=== PATIENT | female | born 1935 | race Caucasian/White ===

== ENCOUNTER 2016-11-23 17:40 | Inpatient (IN) | payer MEDICARE, OTHER ==
[~2016-11-23] VITALS: Ht 165.1 cm; Wt 55.8 kg
[~2016-11-23 17:40] MED LIST: ACET-2422 PO; ACLI400A IH; ALBT2T; ALBU0.632 HHN; ALBU2.5V4 IH; ALBU8.5H2 IH; ALPR.25T; ALPR0.5T7 PO; ANTARA PO; ASP325T PO; ASP81CT PO; ASP81TEC PO; ATOR10TA PO; ATRV10T PO; BETIMOL; BUDE10.2 IH; BUDE10.22; BUDE6HFA IH; CEPH500C PO; CHOL2000 PO; CLOP75TA PO; CLPD75T PO; DABI75CA3 PO; DIGO250T15 PO; DILT240C PO; EZET10TA5 PO; FENO120T PO; FERR-74 PO; FLUT16SP22 NS; FOLI0.4T2 PO; FURO40TA4 PO; IBP200T; INSU100V31 IJ; INSU100V5 SQ; ISM30TCR PO; LEVO500T69 PO; LRT10T PO; MAGN250T7 PO; MECL12.579 PO; METO-333 PO; METO50TA7; MGX400T PO; MNTL10T PO; MTP50T PO; MULT1CAP27 PO; NISO17TA PO; NITR100C3 PO; NTR.4SL SL; OLME20TA5; OMG1KC PO; ONDA-42 SL; POLY255P PO; POTA10TA10 PO; PRD20T PO; RIVA20TA PO; RT-ALBUINH IH; TIOT18CA; TIOT4MIS2 IH; TRIM100T PO; TYLENOL ARTHRITIS; VITAMINS; XARELTO PO; ZIPR20CA26 PO; [UNRECOGNIZED DRUG - CODE] PO; [UNRECOGNIZED DRUG - OTHER]; [UNRECOGNIZED DRUG - OTHER] PO; hydrochlorot
--- OUTSIDE RECORDS SUMMARY | 2016-11-23 17:53 | XMS REPORT | Continuity of Care Document ---
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 Yes 08/09/16 11:05pm Organ Donor No 08/09/16 11:05pm Resuscitation Status Full Code 08/09/16 11:05pm Chief Complaint and Reason for Visit Chief Complaint Nasal Problems Reason for Visit Epistaxis Problems Active Problems Medical Problem Onset Date Status COPD with acute exacerbation Unknown Acute Chest pain at rest Unknown Acute Constipation Unknown Acute Digoxin toxicity Unknown Acute Epistaxis Unknown Acute Nausea Unknown Acute Respiratory distress Unknown Acute Urinary tract infectious disease Unknown Acute Medications Current Home Medications Medication Dose Units Route Directions Days/Qty Instructions Start Date Nitroglycerin 0.4 Mg 0.4 Mg Q 5 Min X 3 Doses as needed NEEDED FOR CHEST PAIN 06/15/09 Multivitamins 1 Each 1 Tab Oral Daily 07/30/10 Fish Oil 1,000 Mg 1,000 Mg Oral Every Evening 04/10/12 Loratadine 10 Mg 10 Mg Oral Daily 04/11/12 Digoxin 250 Mcg 250 Mcg Oral Daily 09/01/15 Furosemide 40 Mg 40 Mg Oral Daily 09/01/15 Potassium Chloride 10 Meq 10 Meq Oral Twice A Day 09/01/15 Albuterol Sulfate 2.5 Mg/3 Ml 2.5 Mg Inhalation Every 6 Hours as needed for Shortness Of Breath 09/01/15 Tiotropium [place] 4 Gm 2 Puff Inhalation Daily 09/01/15 Ferrous Sulfate 325 Mg 325 Mg Oral Twice A Day 09/01/15 Alprazolam 0.5 Mg 0.5 Mg Oral Twice A Day 09/01/15 Ziprasidone Hcl 20 Mg 20 Mg Oral Bedtime 09/01/15 Trimethoprim 100 Mg 100 Mg Oral Bedtime 09/01/15 Rivaroxaban 20 Mg 20 Mg Oral Bedtime 09/02/15 Budesonide/Formoterol Fumarate 10.2 Gm 2 Puff Inhalation Twice A Day 09/02/15 Albuterol Sulfate 8.5 Gm 2 Puff Inhalation Every 4HRS as needed for Shortness Of Breath 09/02/15 Fluticasone Propionate 16 Gm 1 Spr Nasal Daily 09/02/15 Meclizine Hcl 12.5 Mg 12.5 Mg Oral Daily 09/02/15 Ezetimibe 10 Mg 10 Mg Oral Bedtime 09/02/15 Acetaminophen 650 Mg 650-1300 Mg Oral Twice A Day as needed for Pain 09/02/15 Prednisone 20 Mg 20 Mg Oral Daily@0700 30 Days 09/06/15 Metoprolol Tartrate 25 Mg 25 Mg Oral Twice A Day 30 Days 09/06/15 Atorvastatin Calcium 10 Mg 10 Mg Oral Daily 30 09/06/15 Polyethylene Glycol 3350 255 Gm 527 03/31/16 Past Home Medications Medication Directions Ordered Status Montelukast Sodium 10 Mg Tablet, 10 Mg Oral Bedtime 06/21/08 Discontinued Olmesartan 20 Mg Tablet, 06/21/08 Discontinued Ezetimibe 10 Mg Tablet, 10 Mg Oral Bedtime 06/21/08 Discontinued Alprazolam 0.25 Mg Tablet, 06/21/08 Discontinued Ibuprofen 200 Mg Tablet, 06/21/08 Discontinued Tiotropium [place] 18 Mcg Cap.w.dev, 06/21/08 Discontinued [Betimol] , 06/21/08 Discontinued [Symbicodrt] , 06/21/08 Discontinued [Hydrochlorot] , 06/21/08 Discontinued Aspirin 81 Mg Tablet, 325 Mg Oral Daily 06/21/08 Discontinued Albuterol Sulfate 2 Mg Tablet, 06/21/08 Discontinued Budesonide/Formoterol Fumarate 10.2 Gm Hfa.aer.ad, 2 Puff Daily 06/15/09 Discontinued Nisoldipine 17 Mg Tab.sr.24h, 8.5 Mg Oral Bedtime 06/15/09 Discontinued [R.-Vivian] , 9 - 25 Oral Twice Daily And Prn 06/15/09 Discontinued [Tylenol Arthritis] , 06/15/09 Discontinued [Vitamins] , 06/15/09 Discontinued Magnesium Oxide 400 Mg Tab, 250 Mg Oral Twice A Day 06/15/09 Discontinued Nitrofurantoin Macrocrystals 100 Mg Capsule, 100 Mg Oral Twice A Day Discontinued Metoprolol Tartrate 50 Mg Tab, 50 Mg Oral Twice A Day 07/30/10 Discontinued Albuterol Sulfate (Proventil Nebs) 0.63 Mg/3 Ml Vial.neb, 1 Each Hand Held Nebulizer Every 4HRS as needed 07/30/10 Discontinued Cholecalciferol 2,000 Unit Capsule, 2000 Unit Oral Every Other Day 07/30/10 Discontinued Folic Acid 0.4 Mg Tablet, 0.4 Mg Oral Every Other Day 07/30/10 Discontinued Aspirin 325 Mg Tab, 325 Mg Oral Daily 07/31/10 Discontinued Atorvastatin Calcium 10 Mg Tablet, 10 Mg Oral Daily 07/31/10 Discontinued Isosorbide Mononitrate 30 Mg Tab, 30 Mg Oral Daily 07/31/10 Discontinued Clopidogrel Bisulfate 75 Mg Tablet, 1 Each Oral Daily 07/31/10 Discontinued Fenofibrate 120 Mg Tablet, 120 Mg Oral 07/31/10 Discontinued [Antara] , 130 Mg Oral Bedtime 11/22/10 Discontinued Cephalexin Monohydrate (Keflex) 500 Mg Capsule, 1 Each Oral Three Times A Day 11/22/10 Discontinued Diphenhydram/Pe/Dm/Acetamin/Gg 1 Each Tablet.seq, 2 Tab Oral Daily 04/10/12 Discontinued Diltiazem Hcl (Cardizem Cd) 240 Mg Cap.sr.24h, 240 Mg Oral Daily 04/11/12 Discontinued Dabigatran Etexilate Mesylate 75 Mg Capsule, 75 Mg Oral Daily 04/11/12 Discontinued Aspirin 81 Mg Tabec, 81 Mg Oral Daily 04/11/12 Discontinued Budesonide/Formoterol Fumarate 10.2 Gm Hfa.aer.ad, 2 Puff Inhalation Twice A Day 04/26/13 Discontinued Magnesium Oxide 250 Mg Tablet, 250 Mg Oral Twice A Day 04/26/13 Discontinued Aspirin 325 Mg Tab, 325 Mg Oral Twice A Day 04/26/13 Discontinued Albuterol 8.5 Gm Hfa.aer.ad, 2 Puff Inhalation Every 3 Hours as needed Discontinued Clopidogrel Bisulfate 75 Mg Tablet, 75 Mg Oral Daily 04/26/13 Discontinued Aclidinium [place] 400 Mcg Aer.pow.ba, 400 Mcg Inhalation Twice A Day Discontinued Levofloxacin 500 Mg Tab, 1 Each Oral Daily 11/06/13 Discontinued Ondansetron Hcl 4 Mg Tab, 4 Mg Sublingual Every 4HRS as needed for Nausea 04/14 Discontinued [Xarelto] Unknown Strength , 20 Mg Oral Daily 09/01/15 Discontinued Metoprolol Tartrate 25 Mg Tablet, 12.5 Mg Oral Twice A Day 09/02/15 Discontinued Social History Social History Problem Response Recorded Date/Time Alcohol Use Rarely Uses 03/31/2016 10:24am Recreational Drug Use No 03/31/2016 10:24am Recent Foreign Travel No 08/09/2016 11:05pm Recent Infectious Disease Exposure No 08/09/2016 11:05pm Sexually Transmitted Disease No 08/09/2016 11:05pm HIV/AIDS No 08/09/2016 11:05pm Smoking Status Never a Smoker 08/09/2016 11:05pm Do you dip or chew tobacco? No 03/31/2016 10:24am Recent Hopitalizations No 08/09/2016 11:05pm Sexually Transmitted Disease No 08/09/2016 11:05pm Hx Sexually Transmitted Disorders No 06/21/2008 5:34pm Query Response Start Date Stop Date Smoking Status Never a Smoker 01/25/2004 Hospital Discharge Instructions No hospital discharge instructions. Plan of Care Discharge Date 08/10/16 12:01am Disposition 01 HOME, SELF-CARE Condition at Discharge Improved Instructions/Education Provided Epistaxis (ED) Prescriptions See Medication Section Referrals CONNIE AGUILAR MD - Primary Care Physician Additional Instructions/Education All discharge instructions reviewed with patient and/or family. Voiced understanding. Continue home medications as directed. Use nasal spray 2 sprays to each nostril every 6 hours. Do not blow your nose. Use humidified oxygen. Follow-up with Dr. Biggs this week for recheck and further evaluation. Return for worse pain, fever, vomiting, persistent bleeding that does not stop with direct pressure or other concerns as needed. Functional Status No functional status results. Allergies, Adverse Reactions, Alerts Allergen Type Severity Reaction Status Last Updated Penicillins ([id number]) Allergy Unknown Active 06/19/14 simvastatin ([id number]) Allergy Unknown Active 06/21/08 egg ([id number]) Allergy Intermediate Active 04/10/12 milk ([id number]) Allergy Mild Active 04/10/12 Immunizations No immunization records. Vital Signs Acute Vital Signs Vital Response Date/Time Temperature (Fahrenheit) 98.0 degrees F (97.6 - 99.5) 08/10/2016 12:01am Temperature (Calculated Celsius) 36.06075 degrees C (36.4 - 37.5) 08/10/2016 12:01am Temperature Source Temporal 08/10/2016 12:01am Pulse Rate (adult) 58 bpm (60 - 90) 08/10/2016 12:01am Respiratory Rate 18 bpm (12 - 24) 08/10/2016 12:01am O2 Sat by Pulse Oximetry 95 % (88 - 100) 08/10/2016 12:01am Blood Pressure 118/66 mm Hg 08/10/2016 12:01am Blood Pressure Mean 95 mm Hg 08/09/2016 11:05pm Pain Numeric Pain Scale 1 08/10/2016 12:01am Height (Feet) 5 feet 08/09/2016 11:05pm Height (Inches) 5 inches 08/09/2016 11:05pm Height (Calculated Centimeters) 165.096849 cm 08/09/2016 11:05pm Weight (Pounds) 125 pounds 08/09/2016 11:05pm Weight (Ounces) 8.9 oz 08/09/2016 11:05pm Weight (Calculated Grams) 79555.047 gm 08/09/2016 11:05pm Weight (Calculated Kilograms) 56.068870 kilograms 08/09/2016 11:05pm Calculated BMI 18.88 08/09/2016 11:05pm Capillary Refill Capillary Refill Less Than 3 Seconds 08/09/2016 11:05pm Results Laboratory Results Test Name Result Units Flags Reference Collection Date/Time Result Date/ Time Comments White Blood Count 14.6 10^3/uL H 4.3-11.0 08/09/2016 11:20pm 08/09/2016 11:36pm Red Blood Count 3.74 10^6/uL L 4.35-5.85 08/09/2016 11:20pm 08/09/2016 11 :36pm Hemoglobin 11.1 G/DL L 11.5-16.0 08/09/2016 11:20pm 08/09/2016 11:36pm Hematocrit 36 % 35-52 08/09/2016 11:20pm 08/09/2016 11:36pm Mean Corpuscular Volume 96 FL 80-99 08/09/2016 11:20pm 08/09/2016 11: 36pm Mean Corpuscular Hemoglobin 30 PG 25-34 08/09/2016 11:20pm 08/09/2016 11:36pm Mean Corpuscular Hemoglobin Concent 31 G/DL L 32-36 08/09/2016 11:20pm 11:36pm Red Cell Distribution Width 12.4 % 10.0-14.5 08/09/2016 11:20pm 2015 11:36pm Platelet Count 339 10^3/uL 130-400 08/09/2016 11:20pm 08/09/2016 11: 36pm Mean Platelet Volume 9.9 FL 7.4-10.4 08/09/2016 11:20pm 08/09/2016 11: 36pm Neutrophils (%) (Auto) 85 % H 42-75 08/09/2016 11:20pm 08/09/2016 11: 36pm Lymphocytes (%) (Auto) 7 % L 12-44 08/09/2016 11:20pm 08/09/2016 11:36pm Monocytes (%) (Auto) 7 % 0-12 08/09/2016 11:20pm 08/09/2016 11:36pm Eosinophils (%) (Auto) 1 % 0-10 08/09/2016 11:20pm 08/09/2016 11:36pm Basophils (%) (Auto) 0 % 0-10 08/09/2016 11:20pm 08/09/2016 11:36pm Neutrophils # (Auto) 12.4 X 10^3 H 1.8-7.8 08/09/2016 11:20pm 08/09/2016 11:36pm Lymphocytes # (Auto) 1.1 X 10^3 1.0-4.0 08/09/2016 11:20pm 08/09/2016 11:36pm Monocytes # (Auto) 1.0 X 10^3 0.0-1.0 08/09/2016 11:20pm 08/09/2016 11: 36pm Eosinophils # (Auto) 0.1 10^3/uL 0.0-0.3 08/09/2016 11:20pm 08/09/2016 11:36pm Basophils # (Auto) 0.0 10^3/uL 0.0-0.1 08/09/2016 11:20pm 08/09/2016 11 :36pm Procedures No known history of procedures. Encounters Encounter Location Arrival/Admit Date Discharge/Depart Date Attending Provider Departed Emergency Room [facility] 08/09/16 11:05pm 08/16 12:01am DARLENE BILL MD Recent Diagnosis
[2016-11-23 18:11] LABS: BASOPHILS % (AUTO) 0 % (0-10); EOSINOPHILS % (AUTO) 0 % (0-10); LYMPHOCYTES # (AUTO) 0.6 X 10^3 (1.0-4.0); LYMPHOCYTES % (AUTO) 3 % (12-44); MEAN CORPUSCULAR HEMOGLOBIN 28 PG (25-34); MEAN CORPUSCULAR HGB CONC 30 G/DL (32-36); MEAN CORPUSCULAR VOLUME 94 FL (80-99); MONOCYTES # (AUTO) 0.3 X 10^3 (0.0-1.0); MONOCYTES % (AUTO) 2 % (0-12); NEUTROPHILS # (AUTO) 17.8 X 10^3 (1.8-7.8); NEUTROPHILS % (AUTO) 95 % (42-75); PLATELET COUNT 424 10^3/uL (130-400); RED BLOOD COUNT 3.95 10^6/uL (4.35-5.85); RED CELL DISTRIBUTION WIDTH 12.9 % (10.0-14.5); WHITE BLOOD COUNT 18.8 10^3/uL (4.3-11.0)
[2016-11-23] MEDS ORDERED: ASPIRIN 81 MG CHEW (CHILDREN'S ASA) PO ONE (18:15)
[2016-11-23] MEDS ORDERED: RX-NITROGLYCERIN 0.4 MG TAB BTL 25'S SL PRN (18:15)
[2016-11-23 18:23] LABS: INR 1.5 (0.8-1.4); PROTHROMBIN TIME PATIENT 17.6 SEC (12.2-14.7)
--- NOTE | 2016-11-23 18:23 | Diagnostic Imaging Report ---
INDICATION: Shortness of breath. Rib pain. Comparison with 03/31/2016. FINDINGS: There has been slight increase in cardiac size. Median sternotomy changes are again noted. Mild prominence of pulmonary vasculature with bilateral basilar alveolar infiltrates present. Also small bilateral pleural effusions. No pneumothorax. IMPRESSION: 1. Development of mild cardiomegaly with bilateral infiltrates suggesting some pulmonary venous congestion. Dictated by: Dictated on workstation # [id number]
[2016-11-23 18:28] LABS: BAND NEUTROPHILS 0 %; BASOPHILS % (MANUAL) 0 %; EOSINOPHILS % (MANUAL) 0 %; LYMPHOCYTES % (MANUAL) 2 %; NEUTROPHILS % (MANUAL) 97 %
[2016-11-23 18:31] LABS: ALANINE AMINOTRANSFERASE 14 U/L (0-55); AMYLASE 48 U/L (25-125); ANION GAP 10 MMOL/L (5-14); ASPARTATE AMINO TRANSFERASE 19 U/L (5-34); BILIRUBIN,TOTAL 0.3 MG/DL (0.1-1.0); BLOOD UREA NITROGEN 15 MG/DL (7-18); BUN/CREATININE RATIO 16; CALCIUM 9.7 MG/DL (8.5-10.1); CARBON DIOXIDE 31 MMOL/L (21-32); CHLORIDE 98 MMOL/L (98-107); CREATINE KINASE 32 U/L (29-168); CREATININE SERUM 0.95 MG/DL (0.60-1.30); GFR ESTIMATED 57; GLUCOSE 144 MG/DL (70-105); LIPASE 22 U/L (8-78); MAGNESIUM 2.1 MG/DL (1.8-2.4); POTASSIUM 4.5 MMOL/L (3.6-5.0); SODIUM 139 MMOL/L (135-145); TOTAL PROTEIN 6.9 G/DL (6.4-8.2)
--- NOTE | 2016-11-23 18:31 | ED Cardiac General ---
History of Present Illness General Chief Complaint: Respiratory Problems Stated Complaint: CP,SOA Nursing Triage Note: PT REPORTS INCREASE IN SOA X 1 WEEK WORSE TODAY. PT ALSO REPORTS "RIB PAIN THAT GOES ALL THE WAY AROUND" PT REPORTS PAIN INCREASES WITH MOVEMENT. Source: patient (SOMEWHAT LIMITED HISTORIAN), family History of Present Illness Time seen by provider: 18:00 Initial Comments PT C/O CHEST PAIN--PAIN ALL AROUND HER RIBS, THAT IS WORSE WITH DEEP BREATHS AND MOVEMENTS RATES PAIN 10/10 AT WORSE, IS 1/10 NOW AT REST AND NOT MOVING ALSO C/O SHORTNESS OF BREATH "WORSE THEN USUAL" SYMPTOMS ONGOING FOR SEVERAL DAYS BUT WORSE X 1 WEEK PT HAS COPD AND HAS USED ALBUTEROL NEBULIZER X 2 TODAY WITHOUT IMPROVEMENT NO COUGH-BUT STATES "I TRY TO COUGH BECAUSE I THINK IT'S IN MY LUNGS" NO FEVER NO SWELLING IN LEGS/ FEET OR PAIN IN [place] HAS NOT SOUGHT CARE UNTIL TODAY PCP: DR AGUILAR DIRECTOR OF DIRECT MARKETING: DR MARQUES Allergies and Home Medications Allergies Coded Allergies: egg (Verified Allergy, Intermediate, 04/10/12) milk (Verified Allergy, Mild, 04/10/12) Penicillins (Unverified Allergy, Unknown, 06/19/14) adhesive tape (Verified Allergy, Unknown, 11/24/16) latex (Verified Allergy, Unknown, 11/24/16) simvastatin (Verified Allergy, Unknown, 06/21/08) Home Medications Acetaminophen 650 Mg Tablet.er 650-1,300 MG PO BID PRN PRN PAIN (Reported) Albuterol Sulfate 2.5 Mg/3 Ml Vial.neb 2.5 MG IH Q6H PRN PRN SHORTNESS OF BREATH (Reported) Albuterol Sulfate 8.5 Gm Hfa.aer.ad 2 PUFF IH Q4H PRN PRN SHORTNESS OF BREATH ( Reported) Alprazolam 0.5 Mg Tablet 0.5 MG PO BID (Reported) Atorvastatin Calcium 10 Mg Tablet #30 10 MG PO DAILY Prescribed by: AIRAM MARQUES on 09/06/15 0821 Budesonide/Formoterol Fumarate 10.2 Gm Hfa.aer.ad 2 PUFF IH BID (Reported) Digoxin 250 Mcg Tablet 250 MCG PO DAILY (Reported) Duloxetine HCl 20 Mg Capsule.dr 20 MG PO (Reported) Ezetimibe 10 Mg Tablet 10 MG PO HS (Reported) Ferrous Sulfate 325 Mg Tablet 325 MG PO BID (Reported) Fluticasone Propionate 16 Gm [place].susp 1 SPR NS DAILY (Reported) Furosemide 40 Mg Tablet 40 MG PO DAILY (Reported) Loratadine 10 Mg Tab 10 MG PO DAILY (Reported) Meclizine HCl 12.5 Mg Tablet 12.5 MG PO DAILY (Reported) Metoprolol Tartrate 25 Mg Tablet 30Days 25 MG PO BID Prescribed by: CONNIE AGUILAR on 09/06/15 0816 Multivitamins 1 Each Capsule 1 TAB PO DAILY (Reported) Nitroglycerin 0.4 Mg Subl 0.4 MG Q 5 MIN X 3 DOSES PRN PRN (Reported) NEEDED FOR CHEST PAIN [place] 3 Polyunsat Fatty Acids 1,000 Mg Cap 1,000 MG PO EVERY EVENING (Reported) Polyethylene Glycol 3350 255 Gm Powder #527 (Reported) Potassium Chloride 10 Meq Tablet.er 10 MEQ PO BID (Reported) Prednisone 20 Mg Tab 30Days 20 MG PO DAILY@0700 Prescribed by: CONNIE AGUILAR on 09/06/15 0816 Rivaroxaban 20 Mg Tablet 20 MG PO HS (Reported) Tiotropium [place] 4 Gm Mist.inhal 2 PUFF IH DAILY (Reported) Trimethoprim 100 Mg Tablet 100 MG PO HS (Reported) Ziprasidone HCl 20 Mg Capsule 20 MG PO HS (Reported) Review of Systems Constitutional: no symptoms reportedNo chills, No diaphoresis, No dizziness, No fever EENTM: No Symptoms Reported Respiratory: See HPI Shortness of Air SOA With Exertion SOA at RestDenies Wheezing Cardiovascular: See HPI Chest PainDenies Edema, Denies Lightheadedness, Denies Palpitations, Denies Syncope Gastrointestinal: No Symptoms Reported Genitourinary: No Symptoms Reported Musculoskeletal: see HPI back pain Skin: no symptoms reported Psychiatric/Neurological: No Symptoms Reported Endocrine: No Symptoms Reported Hematologic/Lymphatic: No Symptoms Reported Past Hmlkecl-Vccnme-Hmtjdy Hx Patient Social History Alcohol Use: Occasionally Uses Recreational Drug Use: No Smoking Status: Former Smoker Type Used: Cigarettes Former Smoker/When Quit: Jan 25, 2004 Recent Foreign Travel: No Contact w/Someone Who Travel: No Recent Infectious Disease Expo: No Recent Hopitalizations: No Physical Abuse Screen: No Sexual Abuse: No Immunizations Up To Date Tetanus Booster (TDap): Unknown PED Vaccines UTD: No Date of Pneumonia Vaccine: Aug 01, 2011 Seasonal Allergies Seasonal Allergies: Yes Surgeries HX Surgeries: Yes (DENTAL; LEFT CAROTID ENDARTERECTOMY) Surgeries: Cardiac, CABG, Gallbladder, Tracheostomy, Vascular Surgery Respiratory Hx Respiratory Disorders: Yes (pulmonary hypertension, wears 3L o2 at all times ) Respiratory Disorders: Asthma, COPD Cardiovascular Hx Cardiac Disorders: Yes Cardiac Disorders: Atrial Fibrillation, Coronary Artery Disease, Heart Attack, High Cholesterol, Hypertension, Peripheral Vascular Neurological Hx Neurological Disorders: Yes Neurological Disorders: TIA, Vertigo Reproductive System Hx Reproductive Disorders: No Sexually Transmitted Disease: No HIV/AIDS: No 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 Genitourinary Hx Genitourinary Disorders: No Gastrointestinal Hx Gastrointestinal Disorders: Yes Gastrointestinal Disorders: Gastroesophageal Reflux, Chronic Constipation, Ulcer Musculoskeletal Hx Musculoskeletal Disorders: Yes Musculoskeletal Disorders: Osteoporosis, Arthritis, Rheumatoid Arthritis Endocrine Hx Endocrine Disorders: No HEENT HX ENT Disorders: Yes HEENT Disorders: Glaucoma Loss of Vision: Denies Hearing Impairment: Hard of Hearing Cancer Hx Cancer: No Psychosocial Hx Psychiatric Problems: Yes Behavioral Health Disorders: Anxiety Integumentary HX Skin/Integumentary Disorder: No Blood Transfusions Hx Blood Disorders: No Physical Exam Vital Signs Vital Sign - Last 12Hours 11/23/16 18:02 Temp 97.6 Pulse 81 Resp 18 B/P 174/93 Pulse Ox 99 O2 Delivery Nasal Cannula O2 Flow Rate 3 Capillary Refill : Less Than 3 Seconds General Appearance: WD/WN Other (MILDLY DYSPNEIC BUT ABLE TO TALK IN FULL SENTENCES) HEENT: PERRL/EOMI Normal ENT Inspection Neck: Full Range of Motion Normal Inspection Non Tender SuppleNo JVD Respiratory: Other (BREATH SOUNDS DIMINISHED THROUGHOUT ALL LUNG BURTON BILATERALLY, BUT MARKEDLY DIMINISHED IN LEFT BASE) Cardiovascular: Regular Rate, Rhythm No Edema No JVD No Murmur Normal Peripheral Pulses Gastrointestinal: Normal Bowel Sounds No Organomegaly No Pulsatile Mass Non Tender Soft Extremity: Normal Capillary Refill Normal Inspection Normal Range of Motion Non Tender No Calf Tenderness No Pedal Edema Neurologic/Psychiatric: Alert Oriented x3 No Motor/Sensory Deficits Normal 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 Norm as Tested Skin: Normal Color Warm/Dry Progress/Results/Core Measures Results/Orders Lab Results Laboratory Tests Test 11/23/16 17:57 Range/Units Activated Partial Thromboplast Time 42 H 24-35 SEC Alanine Aminotransferase (ALT/SGPT) 14 0-55 U/L Albumin 4.0 3.2-4.5 G/DL Alkaline Phosphatase 71 40-136 U/L Amylase Level 48 25-125 U/L Anion Gap 10 5-14 MMOL/L Aspartate Amino Transf (AST/SGOT) 19 5-34 U/L B-Type Natriuretic Peptide 295.0 H <100.0 PG/ML BUN/Creatinine Ratio 16 Band Neutrophils 0 % Basophils # (Auto) 0.0 0.0-0.1 10^3/uL Basophils % (Manual) 0 % Basophils (%) (Auto) 0 0-10 % Blood Morphology Comment NORMAL Blood Urea Nitrogen 15 7-18 MG/DL Calcium Level 9.7 8.5-10.1 MG/DL Carbon Dioxide Level 31 21-32 MMOL/L Chloride Level 98 98-107 MMOL/L Creatine Kinase MB 1.3 <6.6 NG/ML Creatinine 0.95 0.60-1.30 MG/DL Digoxin Level 0.78 L 0.80-2.00 NG/ML Eosinophils # (Auto) 0.0 0.0-0.3 10^3/uL Eosinophils % (Manual) 0 % Eosinophils (%) (Auto) 0 0-10 % Estimat Glomerular Filtration Rate 57 Glucose Level 144 H 70-105 MG/DL Hematocrit 37 35-52 % Hemoglobin 11.2 L 11.5-16.0 G/DL INR Comment 1.5 H 0.8-1.4 Lipase 22 8-78 U/L Lymphocytes # (Auto) 0.6 L 1.0-4.0 X 10^3 Lymphocytes % (Manual) 2 % Lymphocytes (%) (Auto) 3 L 12-44 % Magnesium Level 2.1 1.8-2.4 MG/DL Mean Corpuscular Hemoglobin 28 25-34 PG Mean Corpuscular Hemoglobin Concent 30 L 32-36 G/DL Mean Corpuscular Volume 94 80-99 FL Mean Platelet Volume 10.0 7.4-10.4 FL Monocytes # (Auto) 0.3 0.0-1.0 X 10^3 Monocytes % (Manual) 1 % Monocytes (%) (Auto) 2 0-12 % Neutrophils # (Auto) 17.8 H 1.8-7.8 X 10^3 Neutrophils % (Manual) 97 % Neutrophils (%) (Auto) 95 H 42-75 % Platelet Count 424 H 130-400 10^3/uL Potassium Level 4.5 3.6-5.0 MMOL/L Prothrombin Time 17.6 H 12.2-14.7 SEC Red Blood Count 3.95 L 4.35-5.85 10^6/uL Red Cell Distribution Width 12.9 10.0-14.5 % Sodium Level 139 135-145 MMOL/L Total Bilirubin 0.3 0.1-1.0 MG/DL Total Creatine Kinase 32 29-168 U/L Total Protein 6.9 6.4-8.2 G/DL Troponin I < 0.30 <0.30 NG/ML White Blood Count 18.8 H 4.3-11.0 10^3/uL My Orders Orders-JIMENEZ HOPE DO Amylase (11/23/16 18:04) Cbc With Automated Diff (11/23/16 18:04) Comprehensive Metabolic Panel (11/23/16 18:04) Creatine Kinase (11/23/16 18:04) Creatine Kinase Mb (11/23/16 18:04) Lipase (11/23/16 18:04) Partial Thromboplastin Time (11/23/16 18:04) Protime With Inr (11/23/16 18:04) Troponin I (11/23/16 18:04) Chest 1 View, Ap/Pa Only (11/23/16 18:04) O2 (11/23/16 18:04) Ekg Tracing (11/23/16 18:04) Aspirin Chewable Tablet (Baby Aspirin Ch (11/23/16 18:15) Rx-Nitroglycerin Sl Tabs (Rx-Nitrostat S (11/23/16 18:15) BNP (11/23/16 18:04) Monitor-Rhythm Ecg Trace Only (11/23/16 18:04) Magnesium (11/23/16 18:04) Manual Differential (11/23/16 17:57) Digoxin (11/23/16 18:13) Magnesium (11/23/16 18:55) Blood Culture (11/23/16 18:55) Furosemide Injection (Lasix Injection) (11/23/16 19:00) Methylprednisolone Sod Succ (Solu-Medrol (11/23/16 19:00) Albuterol/Ipra Inhalation Soln (Duoneb I (11/23/16 19:00) Rt Request For Service (11/23/16 18:57) Svn Sm Volume Nebulizer Rt-Rfs (11/23/16 18:57) Ceftriaxone Injection (Rocephin Injectio (11/23/16 19:00) Medications Given in ED Current Medications Medications Dose Ordered Sig/Patel Route Start Time Stop Time Status Last Admin Dose Admin Albuterol/ Ipratropium 3 ml 3 ml ONCE ONCE INH 11/23/16 19:00 11/23/16 19:01 DC 11/23/16 19:12 3 ML Aspirin 324 mg ONCE ONCE PO 11/23/16 18:15 11/23/16 18:16 DC 11/23/16 18:29 324 MG Ceftriaxone Sodium/Sodium Chloride 50 ml @ 100 mls/hr ONCE ONCE IV 11/23/16 19:00 11/23/16 19:29 DC 11/23/16 19:12 100 MLS/HR Furosemide 40 mg ONCE ONCE IVP 11/23/16 19:00 11/23/16 19:01 DC 11/23/16 19:12 40 MG Methylprednisolone Sodium Succinate 125 mg ONCE ONCE IVP 11/23/16 19:00 11/23/16 19:01 DC 11/23/16 19:12 125 MG Nitroglycerin 0.4 mg UD PRN SL 11/23/16 18:15 11/23/16 21:14 DC 11/23/16 18:29 0.4 MG Vital Signs/I&O Vital Sign - Last 12Hours 11/23/16 11/23/16 11/23/16 18:02 18:24 19:13 Temp 97.6 Pulse 81 Resp 18 B/P 174/93 Pulse Ox 99 98 96 O2 Delivery Nasal Cannula Nasal Cannula Nasal Cannula O2 Flow Rate 3 3 3 Blood Pressure Mean: 120 Progress Note : Progress Note SYMPTOMS IMPROVED AT TIME OF ADMIT ECG Initial ECG Impression Time: 18:02 Initial ECG Rate: 79 Initial ECG Rhythm: Normal Sinus Initial ECG Impression: Nonspecific Changes (RBBB) Initial ECG Comparisson: Unchanged Diagnostic Imaging Comments CXR--CARDIOMEGALY, PULMONARY VASCULAR CONGESTION AND BIBASILAR INFILTRATIONS/ EFFUSIONS--PER RADIOLOGIST REPORT @ 1830 ( APPEARS TO BE GREATER IN LLL TO ME ) Reviewed: Reviewed by Me Departure Communication Progress Notes 1921--SPOKE WITH DR. MAY, ACCEPTS PT FOR ADMIT. Impression Impression: Primary Impression: CHEST PAIN Additional Impressions: CHF (congestive heart failure) Pneumonia COPD exacerbation Hx of coronary artery disease History of atrial fibrillation Disposition: ADMITTED INPATIENT Condition: Improved Decision to Admit Reason: Admit from ER (General) Decision to Admit/Date: Nov 23, 2016 Time/Decision to Admit Time: 19:25 Departure-Patient Inst. Referrals: CONNIE AGUILAR MD (PCP/Family) Primary Care Physician JIMENEZ HOPE DO Nov 23, 2016 18:31
[2016-11-23 18:38] LABS: TROPONIN I < 0.30 NG/ML (<0.30)
[2016-11-23] MEDS ORDERED: cefTRIAXone INJECTION 1,000 MG in NORMAL SALINE (BAXTER MINI) 50 ML IV ONE (19:00)
[2016-11-23] MEDS ORDERED: RT-ALBUTEROL/IPRATROPIUM 3 ML (DUONEB) VIAL INH ONE (19:00)
[2016-11-23] MEDS ORDERED: FUROSEMIDE 40 MG/4 ML INJ (LASIX) IVP ONE (19:00)
[2016-11-23] MEDS ORDERED: methylPREDNISolone 125 MG (Solu-MEDROL) VIAL IVP ONE (19:00)
[2016-11-23 19:57] LABS: BILIRUBIN,URINE NEGATIVE (NEGATIVE); KETONES,URINE NEGATIVE (NEGATIVE); LEUKOCYTE ESTERASE ,URINE 1+ (NEGATIVE); NITRITE,URINE NEGATIVE (NEGATIVE); PH,URINE 7 (5-9); PROTEIN,URINE NEGATIVE (NEGATIVE); UROBILINOGEN,URINE NORMAL (NORMAL)
[2016-11-23 20:09] LABS: WBC,URINE 0-2 /HPF
[2016-11-23] MEDS ORDERED: PATIENT MAY USE OWN MEDS, ALL PO SCH (21:00)
[2016-11-23] MEDS ORDERED: morphine INJ 10 MG/ML 1ML (SYR OR VIAL) IVP PRN (21:00)
[2016-11-23] MEDS ORDERED: NITROGLYCERIN SUBLINGUAL 0.4 MG TAB (NITROSTAT) SL PRN ×2 (21:00→21:30)
[2016-11-23] MEDS ORDERED: CATHETER FLUSH 10 ML SYR IV PRN (21:30)
[2016-11-23] MEDS ORDERED: AZITHROMYCIN 500 MG/NS 250 ML IVPB IV ONE ×2 (21:30)
[2016-11-23] MEDS ORDERED: morphine INJ 4 MG/ML 1 ML (VIAL/SYRINGE) IV PRN (21:30)
[2016-11-23 22:00] VITALS: BP 174/81
[2016-11-23] MEDS: methylPREDNISolone 125 MG (Solu-MEDROL) VIAL IV SCH (23:59)
[2016-11-23] MEDS: CATHETER FLUSH 10 ML SYR IV SCH (23:59)
[2016-11-24] VITALS (7 sets, daily range): BP systolic 136–173; BP diastolic 68–80
[2016-11-24 01:02] LABS: MYOGLOBIN SERUM 44.6 NG/ML (10.0-92.0)
[2016-11-24] MEDS ORDERED: DULO20CA18 PO (01:18)
[2016-11-24 05:04] LABS: BASOPHILS % (AUTO) 0 % (0-10); EOSINOPHILS % (AUTO) 0 % (0-10); LYMPHOCYTES # (AUTO) 0.3 X 10^3 (1.0-4.0); LYMPHOCYTES % (AUTO) 2 % (12-44); MEAN CORPUSCULAR HEMOGLOBIN 28 PG (25-34); MEAN CORPUSCULAR HGB CONC 31 G/DL (32-36); MEAN CORPUSCULAR VOLUME 92 FL (80-99); MEAN PLATELET VOLUME 10.5 FL (7.4-10.4); MONOCYTES % (AUTO) 0 % (0-12); NEUTROPHILS # (AUTO) 15.4 X 10^3 (1.8-7.8); NEUTROPHILS % (AUTO) 98 % (42-75); PLATELET COUNT 424 10^3/uL (130-400); RED BLOOD COUNT 3.84 10^6/uL (4.35-5.85); RED CELL DISTRIBUTION WIDTH 12.7 % (10.0-14.5); WHITE BLOOD COUNT 15.8 10^3/uL (4.3-11.0)
[2016-11-24] MEDS: ACETAMINOPHEN 500 MG TAB (TYLENOL) PO PRN ×2 (05:08)
[2016-11-24 05:24] LABS: ALANINE AMINOTRANSFERASE 14 U/L (0-55); ALBUMIN 3.7 G/DL (3.2-4.5); ANION GAP 11 MMOL/L (5-14); ASPARTATE AMINO TRANSFERASE 16 U/L (5-34); BILIRUBIN,TOTAL 0.3 MG/DL (0.1-1.0); BLOOD UREA NITROGEN 15 MG/DL (7-18); BUN/CREATININE RATIO 17; CALCIUM 9.1 MG/DL (8.5-10.1); CARBON DIOXIDE 31 MMOL/L (21-32); CHLORIDE 97 MMOL/L (98-107); CHOLESTEROL 157 MG/DL (< 200); CREATININE SERUM 0.86 MG/DL (0.60-1.30); DIRECT LDL 78 MG/DL (1-129); GFR ESTIMATED > 60; GLUCOSE 172 MG/DL (70-105); SODIUM 139 MMOL/L (135-145); TOTAL PROTEIN 6.6 G/DL (6.4-8.2); TRIGLYCERIDES 45 MG/DL (<150); VLDL CHOLESTEROL 9 MG/DL (5-40)
[2016-11-24] MEDS ORDERED: FUROSEMIDE 40 MG/4 ML INJ (LASIX) IV ONE (06:00)
[2016-11-24] MEDS: methylPREDNISolone 125 MG (Solu-MEDROL) VIAL IV SCH (07:11)
[2016-11-24] MEDS: CATHETER FLUSH 10 ML SYR IV SCH ×3 (07:12→22:24)
[2016-11-24] MEDS: AZITHROMYCIN 250 MG TAB (ZITHROMAX) PO SCH (08:29)
--- NOTE | 2016-11-24 08:49 | Diagnostic Imaging Report ---
INDICATION: Followup pneumonia. Chest pain with deep inspiration. COMPARISON: 11/23/2016. FINDINGS: There has been a decrease in the bibasilar heterogeneous opacities. There are persistent linear opacities in the lung bases, most compatible with atelectasis/scar. No new airspace disease. No pleural effusion or pneumothorax. Stable cardiomediastinal silhouette with changes of CABG. Stable configuration of the sternal wires. IMPRESSION: Improvement in basilar heterogeneous opacities, compatible with resolving pneumonia. There is a small amount of residual subsegmental atelectasis in the lung bases. Dictated by: Dictated on workstation # [id number]
[2016-11-24] MEDS ORDERED: ASPIRIN E.C. 325 MG (ECOTRIN) TABLET PO SCH ×2 (09:00)
--- NOTE | 2016-11-24 10:31 | History & Physical-Hospitalist ---
HPI History of Present Illness: HPI/Chief Complaint Mrs. Matamoros is a frail 81-year-old white female with O2 dependent COPD who reports that she has not felt well for the past several months. She has felt hot and cold with sweats more frequently at night or in the evening. One week ago she then noted the onset of a nonproductive cough now. 3 or 4 days ago she noted the onset of pleuritic chest pain worse on the left with increasing shortness of breath. She reports that her appetite is been poor but she denies weight loss and feels if anything her abdomen is been a little more protuberant. She denies lower extremity edema. She does report a past TB exposure to a cousin when she was a child. She has no reported travel history outside of the state in the recent past. She has had several admissions for pneumonia in the past. She reports that she is updated on influenza and pneumococcal vaccination. She denies Patricia's Date Seen 11/24/16 Attending Physician Connie Aguilar MD PCP Connie Aguilar MD Referring Physician Date of Admission Nov 23, 2016 at 19:25 Home Medications & Allergies Home Medications Reviewed patient Home Medication Reconciliation Form Allergies Coded Allergies: egg (Verified Allergy, Intermediate, 04/10/12) milk (Verified Allergy, Mild, 04/10/12) Penicillins (Unverified Allergy, Unknown, 06/19/14) adhesive tape (Verified Allergy, Unknown, 11/24/16) latex (Verified Allergy, Unknown, 11/24/16) simvastatin (Verified Allergy, Unknown, 06/21/08) Past Phhexve-Uyxuco-Becsia Hx Patient Social History Alcohol Use: Occasionally Uses Recreational Drug Use: No Smoking Status: Former Smoker Former smoker/When Quit: Jan 25, 2004 Type Used: Cigarettes Physical Abuse Screen: No Sexual Abuse: No Recent Foreign Travel: No Contact w/other who traveled: No Recent Hopitalizations: No Recent Infectious Disease Expo: No Immunizations Up To Date Tetanus Booster (TDap): Unknown Date of Pneumonia Vaccine: Aug 01, 2011 Seasonal Allergies Seasonal Allergies: Yes Surgeries HX Surgeries: Yes (DENTAL; LEFT CAROTID ENDARTERECTOMY) Surgeries: Cardiac, CABG, Gallbladder, Tracheostomy, Vascular Surgery Respiratory Hx Respiratory Disorders: Yes (pulmonary hypertension, wears 3L o2 at all times ) Cardiovascular Hx Cardiovascular Disorders: Yes Cardiac Disorders: Atrial Fibrillation, Coronary Artery Disease, Heart Attack, High Cholesterol, Hypertension, Peripheral Vascular Neurological Hx Neurological Disorders: Yes Neurological Disorders: TIA, Vertigo Reproductive System Hx Reproductive Disorders: No Sexually Transmitted Disease: No HIV/AIDS: No Genitourinary Hx Genitourinary Disorders: No Gastrointestinal Hx Gastrointestinal Disorders: Yes Gastrointestinal Disorders: Gastroesophageal Reflux, Chronic Constipation, Ulcer Musculoskeletal Hx Musculoskeletal Disorders: Yes Musculoskeletal Disorders: Osteoporosis, Arthritis, Rheumatoid Arthritis Endocrine Hx Endocrine Disorders: No HEENT HX ENT Disorders: Yes HEENT Disorders: Glaucoma Loss of Vision: Denies Hearing Impairment: Hard of Hearing Cancer Hx Cancer: No Psychosocial Hx Psychiatric Problems: Yes Behavioral Health Disorders: Anxiety Integumentary HX Skin/Integumentary Disorder: No Skin/Integumentary Disorders: Psoriasis Blood Transfusions Hx Blood Disorders: No Review of Systems Constitutional: see HPI Physical Exam Physical Exam Vital Signs Vital Sign - Last 12Hours 11/23/16 18:02 Temp 97.6 Pulse 81 Resp 18 B/P 174/93 Pulse Ox 99 O2 Delivery Nasal Cannula O2 Flow Rate 3 Capillary Refill : Less Than 3 Seconds General Appearance: Anxious Chronically ill Neck: Full Range of Motion Normal Inspection Non Tender Supple Carotid Bruit Respiratory: Chest Non Tender No Accessory Muscle Use Other (rales and some vesicular breath sounds in the left base a few rales in the right base posteriorly breath sounds are somewhat diminished anteriorly breath sounds are clear no wheezing is noted. Expiration phase is slightly prolonged) Cardiovascular: No Edema No Gallop No JVD No Murmur Normal Peripheral Pulses Other (regularly irregular rhythm) Gastrointestinal: Normal Bowel Sounds No Organomegaly No Pulsatile Mass Non Tender Soft Back: No CVA Tenderness No Vertebral Tenderness Extremity: Normal Capillary Refill Normal Inspection Normal Range of Motion Non Tender No Calf Tenderness No Pedal Edema Neurologic/Psychiatric: Alert Oriented x3 Other (anxious) Lymphatic: No Adenopathy Comments Laboratory Tests 11/23/16 17:57 11/24/16 04:20 Results Results/Procedures Lab Laboratory Tests 11/23/16 17:57 11/24/16 04:20 Radiology chest x-ray reveals bibasilar infiltrates worse on the left there is no evidence for increased pulmonary vascular congestion. Assessment/Plan Admission Diagnosis 1. Atypical pneumonia with underlying severe COPD Rocephin and a sitter myosin were initiated in the emergency room will consult Dr. Vazquez for further recommendations. Currently she is not wheezing on high-dose steroids will switch to oral stress dose prednisone 40 mg every morning daily. 2. Paroxysmal atrial fibrillation continue Xaralto. This will also suffice for DVT prophylaxis. She doesn't have the dexterity to get SCDs off in time to get to the bathroom such that they pose more risk than benefit to her. Copy Copies To 1: CONNIE AGUILAR MD Clinical Quality Measures DVT/VTE Risk/Contraindication: Risk Factor Score Per Nursin RFS Level Per Nursing on Admit: 4+=Very High CRISTY ABEBE MD Nov 24, 2016 10:31
[2016-11-24] MEDS ORDERED: MONT10TA24 PO (11:11)
[2016-11-24] MEDS ORDERED: METO-333 PO (11:11)
[2016-11-24] MEDS ORDERED: PRD10T PO (11:11)
[2016-11-24] MEDS ORDERED: ATOR10TA66 PO (11:11)
[2016-11-24] MEDS ORDERED: NITROGLYCERIN SUBLINGUAL 0.4 MG TAB (NITROSTAT) SL PRN (11:30)
[2016-11-24] MEDS ORDERED: RX-ALBUTEROL INHALER (VENTOLIN HFA) 18 GM IH PRN (11:30)
[2016-11-24] MEDS: ALPRAZolam 0.5 MG (XANAX) TAB PO SCH ×2 (13:13→22:24)
[2016-11-24] MEDS: ACETAMINOPHEN 325 MG TABLET/CAPLET (TYLENOL) PO SCH ×3 (13:13→22:24)
[2016-11-24] MEDS: KCL 10 MEQ TAB (MICRO K) PO SCH (17:15)
[2016-11-24] MEDS: RIVAROXABAN 20 MG TABLET (XARELTO) PO SCH (17:15)
[2016-11-24] MEDS: MONTELUKAST 10 MG (SINGULAIR) TAB PO SCH (17:15)
[2016-11-24] MEDS: cefTRIAXone 1 GM/NS 50 ML IVPB IV SCH ×2 (18:28)
[2016-11-24] MEDS: RT-ALBUTEROL SULF 2.5 MG/3 ML PRE-MIX VIAL IH PRN (19:02)
[2016-11-24] MEDS ORDERED: ALPRAZolam 0.5 MG (XANAX) TAB PO SCH (21:00)
[2016-11-24] MEDS: ATORVASTATIN 10 MG (LIPITOR) TABLET PO SCH (22:23)
[2016-11-24] MEDS: POLYETHYLENE GLYCOL 17 GM (MIRALAX) PACK PO SCH (22:23)
[2016-11-24] MEDS: ZIPRASIDONE 20 MG (GEODON) CAP PO SCH (22:24)
[2016-11-24] MEDS: meTOprolol TARTRATE 25 MG (LOPRESSOR) TABLET PO SCH (22:24)
[2016-11-25] VITALS: BP 106/61
[2016-11-25 04:00] VITALS: BP 124/71
[2016-11-25] MEDS ORDERED: predniSONE 20 MG TAB PO SCH (07:00)
[2016-11-25] MEDS: KCL 10 MEQ TAB (MICRO K) PO SCH ×2 (07:04→17:46)
[2016-11-25] MEDS: CATHETER FLUSH 10 ML SYR IV SCH ×3 (07:04→20:44)
--- NOTE | 2016-11-25 07:13 | Pulmonary Consultation ---
History of Present Illness History of Present Illness Date of Consultation 11/25/16 07:08 Date of Admission History of Present Illness 81yo with oxygen dependent severe COPD presents secondary to worsening SOB, coughing, pleuritic CP. Pt has had multiple hospitalizations and prior episodes. I am consulted for pulmonary management. Allergies and Home Medications Allergies Coded Allergies: egg (Verified Allergy, Intermediate, 04/10/12) Penicillins (Unverified Allergy, Unknown, 06/19/14) adhesive tape (Verified Allergy, Unknown, 11/24/16) latex (Verified Allergy, Unknown, 11/24/16) simvastatin (Verified Allergy, Unknown, PATIENT TAKES ATORVASTATIN AT HOME , 11/24/16) Home Medications Acetaminophen 650 Mg Tablet.er 650-1,300 MG PO BID PRN PRN PAIN (Reported) TAKES 1-2 (650 MG) TABLETS / ALTERNATES WITH OXYCODONE Albuterol Sulfate 2.5 Mg/3 Ml Vial.neb 2.5 MG IH Q6H PRN PRN SHORTNESS OF BREATH (Reported) Albuterol Sulfate 8.5 Gm Hfa.aer.ad 2 PUFF IH QID PRN PRN SHORTNESS OF BREATH ( Reported) Alprazolam 0.5 Mg Tablet 0.5 MG PO BID (Reported) Atorvastatin Calcium 10 Mg Tablet 10 MG PO HS (Reported) Budesonide/Formoterol Fumarate 10.2 Gm Hfa.aer.ad 2 PUFF IH BID (Reported) Digoxin 250 Mcg Tablet 250 MCG PO DAILY (Reported) Duloxetine HCl 20 Mg Capsule.dr 20 MG PO DAILY (Reported) Ferrous Sulfate 325 Mg Tablet 325 MG PO BID (Reported) Furosemide 40 Mg Tablet 20 MG PO DAILY (Reported) TAKES 1/2 OF A (40 MG) TABLET Loratadine 10 Mg Tab 10 MG PO DAILY (Reported) Meclizine HCl 12.5 Mg Tablet 12.5 MG PO DAILY (Reported) Metoprolol Tartrate 25 Mg Tablet 25 MG PO BID (Reported) Montelukast Sodium 10 Mg Tablet 10 MG PO DAILY@1730 (Reported) Multivitamins 1 Each Capsule 1 TAB PO DAILY (Reported) Nitroglycerin 0.4 Mg Subl 0.4 MG SL UD PRN PRN CHEST PAIN (Reported) 1 TAB SL EVERY 5 MINUTES X 3 DOSES [place] 3 Polyunsat Fatty Acids 1,000 Mg Cap 1,000 MG PO DAILY@1730 (Reported) Oxycodone HCl 5 Mg Tablet 10 MG PO Q6H PRN PRN PAIN (Reported) TAKES 2 (5 MG) TABLETS Polyethylene Glycol 3350 255 Gm Powder 0.5 TSP PO DAILY (Reported) DOES NOT USE A WHOLE CAPFUL Potassium Chloride 10 Meq Tablet.er 10 MEQ PO BID (Reported) Prednisone 10 Mg Tab 5 MG PO DAILY (Reported) TAKES 1/2 OF A (10 MG) TABLET Rivaroxaban 20 Mg Tablet 20 MG PO DAILY@1700 (Reported) Sucralfate 1 Gm Tablet 1 GM PO ACHS (Reported) Tiotropium [place] 4 Gm Mist.inhal 2 PUFF IH DAILY (Reported) Trimethoprim 100 Mg Tablet 100 MG PO HS (Reported) Ziprasidone HCl 20 Mg Capsule 20 MG PO HS (Reported) Past Hdbduko-Yldlnt-Sbfrum Hx Patient Social History Alcohol Use: Occasionally Uses Recreational Drug Use: No Smoking Status: Former Smoker Type Used: Cigarettes Former Smoker/When Quit: Jan 25, 2004 Recent Foreign Travel: No Contact w/Someone Who Travel: No Recent Infectious Disease Expo: No Recent Hopitalizations: No Physical Abuse Screen: No Sexual Abuse: No Immunizations Up To Date Tetanus Booster (TDap): Unknown PED Vaccines UTD: No Date of Pneumonia Vaccine: Aug 01, 2011 Seasonal Allergies Seasonal Allergies: Yes Surgeries HX Surgeries: Yes (DENTAL; LEFT CAROTID ENDARTERECTOMY) Surgeries: Cardiac, CABG, Gallbladder, Tracheostomy, Vascular Surgery Respiratory Hx Respiratory Disorders: Yes (pulmonary hypertension, wears 3L o2 at all times ) Respiratory Disorders: Asthma, COPD Cardiovascular Hx Cardiac Disorders: Yes Cardiac Disorders: Atrial Fibrillation, Coronary Artery Disease, Heart Attack, High Cholesterol, Hypertension, Peripheral Vascular Neurological Hx Neurological Disorders: Yes Neurological Disorders: TIA, Vertigo Reproductive System Hx Reproductive Disorders: No Sexually Transmitted Disease: No HIV/AIDS: 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 Genitourinary Hx Genitourinary Disorders: No Gastrointestinal Hx Gastrointestinal Disorders: Yes Gastrointestinal Disorders: Gastroesophageal Reflux, Chronic Constipation, Ulcer Musculoskeletal Hx Musculoskeletal Disorders: Yes Musculoskeletal Disorders: Osteoporosis, Arthritis, Rheumatoid Arthritis Endocrine Hx Endocrine Disorders: No HEENT HX ENT Disorders: Yes HEENT Disorders: Glaucoma Loss of Vision: Denies Hearing Impairment: Hard of Hearing Cancer Hx Cancer: No Psychosocial Hx Psychiatric Problems: Yes Behavioral Health Disorders: Anxiety Integumentary HX Skin/Integumentary Disorder: No Skin/Integumentary Disorders: Psoriasis Blood Transfusions Hx Blood Disorders: No Exam Exam Vital Signs Date Time Temp Pulse Resp B/P Pulse Ox O2 Delivery O2 Flow Rate FiO2 11/25/16 04:00 98.7 73 22 124/71 95 Nasal Cannula 3.00 11/25/16 04:00 Nasal Cannula 3.00 11/25/16 01:00 75 11/25/16 00:00 98.2 91 22 106/61 100 Nasal Cannula 3.00 11/25/16 00:00 Nasal Cannula 3.00 11/24/16 21:00 Nasal Cannula 3.00 11/24/16 20:00 Nasal Cannula 3.00 11/24/16 19:55 97.7 116 22 148/70 97 Nasal Cannula 3.00 11/24/16 19:03 97 3.00 11/24/16 19:00 107 11/24/16 17:15 98.1 102 22 136/76 96 Nasal Cannula 3.00 11/24/16 16:00 Nasal Cannula 3.00 11/24/16 13:24 98 11/24/16 12:05 98.7 112 24 168/80 97 Nasal Cannula 3.00 11/24/16 12:00 Nasal Cannula 3.00 11/24/16 09:00 Nasal Cannula 3.00 11/24/16 08:17 3.00 11/24/16 08:00 Nasal Cannula 3.00 11/24/16 07:45 98.6 123 20 164/78 95 Nasal Cannula 3.00 I & O 11/25/16 07:00 Intake Total 1775 ml Output Total 825 ml Balance 950 ml General Appearance: Anxious Chronically ill HEENT: PERRL/EOMI Normal ENT Inspection Neck: Full Range of Motion Normal Inspection Non Tender Supple Carotid Bruit Respiratory: Chest Non Tender No Accessory Muscle Use Other (rales and some vesicular breath sounds in the left base a few rales in the right base posteriorly breath sounds are somewhat diminished anteriorly breath sounds are clear no wheezing is noted. Expiration phase is slightly prolonged) Cardiovascular: No Edema No Gallop No JVD No Murmur Normal Peripheral Pulses Other (regularly irregular rhythm) Capillary Refill: Less Than 3 Seconds Extremity: Normal Capillary Refill Normal Inspection Normal Range of Motion Non Tender No Calf Tenderness No Pedal Edema Neurologic/Psychiatric: Alert Oriented x3 Other (anxious) Skin: Normal Color Warm/Dry Lymphatic: No Adenopathy Results Lab Laboratory Tests 11/23/16 17:57 11/24/16 04:20 Assessment/Plan Assessment/Plan -COPD AE with PNA -Continue Symbicort, Spiriva, albuterol - prednisone -Acute on Chronic respiratory failure Clinical Quality Measures DVT/VTE Risk/Contraindication: Risk Factor Score Per Nursin RFS Level Per Nursing on Admit: 4+=Very High CONNIE LANIER DO Nov 25, 2016 07:13
[2016-11-25] MEDS: RT-ALBUTEROL SULF 2.5 MG/3 ML PRE-MIX VIAL IH PRN (07:22)
[2016-11-25] MEDS: TIOTROPIUM BROMIDE (SPIRIVA) 5'S INHALER IH SCH (07:22)
[2016-11-25 08:00] VITALS: BP 144/76
[2016-11-25] MEDS ORDERED: UMECLIDINIUM BROMIDE (INCRUSE ELLIPTA) 7'S IH SCH (08:00)
[2016-11-25] MEDS ORDERED: ONDANSETRON 4 MG/2 ML (SDV) Z0FRAN IVP PRN (08:45)
--- NOTE | 2016-11-25 08:53 | Progress Note-Hospitalist ---
Subjective HPI/CC On Admission Mrs. Matamoros is a frail 81-year-old white female with O2 dependent COPD who reports that she has not felt well for the past several months. She has felt hot and cold with sweats more frequently at night or in the evening. One week ago she then noted the onset of a nonproductive cough now. 3 or 4 days ago she noted the onset of pleuritic chest pain worse on the left with increasing shortness of breath. She reports that her appetite is been poor but she denies weight loss and feels if anything her abdomen is been a little more protuberant. She denies lower extremity edema. She does report a past TB exposure to a cousin when she was a child. She has no reported travel history outside of the state in the recent past. She has had several admissions for pneumonia in the past. She reports that she is updated on influenza and pneumococcal vaccination. She denies Patricia's Date Seen 11/25/16 Subjective/Events-last exam Mrs. Matamoros is feeling okay until around 6 630 this morning when she noted the onset of nausea. She reported some dry heaving on her left side. Repositioning herself to the right temporarily resolved her symptoms. She took prednisone around 730 and was able to keep it down but it has more dry heaving is feeling a little bit nauseated around 8 o'clock during her interview. she has had cholecystectomy in the past. She reports right pleuritic lower chest wall pain is about the same and denies associated abdominal pain. Nausea and vomiting or unusual for her. She has had no melena and has no past history of peptic ulcer disease. She had one aspirin in the emergency room yesterday but otherwise is not on any aspirin or nonsteroidal medication. Objective Exam Vital Signs Vital Sign - Last 12Hours 11/23/16 18:02 Temp 97.6 Pulse 81 Resp 18 B/P 174/93 Pulse Ox 99 O2 Delivery Nasal Cannula O2 Flow Rate 3 Capillary Refill : Less Than 3 Seconds General Appearance: Anxious Chronically ill Mild Distress Respiratory: Chest Non Tender No Accessory Muscle Use No Respiratory Distress Other (story rales in both bases chest is clear otherwise no wheezing is noted.) Cardiovascular: No Edema No Gallop No JVD No Murmur Other (she'll irregularly irregular rhythm) Gastrointestinal: Normal Bowel Sounds No Organomegaly Non Tender Soft Assessment/Plan Assessment and Plan Assess & Plan/Chief Complaint 1. Acute COPD exacerbation with likely pneumonia bibasilar community-acquired and continue Rocephin and azithromycin. We'll continue prednisone taper and give a little later in the morning after breakfast. 2. Nausea we'll initiate when necessary Zofran and continue to monitor. We'll repeat a CBC and a BMP in the morning. CRISTY ABEBE MD Nov 25, 2016 08:53
[2016-11-25] MEDS ORDERED: RT-ALBUTEROL SULF 2.5 MG/3 ML PRE-MIX VIAL INH PRN (09:00)
[2016-11-25] MEDS: AZITHROMYCIN 250 MG TAB (ZITHROMAX) PO SCH (09:11)
[2016-11-25] MEDS: FUROSEMIDE 40 MG (LASIX) TAB PO SCH (09:11)
[2016-11-25] MEDS: DIGOXIN 0.125 MG (LANOXIN) TAB PO SCH (09:11)
[2016-11-25] MEDS: meTOprolol TARTRATE 25 MG (LOPRESSOR) TABLET PO SCH ×2 (09:11→20:43)
[2016-11-25] MEDS: ACETAMINOPHEN 325 MG TABLET/CAPLET (TYLENOL) PO SCH ×4 (09:11→20:43)
[2016-11-25] MEDS: ALPRAZolam 0.5 MG (XANAX) TAB PO SCH ×2 (09:11→20:44)
[2016-11-25] MEDS: DULoxetine 20 MG (CYMBALTA) CAP PO SCH (09:11)
[2016-11-25] MEDS: RT-ALBUTEROL SULF 2.5 MG/3 ML PRE-MIX VIAL IH SCH ×3 (10:57→18:46)
[2016-11-25 12:00] VITALS: BP_SYST 117; BP_SYST 186; BP_DIAS 76; BP_DIAS 88
[2016-11-25 16:00] VITALS: BP 161/78
[2016-11-25] MEDS: KETOROLAC 30 MG/ML VIAL IVP PRN (17:46)
[2016-11-25] MEDS: MONTELUKAST 10 MG (SINGULAIR) TAB PO SCH (17:46)
[2016-11-25] MEDS: RIVAROXABAN 20 MG TABLET (XARELTO) PO SCH (17:46)
[2016-11-25] MEDS: RT-ADVAIR HFA 115/21 MCG PER PUFF IH SCH (18:46)
[2016-11-25] MEDS: cefTRIAXone 1 GM/NS 50 ML IVPB IV SCH ×2 (18:50)
[2016-11-25 20:00] VITALS: BP 125/61
[2016-11-25] MEDS: ATORVASTATIN 10 MG (LIPITOR) TABLET PO SCH (20:43)
[2016-11-25] MEDS: ZIPRASIDONE 20 MG (GEODON) CAP PO SCH (20:43)
[2016-11-25] MEDS: POLYETHYLENE GLYCOL 17 GM (MIRALAX) PACK PO SCH (20:44)
[2016-11-26] VITALS: BP 118/59
[2016-11-26] MEDS: KETOROLAC 30 MG/ML VIAL IVP PRN ×2 (01:33→09:41)
[2016-11-26 04:00] VITALS: BP 137/63
[2016-11-26] MEDS: CATHETER FLUSH 10 ML SYR IV SCH (05:59)
[2016-11-26] MEDS: KCL 10 MEQ TAB (MICRO K) PO SCH (06:00)
[2016-11-26 06:15] LABS: BASOPHILS % (AUTO) 0 % (0-10); EOSINOPHILS % (AUTO) 0 % (0-10); LYMPHOCYTES # (AUTO) 0.9 X 10^3 (1.0-4.0); LYMPHOCYTES % (AUTO) 5 % (12-44); MEAN CORPUSCULAR HEMOGLOBIN 28 PG (25-34); MEAN CORPUSCULAR HGB CONC 30 G/DL (32-36); MEAN CORPUSCULAR VOLUME 93 FL (80-99); MEAN PLATELET VOLUME 10.1 FL (7.4-10.4); MONOCYTES # (AUTO) 1.5 X 10^3 (0.0-1.0); MONOCYTES % (AUTO) 8 % (0-12); NEUTROPHILS # (AUTO) 15.2 X 10^3 (1.8-7.8); NEUTROPHILS % (AUTO) 86 % (42-75); PLATELET COUNT 366 10^3/uL (130-400); RED BLOOD COUNT 3.83 10^6/uL (4.35-5.85); RED CELL DISTRIBUTION WIDTH 13.1 % (10.0-14.5); WHITE BLOOD COUNT 17.6 10^3/uL (4.3-11.0)
[2016-11-26 06:29] LABS: BAND NEUTROPHILS 2 %; BASOPHILS % (MANUAL) 0 %; EOSINOPHILS % (MANUAL) 0 %; LYMPHOCYTES % (MANUAL) 2 %; NEUTROPHILS % (MANUAL) 89 %; REACTIVE LYMPHOCYTES 4 %
[2016-11-26 06:35] LABS: ALANINE AMINOTRANSFERASE 14 U/L (0-55); ALBUMIN 3.3 G/DL (3.2-4.5); ANION GAP 9 MMOL/L (5-14); ASPARTATE AMINO TRANSFERASE 19 U/L (5-34); BILIRUBIN,TOTAL 0.2 MG/DL (0.1-1.0); BLOOD UREA NITROGEN 24 MG/DL (7-18); BUN/CREATININE RATIO 30; CALCIUM 8.7 MG/DL (8.5-10.1); CARBON DIOXIDE 32 MMOL/L (21-32); CHLORIDE 98 MMOL/L (98-107); CREATININE SERUM 0.81 MG/DL (0.60-1.30); GFR ESTIMATED > 60; GLUCOSE 97 MG/DL (70-105); POTASSIUM 3.4 MMOL/L (3.6-5.0); SODIUM 139 MMOL/L (135-145); TOTAL PROTEIN 5.8 G/DL (6.4-8.2)
[2016-11-26] MEDS ORDERED: predniSONE 10 MG TAB PO SCH (07:00)
[2016-11-26] MEDS: RT-ALBUTEROL SULF 2.5 MG/3 ML PRE-MIX VIAL IH SCH ×2 (07:40→10:45)
[2016-11-26 08:00] VITALS: BP 147/80
[2016-11-26] MEDS: DIGOXIN 0.125 MG (LANOXIN) TAB PO SCH (08:04)
[2016-11-26] MEDS: DULoxetine 20 MG (CYMBALTA) CAP PO SCH (08:04)
[2016-11-26] MEDS: ALPRAZolam 0.5 MG (XANAX) TAB PO SCH (08:04)
[2016-11-26] MEDS: AZITHROMYCIN 250 MG TAB (ZITHROMAX) PO SCH (08:04)
[2016-11-26] MEDS: FUROSEMIDE 40 MG (LASIX) TAB PO SCH (08:04)
[2016-11-26] MEDS: ACETAMINOPHEN 325 MG TABLET/CAPLET (TYLENOL) PO SCH (08:04)
[2016-11-26] MEDS: meTOprolol TARTRATE 25 MG (LOPRESSOR) TABLET PO SCH (08:04)
--- NOTE | 2016-11-26 08:53 | Progress Note-Hospitalist ---
Subjective HPI/CC On Admission Mrs. Matamoros is a frail 81-year-old white female with O2 dependent COPD who reports that she has not felt well for the past several months. She has felt hot and cold with sweats more frequently at night or in the evening. One week ago she then noted the onset of a nonproductive cough now. 3 or 4 days ago she noted the onset of pleuritic chest pain worse on the left with increasing shortness of breath. She reports that her appetite is been poor but she denies weight loss and feels if anything her abdomen is been a little more protuberant. She denies lower extremity edema. She does report a past TB exposure to a cousin when she was a child. She has no reported travel history outside of the state in the recent past. She has had several admissions for pneumonia in the past. She reports that she is updated on influenza and pneumococcal vaccination. She denies Patricia's Date Seen 11/26/16 Subjective/Events-last exam mild nausea this morning without vomiting. Still reports pleuritic probably right sided chest pain. Today more in the back not reported front. Minimal cough no sputum production and no chills or fever. Chest x-ray from the reported as improved. Objective Exam Vital Signs Vital Sign - Last 12Hours 11/23/16 18:02 Temp 97.6 Pulse 81 Resp 18 B/P 174/93 Pulse Ox 99 O2 Delivery Nasal Cannula O2 Flow Rate 3 Capillary Refill : Less Than 3 Seconds General Appearance: Anxious Chronically ill Respiratory: Chest Non Tender Lungs Clear Other (diminished breath sounds throughout posteriorly a few rales inspiratory only in the bases chest otherwise clear) Cardiovascular: No Edema No Gallop No JVD No Murmur Other (irregularly irregular) Gastrointestinal: Normal Bowel Sounds No Organomegaly No Pulsatile Mass Non Tender Soft Results/Procedures Lab Laboratory Tests 11/26/16 05:48 Assessment/Plan Assessment and Plan Assess & Plan/Chief Complaint 1. Acute COPD exacerbation with likely pneumonia bibasilar community-acquired and continue Rocephin and azithromycin. We'll continue prednisone taper and give a little later in the morning after breakfast. 2. Nausea we'll initiate when necessary Zofran and continue to monitor. 3. Continued pleuritic chest pain a little more responsive to Toradol and morphine consider repeat CT scanning patient has had previous right lower lobe mass in 2013 not as well visualized on repeat in 2014 however. She continues to have leukocytosis without any other clear infectious symptoms. She is however still on the higher dose prednisone will continue taper decreasing to 20 mg in the morning as she has no evidence for reactive airways at this time. Deferred CT scan decision to Dr. Vazquez. 4. Paroxysmal atrial fibrillation has been rate controlled she was in A. fib for a while yesterday but the rate was 90 will DC telemetry. CRISTY ABEBE MD Nov 26, 2016 08:53
[2016-11-26] MEDS: RT-ADVAIR HFA 115/21 MCG PER PUFF IH SCH (10:53)
[2016-11-26] MEDS: TIOTROPIUM BROMIDE (SPIRIVA) 5'S INHALER IH SCH (10:56)
[2016-11-27] MEDS ORDERED: predniSONE 10 MG TAB PO SCH (07:00)
--- NOTE | 2016-11-27 08:59 | Physician Query-General Query ---
Physician Query-General Query to Physician: For further clarification: Dr. Vazquez's consult listed acute on chronic respiratory failure. I did not see criteria for acute respiratory failure in the record. Would you please review this record and verify whether you feel that this patient did have acute on chronic respiratory failure, chronic respiratory failure only, other? Thank you. PHYSICIAN RESPONSE: Based on the clinical findings in the record, please respond to the query above on this document as an addendum. Possible, probable, or questionable diagnosis can be coded for INPATIENTS ONLY. Physician Response: Physician Response Pt does not meet criteria for respiratory failure. If you have questions please contact: [employer] Sales Consultant:Mari Dietrich CCS,CCDS Ext:[phone] Thank you for your time and cooperation. Clinical Planting Material Remover/[employer] Sales Consultant This is a permanent part of the medical record MARI DIETRICH Nov 27, 2016 08:59 CRISTY ABEBE MD Nov 27, 2016 12:43
[2016-11-30] MEDS ORDERED: HYDR-3812 PO (09:20)
[2016-11-30] MEDS ORDERED: OMEP20TA7 PO (09:20)
[2016-11-30] MEDS ORDERED: ALPR0.5T7 PO (09:20)
[2016-11-30] MEDS ORDERED: SUCR1TAB PO (09:20)
[2016-11-30] MEDS ORDERED: OXYC5CAP18 PO (11:33)
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
== END 2016-11-26 11:27 | disposition swing bed (61) | DRG 190 ==
LOC: EDUNIT# 17:40 → ER 17:41 → 4TH 19:25
PROVIDERS: ADMIT Internal Medicine; ATTEND Internal Medicine
DX: J44.0 Chronic obstructive pulmonary disease with (acute) lower respiratory infection (principal); J18.9 Pneumonia, unspecified organism; R07.81 Pleurodynia; J44.1 Chronic obstructive pulmonary disease with (acute) exacerbation; J45.909 Unspecified asthma, uncomplicated; I48.0 Paroxysmal atrial fibrillation; I27.2 Other secondary pulmonary hypertension; I25.10 Atherosclerotic heart disease of native coronary artery without angina pectoris; I25.2 Old myocardial infarction; I10 Essential (primary) hypertension; E78.00 Pure hypercholesterolemia, unspecified; I73.9 Peripheral vascular disease, unspecified; K21.9 Gastro-esophageal reflux disease without esophagitis; M81.0 Age-related osteoporosis without current pathological fracture; M06.9 Rheumatoid arthritis, unspecified; F41.9 Anxiety disorder, unspecified; Z99.81 Dependence on supplemental oxygen; Z79.01 Long term (current) use of anticoagulants; Z87.891 Personal history of nicotine dependence; Z87.11 Personal history of peptic ulcer disease; Z86.73 Personal history of transient ischemic attack (TIA), and cerebral infarction without residual deficits; Z95.1 Presence of aortocoronary bypass graft
CPT/HCPCS: 36415; 71010; 71020; 80053; 80061; 80162; 81000; 82150; 82550; 82553; 83690; 83735; 83874; 83880; 84484; 85007; 85025; 85027; 85610; 85730; 87040; 93005; 93041; 94640; 94664; 94760; 96365; 96375

== ENCOUNTER 2016-11-26 11:08 | Inpatient (IN) | payer MEDICARE, OTHER ==
[~2016-11-26] VITALS: Ht 165.1 cm; Wt 55.8 kg
[~2016-11-26 11:08] MED LIST changes: +ATOR10TA66 PO; +DULO20CA18 PO; +MONT10TA24 PO; +PRD10T PO
[2016-11-26] MEDS ORDERED: NITROGLYCERIN SUBLINGUAL 0.4 MG TAB (NITROSTAT) SL PRN (11:30)
[2016-11-26] MEDS ORDERED: RT-ALBUTEROL SULF 2.5 MG/3 ML PRE-MIX VIAL INH PRN (11:30)
[2016-11-26] MEDS ORDERED: ONDANSETRON 4 MG/2 ML (SDV) Z0FRAN IVP PRN (11:30)
[2016-11-26] MEDS ORDERED: PATIENT MAY USE OWN MEDS, ALL PO SCH (11:30)
[2016-11-26] MEDS ORDERED: CATHETER FLUSH 10 ML SYR IV PRN (11:30)
--- OUTSIDE RECORDS SUMMARY | 2016-11-26 11:54 | XMS REPORT | Continuity of Care Document ---
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 Role Phone CONNIE AGUILAR MD PCP Insurance Providers Payer Name Policy Number Subscriber Name Relationship Wps Medicare [id number] Jabari Doty 18 Self / Same As Patient [employer] [id number] Jabari Doty 18 Self / Same As Patient Advance Directives Directive Response Recorded Date/Time Advance Directives Yes 08/09/16 11:05pm Health Care Power of Certified Ophthalmic Medical Technician Yes 08/09/16 11:05pm Organ Donor No 08/09/16 [...] needed for Shortness Of Breath 09/01/15 Tiotropium [place] 4 Gm 2 Puff Inhalation Daily 09/01/15 [...] Ibuprofen 200 Mg Tablet, 06/21/08 Discontinued Tiotropium [place] 18 Mcg Cap.w.dev, 06/21/08 Discontinued [Betimol] , [...] 75 Mg Oral Daily 04/26/13 Discontinued Aclidinium [place] 400 Mcg Aer.pow.ba, 400 Mcg Inhalation Twice [...] Type Severity Reaction Status Last Updated Penicillins ([id number]) Allergy Unknown Active 06/19/14 simvastatin ([id number]) Allergy Unknown Active 06/21/08 egg ([id number]) Allergy Intermediate Active 04/10/12 milk ([id number]) Allergy Mild Active 04/10/12 Immunizations No immunization records. Vital Signs Acute Vital Signs Vital Response Date/Time Temperature (Fahrenheit) 98.0 degrees F (97.6 - 99.5) 08/10/2016 12:01am Temperature (Calculated Celsius) 36.27078 degrees C (36.4 - 37.5) 08/10/2016 12:01am [...] 5 inches 08/09/2016 11:05pm Height (Calculated Centimeters) 165.878640 cm 08/09/2016 11:05pm Weight (Pounds) 125 pounds 08/09/2016 11:05pm Weight (Ounces) 8.9 oz 08/09/2016 11:05pm Weight (Calculated Grams) 24456.047 gm 08/09/2016 11:05pm Weight (Calculated Kilograms) 56.428042 kilograms 08/09/2016 11:05pm Calculated BMI 18.88 08/09/2016 [...] Date Attending Provider Departed Emergency Room [facility] 08/09/16 11:05pm 08/16 12:01am DARLENE BILL MD Recent Diagnosis
[2016-11-26] MEDS: CATHETER FLUSH 10 ML SYR IV SCH ×2 (13:55→18:53)
[2016-11-26] MEDS: ACETAMINOPHEN 325 MG TABLET/CAPLET (TYLENOL) PO SCH ×3 (13:57→20:49)
[2016-11-26] MEDS: RT-ALBUTEROL SULF 2.5 MG/3 ML PRE-MIX VIAL INH SCH ×2 (15:03→19:05)
[2016-11-26] MEDS ORDERED: RIVAROXABAN 20 MG TABLET (XARELTO) PO SCH (17:30)
[2016-11-26] MEDS: KCL 10 MEQ TAB (MICRO K) PO SCH (17:34)
[2016-11-26] MEDS: KETOROLAC 30 MG/ML VIAL IVP PRN (17:39)
[2016-11-26 18:00] VITALS: BP 131/79
[2016-11-26] MEDS ORDERED: cefTRIAXone INJECTION 1,000 MG in NORMAL SALINE (BAXTER MINI) 50 ML IV SCH ×4 (19:00)
[2016-11-26] MEDS: RT-ADVAIR HFA 115/21 MCG PER PUFF IH SCH (19:05)
[2016-11-26] MEDS: meTOprolol TARTRATE 25 MG (LOPRESSOR) TABLET PO SCH (20:49)
[2016-11-26] MEDS: ALPRAZolam 0.5 MG (XANAX) TAB PO SCH (20:49)
[2016-11-26] MEDS ORDERED: ATORVASTATIN 10 MG (LIPITOR) TABLET PO SCH (21:00)
[2016-11-26] MEDS ORDERED: POLYETHYLENE GLYCOL 17 GM (MIRALAX) PACK PO SCH (21:00)
[2016-11-26] MEDS ORDERED: ZIPRASIDONE 20 MG (GEODON) CAP PO SCH (21:00)
[2016-11-27] MEDS: KETOROLAC 30 MG/ML VIAL IVP PRN (02:52)
--- NOTE | 2016-11-27 06:06 | Pulmonary Progress Note ---
Subjective Subjective/Events-last exam Pt complains of worsening pleuritic CP and SOB Exam Exam Vital Signs Date Time Temp Pulse Resp B/P Pulse Ox O2 Delivery O2 Flow Rate FiO2 11/26/16 20:50 Nasal Cannula 3.00 11/26/16 19:05 96 3.00 11/26/16 18:00 97.0 77 18 131/79 99 Nasal Cannula 3.00 11/26/16 16:41 97 Nasal Cannula 3.00 11/26/16 15:03 97 3.00 I & O 11/27/16 07:00 Intake Total 1620 ml Balance 1620 ml General Appearance: No Apparent Distress WD/WN Anxious HEENT: PERRL/EOMI Normal ENT Inspection Pharynx Normal Neck: Full Range of Motion Normal Inspection Non Tender Respiratory: Chest Non Tender No Accessory Muscle Use No Respiratory Distress Decreased Breath Sounds Gastrointestinal: non tender soft Extremity: Normal Capillary Refill Normal Inspection Normal Range of Motion Neurologic/Psychiatric: Alert Oriented x3 Skin: Normal Color Warm/Dry Lymphatic: No Adenopathy Assessment/Plan Assessment/Plan -COPD AE r/o PNA -Check CTA - secondary to pleuritic CP and SOB -CT scan - reviewed - no mass -Continue Symbicort, Spiriva, albuterol - prednisone 20mg daily -Acute on Chronic respiratory failure with high risk of recurrent hospitalizations - home vent to mask - pt tolerated last night with nasal mask -Cardiology following CONNIE LANIER DO Nov 27, 2016 06:06
[2016-11-27 06:26] VITALS: BP 104/59
[2016-11-27] MEDS ORDERED: predniSONE 10 MG TAB PO SCH (07:00)
[2016-11-27] MEDS ORDERED: IOHEXOL 350 MG/ML 150 ML (OMNIPAQUE 350) VIAL IV ONE (07:00)
[2016-11-27] MEDS ORDERED: NS 100 ML (IVPB) BAG IV ONE (07:00)
[2016-11-27] MEDS: RT-ALBUTEROL SULF 2.5 MG/3 ML PRE-MIX VIAL INH SCH ×2 (07:01→10:19)
[2016-11-27] MEDS ORDERED: TIOTROPIUM BROMIDE (SPIRIVA) 5'S INHALER IH SCH (08:00)
[2016-11-27] MEDS: ACETAMINOPHEN 325 MG TABLET/CAPLET (TYLENOL) PO SCH (08:10)
[2016-11-27] MEDS: ALPRAZolam 0.5 MG (XANAX) TAB PO SCH (08:10)
--- NOTE | 2016-11-27 08:48 | Diagnostic Imaging Report ---
PROCEDURE: CT angiography of the chest with contrast. TECHNIQUE: Multiple contiguous axial images were obtained through the chest after uneventful bolus administration of intravenous contrast. Reconstructed CTA MIP acquisitions were also performed. INDICATION: Left-sided chest pain. FINDINGS: The plain film examination of the chest performed on 11/24/2016 suggested resolving pneumonia/atelectasis in the lung bases. On this study, there is only a small amount of pneumonia/atelectasis still present in the right lung base, particularly the right middle lobe. There is minimal if any pneumonia/atelectasis in the left lung base. The severe emphysematous changes involving both lungs seen on the previous CT chest exam of 09/02/2015 are again evident and essentially no different. The heart size is stable when compared to the prior exam. There are coronary artery calcifications evident. The sternotomy wires and surgical clips seen previously are also again evident and unchanged. The ascending aorta is not abnormally dilated and unchanged when compared to the previous study. There is no defect within the pulmonary arteries to indicate a pulmonary embolus either. There is no mediastinal or hilar adenopathy. The thyroid gland is unremarkable. The sections through the upper abdomen fail to show any sign of an acute abnormality. The bone windows are unremarkable for fracture or for destructive lesion. However in the interval since the previous study, a 50% compression fracture of the inferior endplate of T9 has developed. This injury seems to be long-standing in nature. If there is clinical concern that this is acute or subacute however, then MRI would be recommended for additional study. IMPRESSION: 1. There is only a small amount of residual pneumonia/atelectasis involving the right lung base, particularly the right middle lobe. There is no acute cardiopulmonary abnormality noted otherwise. In particular, there is no sign of a dissection or pulmonary embolus. 2. There is severe chronic pulmonary disease as well as coronary artery disease and evidence of prior cardiac surgery. 3. The compression deformity of T9 is most likely long-standing in nature. Additional considerations as above. Dictated by: Dictated on workstation # [id number]
[2016-11-27] MEDS ORDERED: AZITHROMYCIN 250 MG TAB (ZITHROMAX) PO SCH ×2 (09:00)
[2016-11-27] MEDS ORDERED: DULoxetine 20 MG (CYMBALTA) CAP PO SCH (09:00)
[2016-11-27] MEDS ORDERED: DIGOXIN 0.125 MG (LANOXIN) TAB PO SCH (09:00)
[2016-11-27] MEDS ORDERED: FUROSEMIDE 40 MG (LASIX) TAB PO SCH (09:00)
[2016-11-27] MEDS: meTOprolol TARTRATE 25 MG (LOPRESSOR) TABLET PO SCH (09:25)
[2016-11-27] MEDS: KCL 10 MEQ TAB (MICRO K) PO SCH (09:25)
[2016-11-27] MEDS: CATHETER FLUSH 10 ML SYR IV SCH (09:28)
[2016-11-27] MEDS: RT-ADVAIR HFA 115/21 MCG PER PUFF IH SCH (10:18)
--- NOTE | 2016-11-27 10:36 | Progress Note-Hospitalist ---
Progress Note Progress Notes/Assess & Plan Date Seen 11/27/16 Diagonsis/Assessment & Plan Patient is having still a great deal of difficulty due to back pain that is circling around her thoracic rib cage and I assessed the CT scan that Dr. Vazquez ordered to rule out pulmonary embolism which was negative but did show a T9 compression fracture age undetermined. Spoke with son who is the power of privacy attorney and will plan for assisted admission on Wednesday irregardless of ability to manage the pain because she hasn' t been able to get up and around due to the severity of the pain IV antibiotics will be completed on Wednesday I spoke with pharmacist CT confirm resolution of the pneumonia at still will complete treatment No bowel movement since yesterday but she is not eating well due to the pain Had previously been addicted to hydrocodone so we'll have Dr. Mike evaluate the patient on the pain management standpoint and obtain MRI and may need kyphoplasty if it's extended into an old fracture of T9. Will hold Xarelto in case an epidural pain injection is required on Wednesday by Dr. Mike but MRI pending at this time Very difficult to manage since she is very frustrated with the lack of progress and the continued chest pain and back pain but she has had a very extensive medical history including bypass surgery 2 years ago complicated with a 3 month ventilator dependency that required a trach placed at [place] in the [facility] for an additional 3 months so very complicated situation and I will have palliative care consulted because the overall debility and decline is noted No fever no labile vital signs, angry, cooperative with exam, son at bedside Irregular irregular rhythm, clear to auscultation bilaterally and decreased in the bases No edema Assessment: 1. Acute COPD exacerbation with pneumonia bibasilar community-acquired confirmed on CT Chest so will continue Rocephin and azithromycin and continue prednisone taper Will complete on Wednesday 2. Nausea on Zofran and continue to monitor. 3. Continued pleuritic chest pain with T9 compression fx on CT Chest ordering MRI due to question of age of fracture T9 consulted Dr Mike 4. Paroxysmal atrial fibrillation has been rate controlled 5. Constipation 6. 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
[2016-11-27] MEDS ORDERED: LACTULOSE SYRUP 10GM/15ML (ENULOSE) 30ML UDC PO SCH (10:45)
[2016-11-27] MEDS ORDERED: HYDROcodone/APAP 5 MG/325 MG (LORTAB) TAB PO PRN (10:45)
[2016-11-27 11:14] LABS: BASOPHILS # (AUTO) 0.1 10^3/uL (0.0-0.1); BASOPHILS % (AUTO) 0 % (0-10); EOSINOPHILS % (AUTO) 0 % (0-10); LYMPHOCYTES # (AUTO) 0.8 X 10^3 (1.0-4.0); LYMPHOCYTES % (AUTO) 2 % (12-44); MEAN CORPUSCULAR HEMOGLOBIN 28 PG (25-34); MEAN CORPUSCULAR HGB CONC 30 G/DL (32-36); MEAN CORPUSCULAR VOLUME 93 FL (80-99); MEAN PLATELET VOLUME 10.2 FL (7.4-10.4); MONOCYTES # (AUTO) 2.8 X 10^3 (0.0-1.0); MONOCYTES % (AUTO) 7 % (0-12); NEUTROPHILS # (AUTO) 37.7 X 10^3 (1.8-7.8); NEUTROPHILS % (AUTO) 91 % (42-75); PLATELET COUNT 371 10^3/uL (130-400); RED BLOOD COUNT 3.73 10^6/uL (4.35-5.85); RED CELL DISTRIBUTION WIDTH 13.5 % (10.0-14.5)
[2016-11-27 11:18] LABS: WHITE BLOOD COUNT 41.3 10^3/uL (4.3-11.0)
[2016-11-27 11:37] LABS: ALANINE AMINOTRANSFERASE 23 U/L (0-55); ALBUMIN 3.3 G/DL (3.2-4.5); ANION GAP 11 MMOL/L (5-14); ASPARTATE AMINO TRANSFERASE 27 U/L (5-34); BILIRUBIN,TOTAL 0.4 MG/DL (0.1-1.0); BLOOD UREA NITROGEN 33 MG/DL (7-18); BUN/CREATININE RATIO 38; CALCIUM 8.9 MG/DL (8.5-10.1); CARBON DIOXIDE 29 MMOL/L (21-32); CHLORIDE 97 MMOL/L (98-107); CREATININE SERUM 0.87 MG/DL (0.60-1.30); GFR ESTIMATED > 60; GLUCOSE 157 MG/DL (70-105); POTASSIUM 4.1 MMOL/L (3.6-5.0); SODIUM 137 MMOL/L (135-145); TOTAL PROTEIN 5.9 G/DL (6.4-8.2)
[2016-11-27 11:59] LABS: LYMPHOCYTES % (MANUAL) 4 %; NEUTROPHILS % (MANUAL) 95 %; ROULEAUX MOD
--- NOTE | 2016-11-27 12:42 | Consultation ---
History of Present Illness History of Present Illness Patient Consulted On(christina/time) 11/27/16 12:34 Date of Admission November 27, 2016 Reason for Visit: mid back pain History of Present Illness Patient 81-year-old female seen in consultation for mid back pain. Patient endorsing pain at this time as an 8 out of 10 on a 10 point visual analog scale on average with pain located in her mid to lower thoracic spine wrapping around her ribs and into her chest anteriorly bilaterally. She denies any pain radiating down her legs or numbness or tingling in her legs or feet. Pains are improved some by her pain medications and aggravated by any kind of movement or activity. Patient reports no previous history of surgery or injections to this region. CT lumbar spine indicated a T9 compression fracture and MRI of thoracic spine is pending at this time. Patient is on chronic anticoagulation with Xarelto which has been held at this time in anticipation of possible injection or possible surgical intervention. Currently for pain she is on hydrocodone 5/325 one tab every 6 hours as needed for severe breakthrough pain, Cymbalta 20 mg daily, and prednisone 20 mg daily. Allergies and Home Medications Allergies Coded Allergies: egg (Verified Allergy, Intermediate, 04/10/12) Penicillins (Unverified Allergy, Unknown, 06/19/14) adhesive tape (Verified Allergy, Unknown, 11/24/16) latex (Verified Allergy, Unknown, 11/24/16) simvastatin (Verified Allergy, Unknown, PATIENT TAKES ATORVASTATIN AT HOME , 11/24/16) Home Medications Acetaminophen 650 Mg Tablet.er 650-1,300 MG PO BID PRN PRN PAIN (Reported) TAKES 1-2 (650 MG) TABLETS Albuterol Sulfate 2.5 Mg/3 Ml Vial.neb 2.5 MG IH Q6H PRN PRN SHORTNESS OF BREATH (Reported) Albuterol Sulfate 8.5 Gm Hfa.aer.ad 2 PUFF IH QID PRN PRN SHORTNESS OF BREATH ( Reported) Alprazolam 0.5 Mg Tablet 0.5 MG PO BID (Reported) Atorvastatin Calcium 10 Mg Tablet 10 MG PO HS (Reported) Budesonide/Formoterol Fumarate 10.2 Gm Hfa.aer.ad 2 PUFF IH BID (Reported) Digoxin 250 Mcg Tablet 250 MCG PO DAILY (Reported) Duloxetine HCl 20 Mg Capsule.dr 20 MG PO DAILY (Reported) Ferrous Sulfate 325 Mg Tablet 325 MG PO BID (Reported) Furosemide 40 Mg Tablet 40 MG PO DAILY (Reported) Loratadine 10 Mg Tab 10 MG PO DAILY (Reported) Meclizine HCl 12.5 Mg Tablet 12.5 MG PO DAILY (Reported) Metoprolol Tartrate 25 Mg Tablet 25 MG PO BID (Reported) Montelukast Sodium 10 Mg Tablet 10 MG PO DAILY@1730 (Reported) Multivitamins 1 Each Capsule 1 TAB PO DAILY (Reported) Nitroglycerin 0.4 Mg Subl 0.4 MG SL UD PRN PRN CHEST PAIN (Reported) 1 TAB SL EVERY 5 MINUTES X 3 DOSES [place] 3 Polyunsat Fatty Acids 1,000 Mg Cap 1,000 MG PO DAILY@1730 (Reported) Polyethylene Glycol 3350 255 Gm Powder 0.5 TSP PO DAILY (Reported) DOES NOT USE A WHOLE CAPFUL Potassium Chloride 10 Meq Tablet.er 10 MEQ PO BID (Reported) Prednisone 10 Mg Tab 5 MG PO DAILY (Reported) TAKES 1/2 OF A (10 MG) TABLET Rivaroxaban 20 Mg Tablet 20 MG PO DAILY@1730 (Reported) Tiotropium [place] 4 Gm Mist.inhal 2 PUFF IH DAILY (Reported) Trimethoprim 100 Mg Tablet 100 MG PO HS (Reported) Ziprasidone HCl 20 Mg Capsule 20 MG PO HS (Reported) Past Cubztgx-Prafix-Inwgob Hx Patient Social History Type Used: Cigarettes Former Smoker/When Quit: Jan 25, 2004 Recent Hopitalizations: No Immunizations Up To Date Tetanus Booster (TDap): Unknown PED Vaccines UTD: No Date of Pneumonia Vaccine: Aug 01, 2011 Seasonal Allergies Seasonal Allergies: Yes Surgeries HX Surgeries: Yes (DENTAL; LEFT CAROTID ENDARTERECTOMY) Surgeries: Cardiac, CABG, Gallbladder, Tracheostomy, Vascular Surgery Respiratory Hx Respiratory Disorders: Yes (pulmonary hypertension, wears 3L o2 at all times ) Respiratory Disorders: Asthma, COPD Cardiovascular Hx Cardiac Disorders: Yes Cardiac Disorders: Atrial Fibrillation, Coronary Artery Disease, Heart Attack, High Cholesterol, Hypertension, Peripheral Vascular Neurological Hx Neurological Disorders: Yes Neurological Disorders: TIA, Vertigo Reproductive System Hx Reproductive Disorders: No Sexually Transmitted Disease: No HIV/AIDS: No 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 Genitourinary Hx Genitourinary Disorders: No Gastrointestinal Hx Gastrointestinal Disorders: Yes Gastrointestinal Disorders: Gastroesophageal Reflux, Chronic Constipation, Ulcer Musculoskeletal Hx Musculoskeletal Disorders: Yes Musculoskeletal Disorders: Osteoporosis, Arthritis, Rheumatoid Arthritis Endocrine Hx Endocrine Disorders: No HEENT HX ENT Disorders: Yes HEENT Disorders: Glaucoma Loss of Vision: Denies Hearing Impairment: Hard of Hearing Cancer Hx Cancer: No Psychosocial Hx Psychiatric Problems: Yes Behavioral Health Disorders: Anxiety Integumentary HX Skin/Integumentary Disorder: No Skin/Integumentary Disorders: Psoriasis Blood Transfusions Hx Blood Disorders: No Review of Systems-General Constitutional: see HPI EENTM: no symptoms reported Respiratory: no symptoms reported Cardiovascular: no symptoms reported Gastrointestinal: constipation Genitourinary: no symptoms reported Musculoskeletal: see HPI Skin: no symptoms reported Psychiatric/Neurological: No Symptoms Reported Physical Exam-General Problems Physical Exam Vital Signs Vital Sign - Last 12Hours 11/26/16 11/26/16 11/26/16 15:03 16:41 18:00 Temp 97.0 Pulse 77 Resp 18 B/P 131/79 Pulse Ox 97 O2 Delivery Nasal Cannula O2 Flow Rate 3.00 Capillary Refill : General Appearance: mild distress Eyes: Bilateral Eye EOMI, Bilateral Eye PERRL Neck: non-tender supple Respiratory: no respiratory distress other (oxygen by nasal cannula) Cardiovascular: regular rate, rhythm Gastrointestinal: non tender soft Back: other (point tenderness to palpation over the lower thoracic vertebrae approximate T9 region. Nontender to palpation through the thoracic paraspinal muscles. Nontender to palpation over the lower ribs her rib cage. Nontender palpation of the lumbar spine paraspinal muscles.) Neurologic/Psychiatric: no motor/sensory deficits alert normal mood/affect oriented x 3 Skin: normal color warm/dry Assessment/Plan Assessment/Plan Admission Diagnosis/Plan Assessment: Pain in thoracic region, T9 compression fracture age of injury undetermined Plan: MRI of thoracic spine ordered at this time to evaluate acute versus chronic thoracic compression fracture at T9. Patient was advised that if the fracture is chronic in nature we can proceed with the option of thoracic epidural steroid injection to help with her pain complaints in addition to her current medication regimen. She was advised if the fracture appears to be acute would recommend then consultation with a spine surgeon for possible kyphoplasty/ vertebroplasty prior to any interventional procedures. Patient was counseled about the etiology of their pain and advised that they would like benefit from a T9-T10 thoracic epidural steroid injection under fluoroscopic guidance. Patient was counseled on the risks and benefits of the procedure including but not limited to bleeding, infection, seizures, severe headache, loss of consciousness, , spinal cord infarction, paraplegia, quadriplegia, cortical blindness, stroke, seizures, brain edema, lack of pain relief, and nerve damage. Again patient was counseled that we will proceed with this option potentially depending on MRI results and she was advised that we will need to hold her chronic anticoagulation with Xarelto for 72 hours prior to neuraxial interventional procedure and that during that timeframe she' ll be at increased risk of thrombotic events including but not limited to stroke and she verbalizes understanding of that risk. Xarelto is currently on hold at this time. Recommend continuing patient's current medication regimen hydrocodone 5/325-6 hours as needed as currently being managed by primary care team. Patient is endorsing some issues with constipation as he is currently on a bowel regimen Thank you for this consultation HELEN PALOMINO MD Nov 27, 2016 12:42
[2016-11-27 13:03] VITALS: BP 104/59
--- NOTE | 2016-11-28 10:28 | Discharge Summary-Hospitalist ---
Diagnosis/Chief Complaint Date of Admission Nov 26, 2016 at 11:27 Date of Discharge Nov 27, 2016 at 12:41 Discharge Date: Nov 27, 2016 Discharge Diagnosis Patient is having still a great deal of difficulty due to back pain that is circling around her thoracic rib cage and I assessed the CT scan that Dr. Vazquez ordered to rule out pulmonary embolism which was negative but did show a T9 compression fracture age undetermined. Spoke with son who is the power of ip technology transactions attorney and will plan for care home admission on Wednesday irregardless of ability to manage the pain because she hasn' t been able to get up and around due to the severity of the pain IV antibiotics will be completed on Wednesday I spoke with pharmacist CT confirm resolution of the pneumonia at still will complete treatment No bowel movement since yesterday but she is not eating well due to the pain Had previously been addicted to hydrocodone so we'll have Dr. Mike evaluate the patient on the pain management standpoint and obtain MRI and may need kyphoplasty if it's extended into an old fracture of T9. Will hold Xarelto in case an epidural pain injection is required on Wednesday by Dr. Mike but MRI pending at this time Very difficult to manage since she is very frustrated with the lack of progress and the continued chest pain and back pain but she has had a very extensive medical history including bypass surgery 2 years ago complicated with a 3 month ventilator dependency that required a trach placed at [place] in the [facility] for an additional 3 months so very complicated situation and I will have palliative care consulted because the overall debility and decline is noted No fever no labile vital signs, angry, cooperative with exam, son at bedside Irregular irregular rhythm, clear to auscultation bilaterally and decreased in the bases No edema Assessment: 1A. New onset of severe leukocytosis with negative sepsis workup consulting hematology for possible leukemia new onset requiring transfer back to acute care 1. Acute COPD exacerbation with pneumonia bibasilar community-acquired confirmed on CT Chest so will continue Rocephin and azithromycin and continue prednisone taper Will complete on Wednesday 2. Nausea on Zofran and continue to monitor. 3. Continued pleuritic chest pain with T9 compression fx on CT Chest ordering MRI due to question of age of fracture T9 consulted Dr Mike 4. Paroxysmal atrial fibrillation has been rate controlled 5. Constipation 6. 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 Plan: Lactulose until BM Hydrocodone Consult pain management MRI of T9 compression fracture may need kyphoplasty then will consult spine surgery SCDs in case a relative has to be held since she is immobile in case epidural pain injection is scheduled for Wednesday Overall debility noted and will consult out of care for very declined status unsure of recovery but care home on Wednesday Reason Hospital Visit/Course Date Seen 11/27/16 Diagonsis/Assessment & Plan Patient is having still a great deal of difficulty due to back pain that is circling around her thoracic rib cage and I assessed the CT scan that Dr. Vazquez ordered to rule out pulmonary embolism which was negative but did show a T9 compression fracture age undetermined. Spoke with son who is the power of ip technology transactions attorney and will plan for care home admission on Wednesday irregardless of ability to manage the pain because she hasn' t been able to get up and around due to the severity of the pain IV antibiotics will be completed on Wednesday I spoke with pharmacist CT confirm resolution of the pneumonia at still will complete treatment No bowel movement since yesterday but she is not eating well due to the pain Had previously been addicted to hydrocodone so we'll have Dr. Mike evaluate the patient on the pain management standpoint and obtain MRI and may need kyphoplasty if it's extended into an old fracture of T9. Will hold Xarelto in case an epidural pain injection is required on Wednesday by Dr. Mike but MRI pending at this time Very difficult to manage since she is very frustrated with the lack of progress and the continued chest pain and back pain but she has had a very extensive medical history including bypass surgery 2 years ago complicated with a 3 month ventilator dependency that required a trach placed at [place] in the [facility] for an additional 3 months so very complicated situation and I will have palliative care consulted because the overall debility and decline is noted No fever no labile vital signs, angry, cooperative with exam, son at bedside Irregular irregular rhythm, clear to auscultation bilaterally and decreased in the bases No edema Assessment: 1. Acute COPD exacerbation with pneumonia bibasilar community-acquired confirmed on CT Chest so will continue Rocephin and azithromycin and continue prednisone taper Will complete on Wednesday 2. Nausea on Zofran and continue to monitor. 3. Continued pleuritic chest pain with T9 compression fx on CT Chest ordering MRI due to question of age of fracture T9 consulted Dr Mike 4. Paroxysmal atrial fibrillation has been rate controlled 5. Constipation 6. 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 Storey and will perform septic workup at the same time Hospital course: Patient had a pre-swing bed course before she was transferred back to inpatient due to severe leukocytosis of 41,000 prompting hematology consultation for possible leukemia occurrence and black tarry stools. Overall patient did not have any other events on swing bed her vitals remained stable but very complex case considering the multiple medical problems she has an overall decline status. Discharge Summary Discharge Physical Examination Allergies: Coded Allergies: egg (Verified Allergy, Intermediate, 04/10/12) Penicillins (Unverified Allergy, Unknown, 06/19/14) adhesive tape (Verified Allergy, Unknown, 11/24/16) latex (Verified Allergy, Unknown, 11/24/16) simvastatin (Verified Allergy, Unknown, PATIENT TAKES ATORVASTATIN AT HOME , 11/24/16) Vitals & I&Os Vital Signs Date Time Temp Pulse Resp B/P Pulse Ox O2 Delivery O2 Flow Rate FiO2 11/27/16 13:03 112 18 104/59 94 3.00 11/27/16 09:00 Nasal Cannula 11/27/16 06:26 98.7 Hospital Course Labs (last 24 hrs) Laboratory Tests 11/27/16 12:39: Lactic Acid Level 1.4 Discharge Home Medications: Active Scripts Active Reported Montelukast Sodium 10 Mg Tablet 10 Mg PO DAILY@1730 Prednisone 10 Mg Tab 5 Mg PO DAILY TAKES 1/2 OF A (10 MG) TABLET Atorvastatin Calcium 10 Mg Tablet 10 Mg PO HS Metoprolol Tartrate 25 Mg Tablet 25 Mg PO BID Duloxetine HCl 20 Mg Capsule.dr 20 Mg PO DAILY Polyethylene Glycol 3350 255 Gm Powder 0.5 Tsp PO DAILY DOES NOT USE A WHOLE CAPFUL Acetaminophen ER (Acetaminophen) 650 Mg Tablet.er 650-1,300 Mg PO BID PRN TAKES 1-2 (650 MG) TABLETS Meclizine HCl 12.5 Mg Tablet 12.5 Mg PO DAILY Proair Hfa (Albuterol Sulfate) 8.5 Gm Hfa.aer.ad 2 Puff IH QID PRN Symbicort 160-4.5 Mcg Inhaler (Budesonide/Formoterol Fumarate) 10.2 Gm Hfa.aer.ad 2 Puff IH BID Xarelto (Rivaroxaban) 20 Mg Tablet 20 Mg PO DAILY@1730 Trimethoprim 100 Mg Tablet 100 Mg PO HS Ziprasidone HCl 20 Mg Capsule 20 Mg PO HS Alprazolam 0.5 Mg Tablet 0.5 Mg PO BID Ferrous Sulfate 325 Mg Tablet 325 Mg PO BID Spiriva Respimat (Tiotropium Serena) 4 Gm Mist.inhal 2 Puff IH DAILY Albuterol Sulfate 2.5 Mg/3 Ml Vial.neb 2.5 Mg IH Q6H PRN Potassium Chloride 10 Meq Tablet.er 10 Meq PO BID Furosemide 40 Mg Tablet 40 Mg PO DAILY Digox (Digoxin) 250 Mcg Tablet 250 Mcg PO DAILY Claritin (Loratadine) 10 Mg Tab 10 Mg PO DAILY Fish Oil 1,000 Mg Cap 1,000 Mg PO DAILY@1730 Multivitamins 1 Each Capsule 1 Tab PO DAILY Nitrostat (Nitroglycerin) 0.4 Mg Subl 0.4 Mg SL UD PRN 1 TAB SL EVERY 5 MINUTES X 3 DOSES Instructions to patient/family Please see electonic discharge instructions given to patient. YORDAN HODGE DO Nov 28, 2016 10:27 Fish Oil 1,000 Mg Cap 1,000 Mg PO DAILY@1730 Multivitamins 1 Each Capsule 1 Tab PO DAILY Nitrostat (Nitroglycerin) 0.4 Mg Subl 0.4 Mg SL UD PRN 1 TAB SL EVERY 5 MINUTES X 3 DOSES Instructions to patient/family Please see electonic discharge instructions given to patient. YORDAN HODGE DO Nov 28, 2016 10:27
== END 2016-11-27 12:41 | disposition short-term general hospital (02) | DRG 190 ==
LOC: 4TH 11:27
PROVIDERS: ADMIT Internal Medicine; ATTEND Internal Medicine
DX: J44.0 Chronic obstructive pulmonary disease with (acute) lower respiratory infection (principal); J18.9 Pneumonia, unspecified organism; J96.10 Chronic respiratory failure, unspecified whether with hypoxia or hypercapnia; D72.829 Elevated white blood cell count, unspecified; M54.6 Pain in thoracic spine; I48.0 Paroxysmal atrial fibrillation; J45.909 Unspecified asthma, uncomplicated; I27.2 Other secondary pulmonary hypertension; I25.10 Atherosclerotic heart disease of native coronary artery without angina pectoris; I10 Essential (primary) hypertension; E78.00 Pure hypercholesterolemia, unspecified; I73.9 Peripheral vascular disease, unspecified; K21.9 Gastro-esophageal reflux disease without esophagitis; M81.0 Age-related osteoporosis without current pathological fracture; M06.9 Rheumatoid arthritis, unspecified; F41.9 Anxiety disorder, unspecified; K59.00 Constipation, unspecified; I25.2 Old myocardial infarction; Z99.81 Dependence on supplemental oxygen; Z79.01 Long term (current) use of anticoagulants; Z87.891 Personal history of nicotine dependence; Z87.11 Personal history of peptic ulcer disease; Z86.73 Personal history of transient ischemic attack (TIA), and cerebral infarction without residual deficits; Z95.1 Presence of aortocoronary bypass graft
CPT/HCPCS: 36415; 71275; 80053; 83605; 85007; 85027; 87040; 94640; 94760

== ENCOUNTER 2016-11-27 12:32 | Inpatient (IN) | payer MEDICARE, OTHER ==
[~2016-11-27] VITALS: Ht 165.1 cm; Wt 55.5 kg
[2016-11-27] MEDS ORDERED: CATHETER FLUSH 10 ML SYR IV PRN (13:00)
[2016-11-27] MEDS ORDERED: NITROGLYCERIN SUBLINGUAL 0.4 MG TAB (NITROSTAT) SL PRN ×2 (13:00)
[2016-11-27] MEDS ORDERED: RT-ALBUTEROL SULF 2.5 MG/3 ML PRE-MIX VIAL INH PRN (13:00)
[2016-11-27] MEDS ORDERED: ONDANSETRON 4 MG/2 ML (SDV) Z0FRAN IVP PRN ×2 (13:00)
[2016-11-27] MEDS ORDERED: PATIENT MAY USE OWN MEDS, ALL PO SCH ×2 (13:00)
[2016-11-27] MEDS ORDERED: KETOROLAC 30 MG/ML VIAL IVP PRN ×2 (13:00)
[2016-11-27] MEDS ORDERED: ACETAMINOPHEN 325 MG TABLET/CAPLET (TYLENOL) PO SCH (13:00)
--- OUTSIDE RECORDS SUMMARY | 2016-11-27 13:19 | XMS REPORT | Continuity of Care Document ---
Author Author [facility] Organization [facility] Address Unknown Phone Unavailable Care Team Providers Care Drill Doctor Name Role Phone CONNIE AGUILAR MD PCP Insurance Providers Payer Name Policy Number Subscriber Name Relationship Wps Medicare [id number] Jabari Doty 18 Self / Same As Patient [employer] [id number] Jabari Doty 18 Self / Same As Patient Advance Directives Directive Response Recorded Date/Time Advance Directives Yes 08/09/16 11:05pm Health Care Power of Switch Box Installer Yes 08/09/16 11:05pm Organ Donor No 08/09/16 [...] needed for Shortness Of Breath 09/01/15 Tiotropium [place] 4 Gm 2 Puff Inhalation Daily 09/01/15 [...] Ibuprofen 200 Mg Tablet, 06/21/08 Discontinued Tiotropium [place] 18 Mcg Cap.w.dev, 06/21/08 Discontinued [Betimol] , [...] 75 Mg Oral Daily 04/26/13 Discontinued Aclidinium [place] 400 Mcg Aer.pow.ba, 400 Mcg Inhalation Twice [...] Type Severity Reaction Status Last Updated Penicillins ([id number]) Allergy Unknown Active 06/19/14 simvastatin ([id number]) Allergy Unknown Active 06/21/08 egg ([id number]) Allergy Intermediate Active 04/10/12 milk ([id number]) Allergy Mild Active 04/10/12 Immunizations No immunization records. Vital Signs Acute Vital Signs Vital Response Date/Time Temperature (Fahrenheit) 98.0 degrees F (97.6 - 99.5) 08/10/2016 12:01am Temperature (Calculated Celsius) 36.77201 degrees C (36.4 - 37.5) 08/10/2016 12:01am [...] 5 inches 08/09/2016 11:05pm Height (Calculated Centimeters) 165.359089 cm 08/09/2016 11:05pm Weight (Pounds) 125 pounds 08/09/2016 11:05pm Weight (Ounces) 8.9 oz 08/09/2016 11:05pm Weight (Calculated Grams) 49560.047 gm 08/09/2016 11:05pm Weight (Calculated Kilograms) 56.354878 kilograms 08/09/2016 11:05pm Calculated BMI 18.88 08/09/2016 [...] Date Attending Provider Departed Emergency Room [facility] 08/09/16 11:05pm 08/16 12:01am DARLENE BILL MD Recent Diagnosis
[2016-11-27] MEDS: RT-ALBUTEROL SULF 2.5 MG/3 ML PRE-MIX VIAL INH SCH ×2 (14:26→19:00)
--- NOTE | 2016-11-27 14:39 | Consultation ---
History of Present Illness History of Present Illness Patient Consulted On(christina/time) 11/27/16 14:39 Date of Admission This is a 81-year-old lady whom I have been requested to see because of marked elevation of her white blood cell count. She was admitted on 11/23/16 via the emergency room with complaints of shortness of air and chest pain. She was found to have a pneumonia and has been treated with IV antibiotics as well as with high dose steroids for exacerbation of her chronic obstructive pulmonary disease. Patient has long history of COPD and states that she has been using continuous oxygen at home as well as daily steroids for more than a year. She' s been using continuous oxygen for more than 4 years. On admission she received Solu-Medrol 125 mg every 6 hours on 11/23 and 11/24. She was changed to oral prednisone on a tapering regimen from 40 mg on 11/25/16 to her current dose of 20 mg which she received today. She has been afebrile since admission. CTA thorax done today shows improvement in her right lower lung infiltrate/ atelectasis and no evidence of pulmonary embolus. Her shortness of air persist as well as back and chest pain. No fever or chills or dysuria are reported. Allergies and Home Medications Allergies Coded Allergies: egg (Verified Allergy, Intermediate, 04/10/12) Penicillins (Unverified Allergy, Unknown, 06/19/14) adhesive tape (Verified Allergy, Unknown, 11/24/16) latex (Verified Allergy, Unknown, 11/24/16) simvastatin (Verified Allergy, Unknown, PATIENT TAKES ATORVASTATIN AT HOME , 11/24/16) Home Medications Acetaminophen 650 Mg Tablet.er 650-1,300 MG PO BID PRN PRN PAIN (Reported) TAKES 1-2 (650 MG) TABLETS Albuterol Sulfate 2.5 Mg/3 Ml Vial.neb 2.5 MG IH Q6H PRN PRN SHORTNESS OF BREATH (Reported) Albuterol Sulfate 8.5 Gm Hfa.aer.ad 2 PUFF IH QID PRN PRN SHORTNESS OF BREATH ( Reported) Alprazolam 0.5 Mg Tablet 0.5 MG PO BID (Reported) Atorvastatin Calcium 10 Mg Tablet 10 MG PO HS (Reported) Budesonide/Formoterol Fumarate 10.2 Gm Hfa.aer.ad 2 PUFF IH BID (Reported) Digoxin 250 Mcg Tablet 250 MCG PO DAILY (Reported) Duloxetine HCl 20 Mg Capsule.dr 20 MG PO DAILY (Reported) Ferrous Sulfate 325 Mg Tablet 325 MG PO BID (Reported) Furosemide 40 Mg Tablet 40 MG PO DAILY (Reported) Loratadine 10 Mg Tab 10 MG PO DAILY (Reported) Meclizine HCl 12.5 Mg Tablet 12.5 MG PO DAILY (Reported) Metoprolol Tartrate 25 Mg Tablet 25 MG PO BID (Reported) Montelukast Sodium 10 Mg Tablet 10 MG PO DAILY@1730 (Reported) Multivitamins 1 Each Capsule 1 TAB PO DAILY (Reported) Nitroglycerin 0.4 Mg Subl 0.4 MG SL UD PRN PRN CHEST PAIN (Reported) 1 TAB SL EVERY 5 MINUTES X 3 DOSES [place] 3 Polyunsat Fatty Acids 1,000 Mg Cap 1,000 MG PO DAILY@1730 (Reported) Polyethylene Glycol 3350 255 Gm Powder 0.5 TSP PO DAILY (Reported) DOES NOT USE A WHOLE CAPFUL Potassium Chloride 10 Meq Tablet.er 10 MEQ PO BID (Reported) Prednisone 10 Mg Tab 5 MG PO DAILY (Reported) TAKES 1/2 OF A (10 MG) TABLET Rivaroxaban 20 Mg Tablet 20 MG PO DAILY@1730 (Reported) Tiotropium [place] 4 Gm Mist.inhal 2 PUFF IH DAILY (Reported) Trimethoprim 100 Mg Tablet 100 MG PO HS (Reported) Ziprasidone HCl 20 Mg Capsule 20 MG PO HS (Reported) Past Qfyahlf-Fgazei-Ltxmrx Hx Patient Social History Alcohol Use: Denies Use Recreational Drug Use: No Smoking Status: Former Smoker Type Used: Cigarettes Former Smoker/When Quit: Jan 25, 2004 Recent Foreign Travel: No Contact w/Someone Who Travel: No Recent Infectious Disease Expo: No Recent Hopitalizations: No Physical Abuse Screen: No Sexual Abuse: No Immunizations Up To Date Tetanus Booster (TDap): Unknown PED Vaccines UTD: No Date of Pneumonia Vaccine: Aug 01, 2011 Seasonal Allergies Seasonal Allergies: Yes Surgeries HX Surgeries: Yes (DENTAL; LEFT CAROTID ENDARTERECTOMY) Surgeries: Cardiac, CABG, Gallbladder, Tracheostomy, Vascular Surgery Respiratory Hx Respiratory Disorders: Yes (pulmonary hypertension, wears 3L o2 at all times ) Respiratory Disorders: Asthma, COPD Cardiovascular Hx Cardiac Disorders: Yes Cardiac Disorders: Atrial Fibrillation, Coronary Artery Disease, Heart Attack, High Cholesterol, Hypertension, Peripheral Vascular Neurological Hx Neurological Disorders: Yes Neurological Disorders: TIA, Vertigo Reproductive System Hx Reproductive Disorders: No Sexually Transmitted Disease: No HIV/AIDS: No 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 Genitourinary Hx Genitourinary Disorders: No Gastrointestinal Hx Gastrointestinal Disorders: Yes Gastrointestinal Disorders: Gastroesophageal Reflux, Chronic Constipation, Ulcer Musculoskeletal Hx Musculoskeletal Disorders: Yes Musculoskeletal Disorders: Osteoporosis, Arthritis, Rheumatoid Arthritis Endocrine Hx Endocrine Disorders: No HEENT HX ENT Disorders: Yes HEENT Disorders: Glaucoma Loss of Vision: Denies Hearing Impairment: Hard of Hearing Cancer Hx Cancer: No Psychosocial Hx Psychiatric Problems: Yes Behavioral Health Disorders: Anxiety Integumentary HX Skin/Integumentary Disorder: No Skin/Integumentary Disorders: Psoriasis Blood Transfusions Hx Blood Disorders: No Family Medical History Family Medial History: Arthritis 19 MOTHER Cardiovascular disease 19 MOTHER Deafness or hearing loss 19 MOTHER Glaucoma 19 MOTHER Hypertension 19 FATHER 19 MOTHER Kidney disease 19 MOTHER Myocardial infarction 19 FATHER Neoplasm 19 MOTHER Review of Systems-General Respiratory: short of breath Cardiovascular: chest pain Musculoskeletal: back pain (midposterior thorax.) Physical Exam-General Problems Physical Exam Vital Signs Vital Sign - Last 12Hours 11/27/16 13:49 O2 Delivery Nasal Cannula O2 Flow Rate 3.00 Capillary Refill : General Appearance: other (plan elderly chronically ill-appearing female with nasal cannula O2) HEENT: PERRL/EOMI Neck: non-tender supple Respiratory: lungs clear accessory muscle use Cardiovascular: regular rate, rhythm no edema no JVD Gastrointestinal: normal bowel sounds non tender soft Rectal: deferred Back: normal inspection no CVA tenderness Extremities: non-tender normal inspection no pedal edema Neurologic/Psychiatric: fur storage clerk II-XII nml as tested no motor/sensory deficits alert oriented x [address] thorax done 11/27/16: IMPRESSION: 1. There is only a small amount of residual pneumonia/atelectasis involving the right lung base, particularly the right middle lobe. There is no acute cardiopulmonary abnormality noted otherwise. In particular, there is no sign of a dissection or pulmonary embolus. 2. There is severe chronic pulmonary disease as well as coronary artery disease and evidence of prior cardiac surgery. 3. The compression deformity of T9 is most likely long-standing in nature. Additional considerations as above. WBC 41.3. Hemoglobin 10.5; hematocrit 35; MCV 93; platelets 371,000; percentage neutrophils 91 percent lymphs 2 percent mono percentage 7 percent. PERIPHERAL SMEAR review: CBC reveals an elevated white blood count consistent with possible infection, inflammation, stress, or malignancy. Red blood cells are normochromic, 1-2+ anisocytosis; white blood cells showed reactive changes with left shift, dohle bodies and toxic granulation noted. Other sites also appear to be reactive with mature appearing chromatin. Assessment/Plan Assessment/Plan Admission Diagnosis/Plan 1. Leukocytosis favor reactive process exacerbated by recent high dose steroids which are now being tapered. I would hold off on doing any invasive procedures like bone marrow aspiration and biopsy because of the lack of significant immaturity seen in her WBC series and the presence of the dohle bodies and toxic granulation. Should her WBC remains elevated after steroid taper, further investigation may be warranted at that time. a. I reviewed all the laboratory results in [facility] show that patient has had an elevated WBC for most of 2014 and 2016 ranging from 11.2-14.6. She states that she has frequently been on steroids if not constantly for all of 2016 and much of 2014. We will monitor the WBC and patient will need a follow- up visit post discharge. 2. Transient reactive thrombocytosis on admission which has currently resolved. 3. Recent atypical pneumonia- being treated with Rocephin and azithromycin 4. COPD-on home oxygen and chronic steroid dependent; pulmonary is following; 5. Comorbidities of atrial fibrillation on Xarelto for stroke prevention, CAD status post CABG, carotid artery disease, hypertension, hyperlipidemia. PRIYANKA TOLLIVER MD Nov 27, 2016 14:39
[2016-11-27] MEDS: CATHETER FLUSH 10 ML SYR IV SCH ×2 (15:14→21:20)
[2016-11-27] MEDS: ACETAMINOPHEN 325 MG TABLET/CAPLET (TYLENOL) PO SCH ×3 (15:14→21:19)
[2016-11-27 15:30] VITALS: BP 128/63
[2016-11-27 15:49] LABS: BILIRUBIN,URINE NEGATIVE (NEGATIVE); KETONES,URINE NEGATIVE (NEGATIVE); LEUKOCYTE ESTERASE ,URINE 1+ (NEGATIVE); NITRITE,URINE NEGATIVE (NEGATIVE); PH,URINE 5 (5-9); PROTEIN,URINE 2+ (NEGATIVE); UROBILINOGEN,URINE NORMAL (NORMAL)
[2016-11-27 15:59] LABS: WBC,URINE 0-2 /HPF
[2016-11-27] MEDS ORDERED: KCL 10 MEQ TAB (MICRO K) PO SCH (17:00)
[2016-11-27] MEDS ORDERED: RIVAROXABAN 20 MG TABLET (XARELTO) PO SCH ×2 (17:30)
[2016-11-27] MEDS: KCL 10 MEQ TAB (MICRO K) PO SCH (17:39)
[2016-11-27] MEDS: HYDROcodone/APAP 5 MG/325 MG (LORTAB) TAB PO PRN (17:40)
[2016-11-27] MEDS ORDERED: cefTRIAXone INJECTION 1,000 MG in NORMAL SALINE (BAXTER MINI) 50 ML IV SCH (19:00)
[2016-11-27] MEDS: RT-ADVAIR HFA 115/21 MCG PER PUFF IH SCH (19:03)
[2016-11-27] MEDS ORDERED: RT-ADVAIR HFA 115/21 MCG PER PUFF IH SCH (20:00)
[2016-11-27] MEDS: cefTRIAXone INJECTION 1,000 MG in NORMAL SALINE (BAXTER MINI) 50 ML IV SCH (20:37)
[2016-11-27 20:58] VITALS: BP 167/79
[2016-11-27] MEDS ORDERED: ALPRAZolam 0.5 MG (XANAX) TAB PO SCH (21:00)
[2016-11-27] MEDS ORDERED: ATORVASTATIN 10 MG (LIPITOR) TABLET PO SCH (21:00)
[2016-11-27] MEDS ORDERED: POLYETHYLENE GLYCOL 17 GM (MIRALAX) PACK PO SCH (21:00)
[2016-11-27] MEDS ORDERED: ZIPRASIDONE 20 MG (GEODON) CAP PO SCH (21:00)
[2016-11-27] MEDS ORDERED: meTOprolol TARTRATE 25 MG (LOPRESSOR) TABLET PO SCH (21:00)
[2016-11-27] MEDS: ATORVASTATIN 10 MG (LIPITOR) TABLET PO SCH (21:19)
[2016-11-27] MEDS: LACTULOSE SYRUP 10GM/15ML (ENULOSE) 30ML UDC PO SCH (21:19)
[2016-11-27] MEDS: POLYETHYLENE GLYCOL 17 GM (MIRALAX) PACK PO SCH (21:19)
[2016-11-27] MEDS: ZIPRASIDONE 20 MG (GEODON) CAP PO SCH (21:20)
[2016-11-27] MEDS: ALPRAZolam 0.5 MG (XANAX) TAB PO SCH (21:20)
[2016-11-27] MEDS: meTOprolol TARTRATE 25 MG (LOPRESSOR) TABLET PO SCH (21:20)
--- NOTE | 2016-11-27 23:07 | Diagnostic Imaging Report ---
INDICATION: Pain COMPARISON: CT of the chest dated November 27, 2016 and radiographs of the chest dated September 04, 2015 TECHNIQUE: Multiplanar, multisequence MR imaging of the thoracic spine is obtained without the use of intravenous contrast dated November 27, 2016 FINDINGS: No significant anterolisthesis or retrolisthesis within the thoracic spine. Moderate compression deformity of T9 is identified. There is approximately 50% loss of vertebral body height. Minimal retropulsion is seen into the central spinal canal though no significant central canal stenosis is identified. Serpiginous T1 hypointense plane is seen coursing through this vertebral body with minimal associated increased T2 signal. Otherwise, vertebral body heights are well-maintained. No significant disc space height loss. The spinal cord is unremarkable. No significant central canal stenosis within the thoracic spine. No significant disc bulge or disc protrusion. The paraspinal soft tissues are unremarkable. IMPRESSION: Moderate compression deformity of T9 with approximately 50% loss of vertebral body height and minimal retropulsion without significant central canal stenosis. Given appearance, it is favored that this is subacute in nature as a persistent fracture plane and very minimal edema is present. Dictated by: Dictated on workstation # [id number]
[2016-11-28] VITALS: BP 130/61
[2016-11-28 04:00] VITALS: BP 125/64
[2016-11-28] MEDS: HYDROcodone/APAP 5 MG/325 MG (LORTAB) TAB PO PRN ×3 (04:44→16:44)
[2016-11-28 05:23] LABS: BASOPHILS % (AUTO) 0 % (0-10); EOSINOPHILS # (AUTO) 0.1 10^3/uL (0.0-0.3); EOSINOPHILS % (AUTO) 0 % (0-10); LYMPHOCYTES # (AUTO) 0.8 X 10^3 (1.0-4.0); LYMPHOCYTES % (AUTO) 2 % (12-44); MEAN CORPUSCULAR HEMOGLOBIN 28 PG (25-34); MEAN CORPUSCULAR HGB CONC 30 G/DL (32-36); MEAN CORPUSCULAR VOLUME 94 FL (80-99); MEAN PLATELET VOLUME 10.3 FL (7.4-10.4); MONOCYTES # (AUTO) 1.5 X 10^3 (0.0-1.0); MONOCYTES % (AUTO) 5 % (0-12); NEUTROPHILS # (AUTO) 30.8 X 10^3 (1.8-7.8); NEUTROPHILS % (AUTO) 93 % (42-75); PLATELET COUNT 379 10^3/uL (130-400); RED BLOOD COUNT 3.53 10^6/uL (4.35-5.85); RED CELL DISTRIBUTION WIDTH 13.3 % (10.0-14.5)
[2016-11-28 05:42] LABS: WHITE BLOOD COUNT 33.3 10^3/uL (4.3-11.0)
[2016-11-28 05:51] LABS: ALANINE AMINOTRANSFERASE 22 U/L (0-55); ALBUMIN 3.2 G/DL (3.2-4.5); ANION GAP 11 MMOL/L (5-14); ASPARTATE AMINO TRANSFERASE 24 U/L (5-34); BILIRUBIN,TOTAL 0.3 MG/DL (0.1-1.0); BLOOD UREA NITROGEN 33 MG/DL (7-18); BUN/CREATININE RATIO 38; CALCIUM 9.2 MG/DL (8.5-10.1); CARBON DIOXIDE 28 MMOL/L (21-32); CHLORIDE 99 MMOL/L (98-107); CREATININE SERUM 0.87 MG/DL (0.60-1.30); GFR ESTIMATED > 60; GLUCOSE 125 MG/DL (70-105); SODIUM 138 MMOL/L (135-145); TOTAL PROTEIN 5.8 G/DL (6.4-8.2)
[2016-11-28 05:55] LABS: hs C REACTIVE PROTEIN 29.63 MG/DL (0.00-0.50)
[2016-11-28] MEDS: CATHETER FLUSH 10 ML SYR IV SCH ×3 (06:59→20:13)
[2016-11-28] MEDS: RT-ALBUTEROL SULF 2.5 MG/3 ML PRE-MIX VIAL INH SCH ×4 (07:00→18:57)
[2016-11-28] MEDS ORDERED: predniSONE 10 MG TAB PO SCH ×2 (07:00)
[2016-11-28] MEDS: TIOTROPIUM BROMIDE (SPIRIVA) 5'S INHALER IH SCH (07:05)
[2016-11-28] MEDS ORDERED: TIOTROPIUM BROMIDE (SPIRIVA) 5'S INHALER IH SCH (08:00)
[2016-11-28 08:19] VITALS: BP 132/62
[2016-11-28] MEDS: AZITHROMYCIN 250 MG TAB (ZITHROMAX) PO SCH (08:46)
[2016-11-28] MEDS: DULoxetine 20 MG (CYMBALTA) CAP PO SCH (08:46)
[2016-11-28] MEDS: ALPRAZolam 0.5 MG (XANAX) TAB PO SCH ×2 (08:46→20:12)
[2016-11-28] MEDS: DIGOXIN 0.125 MG (LANOXIN) TAB PO SCH (08:46)
[2016-11-28] MEDS: FUROSEMIDE 40 MG (LASIX) TAB PO SCH (08:47)
[2016-11-28] MEDS: meTOprolol TARTRATE 25 MG (LOPRESSOR) TABLET PO SCH ×2 (08:47→20:12)
[2016-11-28] MEDS: LACTULOSE SYRUP 10GM/15ML (ENULOSE) 30ML UDC PO SCH ×2 (08:47→20:13)
[2016-11-28] MEDS: PANTOPRAZOLE 40 MG (PROTONIX) TAB PO SCH ×2 (08:48→20:12)
[2016-11-28] MEDS: KCL 10 MEQ TAB (MICRO K) PO SCH ×2 (08:52→18:19)
[2016-11-28] MEDS: ACETAMINOPHEN 325 MG TABLET/CAPLET (TYLENOL) PO SCH ×4 (08:53→20:13)
[2016-11-28] MEDS ORDERED: DULoxetine 20 MG (CYMBALTA) CAP PO SCH (09:00)
[2016-11-28] MEDS ORDERED: FUROSEMIDE 40 MG (LASIX) TAB PO SCH (09:00)
[2016-11-28] MEDS ORDERED: DIGOXIN 0.125 MG (LANOXIN) TAB PO SCH (09:00)
--- NOTE | 2016-11-28 10:28 | History & Physical-Hospitalist ---
HPI History of Present Illness: HPI/Chief Complaint CC: Leukocytosis severe along with black tarry stools HPI: Patient was moved back to inpatient care due to severe leukocytosis of 41, 000 prompting hematology workup and a possible leukemia occurrence but upon evaluation of Dr. Dash consultation and it appears that it is more of a reactive response so will discontinue steroids and monitor closely. She began having black tarry stools so Dr. Broussard was consulted who will perform EGD tomorrow at 10 o'clock. Xarelto has been placed on hold due to the black tarry stools and prednisone will be discontinued along with any type of anti- inflammatory that could cause upper gastrointestinal ulcerations. She is actually getting up and around and responding to hydrocodone although she had an addiction problem with that in the past but will require pain control to get her moving around at all. She is very concerned about Xarelto being stopped and steroids been stopped and I recommended these changes of which she reluctantly agrees. MRI of the thoracic spine showed T9 compression fracture only subacute so there will be no kyphoplasty recommended. After white we'll proceed on with likely thoracic pain injection to see if that helps with the pain. Source: patient Exam Limitations: no limitations Date Seen 11/28/16 Attending Physician Dena Hodge DO PCP Ralph Braun MD Referring Physician Date of Admission Nov 27, 2016 at 12:41 Home Medications & Allergies Home Medications Reviewed patient Home Medication Reconciliation Form Allergies Coded Allergies: egg (Verified Allergy, Intermediate, 04/10/12) Penicillins (Unverified Allergy, Unknown, 06/19/14) adhesive tape (Verified Allergy, Unknown, 11/24/16) latex (Verified Allergy, Unknown, 11/24/16) simvastatin (Verified Allergy, Unknown, PATIENT TAKES ATORVASTATIN AT HOME , 11/24/16) Past Nhkjsoo-Ijwbhm-Agnouo Hx Patient Social History Marrital Status: single Employed/Student: retired ([employer] for 17 years) Alcohol Use: Denies Use Recreational Drug Use: No Smoking Status: Former Smoker Former smoker/When Quit: Jan 25, 2004 Type Used: Cigarettes Physical Abuse Screen: No Sexual Abuse: No Recent Foreign Travel: No Contact w/other who traveled: No Recent Hopitalizations: No Recent Infectious Disease Expo: No Immunizations Up To Date Tetanus Booster (TDap): Unknown Date of Pneumonia Vaccine: Aug 01, 2011 Seasonal Allergies Seasonal Allergies: Yes Surgeries HX Surgeries: Yes (DENTAL; LEFT CAROTID ENDARTERECTOMY) Surgeries: Cardiac, CABG, Gallbladder, Tracheostomy, Vascular Surgery Respiratory Hx Respiratory Disorders: Yes (pulmonary hypertension, wears 3L o2 at all times ) Cardiovascular Hx Cardiovascular Disorders: Yes Cardiac Disorders: Atrial Fibrillation, Coronary Artery Disease, Heart Attack, High Cholesterol, Hypertension, Peripheral Vascular Neurological Hx Neurological Disorders: Yes Neurological Disorders: TIA, Vertigo Reproductive System Hx Reproductive Disorders: No Sexually Transmitted Disease: No HIV/AIDS: No Genitourinary Hx Genitourinary Disorders: No Gastrointestinal Hx Gastrointestinal Disorders: Yes Gastrointestinal Disorders: Gastroesophageal Reflux, Chronic Constipation, Ulcer Musculoskeletal Hx Musculoskeletal Disorders: Yes Musculoskeletal Disorders: Osteoporosis, Arthritis, Rheumatoid Arthritis Endocrine Hx Endocrine Disorders: No HEENT HX ENT Disorders: Yes HEENT Disorders: Glaucoma Loss of Vision: Denies Hearing Impairment: Hard of Hearing Cancer Hx Cancer: No Psychosocial Hx Psychiatric Problems: Yes Behavioral Health Disorders: Anxiety Integumentary HX Skin/Integumentary Disorder: No Skin/Integumentary Disorders: Psoriasis Blood Transfusions Hx Blood Disorders: No Family Medical History Family Hx: Arthritis 19 MOTHER Cardiovascular disease 19 MOTHER Deafness or hearing loss 19 MOTHER Glaucoma 19 MOTHER Hypertension 19 FATHER 19 MOTHER Kidney disease 19 MOTHER Myocardial infarction 19 FATHER Neoplasm 19 MOTHER Review of Systems Constitutional: see HPI dizziness weakness EENTM: no symptoms reported Respiratory: cough Cardiovascular: no symptoms reported Gastrointestinal: melena Genitourinary: no symptoms reported Musculoskeletal: back pain Skin: no symptoms reported Psychiatric/Neurological: No Symptoms Reported All Other Systems Reviewed Negative Unless Noted: Yes Physical Exam Physical Exam Vital Signs Vital Sign - Last 12Hours 11/27/16 11/27/16 13:49 15:30 Temp 98.6 Pulse 92 Resp 20 B/P 128/63 Pulse Ox 98 O2 Delivery Nasal Cannula O2 Flow Rate 3.00 Capillary Refill : General Appearance: No Apparent Distress WD/WN Chronically ill Thin Other ( much improved from yesterday's exam) Eyes: Bilateral Eye Normal Inspection, Bilateral Eye PERRL HEENT: PERRL/EOMI Normal ENT Inspection Pharynx Normal Neck: Full Range of Motion Normal Inspection Non Tender Supple Carotid Bruit Respiratory: Chest Non Tender Lungs Clear Normal Breath Sounds No Accessory Muscle Use No Respiratory Distress Cardiovascular: Regular Rate, Rhythm No Edema No Gallop No JVD No Murmur Normal Peripheral Pulses Gastrointestinal: Normal Bowel Sounds No Organomegaly No Pulsatile Mass Non Tender Soft Back: Normal Inspection No CVA Tenderness No Vertebral Tenderness Extremity: Normal Capillary Refill Normal Inspection Normal Range of Motion Non Tender No Calf Tenderness No Pedal Edema Neurologic/Psychiatric: Alert Oriented x3 No Motor/Sensory Deficits Depressed Affect Skin: Normal Color Warm/Dry Lymphatic: No Adenopathy Results Results/Procedures Lab Laboratory Tests 11/28/16 04:58 Assessment/Plan Admission Diagnosis Assessment: 1A. New onset of severe leukocytosis with negative sepsis workup consulting hematology for possible leukemia new onset requiring transfer back to acute care but it appears that he is a reactive change and no evidence of leukemia but will follow up closely 1B. gastrointestinal bleeding with tarry stools in need of EGD tomorrow by Dr. Broussard placed on proton pump inhibitor and stopped all anti-inflammatory medication including prednisone and held anticoagulation of Xarelto 1. Acute COPD exacerbation with pneumonia bibasilar community-acquired confirmed on CT Chest so will continue Rocephin and azithromycin and stop prednisone taper 2. Nausea on Zofran and continue to monitor. 3. Continued pleuritic chest pain with T9 compression fx on CT Chest ordering MRI due to question of age of fracture T9 consulted Dr Mike 4. Paroxysmal atrial fibrillation has been rate controlled 5. Constipation 6. 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 Anemia of chronic illness and acute blood loss and tarry stools Assessment and Plan Maintain acute stay EGD tomorrow by Dr. Broussard is appreciated Stops her relative Stop prednisone and all anti-inflammatories they could place her at risk for gastrointestinal bleeding Hydrocodone as needed Physical therapy halfway likely first of the week Dr. Mike consultation for pain management Clinical Quality Measures DVT/VTE Risk/Contraindication: Risk Factor Score Per Nursin RFS Level Per Nursing on Admit: 4+=Very High DENA HODGE DO Nov 28, 2016 10:28
[2016-11-28] MEDS: RT-ADVAIR HFA 115/21 MCG PER PUFF IH SCH ×2 (10:50→18:57)
[2016-11-28 12:39] VITALS: BP 138/62
[2016-11-28 16:00] VITALS: BP 124/69
--- NOTE | 2016-11-28 16:54 | Progress Note (SOAP) ---
Subjective Subjective/Events-last exam Patient started having black stools. Steroids and Xarelto are being held. WBC has dropped to 33,000. Objective Exam Vital Signs Date Time Temp Pulse Resp B/P Pulse Ox O2 Delivery O2 Flow Rate FiO2 11/28/16 14:09 94 3.00 11/28/16 12:39 98.1 90 20 138/62 97 Nasal Cannula 3.00 11/28/16 10:51 98 3.00 11/28/16 10:50 3.00 11/28/16 09:00 Nasal Cannula 3.00 11/28/16 08:19 97.9 93 20 132/62 96 Nasal Cannula 3.00 11/28/16 07:07 3.00 11/28/16 04:00 98.2 110 19 125/64 95 Nasal Cannula 3.00 11/28/16 00:00 96.7 87 19 130/61 100 Nasal Cannula 3.00 11/27/16 21:20 Nasal Cannula 3.00 11/27/16 20:58 98.9 92 20 167/79 100 Nasal Cannula 3.00 11/27/16 19:05 3.00 I & O 11/28/16 07:00 Intake Total 1780 ml Output Total 300 ml Balance 1480 ml Capillary Refill : General Appearance: No Apparent Distress HEENT: PERRL/EOMI Neck: Full Range of Motion Normal Inspection Non Tender Respiratory: Chest Non Tender Lungs Clear Normal Breath Sounds Cardiovascular: Other (irregularly irregular rhythm;) Gastrointestinal: normal bowel sounds non tender soft Extremity: No Calf Tenderness No Pedal Edema Calf Tenderness Neurologic/Psychiatric: Alert Oriented x3 No Motor/Sensory Deficits Normal Mood/Affect guard captain II-XII Norm as Tested Results Lab Laboratory Tests 11/28/16 04:58 Laboratory Tests 11/28/16 04:58: Alanine Aminotransferase (ALT/SGPT) 22, Albumin 3.2, Alkaline Phosphatase 84, Anion Gap 11, Aspartate Amino Transf (AST/SGOT) 24, BUN/Creatinine Ratio 38, Basophils # (Auto) 0.0, Basophils (%) (Auto) 0, Blood Urea Nitrogen 33H, C- Reactive Protein High Sensitivity 29.63H, Calcium Level 9.2, Carbon Dioxide Level 28, Chloride Level 99, Creatinine 0.87, Eosinophils # (Auto) 0.1, Eosinophils (%) (Auto) 0, Estimat Glomerular Filtration Rate > 60, Glucose Level 125H, Hematocrit 33L, Hemoglobin 9.9L, Lymphocytes # (Auto) 0.8L, Lymphocytes (%) (Auto) 2L, Mean Corpuscular Hemoglobin 28, Mean Corpuscular Hemoglobin Concent 30L, Mean Corpuscular Volume 94, Mean Platelet Volume 10.3, Monocytes # (Auto) 1.5H, Monocytes (%) (Auto) 5, Neutrophils # (Auto) 30.8H, Neutrophils (%) (Auto) 93H, Platelet Count 379, Potassium Level 4.0, Red Blood Count 3.53L, Red Cell Distribution Width 13.3, Sodium Level 138, Total Bilirubin 0.3, Total Protein 5.8L, White Blood Count 33.3*H 11/28/16 05:20: Stool Occult Blood Immunoassay POSITIVEH Assessment/Plan Assessment/Plan Assess & Plan/Chief Complaint 1. Leukocytosis favor reactive process exacerbated by recent high dose steroids. Markedly elevated CRP is consistent with this being a reactive process. WBC has decreased to 33.2 from 41,000 on 11/27/16. a. I reviewed all the laboratory results in [facility] show that patient has had an elevated WBC for most of 2014 and 2015 ranging from 11.2-14.6. She states that she has frequently been on steroids if not constantly for all of 2016 and much of 2014. b. We will continue to monitor the WBC c. Patient will need a follow-up visit post discharge. 2. Acute GI bleed,in patient who has been on assisted steroids and has been on Xarelto for stroke prevention; Both agents are currently being held while she awaits an EGD; 3. Recent atypical pneumonia- being treated with Rocephin and azithromycin 4. COPD-on home oxygen and chronic steroid dependent; pulmonary is following; 5. Comorbidities of atrial fibrillation on Xarelto for stroke prevention, CAD status post CABG, carotid artery disease, hypertension, hyperlipidemia. Diagnosis/Problems: Clinical Quality Measures DVT/VTE Risk/Contraindication: Risk Factor Score Per Nursin RFS Level Per Nursing on Admit: 4+=Very High PRIYANKA TOLLIVER MD Nov 28, 2016 16:54
[2016-11-28] MEDS: cefTRIAXone INJECTION 1,000 MG in NORMAL SALINE (BAXTER MINI) 50 ML IV SCH (18:50)
[2016-11-28 20:00] VITALS: BP 138/83
[2016-11-28] MEDS: ZIPRASIDONE 20 MG (GEODON) CAP PO SCH (20:12)
[2016-11-28] MEDS: ATORVASTATIN 10 MG (LIPITOR) TABLET PO SCH (20:12)
[2016-11-28] MEDS: POLYETHYLENE GLYCOL 17 GM (MIRALAX) PACK PO SCH (20:13)
[2016-11-29] VITALS: BP 117/60
[2016-11-29 04:00] VITALS: BP 116/68
[2016-11-29 04:39] LABS: BASOPHILS % (AUTO) 0 % (0-10); EOSINOPHILS # (AUTO) 0.1 10^3/uL (0.0-0.3); EOSINOPHILS % (AUTO) 0 % (0-10); LYMPHOCYTES # (AUTO) 0.7 X 10^3 (1.0-4.0); LYMPHOCYTES % (AUTO) 4 % (12-44); MEAN CORPUSCULAR HEMOGLOBIN 28 PG (25-34); MEAN CORPUSCULAR HGB CONC 30 G/DL (32-36); MEAN CORPUSCULAR VOLUME 94 FL (80-99); MEAN PLATELET VOLUME 10.1 FL (7.4-10.4); MONOCYTES # (AUTO) 1.1 X 10^3 (0.0-1.0); MONOCYTES % (AUTO) 5 % (0-12); NEUTROPHILS # (AUTO) 18.4 X 10^3 (1.8-7.8); NEUTROPHILS % (AUTO) 91 % (42-75); PLATELET COUNT 341 10^3/uL (130-400); RED BLOOD COUNT 2.99 10^6/uL (4.35-5.85); RED CELL DISTRIBUTION WIDTH 13.1 % (10.0-14.5); WHITE BLOOD COUNT 20.3 10^3/uL (4.3-11.0)
[2016-11-29] MEDS: KCL 10 MEQ TAB (MICRO K) PO SCH ×2 (05:37→13:29)
[2016-11-29] MEDS: PANTOPRAZOLE 40 MG (PROTONIX) TAB PO SCH (05:37)
[2016-11-29] MEDS: CATHETER FLUSH 10 ML SYR IV SCH ×3 (06:00→20:46)
[2016-11-29] MEDS: RT-ALBUTEROL SULF 2.5 MG/3 ML PRE-MIX VIAL INH SCH ×4 (07:00→19:00)
[2016-11-29] MEDS: TIOTROPIUM BROMIDE (SPIRIVA) 5'S INHALER IH SCH (07:33)
[2016-11-29 08:42] VITALS: BP 120/72
--- NOTE | 2016-11-29 09:27 | Progress Note-Pre Operative ---
Pre-Operative Progress Note H&P Reviewed The H&P was reviewed, patient examined and no changes noted. Date H&P Reviewed: Nov 29, 2016 Time H&P Reviewed: 09:00 Pre-Operative Diagnosis: Upper GI bleed, hx CASSANDRA SPANN MD Nov 29, 2016 9:27 am
--- NOTE | 2016-11-29 09:27 | Conscious Sedation/ASA ---
Conscious Sedation Pre-Proced Time Reviewed: 09:00 ASA Class: 3 Airway Mallampati Classification: (lower brule appropriate class) I. II. III, IV Lungs Heart ASA score ASA 1: a normal healthy patient ASA 2: a patient with a mild systemic disease (mid diabetes, controlled hypertension, obesity ASA 3: a patient with a severe systemic disease that limits activity (angina , COPD, prior Myocardial infarction) ASA 4: a patient with an incapacitating disease that is a constant threat to life (CHF, renal failure) ASA 5: a moribund patient not expected to survive 24 hrs. (ruptured aneurysm) ASA 6: a declared brain patient whose organs are being harvested. For emergent operations, add the letter E after the classification Grade 2 Sedation Plan: Analgesia, Amnesia, Plan communicated to team members, Discussed options with patient/fam, Discussed risks with patient/fam Note The patient is an appropriate candidate to undergo the planned procedure, sedation, and anesthesia. The patient immediately re-assessed prior to indication. CASSANDRA DELGADO MD Nov 29, 2016 9:27 am
[2016-11-29] MEDS ORDERED: NS IV 500 ML 500 ML ONE (09:44)
[2016-11-29] MEDS ORDERED: MIDAZOLAM 2 MG/2 ML (VERSED) VIAL ONE ×2 (10:15)
[2016-11-29] MEDS ORDERED: fentaNYL INJECTION 100 MCG/2 ML AMP ONE (10:15)
[2016-11-29] MEDS: fentaNYL INJECTION 100 MCG/2 ML AMP IVP PRN ×3 (10:15→10:25)
[2016-11-29] MEDS: MIDAZOLAM 2 MG/2 ML (VERSED) VIAL IVP PRN ×2 (10:17→10:22)
[2016-11-29] MEDS: RT-ADVAIR HFA 115/21 MCG PER PUFF IH SCH ×2 (10:32→19:58)
[2016-11-29] MEDS ORDERED: PANTOPRAZOLE 40 MG/10 ML (PROTONIX) VIAL IV NR (10:45)
--- NOTE | 2016-11-29 11:02 | Progress Note-Post Operative ---
Post-Operative Progess Note Pre-Operative Diagnosis Upper GI bleed, hx PUD Post-Operative Diagnosis reflux esophagitis(class B), small HH(1.5cm), moderate gastritis with antral ulcer(2mm) and pyloric ulcer(4mm), moderate duodentitis. Post-Op Procedure Note Date of Procedure: Nov 29, 2016 Name of Procedure: EGD with bx Anesthesia Type CS Estimated blood loss (mL): minimal Specimen(s) collected GE jxn, antral and pyloric ulcer. CASSANDRA DELGADO MD Nov 29, 2016 11:02 am
--- NOTE | 2016-11-29 11:04 | Physician Progress Note ---
Progress Note Assessment/Plan Events since last exam Patient taken for EGD this morning. WBC has come down to 20,000. Assessment/Plan 1. Leukocytosis favor reactive process exacerbated by recent high dose steroids. Markedly elevated CRP is consistent with this being a reactive process. WBC has decreased to 20K from 41,000 on 11/27/16. a. I reviewed all the laboratory results in [facility] show that patient has had an elevated WBC for most of 2014 and 2015 ranging from 11.2-14.6. She states that she has frequently been on steroids if not constantly for all of 2015 and much of 2014. b. We will continue to monitor the WBC c. Patient will need a follow-up visit post discharge. 2. Acute GI bleed, in patient who has been on care home steroids and has been on Xarelto for stroke prevention; Both agents are currently being held while she awaits an EGD; hemoglobin has 8.3 from 10.5 without hydration. I will order a type and screen for 2 units and if further drop to less than 8.0 recommend to transfuse given CAD with CABG history. 3. Recent atypical pneumonia- being treated with Rocephin and azithromycin 4. COPD-on home oxygen and chronic steroid dependent; pulmonary is following; 5. Comorbidities of atrial fibrillation on Xarelto for stroke prevention, CAD status post CABG, carotid artery disease, hypertension, hyperlipidemia. Vitals Last set of Vitals Signs Vital Signs Date Time Temp Pulse Resp B/P Pulse Ox O2 Delivery O2 Flow Rate FiO2 11/29/16 09:00 Nasal Cannula 3.00 11/29/16 08:42 96.8 86 18 120/72 96 I&O I&O Intake and Output 11/29/16 00:00 Intake Total 1500 ml Balance 1500 ml Intake Oral 1500 ml # Voids 8 # Bowel Movements 7 Labs Laboratory Tests 11/28/16 04:58 11/29/16 04:05 Laboratory Tests 11/29/16 04:05: Basophils # (Auto) 0.0, Basophils (%) (Auto) 0, Eosinophils # (Auto) 0.1, Eosinophils (%) (Auto) 0, Hematocrit 28L, Hemoglobin 8.3L, Lymphocytes # (Auto) 0.7L, Lymphocytes (%) (Auto) 4L, Mean Corpuscular Hemoglobin 28, Mean Corpuscular Hemoglobin Concent 30L, Mean Corpuscular Volume 94, Mean Platelet Volume 10.1, Monocytes # (Auto) 1.1H, Monocytes (%) (Auto) 5, Neutrophils # ( Auto) 18.4H, Neutrophils (%) (Auto) 91H, Platelet Count 341, Red Blood Count 2.99L, Red Cell Distribution Width 13.1, White Blood Count 20.3H Clinical Quality Measures DVT/VTE Risk/Contraindication: Risk Factor Score Per Nursin RFS Level Per Nursing on Admit: 4+=Very High PRIYANKA TOLLIVER MD Nov 29, 2016 11:04
--- NOTE | 2016-11-29 11:10 | Progress Note-Hospitalist ---
Progress Note HPI/CC on Admission CC: Leukocytosis severe along with black tarry stools HPI: Patient was moved back to inpatient care due to severe leukocytosis of 41, 000 prompting hematology workup and a possible leukemia occurrence but upon evaluation of Dr. Dash consultation and it appears that it is more of a reactive response so will discontinue steroids and monitor closely. She began having black tarry stools so Dr. Broussard was consulted who will perform EGD tomorrow at 10 o'clock. Xarelto has been placed on hold due to the black tarry stools and prednisone will be discontinued along with any type of anti- inflammatory that could cause upper gastrointestinal ulcerations. She is actually getting up and around and responding to hydrocodone although she had an addiction problem with that in the past but will require pain control to get her moving around at all. She is very concerned about Xarelto being stopped and steroids been stopped and I recommended these changes of which she reluctantly agrees. MRI of the thoracic spine showed T9 compression fracture only subacute so there will be no kyphoplasty recommended. After lou we'll proceed on with likely thoracic pain injection to see if that helps with the pain. Progress Notes/Assess & Plan Date Seen 11/29/16 Admission Dx/Process Assessment: 1A. New onset of severe leukocytosis with negative sepsis workup consulting hematology for possible leukemia new onset requiring transfer back to acute care but it appears that he is a reactive change and no evidence of leukemia but will follow up closely 1B. gastrointestinal bleeding with tarry stools in need of EGD tomorrow by Dr. Broussard placed on proton pump inhibitor and stopped all anti-inflammatory medication including prednisone and held anticoagulation of Xarelto 1. Acute COPD exacerbation with pneumonia bibasilar community-acquired confirmed on CT Chest so will continue Rocephin and azithromycin and stop prednisone taper 2. Nausea on Zofran and continue to monitor. 3. Continued pleuritic chest pain with T9 compression fx on CT Chest ordering MRI due to question of age of fracture T9 consulted Dr Mike 4. Paroxysmal atrial fibrillation has been rate controlled 5. Constipation 6. 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 Anemia of chronic illness and acute blood loss and tarry stools Diagonsis/Assessment & Plan Patient just arrived from endoscopy suite revealing ulcerations consistent with GI bleed causing tarry stools and subsequent anemia Still complains of back pain and very difficult to redirect so we'll have Dr. Mike proceed on with possible epidural pain injections tomorrow to help recovery We'll check iron level and initiate iron infusions empirically Will hold off on anticoagulation for a few more days per Dr. Broussard recommendation Noted leukocytosis much improved at 20,000 now off steroids and consistent with reactive phase per Dr. Storey and I appreciate her management Continues on IV antibiotics until tomorrow and will discontinue Getting closer to placement in jail Debility is profound very difficult to recover but will support the patient in any way possible to keep her as comfortable as possible No fever, vital signs stable, pleasant, pale, frail, thin, disgruntled Irregular irregular rhythm, clear to auscultation bilaterally No edema Laboratory Tests 11/29/16 04:05 Assessment: 1A. New onset of severe leukocytosis with negative sepsis workup consulting hematology for possible leukemia new onset requiring transfer back to acute care but it appears that he is a reactive change and no evidence of leukemia but will follow up closely appreciate the skills of Dr. Storey 1B. Acute gastrointestinal bleeding with tarry stools s/p EGD by Dr. Broussard revealing ulcer placed on proton pump inhibitor yesterday and will start Carafate and stopped all anti-inflammatory medication including prednisone and held anticoagulation of Xarelto 1. Acute COPD exacerbation with pneumonia bibasilar community-acquired confirmed on CT Chest so will continue Rocephin and azithromycin and stop prednisone taper 2. Nausea on Zofran and continue to monitor. 3. Continued pleuritic chest pain with T9 compression fx on CT Chest ordering MRI due to question of age of fracture T9 consulted Dr Mike who likely will need to at least attempt an epidural pain injection due to the severity of her pain 4. Paroxysmal atrial fibrillation has been rate controlled 5. Constipation 6. 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 Anemia of chronic illness and acute blood loss and tarry stools and likely iron deficiency we'll check level but treat with iron infusions empirically Plan: Maintain acute stay EGD by Dr. Broussard is appreciated Continue discontinuation of Xarelto Stopped prednisone and all anti-inflammatories they could place her at risk for gastrointestinal bleeding Hydrocodone as needed Physical therapy group home likely first of the week Dr. Mike consultation for pain management hopefully able to accommodate procedure tomorrow since she has been XARELTO since YORDAN HODGE DO Nov 29, 2016 11:10
[2016-11-29] MEDS ORDERED: morphine INJ 4 MG/ML 1 ML (VIAL/SYRINGE) IVP PRN (11:15)
[2016-11-29] MEDS ORDERED: NALOXONE 0.4 MG/ML 1 ML (NARCAN) VIAL IVP PRN (11:30)
[2016-11-29] MEDS ORDERED: NS IV 500 ML 500 ML IV SCH (11:30)
[2016-11-29] MEDS ORDERED: HURRICAINE EXT TUBE (BENZOCAINE) XX PRN (11:30)
[2016-11-29] MEDS ORDERED: FLUMAZENIL (ROMAZICON) 0.1 MG/ML 5 ML VIAL INJ PRN (11:30)
[2016-11-29] MEDS ORDERED: HURRICAINE EXT TUBE (BENZOCAINE) ONE (11:50)
[2016-11-29] MEDS: HYDROcodone/APAP 5 MG/325 MG (LORTAB) TAB PO PRN ×2 (11:56→18:53)
[2016-11-29] MEDS ORDERED: IRON SUCROSE INJECTION 200 MG in NS (IVPB) 100 ML IV SCH (12:15)
[2016-11-29] MEDS: ALPRAZolam 0.5 MG (XANAX) TAB PO SCH ×2 (12:17→20:47)
[2016-11-29] MEDS: SUCRALFATE 1 GM (CARAFATE) TAB PO SCH ×3 (12:18→20:48)
[2016-11-29] MEDS: ACETAMINOPHEN 325 MG TABLET/CAPLET (TYLENOL) PO SCH ×4 (12:18→20:47)
[2016-11-29] MEDS: LACTULOSE SYRUP 10GM/15ML (ENULOSE) 30ML UDC PO SCH ×2 (12:20→20:49)
[2016-11-29 12:32] LABS: RED BLOOD COUNT 3.26 10^6/uL (4.35-5.85); RED CELL DISTRIBUTION WIDTH 13.1 % (10.0-14.5); WHITE BLOOD COUNT 17.9 10^3/uL (4.3-11.0)
[2016-11-29 12:47] VITALS: BP 124/74
--- NOTE | 2016-11-29 13:06 | CONSULTATION REPORT ---
DATE OF ACUTE CARE ADMISSION: 11/27/2016 DATE OF CONSULTATION: ATTENDING PRIMARY CARE PHYSICIAN: Dr. Braun. ADMITTING PHYSICIAN: Dr. Montana. Ms. Jabari Matamoros is a 81-year-old female who we have seen before in the past. She has a history of COPD, asthma and was admitted for pneumonia. Due to her exacerbation of COPD she was placed on steroids, which did also cause leukocytosis however, this is most likely reactive and not pathologic. She states that she has had epigastric pain for the past several weeks. Upon further questioning, she does report a history of gastroesophageal reflux disease, as well as peptic ulcer disease in the past and was not taking any acid reducers at home. She has had some episodes of dark tarry stools. However, she is adamant that her stools are always that color due to iron supplementation. She is however, slightly anemic. Upon examination as well she does have pain in the epigastric region which may indicate a gastritis versus ulcer disease. PAST MEDICAL HISTORY: 1. COPD. 2. Asthma. 3. Coronary artery disease. 4. Peripheral vascular disease. 5. Atrial fibrillation. 6. History of myocardial infarction. 7. Hypercholesterolemia. 8. Hypertension. 9. Gastroesophageal reflux disease. 10. Peptic ulcer disease. 11. Rheumatoid arthritis. 12. Osteoporosis. 13. Glaucoma. 14. Psoriasis. 15. Anxiety. PAST SURGERIES: 1. Left carotid endarterectomy. 2. Coronary artery bypass grafting. 3. Tracheostomy. 4. Laparoscopic cholecystectomy. ALLERGIES: 1. EEGS. 2. PENICILLIN. 3. ADHESIVE TAPES. 4. LASIX. 5. SIMVASTATIN. MEDICATIONS: 1. Acetaminophen p.r.n. 2. Albuterol nebulizer p.r.n. 3. Albuterol MDI 2 puffs q.i.d. p.r.n. 4. Alprazolam 0.5 mg b.i.d. 5. Atorvastatin 10 mg a daily. 6. Budesonide 2 puffs b.i.d. 7. Digoxin 250 mcg daily. 8. Duloxetine 20 mg daily. 9. Iron 325 mg b.i.d. 10. Furosemide 40 mg daily. 11. Loratadine 10 mg daily. 12. Meclizine 12.5 mg daily. 13. Metoprolol 25 mg b.i.d. 14. Montelukast 10 mg daily. 15. Nitroglycerin 0.4 mg sublingual p.r.n. 16. Prednisone 10 mg daily. 17. Potassium 10 mEq b.i.d. 18. Eliquis 20 mg a daily. 19. Ipratropium bromide 2+ daily. 20. Trimethoprim 100 mg daily. 21. Ziprasidone 20 mg daily. SOCIAL HISTORY: Previous smoke, quit 2003, 40 pack-years. Negative alcohol. FAMILY HISTORY: Father coronary artery disease myocardial infarction, mother cardiovascular disease. VITAL SIGNS: Temperature 97.9, blood pressure 132/62, pulse 93, respirations 20, pulse oximetry 96% on 3 liters nasal cannula. REVIEW OF SYSTEMS: This is a well-nourished female currently in no acute distress. She is not experiencing any shortness of breath or difficulty breathing. No chest pain, palpitations, diaphoresis. No nausea vomiting and is having slightly loose stools that are dark to black in coloration. No red blood per rectum, as well as no maroon stools. No fever, chills, no recent inadvertent weight loss. PHYSICAL EXAMINATION: CHEST: Scattered rales and distant breath sounds bilaterally. HEART: Regular. EXTREMITIES: No lower extremity edema. Negative Homans sign. HEENT: No scleral icterus. No cervical lymphadenopathy. ABDOMEN: Soft, nondistended. There is pain in the epigastric region upon palpation with voluntary guarding. No rebound. LABS: WBC 33.3, hemoglobin 9.9, hematocrit 33, platelets 379,000, BUN 32, creatinine 0.87. ASSESSMENT AND PLAN: 81-year-old female with exacerbation of COPD, as well as pneumonia. She also is slightly anemic with dark tarry stools. She has also developed epigastric pain. Due to her signs and symptoms, we feel that she does have recurrent peptic ulcer disease and we will recommend an EGD, which we will proceed with on this admission. Job ID: [id number] Dictated Date: 11/28/2016 10:43:55 Construction Helper Date: 11/29/2016 12:53:10/arcelia
[2016-11-29] MEDS: AZITHROMYCIN 250 MG TAB (ZITHROMAX) PO SCH (13:29)
[2016-11-29] MEDS: meTOprolol TARTRATE 25 MG (LOPRESSOR) TABLET PO SCH ×2 (13:29→20:47)
[2016-11-29] MEDS: FUROSEMIDE 40 MG (LASIX) TAB PO SCH (13:29)
[2016-11-29] MEDS: DIGOXIN 0.125 MG (LANOXIN) TAB PO SCH (13:29)
[2016-11-29] MEDS: DULoxetine 20 MG (CYMBALTA) CAP PO SCH (13:29)
--- NOTE | 2016-11-29 14:07 | OPERATIVE REPORT ---
PROCEDURE PHYSICIAN: CASSANDRA BROUSSARD DATE OF ADMISSION: 11/27/2016 DATE OF PROCEDURE: 11/29/2016 ATTENDING PRIMARY CARE PHYSICIAN: Dr. Braun. ADMITTING PHYSICIAN: Dr. Montana. PREOPERATIVE DIAGNOSIS: Upper GI bleed history of peptic ulcer disease. POSTOPERATIVE DIAGNOSES: 1. Reflux esophagitis, class B. 2. Small hiatal hernia 1.5 cm. 3. Moderate severity gastritis with small antral ulcer with overlying fibrin clot 2 mm in size. 4. There was a pyloric ulcer, which was 4 mm in size, again with an overlying fibrin clot. 5. Moderate duodenitis PROCEDURE: EGD with biopsy. SURGEON: Dr. Broussard. ANESTHESIA: Conscious sedation. ESTIMATED BLOOD LOSS: Minimal. FINDINGS: 1. Reflux esophagitis, class B. 2. Small hiatal hernia 1.5 cm in size. 3. A moderate severity gastritis with a small antral ulcer with overlying fibrin clot 2 mm in size. 4. There were multiple erosions of the pylorus as well as an ulcer, approximately 4 mm in size, again with overlying fibrin clot and no active bleeding. 5. There was a moderate duodenitis no ulcers in the duodenum. DISPOSITION: The patient tolerated the procedure well. Ms. Jabari Matamoros is a 81-year-old female who has multiple medical problems. She had worsening shortness of breath and was treated and diagnosed with pneumonia and was started on IV antibiotics, as well as steroids for exacerbation of COPD. On this admission she did have dark stools, however, she is adamant about the fact that her stools are always dark from taking iron for the past 2 years. She is slightly anemic and has had a decrease in her hemoglobin. On this admission she reports that she has had pain in the upper abdominal region, as well as the epigastric region. She reports that the pain is significant. She also reports having an ulcer in the past as well. At home she was not taking any acid reduction therapy. She is also on anticoagulation with Rivaroxaban for atrial fibrillation. The patient was brought to the endoscopy suite, laid in the left lateral decubitus position with the head slightly elevated. After adequate IV pain and sedative medications and conscious sedation anesthesia, the mouthpiece was applied. The endoscope was placed in the mouth, visualizing the pharynx and hypopharyngeal region. Vocal cords, epiglottis and vallecula identified and appeared to be normal. The endoscope was then gently intubated the esophageal opening and the esophagus insufflated. The endoscope was then advanced through the first, second, and 3rd portions of the esophagus and at the level of the GE junction, a reflux esophagitis, class B identified. There were no ulcers or strictures in this region. A biopsy was taken using forceps with visualization of good hemostasis. The endoscope was then advanced into the stomach and endoscope retroflexed visualizing a small hiatal hernia, approximately 1.5 cm in size. There was a moderate severity gastritis with a small antral ulcer identified approximately 2 mm in size with an overlying fibrin clot and no active bleeding. This was gently biopsied using electrocautery and forceps with visualization of good hemostasis. The endoscope was then advanced into the pylorus where multiple erosions identified, as well as another ulcer, approximately 4 mm in size again with overlying fibrin clot. This was biopsied with forceps and electrocautery with visualization of good hemostasis. The endoscope was then advanced through first and second portion of the duodenum. There was a moderate duodenitis also identified; however, no ulcers. The endoscope was then slowly withdrawn while taking a second look and suctioning residual air with no additional findings. The patient tolerated the procedure well. We feel that her dark tarry stools and epigastric pain, as well as anemia all are related to her upper gastrointestinal tract and acid hypersecretion. At this time she does not appear to be actively bleeding however was at some point. The anticoagulation also exacerbated this issue. We will proceed with conservative medical management and start IV Protonix 40 mg b.i.d. as well as Carafate 1 gram q.i.d. and start a bland diet and avoidance of caffeinated beverages, spicy, greasy and acidic foods. We will also monitor her hemoglobin. If her hemoglobin stabilizes, she may resume her anticoagulations therapy. We will also recommend a PPI acid design checker on a b.i.d. basis orally when she goes home. Job ID: [id number] Dictated Date: 11/29/2016 11:16:56 Domestic Laundry Worker Date: 11/29/2016 13:56:24 / arcelia
[2016-11-29 16:00] VITALS: BP 114/65
[2016-11-29] MEDS: cefTRIAXone INJECTION 1,000 MG in NORMAL SALINE (BAXTER MINI) 50 ML IV SCH (18:53)
[2016-11-29 19:41] VITALS: BP 138/65
[2016-11-29] MEDS: ATORVASTATIN 10 MG (LIPITOR) TABLET PO SCH (20:47)
[2016-11-29] MEDS: ZIPRASIDONE 20 MG (GEODON) CAP PO SCH (20:47)
[2016-11-29] MEDS: POLYETHYLENE GLYCOL 17 GM (MIRALAX) PACK PO SCH (20:49)
[2016-11-29] MEDS ORDERED: PANTOPRAZOLE 40 MG/10 ML (PROTONIX) VIAL IV SCH (21:00)
[2016-11-30] VITALS: BP 89/57
[2016-11-30 04:00] VITALS: BP 109/51
[2016-11-30] MEDS: SUCRALFATE 1 GM (CARAFATE) TAB PO SCH ×2 (06:14→11:18)
[2016-11-30] MEDS: CATHETER FLUSH 10 ML SYR IV SCH ×2 (06:14→15:12)
[2016-11-30] MEDS: KCL 10 MEQ TAB (MICRO K) PO SCH (06:14)
[2016-11-30] MEDS: HYDROcodone/APAP 5 MG/325 MG (LORTAB) TAB PO PRN (06:15)
--- NOTE | 2016-11-30 06:43 | Pulmonary Progress Note ---
Subjective Subjective/Events-last exam Pt feels improved Exam Exam Vital Signs Date Time Temp Pulse Resp B/P Pulse Ox O2 Delivery O2 Flow Rate FiO2 11/30/16 04:00 96.4 94 18 109/51 100 Nasal Cannula 3.00 11/30/16 00:00 96.2 78 18 89/57 99 Nasal Cannula 3.00 11/29/16 21:00 Nasal Cannula 3.00 11/29/16 19:58 98 3.00 11/29/16 19:41 98.0 87 18 138/65 100 Nasal Cannula 3.00 11/29/16 16:00 97.7 102 18 114/65 99 Nasal Cannula 3.00 11/29/16 14:40 95 3.00 11/29/16 12:47 97.0 82 18 124/74 95 Nasal Cannula 3.00 11/29/16 09:00 Nasal Cannula 3.00 11/29/16 08:42 96.8 86 18 120/72 96 Nasal Cannula 3.00 11/29/16 07:35 3.00 I & O 11/30/16 07:00 Intake Total 820 ml Balance 820 ml General Appearance: No Apparent Distress HEENT: PERRL/EOMI Neck: Full Range of Motion Normal Inspection Non Tender Respiratory: Chest Non Tender Lungs Clear Normal Breath Sounds Cardiovascular: Other (irregularly irregular rhythm;) Gastrointestinal: normal bowel sounds non tender soft Extremity: No Calf Tenderness No Pedal Edema Calf Tenderness Neurologic/Psychiatric: Alert Oriented x3 No Motor/Sensory Deficits Normal 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
[2016-11-30 06:46] LABS: BASOPHILS % (AUTO) 0 % (0-10); EOSINOPHILS # (AUTO) 0.5 10^3/uL (0.0-0.3); EOSINOPHILS % (AUTO) 4 % (0-10); LYMPHOCYTES # (AUTO) 0.8 X 10^3 (1.0-4.0); LYMPHOCYTES % (AUTO) 6 % (12-44); MEAN CORPUSCULAR HEMOGLOBIN 28 PG (25-34); MEAN CORPUSCULAR HGB CONC 30 G/DL (32-36); MEAN CORPUSCULAR VOLUME 95 FL (80-99); MEAN PLATELET VOLUME 10.3 FL (7.4-10.4); MONOCYTES % (AUTO) 8 % (0-12); NEUTROPHILS # (AUTO) 9.5 X 10^3 (1.8-7.8); NEUTROPHILS % (AUTO) 81 % (42-75); PLATELET COUNT 393 10^3/uL (130-400); RED CELL DISTRIBUTION WIDTH 13.1 % (10.0-14.5); WHITE BLOOD COUNT 11.7 10^3/uL (4.3-11.0)
[2016-11-30 07:23] LABS: ERYTHROCYTE SEDIMENTATION RATE 5 MM/HR (0-35)
[2016-11-30] MEDS: RT-ALBUTEROL SULF 2.5 MG/3 ML PRE-MIX VIAL INH SCH ×3 (07:35→15:00)
[2016-11-30] MEDS: RT-ADVAIR HFA 115/21 MCG PER PUFF IH SCH (07:35)
[2016-11-30 08:00] VITALS: BP 132/74
[2016-11-30] MEDS ORDERED: SUCR1TAB PO (09:20)
[2016-11-30] MEDS ORDERED: ALPR0.5T7 PO (09:20)
[2016-11-30] MEDS ORDERED: HYDR-3812 PO (09:20)
[2016-11-30] MEDS ORDERED: OMEP20TA7 PO (09:20)
--- NOTE | 2016-11-30 09:23 | Discharge Inst-Home Health ---
Discharge Inst-to Home Health Patient Instructions Patient Instructions/FollowUp: Dr Braun in 1 week to evaluate when Xarelto can be restarted Stop Prendisone due to stomach ulcers Maintain PPI and Carafate to help heal ulcers Patient Problems: GI Bleed from ulcers on EGD Severe back pain due to old compression fracture T9 s/p pain injection by Dr Mike [place], [place] DISCHARGE ORDERS Allergies: Coded Allergies: egg (Verified Allergy, Intermediate, 04/10/12) Penicillins (Unverified Allergy, Unknown, 06/19/14) adhesive tape (Verified Allergy, Unknown, 11/24/16) latex (Verified Allergy, Unknown, 11/24/16) simvastatin (Verified Allergy, Unknown, PATIENT TAKES ATORVASTATIN AT HOME , 11/24/16) Height (Feet): 5 Height (Inches): 5.00 Weight (Pounds): 122 Weight (Ounces): 5.0 Home Health Need/Face to Face Reason Pt Homebound weakness, severe back pain I Have Seen Pt [id number]: Yes Date of Face to Face: Nov 30, 2016 Discharged To: Home Diagnosis/Conditions HH Order: Med administration Back pain management Stomach ulcer management Consult/Follow Up/New Order *I certify that based on my findings, the following services are medically necessary Home Health Services: Services: Nursing Services, Tentmaker-Evaluate & Treat, Physical Therapy-Evaluate & Treat My clinical findings support the need for the above services; see Diagnosis. Dicharge Diet: Cardiac Diet Daily Activity as Tolerated: Yes I certify that this patient is under my care and that I, a nurse practitioner or a physician; a teachers' assistant working with me, had a face to face encounter that - meets the physician face to face encounter requirements with this patient as dated. YORDAN HODGE DO Nov 30, 2016 09:23
--- NOTE | 2016-11-30 09:24 | Discharge Summary-Hospitalist ---
Diagnosis/Chief Complaint Date of Admission Nov 27, 2016 at 12:41 Date of Discharge Discharge Date: Admission Diagnosis Assessment: 1A. New onset of severe leukocytosis with negative sepsis workup consulting hematology for possible leukemia new onset requiring transfer back to acute care but it appears that he is a reactive change and no evidence of leukemia but will follow up closely 1B. gastrointestinal bleeding with tarry stools in need of EGD tomorrow by Dr. Broussard placed on proton pump inhibitor and stopped all anti-inflammatory medication including prednisone and held anticoagulation of Xarelto 1. Acute COPD exacerbation with pneumonia bibasilar community-acquired confirmed on CT Chest so will continue Rocephin and azithromycin and stop prednisone taper 2. Nausea on Zofran and continue to monitor. 3. Continued pleuritic chest pain with T9 compression fx on CT Chest ordering MRI due to question of age of fracture T9 consulted Dr Mike 4. Paroxysmal atrial fibrillation has been rate controlled 5. Constipation 6. 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 Anemia of chronic illness and acute blood loss and tarry stools Discharge Diagnosis Patient just arrived from endoscopy suite revealing ulcerations consistent with GI bleed causing tarry stools and subsequent anemia Still complains of back pain and very difficult to redirect so we'll have Dr. Mike proceed on with possible epidural pain injections tomorrow to help recovery We'll check iron level and initiate iron infusions empirically Will hold off on anticoagulation for a few more days per Dr. Broussard recommendation Noted leukocytosis much improved at 20,000 now off steroids and consistent with reactive phase per Dr. Storey and I appreciate her management Continues on IV antibiotics until tomorrow and will discontinue Getting closer to placement in [facility] Debility is profound very difficult to recover but will support the patient in any way possible to keep her as comfortable as possible No fever, vital signs stable, pleasant, pale, frail, thin, disgruntled Irregular irregular rhythm, clear to auscultation bilaterally No edema Laboratory Tests 11/29/16 04:05 Assessment: 1A. New onset of severe leukocytosis with negative sepsis workup consulting hematology for possible leukemia new onset requiring transfer back to acute care but it appears that he is a reactive change and no evidence of leukemia but will follow up closely appreciate the skills of Dr. Storey 1B. Acute gastrointestinal bleeding with tarry stools s/p EGD by Dr. Broussard revealing ulcer placed on proton pump inhibitor yesterday and will start Carafate and stopped all anti-inflammatory medication including prednisone and held anticoagulation of Xarelto 1. Acute COPD exacerbation with pneumonia bibasilar community-acquired confirmed on CT Chest so will continue Rocephin and azithromycin and stop prednisone taper 2. Nausea on Zofran and continue to monitor. 3. Continued pleuritic chest pain with T9 compression fx on CT Chest ordering MRI due to question of age of fracture T9 consulted Dr Mike who likely will need to at least attempt an epidural pain injection due to the severity of her pain 4. Paroxysmal atrial fibrillation has been rate controlled 5. Constipation 6. 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 Anemia of chronic illness and acute blood loss and tarry stools and likely iron deficiency we'll check level but treat with iron infusions empirically Plan: Maintain acute stay EGD by Dr. Broussard is appreciated Continue discontinuation of Xarelto Stopped prednisone and all anti-inflammatories they could place her at risk for gastrointestinal bleeding Hydrocodone as needed Physical therapy custodial likely first of the week Dr. Mike consultation for pain management hopefully able to accommodate procedure tomorrow since she has been XARELTO since [facility] Visit/Course CC: Leukocytosis severe along with black tarry stools HPI: Patient was moved back to inpatient care due to severe leukocytosis of 41, 000 prompting hematology workup and a possible leukemia occurrence but upon evaluation of Dr. Dash consultation and it appears that it is more of a reactive response so will discontinue steroids and monitor closely. She began having black tarry stools so Dr. Broussard was consulted who will perform EGD tomorrow at 10 o'clock. Xarelto has been placed on hold due to the black tarry stools and prednisone will be discontinued along with any type of anti- inflammatory that could cause upper gastrointestinal ulcerations. She is actually getting up and around and responding to hydrocodone although she had an addiction problem with that in the past but will require pain control to get her moving around at all. She is very concerned about Xarelto being stopped and steroids been stopped and I recommended these changes of which she reluctantly agrees. MRI of the thoracic spine showed T9 compression fracture only subacute so there will be no kyphoplasty recommended. After lou we'll proceed on with likely thoracic pain injection to see if that helps with the pain. Note from 11/30/16: Dr. Mike will perform pain injection today at 1230 then will likely discharge No fever, vital stable, oriented 3, frail, pale, improved from previous assessment Irregular irregular rhythm, clear to all station bilaterally No edema Laboratory Tests 11/29/16 12:20 11/30/16 05:58 Patient adamantly refuses for [facility] placement on skilled so will order home health and since she lives with her son will try to support her in any way possible but significant debility likely will preclude a rapid recovery and I certainly recommend nursing facility but will try to do everything we can to help her succeed at home. She will be off surreal toe until Dr. Braun her primary care provider deems safe to restart due to stomach ulcer shown on EGD that caused the GI bleed in addition she will be off prednisone that she is on 5 mg chronically due to chronic pain because that was a risk factor for ulcerations. I placed her on proton pump inhibitor and Carafate per Dr. Broussard's recommendations and given hydrocodone prescription for pain but I did inform her that back pain likely would not resolve rapidly so would support her in the pain injections and the hydrocodone anyway possible to help minimize the pain but physical therapy will be needed to help eventually resolve the pain over time. Overall prognosis is extremely guarded at this point considering her significant comorbidities and 2 years ago critical illness that required a tracheotomy and subsequent Long recovery at [place] in the nursing facility so we'll try to do everything we can to set the patient up for success upon discharge with close follow-up with her primary care provider. I did give her iron infusions empirically even though iron level was pending but with support the bone marrow to reproduce due to blood loss from acute GI bleed. Discharge Summary Discharge Physical Examination Allergies: Coded Allergies: egg (Verified Allergy, Intermediate, 04/10/12) Penicillins (Unverified Allergy, Unknown, 06/19/14) adhesive tape (Verified Allergy, Unknown, 11/24/16) latex (Verified Allergy, Unknown, 11/24/16) simvastatin (Verified Allergy, Unknown, PATIENT TAKES ATORVASTATIN AT HOME , 11/24/16) Vitals & I&Os Vital Signs Date Time Temp Pulse Resp B/P Pulse Ox O2 Delivery O2 Flow Rate FiO2 11/30/16 07:35 98 3.00 11/30/16 04:00 96.4 94 18 109/51 Nasal Cannula Hospital Course Labs (last 24 hrs) Laboratory Tests 11/29/16 12:20: Hematocrit 31L, Hemoglobin 9.1L, Mean Corpuscular Hemoglobin 28, Mean Corpuscular Hemoglobin Concent 30L, Mean Corpuscular Volume 94, Mean Platelet Volume 10.0, Platelet Count 364, Red Blood Count 3.26L, Red Cell Distribution Width 13.1, White Blood Count 17.9H 11/30/16 05:58: Hematocrit 29L, Hemoglobin 8.7L, Mean Corpuscular Hemoglobin 28, Mean Corpuscular Hemoglobin Concent 30L, Mean Corpuscular Volume 95, Mean Platelet Volume 10.3, Platelet Count 393, Red Blood Count 3.10L, Red Cell Distribution Width 13.1, White Blood Count 11.7H, Basophils # (Auto) 0.0, Basophils (%) (Auto ) 0, Eosinophils # (Auto) 0.5H, Eosinophils (%) (Auto) 4, Lymphocytes # (Auto) 0.8L, Lymphocytes (%) (Auto) 6L, Monocytes # (Auto) 1.0, Monocytes (%) (Auto) 8 , Neutrophils # (Auto) 9.5H, Neutrophils (%) (Auto) 81H Pending Labs Laboratory Tests 11/30/16 05:58: Basophils # (Auto) 0.0, Basophils (%) (Auto) 0, Eosinophils # (Auto) 0.5, Eosinophils (%) (Auto) 4, Hematocrit 29, Hemoglobin 8.7, Lymphocytes # (Auto) 0.8, Lymphocytes (%) (Auto) 6, Mean Corpuscular Hemoglobin 28, Mean Corpuscular Hemoglobin Concent 30, Mean Corpuscular Volume 95, Mean Platelet Volume 10.3, Monocytes # (Auto) 1.0, Monocytes (%) (Auto) 8, Neutrophils # (Auto) 9.5, Neutrophils (%) (Auto) 81, Platelet Count 393, Red Blood Count 3.10, Red Cell Distribution Width 13.1, White Blood Count 11.7 Discharge Home Medications: Active Scripts Active Omeprazole 20 Mg Tablet.dr 20 Mg PO DAILY Sucralfate 1 Gm Tablet 1 Gm PO ACHS Hydrocodon -Acetaminophen 5-325 (Hydrocodone/Acetaminophen) 1 Each Tablet 1-2 Tab PO Q6HR PRN Alprazolam 0.5 Mg Tablet 0.5 Mg PO BID Reported Montelukast Sodium 10 Mg Tablet 10 Mg PO DAILY@1730 Prednisone 10 Mg Tab 5 Mg PO DAILY TAKES 1/2 OF A (10 MG) TABLET Atorvastatin Calcium 10 Mg Tablet 10 Mg PO HS Metoprolol Tartrate 25 Mg Tablet 25 Mg PO BID Duloxetine HCl 20 Mg Capsule.dr 20 Mg PO DAILY Polyethylene Glycol 3350 255 Gm Powder 0.5 Tsp PO DAILY DOES NOT USE A WHOLE CAPFUL Acetaminophen ER (Acetaminophen) 650 Mg Tablet.er 650-1,300 Mg PO BID PRN TAKES 1-2 (650 MG) TABLETS Meclizine HCl 12.5 Mg Tablet 12.5 Mg PO DAILY Proair Hfa (Albuterol Sulfate) 8.5 Gm Hfa.aer.ad 2 Puff IH QID PRN Symbicort 160-4.5 Mcg Inhaler (Budesonide/Formoterol Fumarate) 10.2 Gm Hfa.aer.ad 2 Puff IH BID Xarelto (Rivaroxaban) 20 Mg Tablet 20 Mg PO DAILY@1730 Trimethoprim 100 Mg Tablet 100 Mg PO HS Ziprasidone HCl 20 Mg Capsule 20 Mg PO HS Ferrous Sulfate 325 Mg Tablet 325 Mg PO BID Spiriva Respimat (Tiotropium [place]) 4 Gm Mist.inhal 2 Puff IH DAILY Albuterol Sulfate 2.5 Mg/3 Ml Vial.neb 2.5 Mg IH Q6H PRN Potassium Chloride 10 Meq Tablet.er 10 Meq PO BID Furosemide 40 Mg Tablet 40 Mg PO DAILY Digox (Digoxin) 250 Mcg Tablet 250 Mcg PO DAILY Claritin (Loratadine) 10 Mg Tab 10 Mg PO DAILY Fish Oil 1,000 Mg Cap 1,000 Mg PO DAILY@1730 Multivitamins 1 Each Capsule 1 Tab PO DAILY Nitrostat (Nitroglycerin) 0.4 Mg Subl 0.4 Mg SL UD PRN 1 TAB SL EVERY 5 MINUTES X 3 DOSES Instructions to patient/family Please see electonic discharge instructions given to patient. Clinical Quality Measures DVT/VTE Risk/Contraindication: Risk Factor Score Per Nursin RFS Level Per Nursing on Admit: 4+=Very High YORDAN HODGE DO Nov 30, 2016 09:24
[2016-11-30] MEDS ORDERED: IRON SUCROSE INJECTION 200 MG in NS (IVPB) 100 ML IV NR (09:30)
[2016-11-30] MEDS ORDERED: PANTOPRAZOLE 40 MG (PROTONIX) TAB PO SCH (09:30)
[2016-11-30] MEDS: ALPRAZolam 0.5 MG (XANAX) TAB PO SCH (09:41)
[2016-11-30] MEDS: meTOprolol TARTRATE 25 MG (LOPRESSOR) TABLET PO SCH (09:41)
[2016-11-30] MEDS: AZITHROMYCIN 250 MG TAB (ZITHROMAX) PO SCH (09:41)
[2016-11-30] MEDS: DIGOXIN 0.125 MG (LANOXIN) TAB PO SCH (09:41)
[2016-11-30] MEDS: DULoxetine 20 MG (CYMBALTA) CAP PO SCH (09:41)
[2016-11-30] MEDS: FUROSEMIDE 40 MG (LASIX) TAB PO SCH (09:42)
[2016-11-30] MEDS: LACTULOSE SYRUP 10GM/15ML (ENULOSE) 30ML UDC PO SCH (09:42)
[2016-11-30] MEDS: ACETAMINOPHEN 325 MG TABLET/CAPLET (TYLENOL) PO SCH ×2 (09:42→13:37)
--- NOTE | 2016-11-30 10:46 | Physician Query-General Query ---
Physician Query-General Query to Physician: For clarification: 1. Should this patient's gastritis be coded as with or without bleeding? PHYSICIAN RESPONSE: Based on the clinical findings in the record, please respond to the query above on this document as an addendum. Possible, probable, or questionable diagnosis can be coded for INPATIENTS ONLY. Physician Response: Physician Response active upper GI bleed on this admission. If you have questions please contact: Project Designer:Mari Dietrich CCS,CCDS Ext:[phone] Thank you for your time and cooperation. Clinical Shape Carver/Project Designer This is a permanent part of the medical record MARI DIETRICH Nov 30, 2016 10:46 CASSANDRA DELGADO MD Nov 30, 2016 11:31
[2016-11-30] MEDS: TIOTROPIUM BROMIDE (SPIRIVA) 5'S INHALER IH SCH (10:59)
[2016-11-30] MEDS ORDERED: OXYC5CAP18 PO (11:33)
[2016-11-30 12:00] VITALS: BP 170/70
[2016-11-30] MEDS ORDERED: PERMETHRIN (ELIMITE) 5% CR 60 GM TUBE TOP ONE (13:45)
[2016-11-30] MEDS ORDERED: BUPIVACAINE 0.25% 30 ML (SENSORCAINE) VIAL ONE (14:00)
[2016-11-30] MEDS ORDERED: TRIAMCINOLONE ACET (KENALOG-40) 40 MG/ML 1 ML VIAL ONE (14:00)
--- NOTE | 2016-11-30 14:46 | Pain Medicine-Procedure ---
Procedure Pre-Op/Post-Op Diagnosis Diagnosis: radiculopathy, thoracic Indications for Operation Thoracic pain Attending Surgeon Cee Procedure Date of Service: Nov 30, 2016 Procedure: Thoracic epidural steroid injection at T9-T10 level under Fluoroscopic Guidance Procedure: Patient was identified in the holding area. After risks, benefits, and alternatives were discussed with the patient, informed consent was obtained. Patient was brought to the fluoroscopy suite and placed prone on the procedure room table. Patient held her Xarelto for 72 hours prior to procedure. A time out was performed. Vital signs were monitored throughout the procedure. The patients mid back was prepped and draped in the usual sterile fashion. The patients skin was anesthetized using 2% Lidocaine. A Tuohy needle was inserted and advanced to the T9-T10 epidural space under fluoroscopic guidance using the loss of resistance technique and intermittent projection of fluoroscopy. There was no paresthesia with needle placement. The needle position was confirmed in both the AP and lateral view. After negative aspiration 2ml of contrast was injected under live fluoroscopy which showed good spread of the contrast in the epidural space at the appropriate level, there was no intravascular or subarachnoid spread. Again, after negative aspiration for heme or CSF, 2 ml of 0.25% Bupivicaine, 2ml of preservative free normal saline, and 80mg of Kenalog was injected. The needle was removed and a sterile bandage was placed and the patient was transferred to the recovery area in stable condition. After a brief period of observation, patient was discharged to home with no new neurological deficits and no apparent complications. Complications None HELEN PALOMINO MD Nov 30, 2016 14:46
--- NOTE | 2016-11-30 15:51 | Progress Note (SOAP) ---
Subjective Subjective/Events-last exam Patient reports that she is doing fine. No N/V. Reports continued upper abdominal pain. Tolerating diet. No BM since yesterday. no fever/chills. Review of Systems General: No Chills, No Night Sweats Gastrointestinal: : Abdominal PainNo: Nausea, Vomiting Objective Exam Vital Signs Date Time Temp Pulse Resp B/P Pulse Ox O2 Delivery O2 Flow Rate FiO2 11/30/16 12:00 99.1 96 24 170/70 95 Nasal Cannula 3.00 11/30/16 10:59 99 3.00 11/30/16 09:00 99 Nasal Cannula 3.00 11/30/16 08:00 98.5 102 20 132/74 98 Nasal Cannula 3.00 11/30/16 07:35 98 3.00 11/30/16 04:00 96.4 94 18 109/51 100 Nasal Cannula 3.00 11/30/16 00:00 96.2 78 18 89/57 99 Nasal Cannula 3.00 11/29/16 21:00 Nasal Cannula 3.00 11/29/16 19:58 98 3.00 11/29/16 19:41 98.0 87 18 138/65 100 Nasal Cannula 3.00 11/29/16 16:00 97.7 102 18 114/65 99 Nasal Cannula 3.00 I & O 11/30/16 07:00 Intake Total 1020 ml Balance 1020 ml Capillary Refill : Less Than 3 Seconds General Appearance: No Apparent Distress WD/WN HEENT: PERRL/EOMI Neck: Full Range of Motion Normal Inspection Supple Respiratory: No Accessory Muscle Use No Respiratory Distress Cardiovascular: Regular Rate, Rhythm Gastrointestinal: non tender soft Extremity: Normal Capillary Refill Normal Inspection Normal Range of Motion Neurologic/Psychiatric: Alert Skin: Normal Color Warm/Dry Results Lab Laboratory Tests 11/30/16 05:58: Basophils # (Auto) 0.0, Basophils (%) (Auto) 0, Eosinophils # (Auto) 0.5H, Eosinophils (%) (Auto) 4, Hematocrit 29L, Hemoglobin 8.7L, Lymphocytes # (Auto) 0.8L, Lymphocytes (%) (Auto) 6L, Mean Corpuscular Hemoglobin 28, Mean Corpuscular Hemoglobin Concent 30L, Mean Corpuscular Volume 95, Mean Platelet Volume 10.3, Monocytes # (Auto) 1.0, Monocytes (%) (Auto) 8, Neutrophils # (Auto ) 9.5H, Neutrophils (%) (Auto) 81H, Platelet Count 393, Red Blood Count 3.10L, Red Cell Distribution Width 13.1, White Blood Count 11.7H Assessment/Plan Assessment/Plan Assess & Plan/Chief Complaint A 81 year old female with anemia, upper GI bleed confirmed per EGD. VSS. May discharge home with carafate and PPI. Continue to hold anticoagulation. Follow up PCP. Diagnosis/Problems: Clinical Quality Measures DVT/VTE Risk/Contraindication: Risk Factor Score Per Nursin RFS Level Per Nursing on Admit: 4+=Very High PENELOPE SKELTON MACHINE MOLDER Nov 30, 2016 15:51
== END 2016-11-30 16:15 | disposition home health service (06) | DRG 377 ==
LOC: 4TH 12:41
PROVIDERS: ADMIT Internal Medicine; ATTEND Internal Medicine
PROC: 0DB78ZX Excision of Stomach, Pylorus, Via Natural or Artificial Opening Endoscopic, Diagnostic (ICD-10-PCS; 2016-11-29)
PROC: 0DB48ZX Excision of Esophagogastric Junction, Via Natural or Artificial Opening Endoscopic, Diagnostic (ICD-10-PCS; principal; 2016-11-29 10:10)
PROC: 3E0 Administration, Physiological Systems and Anatomical Regions, Introduction (ICD-10-PCS; 2016-11-30)
DX: K25.4 Chronic or unspecified gastric ulcer with hemorrhage (principal); K29.71 Gastritis, unspecified, with bleeding; D72.829 Elevated white blood cell count, unspecified; J44.0 Chronic obstructive pulmonary disease with (acute) lower respiratory infection; J18.9 Pneumonia, unspecified organism; D62 Acute posthemorrhagic anemia; M80.08XA Age-related osteoporosis with current pathological fracture, vertebra(e), initial encounter for fracture; J44.1 Chronic obstructive pulmonary disease with (acute) exacerbation; K21.0 Gastro-esophageal reflux disease with esophagitis; K29.80 Duodenitis without bleeding; K44.9 Diaphragmatic hernia without obstruction or gangrene; T38.0X5A Adverse effect of glucocorticoids and synthetic analogues, initial encounter; D63.8 Anemia in other chronic diseases classified elsewhere; D50.9 Iron deficiency anemia, unspecified; I48.0 Paroxysmal atrial fibrillation; J45.909 Unspecified asthma, uncomplicated; I27.2 Other secondary pulmonary hypertension; I25.10 Atherosclerotic heart disease of native coronary artery without angina pectoris; I10 Essential (primary) hypertension; E78.00 Pure hypercholesterolemia, unspecified; I73.9 Peripheral vascular disease, unspecified; M06.9 Rheumatoid arthritis, unspecified; F41.9 Anxiety disorder, unspecified; K59.00 Constipation, unspecified; Z79.01 Long term (current) use of anticoagulants; Z87.891 Personal history of nicotine dependence; Z86.73 Personal history of transient ischemic attack (TIA), and cerebral infarction without residual deficits; Z95.1 Presence of aortocoronary bypass graft
CPT/HCPCS: 36415; 62321; 72146; 80053; 81000; 82274; 83540; 85025; 85027; 85652; 86141; 86850; 86900; 86901; 94640; 94760

== ENCOUNTER 2016-12-05 14:06 | Inpatient (IN) | payer MEDICARE, OTHER ==
[~2016-12-05] VITALS: Ht 165.1 cm; Wt 67.0 kg
[2016-12-05] VITALS (17 sets, daily range): BP systolic 64–132; BP diastolic 36–78
[~2016-12-05 14:06] MED LIST changes: +HYDR-3812 PO; +OMEP20TA7 PO; +OXYC5CAP18 PO; +SUCR1TAB PO
--- OUTSIDE RECORDS SUMMARY | 2016-12-05 14:10 | XMS REPORT | Continuity of Care Document ---
Author Author [facility] Organization [facility] Address Unknown Phone Unavailable Care Team Providers Care Bpm Developer Name Role Phone CONNIE AGUILAR MD PCP Insurance Providers Payer Name Policy Number Subscriber Name Relationship Wps Medicare [id number] Jabari Doty 18 Self / Same As Patient [employer] [id number] Jabari Doty 18 Self / Same As Patient Advance Directives Directive Response Recorded Date/Time Advance Directives Yes 08/09/16 11:05pm Health Care Power of Tire Molder Yes 08/09/16 11:05pm Organ Donor No 08/09/16 [...] needed for Shortness Of Breath 09/01/15 Tiotropium Russell 4 Gm 2 Puff Inhalation Daily 09/01/15 [...] Ibuprofen 200 Mg Tablet, 06/21/08 Discontinued Tiotropium Russell 18 Mcg Cap.w.dev, 06/21/08 Discontinued [Betimol] , [...] 75 Mg Oral Daily 04/26/13 Discontinued Aclidinium Russell 400 Mcg Aer.pow.ba, 400 Mcg Inhalation Twice [...] Type Severity Reaction Status Last Updated Penicillins ([id number]) Allergy Unknown Active 06/19/14 simvastatin ([id number]) Allergy Unknown Active 06/21/08 egg ([id number]) Allergy Intermediate Active 04/10/12 milk ([id number]) Allergy Mild Active 04/10/12 Immunizations No immunization records. Vital Signs Acute Vital Signs Vital Response Date/Time Temperature (Fahrenheit) 98.0 degrees F (97.6 - 99.5) 08/10/2016 12:01am Temperature (Calculated Celsius) 36.85078 degrees C (36.4 - 37.5) 08/10/2016 12:01am [...] 5 inches 08/09/2016 11:05pm Height (Calculated Centimeters) 165.521199 cm 08/09/2016 11:05pm Weight (Pounds) 125 pounds 08/09/2016 11:05pm Weight (Ounces) 8.9 oz 08/09/2016 11:05pm Weight (Calculated Grams) 07862.047 gm 08/09/2016 11:05pm Weight (Calculated Kilograms) 56.493699 kilograms 08/09/2016 11:05pm Calculated BMI 18.88 08/09/2016 [...] Date Attending Provider Departed Emergency Room [facility] 08/09/16 11:05pm 08/16 12:01am DARLENE BILL MD Recent Diagnosis
[2016-12-05 14:39] LABS: ABG BASE EXCESS -0.4 MMOL/L (-2.5-2.5); ABG HCO3 25 MMOL/L (23-27); ABG OXYGEN SATURATION 97 % (94-100); ABG PCO2 42 MMHG (35-45); ABG PH 7.39 (7.37-7.43); ABG PO2 97 MMHG (79-93)
[2016-12-05 14:41] LABS: ALLENS TEST YES-POS; PATIENT TEMP 97.8
[2016-12-05 14:49] LABS: BASOPHILS # (AUTO) 0.1 10^3/uL (0.0-0.1); BASOPHILS % (AUTO) 0 % (0-10); EOSINOPHILS % (AUTO) 0 % (0-10); LYMPHOCYTES % (AUTO) 2 % (12-44); MEAN CORPUSCULAR HEMOGLOBIN 29 PG (25-34); MEAN CORPUSCULAR HGB CONC 31 G/DL (32-36); MEAN CORPUSCULAR VOLUME 92 FL (80-99); MONOCYTES % (AUTO) 4 % (0-12); NEUTROPHILS # (AUTO) 43.9 X 10^3 (1.8-7.8); NEUTROPHILS % (AUTO) 94 % (42-75); PLATELET COUNT 639 10^3/uL (130-400); RED BLOOD COUNT 2.63 10^6/uL (4.35-5.85)
[2016-12-05 14:52] LABS: WHITE BLOOD COUNT 46.9 10^3/uL (4.3-11.0)
[2016-12-05 15:08] LABS: BAND NEUTROPHILS 17 %; LYMPHOCYTES % (MANUAL) 1 %; NEUTROPHILS % (MANUAL) 79 %
[2016-12-05] MEDS ORDERED: fentaNYL INJECTION 100 MCG/2 ML AMP ONE (15:10)
[2016-12-05] MEDS ORDERED: NS IV 1000 ML 1,000 ML ONE (15:10)
[2016-12-05] MEDS ORDERED: AMPICILLIN/SULBACTAM INJECTION 3 GM in NS (IVPB) 100 ML IV ONE (15:15)
--- NOTE | 2016-12-05 15:36 | ED Abdominal Pain ---
General Chief Complaint: Abdominal/GI Problems Stated Complaint: ABD PAIN Nursing Triage Note: PT TO [facility] WITH CC OF ABD/CHEST PAIN, RECENT HX OF PNEUMONIA AND ULCER, PT PALE AND COOL ON ARRIVAL. Sepsis Screen: No Definite Risk Source of Information: Patient, Family History of Present Illness Time Seen By Provider: 15:31 Initial Comments This 81-year-old white female presents with a history of severe abdominal pain. The patient was recently hospitalized for pneumonia and ulcer. Patient is complaining of severe diffuse sharp abdominal pain. Allergies and Home Medications Allergies Coded Allergies: egg (Verified Allergy, Intermediate, 04/10/12) Penicillins (Unverified Allergy, Unknown, 06/19/14) adhesive tape (Verified Allergy, Unknown, 11/24/16) latex (Verified Allergy, Unknown, 11/24/16) simvastatin (Verified Allergy, Unknown, PATIENT TAKES ATORVASTATIN AT HOME , 11/24/16) Home Medications Acetaminophen 650 Mg Tablet.er 650-1,300 MG PO BID PRN PRN PAIN (Reported) TAKES 1-2 (650 MG) TABLETS Albuterol Sulfate 2.5 Mg/3 Ml Vial.neb 2.5 MG IH Q6H PRN PRN SHORTNESS OF BREATH (Reported) Albuterol Sulfate 8.5 Gm Hfa.aer.ad 2 PUFF IH QID PRN PRN SHORTNESS OF BREATH ( Reported) Alprazolam 0.5 Mg Tablet #30 0.5 MG PO BID Prescribed by: YORDAN HODGE on 11/30/16 0920 Atorvastatin Calcium 10 Mg Tablet 10 MG PO HS (Reported) Budesonide/Formoterol Fumarate 10.2 Gm Hfa.aer.ad 2 PUFF IH BID (Reported) Digoxin 250 Mcg Tablet 250 MCG PO DAILY (Reported) Duloxetine HCl 20 Mg Capsule.dr 20 MG PO DAILY (Reported) Ferrous Sulfate 325 Mg Tablet 325 MG PO BID (Reported) Furosemide 40 Mg Tablet 40 MG PO DAILY (Reported) Loratadine 10 Mg Tab 10 MG PO DAILY (Reported) Meclizine HCl 12.5 Mg Tablet 12.5 MG PO DAILY (Reported) Metoprolol Tartrate 25 Mg Tablet 25 MG PO BID (Reported) Montelukast Sodium 10 Mg Tablet 10 MG PO DAILY@1730 (Reported) Multivitamins 1 Each Capsule 1 TAB PO DAILY (Reported) Nitroglycerin 0.4 Mg Subl 0.4 MG SL UD PRN PRN CHEST PAIN (Reported) 1 TAB SL EVERY 5 MINUTES X 3 DOSES [place] 3 Polyunsat Fatty Acids 1,000 Mg Cap 1,000 MG PO DAILY@1730 (Reported) Omeprazole 20 Mg Tablet.dr #30 20 MG PO DAILY Prescribed by: YORDAN HODGE on 11/30/16919 Oxycodone HCl 5 Mg Capsule #60 10 MG PO every 6 hours Prescribed by: SALLIE MAY on 11/30/16 1133 Polyethylene Glycol 3350 255 Gm Powder 0.5 TSP PO DAILY (Reported) DOES NOT USE A WHOLE CAPFUL Potassium Chloride 10 Meq Tablet.er 10 MEQ PO BID (Reported) Sucralfate 1 Gm Tablet #120 1 GM PO ACHS Prescribed by: YORDAN HODGE on 11/30/16919 Tiotropium [place] 4 Gm Mist.inhal 2 PUFF IH DAILY (Reported) Trimethoprim 100 Mg Tablet 100 MG PO HS (Reported) Ziprasidone HCl 20 Mg Capsule 20 MG PO HS (Reported) Review of Systems Constitutional: No chills, No fever EENTM: No Blurred Vision Respiratory: Shortness of Air Cardiovascular: Denies Chest Pain Gastrointestinal: Abdominal Pain Nausea Genitourinary: Denies Drainage, Denies Frequency Musculoskeletal: No back pain Psychiatric/Neurological: No Symptoms Reported Endocrine: No Symptoms Reported Hematologic/Lymphatic: No Symptoms Reported Past Hhrajez-Ackwiz-Qokphj Hx Patient Social History Type Used: Cigarettes Former Smoker/When Quit: Jan 25, 2004 Recent Foreign Travel: No Contact w/Someone Who Travel: No Recent Infectious Disease Expo: No Recent Hopitalizations: No Immunizations Up To Date Tetanus Booster (TDap): Unknown PED Vaccines UTD: No Date of Pneumonia Vaccine: Aug 01, 2011 Seasonal Allergies Seasonal Allergies: Yes Surgeries HX Surgeries: Yes (DENTAL; LEFT CAROTID ENDARTERECTOMY) Surgeries: Cardiac, CABG, Gallbladder, Tracheostomy, Vascular Surgery Respiratory Hx Respiratory Disorders: Yes (pulmonary hypertension, wears 3L o2 at all times ) Respiratory Disorders: Asthma, COPD Cardiovascular Hx Cardiac Disorders: Yes Cardiac Disorders: Atrial Fibrillation, Coronary Artery Disease, Heart Attack, High Cholesterol, Hypertension, Peripheral Vascular Neurological Hx Neurological Disorders: Yes Neurological Disorders: TIA, Vertigo Reproductive System Hx Reproductive Disorders: No Sexually Transmitted Disease: No 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/AIDS: 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 Genitourinary Hx Genitourinary Disorders: No Gastrointestinal Hx Gastrointestinal Disorders: Yes Gastrointestinal Disorders: Gastroesophageal Reflux, Chronic Constipation, Ulcer Musculoskeletal Hx Musculoskeletal Disorders: Yes Musculoskeletal Disorders: Osteoporosis, Arthritis, Rheumatoid Arthritis Endocrine Hx Endocrine Disorders: No HEENT HX ENT Disorders: Yes HEENT Disorders: Glaucoma Loss of Vision: Denies Hearing Impairment: Hard of Hearing Cancer Hx Cancer: No Psychosocial Hx Psychiatric Problems: Yes Behavioral Health Disorders: Anxiety Integumentary HX Skin/Integumentary Disorder: No Skin/Integumentary Disorders: Psoriasis Blood Transfusions Hx Blood Disorders: No Reviewed Nursing Assessment Reviewed/Agree w Nursing PMH: Yes Family Medical History Family Medial History: Arthritis 19 MOTHER Cardiovascular disease 19 MOTHER Deafness or hearing loss 19 MOTHER Glaucoma 19 MOTHER Hypertension 19 FATHER 19 MOTHER Kidney disease 19 MOTHER Myocardial infarction 19 FATHER Neoplasm 19 MOTHER Physical Exam Vital Signs VS - Last 72 Hours, by Label 12/05/16 14:13 Temp 97.8 Pulse 98 Resp 18 B/P 124/91 Pulse Ox 100 O2 Delivery Nasal Cannula O2 Flow Rate 3 Capillary Refill : Less Than 3 Seconds General Appearance: severe distress HEENT: normal ENT inspection Neck: supple Respiratory: decreased breath sounds Cardiovascular: other Gastrointestinal: abnormal bowel sounds (hypoactive bowel sounds) distended guarding rebound tenderness Extremities: other (patient has poor perfusion with poor vascular access and cold extremities) Neurologic/Psychiatric: no motor/sensory deficits alert Skin: cyanosis cool Progress/Results/Core Measures Results/Orders Lab Results Laboratory Tests Test 12/05/16 14:32 12/05/16 14:33 Range/Units Band Neutrophils 17 % Basophils # (Auto) 0.1 0.0-0.1 10^3/uL Basophils (%) (Auto) 0 0-10 % Blood Morphology Comment NORMAL Eosinophils # (Auto) 0.0 0.0-0.3 10^3/uL Eosinophils (%) (Auto) 0 0-10 % Hematocrit 24 L 35-52 % Hemoglobin 7.5 L 11.5-16.0 G/DL Lymphocytes # (Auto) 1.0 1.0-4.0 X 10^3 Lymphocytes % (Manual) 1 % Lymphocytes (%) (Auto) 2 L 12-44 % Mean Corpuscular Hemoglobin 29 25-34 PG Mean Corpuscular Hemoglobin Concent 31 L 32-36 G/DL Mean Corpuscular Volume 92 80-99 FL Mean Platelet Volume 10.0 7.4-10.4 FL Monocytes # (Auto) 2.0 H 0.0-1.0 X 10^3 Monocytes % (Manual) 3 % Monocytes (%) (Auto) 4 0-12 % Neutrophils # (Auto) 43.9 H 1.8-7.8 X 10^3 Neutrophils % (Manual) 79 % Neutrophils (%) (Auto) 94 H 42-75 % Platelet Count 639 H 130-400 10^3/uL Red Blood Count 2.63 L 4.35-5.85 10^6/uL Red Cell Distribution Width 14.0 10.0-14.5 % Toxic Granulation 1+ White Blood Count 46.9 *H 4.3-11.0 10^3/uL Mariusz Test YES-POS Arterial Blood Base Excess -0.4 -2.5-2.5 MMOL/L Arterial Blood HCO3 25 23-27 MMOL/L Arterial Blood Oxygen Saturation 97 94-100 % Arterial Blood Partial Pressure CO2 42 35-45 MMHG Arterial Blood Partial Pressure O2 97 H 79-93 MMHG Arterial Blood Total CO2 26.0 21.0-31.0 MMOL/L Arterial Blood pH 7.39 7.37-7.43 Blood Gas Inspired Oxygen 4 Blood Gas Patient Temperature 97.8 Blood Gas Puncture Site LT RADIAL Blood Gas Ventilator Setting NO My Orders Orders-CRISTY DELEON MD Cbc With Automated Diff (12/05/16 14:33) Arterial Blood Gas (12/05/16 14:33) Manual Differential (12/05/16 14:32) Fentanyl Injection (Sublimaze Injection (12/05/16 15:10) Ns Iv 1000 Ml (Sodium Chloride 0.9%) (12/05/16 15:10) Ct Chest/Abdomen/Pelvis Wo (12/05/16 15:25) Cefazolin Injection (Ancef Injection) (12/05/16 15:45) Metronidazole 500mg/100ml Ivpb (Flagyl 5 (12/05/16 15:45) Type And Screen (12/05/16 14:43) Medications Given in ED Current Medications Medications Dose Ordered Sig/Patel Route Start Time Stop Time Status Last Admin Dose Admin Cefazolin Sodium 1000 mg/Sodium Chloride 50 ml @ 100 mls/hr ONCE ONCE IV 12/05/16 15:45 12/05/16 16:14 DC 12/05/16 15:50 100 MLS/HR Fentanyl Citrate 100 mcg 100 mcg STK-MED ONCE .ROUTE 2/4/17 15:10 12/05/16 15:12 DC 12/05/16 15:10 100 MCG Lactated Ringer's 1,000 ml @ 0 mls/hr Q0M PRN IV 12/05/16 16:43 12/05/16 17:12 1,000 MLS/HR Metronidazole 100 ml @ 100 mls/hr ONCE ONCE IV 12/05/16 15:45 12/05/16 16:44 DC 12/05/16 15:50 100 MLS/HR Sodium Chloride 1,000 ml STK-MED ONCE .ROUTE 12/05/16 15:10 12/05/16 15:12 DC 12/05/16 15:24 Vital Signs/I&O Vital Sign - Last 12Hours 12/05/16 14:13 Temp 97.8 Pulse 98 Resp 18 B/P 124/91 Pulse Ox 100 O2 Delivery Nasal Cannula O2 Flow Rate 3 Blood Pressure Mean: 102 Progress Note : Time: 15:38 Progress Note Mobile to multiple attempts were made to start peripheral IVs and central lines. We were able to start a small IV in the left forearm ultimately. The patient's white count was 46,000. Dr. Ren was called and was kind enough to come to the hospital to assist in the patient's care. The patient was sent to CT for evaluation of the probable perforated viscus in her abdomen. CT of the chest abdomen pelvis demonstrated free air in the abdomen suggestive of a viscus perforation. Dr. Ren presented to evaluate and care for the patient. The patient received Flagyl and Ancef IV. Departure Communication Time/Spoke to Admitting Phy: 15:[address] Ren. Impression Impression: Primary Impression: Sepsis Qualified Code: A41.9 - Sepsis, unspecified organism Additional Impression: Perforated bowel Disposition: ADMITTED INPATIENT Condition: Improved Decision to Admit Reason: Admit from ER (General) Departure-Patient Inst. Decision time for Depature: 17:54 Referrals: CONNIE AGUILAR MD (PCP/Family) Primary Care Physician Patient Instructions: Knee Pain (DC) Add. Discharge Instructions: Follow-up with her doctor or orthopedic surgeon of choice. Nonsteroidals for pain. Return if any problems. All discharge instructions reviewed with patient and/or family. Voiced understanding. CRISTY DELEON MD Dec 05, 2016 15:35
[2016-12-05] MEDS ORDERED: metroNIDAZOLE 500 MG/100 ML IVPB (PRE-MIX) IV ONE (15:45)
[2016-12-05] MEDS ORDERED: ceFAZolin 1 GM/NS 50 ML IVPB IV ONE ×2 (15:45)
--- NOTE | 2016-12-05 16:29 | Diagnostic Imaging Report ---
CLINICAL INDICATION: Rule out pneumothorax. Patient with intraabdominal free air. Evaluate for possible etiology. EXAM: CT scan of the chest, abdomen, and pelvis performed without IV or enteric contrast. Coronal reformatted images are created. COMPARISON: CT angiogram of the chest dated 11/27/2016. CT scan of the abdomen and pelvis dated 03/31/2016. FINDINGS: Chest: There is no evidence of pneumothorax. There is stable emphysematous lung disease with architectural distortion and scarring. There are stable parenchymal bands in the right lower lobe which may represent atelectasis or scarring, or infiltrate. There is no pleural effusion or pneumothorax. Stable calcified granuloma in the right upper lobe and left upper lobe. There is no mediastinal free air or lymphadenopathy. Multiple calcified lymph nodes again seen in the right perihilar and upper mediastinal region. Coronary artery calcifications are seen. There is no axillary lymphadenopathy. Thyroid gland is unremarkable. There are postop changes of chest with sternotomy wires seen. Bones show no significant interval abnormality. There are degenerative spurs seen throughout the thoracic and lumbar spine and spurring of both hips. Again seen compression fracture deformity of the T9 vertebral body. There is levoscoliosis of the thoracolumbar spine. Abdomen and pelvis: The gallbladder is surgically absent. There are calcified granulomas within the spleen. The liver, spleen, and adrenal glands are unremarkable. Again seen bilateral renal cysts. There are no urinary tract stones or hydronephrosis. Fatty infiltration of the pancreatic head is again seen. There is a small to moderate amount of intra-abdominal free air. There is a large amount of stool seen throughout the colon. The exact location or etiology for the free air is not visualized. There is the appearance of bowel wall thickening and pneumatosis involving the sigmoid colon which may possibly be the culprit for free air. There is mild fat stranding in the pelvis and right abdominal region also seen. There is a 4.5 cm x 4.7 cm x 4.8 cm area of air and fluid in the right upper pelvis region with adjacent fat stranding. This does not appear to be connected with bowel and considerations would include an abscess versus free stool within the pelvis. There is fat stranding along the right pelvic wall extending into the right side of the sigmoid colon proximally in the area of pneumatosis. There is also a dot of air seen in the region. This may correlate with the region of concern for etiology for free air. There is a small amount of fluid seen in the pelvis adjacent to this region. Ramos catheter seen within the bladder which is decompressed. The extra-abdominal and extrapelvic soft tissue structures are unremarkable. IMPRESSION: 1.: There is interval development of a small to moderate amount of free air seen within the abdomen. 2: There is bowel wall thickening and pneumatosis involving the sigmoid colon with adjacent fat stranding. There is also increased stranding and thickening along the right pelvic wall from the sigmoid colon extending to the right upper abdominal region where an area of fluid collection is measuring roughly 4.8 cm in greatest dimension. This may represent an area of perforation with either abscess in the right pelvis or extruded stool material. Sigmoid colon findings may secondary to infectious/ inflammatory colitis, or ischemic colitis also cannot be completely excluded. 3: There is a large amount of stool seen throughout the colon. 4: There is no evidence of pneumothorax. 5: Stable right lower lobe atelectasis or scarring or infiltrate. 6: The remainder of this exam shows no significant interval change compared to the prior study of comparison. CRITICAL FINDINGS Results of this report were discussed with Dr. Juan Ramesh via the telephone on 12/05/2016 at 1610 hrs. Dictated by: Dictated on workstation # [id number]
--- OUTSIDE RECORDS SUMMARY | 2016-12-05 16:54 | XMS REPORT | Continuity of Care Document ---
Author Author [facility] Organization 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 Role Phone CONNIE AGUILAR MD PCP Insurance Providers Payer Name Policy Number Subscriber Name Relationship Wps Medicare [id number] Jabari Doty 18 Self / Same As Patient [employer] [id number] Jabari Doty 18 Self / Same As Patient Advance Directives Directive Response Recorded Date/Time Advance Directives Yes 08/09/16 11:05pm Health Care Power of Qa Architect Yes 08/09/16 11:05pm Organ Donor No 08/09/16 [...] needed for Shortness Of Breath 09/01/15 Tiotropium [place] 4 Gm 2 Puff Inhalation Daily 09/01/15 [...] Ibuprofen 200 Mg Tablet, 06/21/08 Discontinued Tiotropium [place] 18 Mcg Cap.w.dev, 06/21/08 Discontinued [Betimol] , [...] 75 Mg Oral Daily 04/26/13 Discontinued Aclidinium [place] 400 Mcg Aer.pow.ba, 400 Mcg Inhalation Twice [...] Type Severity Reaction Status Last Updated Penicillins ([id number]) Allergy Unknown Active 06/19/14 simvastatin ([id number]) Allergy Unknown Active 06/21/08 egg ([id number]) Allergy Intermediate Active 04/10/12 milk ([id number]) Allergy Mild Active 04/10/12 Immunizations No immunization records. Vital Signs Acute Vital Signs Vital Response Date/Time Temperature (Fahrenheit) 98.0 degrees F (97.6 - 99.5) 08/10/2016 12:01am Temperature (Calculated Celsius) 36.42492 degrees C (36.4 - 37.5) 08/10/2016 12:01am [...] 5 inches 08/09/2016 11:05pm Height (Calculated Centimeters) 165.554082 cm 08/09/2016 11:05pm Weight (Pounds) 125 pounds 08/09/2016 11:05pm Weight (Ounces) 8.9 oz 08/09/2016 11:05pm Weight (Calculated Grams) 75593.047 gm 08/09/2016 11:05pm Weight (Calculated Kilograms) 56.691008 kilograms 08/09/2016 11:05pm Calculated BMI 18.88 08/09/2016 [...] Date Attending Provider Departed Emergency Room [facility] 08/09/16 11:05pm 08/16 12:01am DARLENE BILL MD Recent Diagnosis
--- OUTSIDE RECORDS SUMMARY | 2016-12-05 16:55 | XMS REPORT | Continuity of Care Document ---
Author Author [facility] Organization [facility] Address Unknown Phone Unavailable Care Team Providers Care Temporary Receptionist Name Role Phone CONNIE AGUILAR MD PCP Insurance Providers Payer Name Policy Number Subscriber Name Relationship Wps Medicare [id number] Jabari Doty 18 Self / Same As Patient [employer] [id number] Jabari Doty 18 Self / Same As Patient Advance Directives Directive Response Recorded Date/Time Advance Directives Yes 08/09/16 11:05pm Health Care Power of Nutrient Management Specialist Yes 08/09/16 11:05pm Organ Donor No 08/09/16 [...] needed for Shortness Of Breath 09/01/15 Tiotropium [place] 4 Gm 2 Puff Inhalation Daily 09/01/15 [...] Ibuprofen 200 Mg Tablet, 06/21/08 Discontinued Tiotropium [place] 18 Mcg Cap.w.dev, 06/21/08 Discontinued [Betimol] , [...] 75 Mg Oral Daily 04/26/13 Discontinued Aclidinium [place] 400 Mcg Aer.pow.ba, 400 Mcg Inhalation Twice [...] Type Severity Reaction Status Last Updated Penicillins ([id number]) Allergy Unknown Active 06/19/14 simvastatin ([id number]) Allergy Unknown Active 06/21/08 egg ([id number]) Allergy Intermediate Active 04/10/12 milk ([id number]) Allergy Mild Active 04/10/12 Immunizations No immunization records. Vital Signs Acute Vital Signs Vital Response Date/Time Temperature (Fahrenheit) 98.0 degrees F (97.6 - 99.5) 08/10/2016 12:01am Temperature (Calculated Celsius) 36.83268 degrees C (36.4 - 37.5) 08/10/2016 12:01am [...] 5 inches 08/09/2016 11:05pm Height (Calculated Centimeters) 165.553517 cm 08/09/2016 11:05pm Weight (Pounds) 125 pounds 08/09/2016 11:05pm Weight (Ounces) 8.9 oz 08/09/2016 11:05pm Weight (Calculated Grams) 54003.047 gm 08/09/2016 11:05pm Weight (Calculated Kilograms) 56.431302 kilograms 08/09/2016 11:05pm Calculated BMI 18.88 08/09/2016 [...] Date Attending Provider Departed Emergency Room [facility] 08/09/16 11:05pm 08/16 12:01am DARLENE BILL MD Recent Diagnosis
[2016-12-05] MEDS ORDERED: BUP/EPI 0.25% 1:200,000 (MARCAINE) 30 ML VIAL ONE (17:08)
[2016-12-05] MEDS ORDERED: HEParin (CENTRAL IV FLUSH) 500 UNIT/5 ML SYR ONE (17:09)
[2016-12-05] MEDS ORDERED: ROCURONIUM 50 MG/5 ML (ZEMURON) VIAL IV ONE (17:11)
[2016-12-05] MEDS ORDERED: SUCCINYLCHOLINE INJ 100 MG/5 ML SYR ONE (17:11)
[2016-12-05] MEDS ORDERED: proPOfol 200 MG/20 ML (DIPRIVAN) VIAL IV ONE (17:11)
[2016-12-05] MEDS ORDERED: NS IV 500 ML 500 ML ONE ×3 (17:11→20:57)
[2016-12-05] MEDS ORDERED: LACTATED RINGERS 1,000 ML IV ONE ×2 (17:11→19:03)
[2016-12-05] MEDS ORDERED: fentaNYL INJECTION 250 MCG/5 ML AMP ONE (17:11)
[2016-12-05] MEDS: LACTATED RINGERS 1,000 ML IV PRN ×2 (17:12→17:20)
--- NOTE | 2016-12-05 17:19 | History & Physicial ---
History of Present Illness History of Present Illness Reason for visit/HPI Acute abdominal pain with pneumoperitoneum on CT scan Date of Admission I consulted on this patient on 12/05/16 17:15 Attending Physician Monty Heath MD Admitting Physician Ralph Braun MD Consult Allergies and Home Medications Allergies Coded Allergies: egg (Verified Allergy, Intermediate, 04/10/12) Penicillins (Unverified Allergy, Unknown, 06/19/14) adhesive tape (Verified Allergy, Unknown, 11/24/16) latex (Verified Allergy, Unknown, 11/24/16) simvastatin (Verified Allergy, Unknown, PATIENT TAKES ATORVASTATIN AT HOME , 11/24/16) Home Medications Acetaminophen 650 Mg Tablet.er 650-1,300 MG PO BID PRN PRN PAIN (Reported) TAKES 1-2 (650 MG) TABLETS Albuterol Sulfate 2.5 Mg/3 Ml Vial.neb 2.5 MG IH Q6H PRN PRN SHORTNESS OF BREATH (Reported) Albuterol Sulfate 8.5 Gm Hfa.aer.ad 2 PUFF IH QID PRN PRN SHORTNESS OF BREATH ( Reported) Alprazolam 0.5 Mg Tablet #30 0.5 MG PO BID Prescribed by: YORDAN HODGE on 11/30/16 0920 Atorvastatin Calcium 10 Mg Tablet 10 MG PO HS (Reported) Budesonide/Formoterol Fumarate 10.2 Gm Hfa.aer.ad 2 PUFF IH BID (Reported) Digoxin 250 Mcg Tablet 250 MCG PO DAILY (Reported) Duloxetine HCl 20 Mg Capsule.dr 20 MG PO DAILY (Reported) Ferrous Sulfate 325 Mg Tablet 325 MG PO BID (Reported) Furosemide 40 Mg Tablet 40 MG PO DAILY (Reported) Loratadine 10 Mg Tab 10 MG PO DAILY (Reported) Meclizine HCl 12.5 Mg Tablet 12.5 MG PO DAILY (Reported) Metoprolol Tartrate 25 Mg Tablet 25 MG PO BID (Reported) Montelukast Sodium 10 Mg Tablet 10 MG PO DAILY@1730 (Reported) Multivitamins 1 Each Capsule 1 TAB PO DAILY (Reported) Nitroglycerin 0.4 Mg Subl 0.4 MG SL UD PRN PRN CHEST PAIN (Reported) 1 TAB SL EVERY 5 MINUTES X 3 DOSES [place] 3 Polyunsat Fatty Acids 1,000 Mg Cap 1,000 MG PO DAILY@1730 (Reported) Omeprazole 20 Mg Tablet.dr #30 20 MG PO DAILY Prescribed by: YORDAN HODGE on 11/30/16919 Oxycodone HCl 5 Mg Capsule #60 10 MG PO every 6 hours Prescribed by: SALLIE MAY on 11/30/16 1133 Polyethylene Glycol 3350 255 Gm Powder 0.5 TSP PO DAILY (Reported) DOES NOT USE A WHOLE CAPFUL Potassium Chloride 10 Meq Tablet.er 10 MEQ PO BID (Reported) Sucralfate 1 Gm Tablet #120 1 GM PO ACHS Prescribed by: YORDAN HODGE on 11/30/16919 Tiotropium [place] 4 Gm Mist.inhal 2 PUFF IH DAILY (Reported) Trimethoprim 100 Mg Tablet 100 MG PO HS (Reported) Ziprasidone HCl 20 Mg Capsule 20 MG PO HS (Reported) Past Znqinzm-Trgvyj-Hunrtd Hx Patient Social History Marrital Status: Employed/Student: retired Alcohol Use: Denies Use Recreational Drug Use: No Smoking Status: Never a Smoker Former smoker/When Quit: Jan 25, 2004 Type Used: Cigarettes Recent Foreign Travel: No Contact w/other who traveled: No Recent Hopitalizations: Yes Recent Infectious Disease Expo: No Immunizations Up To Date Tetanus Booster (TDap): Unknown Date of Pneumonia Vaccine: Aug 01, 2011 Seasonal Allergies Seasonal Allergies: Yes Surgeries HX Surgeries: Yes (dental, CAROTID ARTERY, PEG Tube) Surgeries: Cardiac, CABG, Gallbladder, Tracheostomy, Vascular Surgery Respiratory Hx Respiratory Disorders: Yes (pulmonary hypertension, wears 3L o2 at all times ) Respiratory Disorders: COPD Cardiovascular Hx Cardiovascular Disorders: Yes Cardiac Disorders: Atrial Fibrillation, Coronary Artery Disease, Heart Attack, High Cholesterol, Hypertension, Peripheral Vascular Neurological Hx Neurological Disorders: Yes Neurological Disorders: TIA, Vertigo Reproductive System : No Hx Reproductive Disorders: No Sexually Transmitted Disease: No HIV/AIDS: No Genitourinary Hx Genitourinary Disorders: No Gastrointestinal Hx Gastrointestinal Disorders: Yes Gastrointestinal Disorders: Gastroesophageal Reflux, Gastrointestinal Bleed, Chronic Constipation, Ulcer Musculoskeletal Hx Musculoskeletal Disorders: Yes Musculoskeletal Disorders: Osteoporosis, Arthritis, Rheumatoid Arthritis Endocrine Hx Endocrine Disorders: No HEENT HX ENT Disorders: Yes HEENT Disorders: Glaucoma Loss of Vision: Denies Hearing Impairment: Hard of Hearing Cancer Hx Cancer: No Psychosocial Hx Psychiatric Problems: Yes Behavioral Health Disorders: Anxiety Integumentary HX Skin/Integumentary Disorder: Yes Skin/Integumentary Disorders: Psoriasis Blood Transfusions Hx Blood Disorders: No Reviewed Nursing Assessment Reviewed/Agree w Nursing PMH: Yes Family Medical History Family Hx: Arthritis 19 MOTHER Cardiovascular disease 19 MOTHER Deafness or hearing loss 19 MOTHER Glaucoma 19 MOTHER Hypertension 19 FATHER 19 MOTHER Kidney disease 19 MOTHER Myocardial infarction 19 FATHER Neoplasm 19 MOTHER Constitutional: see HPI EENTM: no symptoms reported Respiratory: cough dyspnea on exertion Cardiovascular: no symptoms reported Gastrointestinal: abdominal pain Genitourinary: no symptoms reported Musculoskeletal: no symptoms reported Skin: no symptoms reported Physical Exam Vital Signs Vital Sign - Last 12Hours 12/05/16 14:13 Temp 97.8 Pulse 98 Resp 18 B/P 124/91 Pulse Ox 100 O2 Delivery Nasal Cannula O2 Flow Rate 3 Capillary Refill : Less Than 3 Seconds General Appearance: Severe Distress HEENT: PERRL/EOMI Neck: Normal Inspection Respiratory: Accessory Muscle Use Cardiovascular: Regular Rate, Rhythm Gastrointestinal: Distended Guarding Rebound Tenderness Rectal: Deferred Extremity: Normal Inspection Skin: Cool Comments Severe rebound tenderness consistent with peritonitis. Assessment/Plan Assessment and Plan Lady with acute onset of abdominal pain. Pneumoperitoneum. Sigmoid diverticulosis. Frontal diagnosis includes perforated duodenal ulcer and colonic perforation. Offered diagnostic laparoscopy/laparotomy possible repair of ulcer or Valencia's procedure, depending on the pathology identified. Expected recovery, bilateral support possibility of postoperative etc. discussed. Patient has exhibited her living will and I have reviewed it. Admission Diagnosis Pneumoperitoneum MONTY HEATH MD Dec 05, 2016 17:19
--- NOTE | 2016-12-05 17:19 | Progress Note-Pre Operative ---
Pre-Operative Progress Note H&P Reviewed The H&P was reviewed, patient examined and no changes noted. Date H&P Reviewed: Dec 05, 2016 Time H&P Reviewed: 17:19 Pre-Operative Diagnosis: Pneumoperitoneum LINDA HEATH MD Dec 05, 2016 17:19
[2016-12-05] MEDS ORDERED: morphine INJ 10 MG/ML 1ML (SYR OR VIAL) ONE (17:59)
[2016-12-05] MEDS ORDERED: MEPERIDINE (DEMEROL) INJ 50 MG/ML ONE (18:00)
[2016-12-05] MEDS ORDERED: metroNIDAZOLE 500MG/100ML IVPB 100 ML IV ONE (19:00)
[2016-12-05] MEDS ORDERED: ceFAZolin INJECTION 1,000 MG in NS (IVPB) 50 ML IV ONE (19:00)
[2016-12-05] MEDS ORDERED: PHENYLEPHRINE 100 MCG/ML 10 ML (ANESTHESIA) SYR ONE (19:03)
[2016-12-05] MEDS ORDERED: LABETALOL HCL 20 MG/4 ML VIAL ONE (19:03)
[2016-12-05] MEDS ORDERED: ceFAZolin 1,000 MG (ANCEF) VIAL ONE (19:03)
[2016-12-05] MEDS ORDERED: LACTATED RINGERS 1,000 ML IV PRN (19:39)
--- NOTE | 2016-12-05 19:39 | Progress Note-Post Operative ---
Post-Operative Progess Note Pre-Operative Diagnosis Pneumoperitoneum Post-Operative Diagnosis Distal sigmoid colon perforation with fecal peritonitis Post-Op Procedure Note Date of Procedure: Dec 05, 2016 Name of Procedure: Central venous catheter placement Laparoscopic Valencia's procedure Anesthesia Type Gen. Estimated blood loss (mL): 100 mL Specimen(s) collected Sigmoid colon LINDA HEATH MD Dec 05, 2016 19:39
[2016-12-05] MEDS ORDERED: MIDAZOLAM 2 MG/2 ML (VERSED) VIAL ONE (19:44)
[2016-12-05] MEDS ORDERED: ONDANSETRON 4 MG/2 ML (SDV) Z0FRAN IVP PRN (19:45)
[2016-12-05] MEDS ORDERED: SEVOFLURANE (ULTANE) 15 ML INHAL SOLN ONE (19:54)
[2016-12-05] MEDS: RT-ALBUTEROL SULF 2.5 MG/3 ML PRE-MIX VIAL INH SCH (20:19)
[2016-12-05] MEDS ORDERED: morphine INJ 10 MG/ML 1ML (SYR OR VIAL) IV PRN (20:30)
[2016-12-05] MEDS ORDERED: PROPOFOL DRIP (ICU) 100 ML IV ONE (21:22)
--- NOTE | 2016-12-05 21:45 | Diagnostic Imaging Report ---
INDICATION: Check endotracheal tube placement. COMPARISON STUDY: Chest from November [address] scan from earlier. FINDINGS: Portable semiupright view of the chest demonstrates an endotracheal tube in good position. An orogastric tube is in the body of the stomach. A right jugular catheter has its tip in the inferior aspect of the SVC. Coronary artery bypass graft changes are again identified. Heart size is normal. Interstitial lung disease is again identified. IMPRESSION: The life support tubes are in good position. Interstitial lung disease is again identified. Dictated by: Dictated on workstation # [id number]
[2016-12-05] MEDS: PANTOPRAZOLE 40 MG/10 ML (PROTONIX) VIAL IV SCH (21:52)
[2016-12-05] MEDS: LACTATED RINGERS 1,000 ML IV SCH (21:53)
[2016-12-05] MEDS: CIPROFLOXACIN IV 400MG/200ML 200 ML IV SCH (21:59)
[2016-12-05 22:34] LABS: BASOPHILS % (AUTO) 0 % (0-10); EOSINOPHILS % (AUTO) 0 % (0-10); LYMPHOCYTES # (AUTO) 0.5 X 10^3 (1.0-4.0); LYMPHOCYTES % (AUTO) 2 % (12-44); MEAN CORPUSCULAR HEMOGLOBIN 29 PG (25-34); MEAN CORPUSCULAR HGB CONC 33 G/DL (32-36); MEAN CORPUSCULAR VOLUME 88 FL (80-99); MEAN PLATELET VOLUME 9.7 FL (7.4-10.4); MONOCYTES # (AUTO) 0.4 X 10^3 (0.0-1.0); MONOCYTES % (AUTO) 1 % (0-12); NEUTROPHILS # (AUTO) 31.4 X 10^3 (1.8-7.8); NEUTROPHILS % (AUTO) 97 % (42-75); PLATELET COUNT 463 10^3/uL (130-400); RED BLOOD COUNT 3.91 10^6/uL (4.35-5.85); RED CELL DISTRIBUTION WIDTH 14.2 % (10.0-14.5)
[2016-12-05 22:37] LABS: WHITE BLOOD COUNT 32.4 10^3/uL (4.3-11.0)
[2016-12-05 22:41] LABS: ABG BASE EXCESS -3.5 MMOL/L (-2.5-2.5); ABG HCO3 21 MMOL/L (23-27); ABG OXYGEN SATURATION 99 % (94-100); ABG PCO2 39 MMHG (35-45); ABG PH 7.36 (7.37-7.43); ABG PO2 143 MMHG (79-93); ABG TCO2 22.6 MMOL/L (21.0-31.0)
[2016-12-05 22:42] LABS: ALLENS TEST ART LINE; PATIENT TEMP 100.1
[2016-12-05] MEDS ORDERED: LACTATED RINGERS 500 ML IV SCH ×2 (22:45→23:30)
[2016-12-05 22:46] LABS: INR 1.4 (0.8-1.4); PROTHROMBIN TIME PATIENT 16.7 SEC (12.2-14.7)
[2016-12-05] MEDS: metroNIDAZOLE 500MG/100ML IVPB 100 ML IV SCH (22:49)
[2016-12-05 22:55] LABS: ALANINE AMINOTRANSFERASE 26 U/L (0-55); ALBUMIN 2.3 G/DL (3.2-4.5); ANION GAP 14 MMOL/L (5-14); ASPARTATE AMINO TRANSFERASE 39 U/L (5-34); BILIRUBIN,TOTAL 0.5 MG/DL (0.1-1.0); BLOOD UREA NITROGEN 39 MG/DL (7-18); BUN/CREATININE RATIO 34; CARBON DIOXIDE 20 MMOL/L (21-32); CHLORIDE 102 MMOL/L (98-107); CREATININE SERUM 1.16 MG/DL (0.60-1.30); GFR ESTIMATED 45; GLUCOSE 198 MG/DL (70-105); MAGNESIUM 1.5 MG/DL (1.8-2.4); POTASSIUM 4.4 MMOL/L (3.6-5.0); SODIUM 136 MMOL/L (135-145); TOTAL PROTEIN 4.6 G/DL (6.4-8.2)
[2016-12-05 23:02] LABS: TROPONIN I < 0.30 NG/ML (<0.30)
[2016-12-06] VITALS (56 sets, daily range): BP systolic 62–185; BP diastolic 20–94
[2016-12-06] MEDS: VASOPRESSIN INJECTION 20 UNIT in NS (IVPB) 50 ML IV SCH ×3 (00:15→16:25)
[2016-12-06] MEDS ORDERED: VASOPRESSIN INJECTION 20 UNIT/ML VIAL ONE (00:16)
[2016-12-06] MEDS ORDERED: NS (IVPB) 50 ML ONE (00:18)
[2016-12-06] MEDS: fentaNYL INJECTION 100 MCG/2 ML AMP IV PRN ×10 (01:10→23:04)
[2016-12-06] MEDS ORDERED: LACTATED RINGERS 1,000 ML IV SCH (01:30)
[2016-12-06] MEDS: RT-ALBUTEROL SULF 2.5 MG/3 ML PRE-MIX VIAL INH SCH ×4 (02:06→21:33)
[2016-12-06 03:31] LABS: BASOPHILS # (AUTO) 0.1 10^3/uL (0.0-0.1); BASOPHILS % (AUTO) 0 % (0-10); EOSINOPHILS % (AUTO) 0 % (0-10); LYMPHOCYTES # (AUTO) 0.8 X 10^3 (1.0-4.0); LYMPHOCYTES % (AUTO) 2 % (12-44); MEAN CORPUSCULAR HEMOGLOBIN 29 PG (25-34); MEAN CORPUSCULAR HGB CONC 33 G/DL (32-36); MEAN CORPUSCULAR VOLUME 88 FL (80-99); MEAN PLATELET VOLUME 9.6 FL (7.4-10.4); MONOCYTES # (AUTO) 0.8 X 10^3 (0.0-1.0); MONOCYTES % (AUTO) 2 % (0-12); NEUTROPHILS # (AUTO) 39.6 X 10^3 (1.8-7.8); NEUTROPHILS % (AUTO) 96 % (42-75); PLATELET COUNT 461 10^3/uL (130-400); RED BLOOD COUNT 3.76 10^6/uL (4.35-5.85); RED CELL DISTRIBUTION WIDTH 14.9 % (10.0-14.5)
[2016-12-06] MEDS ORDERED: DIGOXIN 0.25 MG/ML (LANOXIN) 2 ML AMP ONE (03:36)
[2016-12-06 03:49] LABS: ALBUMIN 2.1 G/DL (3.2-4.5); BILIRUBIN,TOTAL 0.4 MG/DL (0.1-1.0); CREATININE SERUM 1.2 MG/DL (0.60-1.30); MAGNESIUM 1.5 MG/DL (1.8-2.4); PHOSPHORUS 3.8 MG/DL (2.3-4.7); POTASSIUM 4.9 MMOL/L (3.6-5.0); TOTAL PROTEIN 4.4 G/DL (6.4-8.2)
[2016-12-06 03:51] LABS: WHITE BLOOD COUNT 41.2 10^3/uL (4.3-11.0)
[2016-12-06 03:52] LABS: BAND NEUTROPHILS 23 %; NEUTROPHILS % (MANUAL) 73 %
[2016-12-06 03:53] LABS: ANISOCYTOSIS SLIGHT; BASOPHILS % (MANUAL) 0 %; CRENATED RBC SLIGHT; EOSINOPHILS % (MANUAL) 0 %; LYMPHOCYTES % (MANUAL) 3 %; POLYCHROMASIA SLIGHT
[2016-12-06] MEDS ORDERED: DIGOXIN 0.25 MG/ML (LANOXIN) 2 ML AMP IV ONE (04:00)
[2016-12-06] MEDS: metroNIDAZOLE 500MG/100ML IVPB 100 ML IV SCH ×3 (05:21→21:20)
[2016-12-06] MEDS: meTOprolol 5 MG/5 ML (LOPRESSOR) VIAL IV SCH ×5 (06:00→17:51)
[2016-12-06] MEDS: LACTATED RINGERS 1,000 ML IV SCH ×3 (06:17→16:25)
[2016-12-06] MEDS ORDERED: ADENOSINE 6 MG/2 ML (ADENOCARD) VIAL IV ONE (06:36)
[2016-12-06] MEDS ORDERED: ADENOSINE 6 MG/2 ML (ADENOCARD) VIAL IV NR (06:38)
[2016-12-06 07:18] LABS: ABG BASE EXCESS -5.9 MMOL/L (-2.5-2.5); ABG HCO3 19 MMOL/L (23-27); ABG OXYGEN SATURATION 97 % (94-100); ABG PCO2 38 MMHG (35-45); ABG PO2 96 MMHG (79-93); ABG TCO2 20.2 MMOL/L (21.0-31.0)
[2016-12-06 07:19] LABS: ABG PH 7.32 (7.37-7.43); ALLENS TEST ART LINE; PATIENT TEMP 101.4
[2016-12-06] MEDS ORDERED: NS IV 1000 ML 1,000 ML ONE (07:36)
--- NOTE | 2016-12-06 07:41 | Diagnostic Imaging Report ---
Clinical indication: Status post exploratory laparotomy for bowel. Exam: Portable chest x-ray upright view. Comparisons: Chest x-ray dated 12/05/2016. Findings: ET tube again seen in stable position with tip at the T4 vertebral body level. Right IJ central line is again seen in stable position. Orogastric feeding tube is seen in similar position with proximal port overlying the cardiac portion of the stomach. Stable postop changes to the chest consistent with CABG with sternotomy wires and mediastinal clips. Cardiac silhouette and pulmonary vasculature is within normal limits. There is slight improved aeration of the right lung base region with residual atelectasis versus infiltrate remaining. Calcified granuloma overlying the left upper lung field is again seen. There is mild bibasilar left atelectasis. Lucent changes overlying both upper lung mantilla is likely related to emphysematous lung disease changes. The remainder of this exam shows no significant interval change compared to the prior study of comparison. Impression: 1.: Stable lines and tubes, as described above. 2.: Slight improved aeration of the right lung base with residual mild atelectasis versus infiltrate. There is slight increased mild left lung base atelectasis. 3.: Emphysematous lung disease changes. 4.: Stable postop changes to the chest. Dictated by: Dictated on workstation # [id number]
[2016-12-06] MEDS ORDERED: NS IV 1000 ML 1,000 ML IV ONE ×3 (07:45→18:30)
[2016-12-06] MEDS ORDERED: D5W IV ONE (08:42)
[2016-12-06] MEDS ORDERED: NOREPINEPHRINE 4 MG/4 ML (LEVOPHED) AMP IV ONE (08:43)
[2016-12-06] MEDS: CIPROFLOXACIN IV 400MG/200ML 200 ML IV SCH ×2 (08:51→20:30)
[2016-12-06] MEDS: HYDROCORTISONE 100 MG/2 ML (Solu-CORTEF) VIAL IV SCH ×3 (08:52→21:35)
[2016-12-06] MEDS: CHLORHEXIDINE 0.12% SOLN 15 ML (PERIDEX) UDC PO SCH ×2 (08:52→21:20)
[2016-12-06] MEDS ORDERED: DIGOXIN 0.25 MG/ML (LANOXIN) 2 ML AMP IV SCH (09:00)
[2016-12-06] MEDS: NOREPINEPHRINE 4 MG in D5W 250 ML (IVPB) 250 ML IV SCH (09:07)
--- NOTE | 2016-12-06 10:32 | Anesthesia-General Post-Op ---
General Patient Condition Mental Status/LOC: Unreactive (sedated) Cardiovascular: Unsatisfactory (Patient on vasopressors to support blood pressure) Nausea/Vomiting: Absent Respiratory: Unsatisfactory (Remains on Ventilator) Pain: Controlled Complications: Absent Post Op Complications Complications None Follow Up Care/Instructions Patient Instructions None needed. Anesthesia/Patient Condition Patient Condition Patient remains intubated in ICU on pressors. This is not a complication of anesthesia, rather due to presenting illness. MARGARITA CARRION CRNA Dec 06, 2016 10:32
[2016-12-06] MEDS ORDERED: ALBUMIN 25% 25 GM/100 ML 100 ML IV ONE (12:00)
[2016-12-06] MEDS: MAGNESIUM 1 GM/100 ML IVPB 100 ML IV SCH ×3 (12:40→14:36)
[2016-12-06] MEDS ORDERED: FLUCONAZOLE 200 MG/100 ML 100 ML IV ONE (13:00)
--- NOTE | 2016-12-06 13:09 | Pulmonary Consultation ---
History of Present Illness History of Present Illness Date of Consultation 12/06/16 13:04 Date of Admission History of Present Illness 81 yo woman with severe oxygen dependent COPD and multiple hospitalizations admitted with bowel perf, has undergone surgery with Dr Ren, is currently septic and has a fib with RVR. Unable to obtain ROS secondry to sedation and MV I am consulted for ICU management. Allergies and Home Medications Allergies Coded Allergies: egg (Verified Allergy, Intermediate, 04/10/12) Penicillins (Unverified Allergy, Unknown, 06/19/14) adhesive tape (Verified Allergy, Unknown, 11/24/16) latex (Verified Allergy, Unknown, 11/24/16) simvastatin (Verified Allergy, Unknown, PATIENT TAKES ATORVASTATIN AT HOME , 11/24/16) Home Medications Acetaminophen 650 Mg Tablet.er 650-1,300 MG PO BID PRN PRN PAIN (Reported) TAKES 1-2 (650 MG) TABLETS / ALTERNATES WITH OXYCODONE Albuterol Sulfate 2.5 Mg/3 Ml Vial.neb 2.5 MG IH Q6H PRN PRN SHORTNESS OF BREATH (Reported) Albuterol Sulfate 8.5 Gm Hfa.aer.ad 2 PUFF IH QID PRN PRN SHORTNESS OF BREATH ( Reported) Alprazolam 0.5 Mg Tablet 0.5 MG PO BID (Reported) Atorvastatin Calcium 10 Mg Tablet 10 MG PO HS (Reported) Budesonide/Formoterol Fumarate 10.2 Gm Hfa.aer.ad 2 PUFF IH BID (Reported) Digoxin 250 Mcg Tablet 250 MCG PO DAILY (Reported) Duloxetine HCl 20 Mg Capsule.dr 20 MG PO DAILY (Reported) Ferrous Sulfate 325 Mg Tablet 325 MG PO BID (Reported) Furosemide 40 Mg Tablet 20 MG PO DAILY (Reported) TAKES 1/2 OF A (40 MG) TABLET Loratadine 10 Mg Tab 10 MG PO DAILY (Reported) Meclizine HCl 12.5 Mg Tablet 12.5 MG PO DAILY (Reported) Metoprolol Tartrate 25 Mg Tablet 25 MG PO BID (Reported) Montelukast Sodium 10 Mg Tablet 10 MG PO DAILY@1730 (Reported) Multivitamins 1 Each Capsule 1 TAB PO DAILY (Reported) Nitroglycerin 0.4 Mg Subl 0.4 MG SL UD PRN PRN CHEST PAIN (Reported) 1 TAB SL EVERY 5 MINUTES X 3 DOSES [place] 3 Polyunsat Fatty Acids 1,000 Mg Cap 1,000 MG PO DAILY@1730 (Reported) Oxycodone HCl 5 Mg Tablet 10 MG PO Q6H PRN PRN PAIN (Reported) TAKES 2 (5 MG) TABLETS Polyethylene Glycol 3350 255 Gm Powder 0.5 TSP PO DAILY (Reported) DOES NOT USE A WHOLE CAPFUL Potassium Chloride 10 Meq Tablet.er 10 MEQ PO BID (Reported) Prednisone 10 Mg Tab 5 MG PO DAILY (Reported) TAKES 1/2 OF A (10 MG) TABLET Rivaroxaban 20 Mg Tablet 20 MG PO DAILY@1700 (Reported) Sucralfate 1 Gm Tablet 1 GM PO ACHS (Reported) Tiotropium [place] 4 Gm Mist.inhal 2 PUFF IH DAILY (Reported) Trimethoprim 100 Mg Tablet 100 MG PO HS (Reported) Ziprasidone HCl 20 Mg Capsule 20 MG PO HS (Reported) Past Wgltrfd-Ebqjvl-Wfesws Hx Patient Social History Alcohol Use: Denies Use Recreational Drug Use: No Smoking Status: Former Smoker Type Used: Cigarettes Former Smoker/When Quit: Jan 25, 2004 Recent Foreign Travel: No Contact w/Someone Who Travel: No Recent Infectious Disease Expo: No Recent Hopitalizations: Yes Physical Abuse Screen: No Sexual Abuse: No Immunizations Up To Date Tetanus Booster (TDap): Unknown PED Vaccines UTD: No Date of Pneumonia Vaccine: Aug 01, 2011 Seasonal Allergies Seasonal Allergies: Yes Surgeries HX Surgeries: Yes (dental, CAROTID ARTERY, PEG Tube) Surgeries: Cardiac, CABG, Gallbladder, Tracheostomy, Vascular Surgery Respiratory Hx Respiratory Disorders: Yes (pulmonary hypertension, wears 3L o2 at all times ) Respiratory Disorders: Asthma, COPD Cardiovascular Hx Cardiac Disorders: Yes Cardiac Disorders: Atrial Fibrillation, Coronary Artery Disease, Heart Attack, High Cholesterol, Hypertension, Peripheral Vascular Neurological Hx Neurological Disorders: Yes Neurological Disorders: TIA, Vertigo Reproductive System : No Hx Reproductive Disorders: No Sexually Transmitted Disease: No HIV/AIDS: No DIRECTOR OF CARDIOPULMONARY SERVICES History: Menopausal Genitourinary Hx Genitourinary Disorders: No Gastrointestinal Hx Gastrointestinal Disorders: Yes Gastrointestinal Disorders: Gastroesophageal Reflux, Gastrointestinal Bleed, Chronic Constipation, Ulcer Musculoskeletal Hx Musculoskeletal Disorders: Yes Musculoskeletal Disorders: Osteoporosis, Arthritis, Rheumatoid Arthritis Endocrine Hx Endocrine Disorders: No HEENT HX ENT Disorders: Yes HEENT Disorders: Glaucoma Loss of Vision: Denies Hearing Impairment: Hard of Hearing Cancer Hx Cancer: No Psychosocial Hx Psychiatric Problems: Yes Behavioral Health Disorders: Anxiety Integumentary HX Skin/Integumentary Disorder: Yes Skin/Integumentary Disorders: Psoriasis Blood Transfusions Hx Blood Disorders: No Reviewed Nursing Assessment Reviewed/Agree w Nursing PMH: Yes Family Medical History Family Medial History: Arthritis 19 MOTHER Cardiovascular disease 19 MOTHER Deafness or hearing loss 19 MOTHER Glaucoma 19 MOTHER Hypertension 19 FATHER 19 MOTHER Kidney disease 19 MOTHER Myocardial infarction 19 FATHER Neoplasm 19 MOTHER Exam Exam Vital Signs Date Time Temp Pulse Resp B/P Pulse Ox O2 Delivery O2 Flow Rate FiO2 12/06/16 12:00 134 26 94/51 100 Mechanical Ventilator 32.00 104/61 12/06/16 11:30 96 32 12/06/16 11:29 99.8 12/06/16 11:00 131 27 96/51 100 Mechanical Ventilator 32.00 108/41 12/06/16 10:05 130 29 100 32 12/06/16 10:00 128 28 108/53 100 Mechanical Ventilator 32.00 94/80 12/06/16 09:00 118 23 77/52 97 Mechanical Ventilator 32.00 91/41 12/06/16 08:29 96 30 12/06/16 08:24 124 28 93 30 12/06/16 07:48 100.6 131 29 84/56 95 Mechanical Ventilator 30.00 99/32 12/06/16 07:00 122 12/06/16 06:45 161 44 178/84 85 Mechanical Ventilator 40.00 89/49 12/06/16 06:30 158 30 118/68 95 Mechanical Ventilator 40.00 106/30 12/06/16 06:15 151 33 131/73 96 Mechanical Ventilator 40.00 106/20 12/06/16 06:06 149 31 97 40 12/06/16 06:00 147 29 153/82 99 Mechanical Ventilator 40.00 119/80 12/06/16 05:45 137 26 185/91 99 Mechanical Ventilator 40.00 148/68 12/06/16 05:30 135 31 174/93 99 Mechanical Ventilator 40.00 12/06/16 05:15 151 14 119/72 98 Mechanical Ventilator 40.00 99/90 12/06/16 05:00 156 33 129/73 98 Mechanical Ventilator 40.00 12/06/16 04:45 151 16 129/73 98 Mechanical Ventilator 40.00 108/66 12/06/16 04:30 154 9 127/73 98 Mechanical Ventilator 40.00 101/57 12/06/16 04:24 152 32 98 40 12/06/16 04:15 154 10 124/70 98 Mechanical Ventilator 40.00 108/82 12/06/16 04:00 156 26 129/70 98 Mechanical Ventilator 40.00 111/71 12/06/16 04:00 40 12/06/16 03:45 158 22 126/69 98 Mechanical Ventilator 40.00 94/58 12/06/16 03:30 156 33 118/69 98 Mechanical Ventilator 40.00 97/20 12/06/16 03:25 160 11 115/67 97 Mechanical Ventilator 40.00 97/20 12/06/16 03:00 100.2 12/06/16 03:00 152 14 87/56 98 Mechanical Ventilator 40.00 62/40 12/06/16 02:45 151 27 89/55 97 Mechanical Ventilator 40.00 100/60 12/06/16 02:30 142 20 95/51 98 Mechanical Ventilator 40.00 98/60 12/06/16 02:30 99.4 12/06/16 02:15 130 23 109/52 99 Mechanical Ventilator 40.00 110/74 12/06/16 02:06 129 22 99 40 12/06/16 02:00 114 12 139/61 99 Mechanical Ventilator 40.00 133/87 12/06/16 01:45 111 12 164/69 99 Mechanical Ventilator 40.00 151/58 12/06/16 01:30 113 18 154/69 99 Mechanical Ventilator 40.00 147/66 12/06/16 01:15 120 12 165/72 96 Mechanical Ventilator 40.00 148/94 12/06/16 01:10 99.4 12/06/16 01:00 126 17 126/59 100 Mechanical Ventilator 40.00 129/73 12/06/16 01:00 130 12/06/16 00:45 140 28 97/62 100 Mechanical Ventilator 40.00 96/58 12/06/16 00:30 138 33 86/50 100 Mechanical Ventilator 40.00 95/46 12/06/16 00:15 133 26 86/45 100 Mechanical Ventilator 40.00 93/56 12/06/16 00:00 40 12/06/16 00:00 129 16 78/42 100 Mechanical Ventilator 40.00 96/80 12/05/16 23:59 131 27 100 40 12/05/16 23:45 122 26 89/46 100 Mechanical Ventilator 40.00 92/64 12/05/16 23:30 129 7 96/50 Mechanical Ventilator 40.00 92/65 12/05/16 23:15 125 26 93/50 Mechanical Ventilator 40.00 100/56 12/05/16 23:00 129 12 101/56 98 Mechanical Ventilator 40.00 90/62 12/05/16 22:47 131 23 92/55 100 Mechanical Ventilator 40.00 81/47 12/05/16 22:45 135 23 90/53 100 Mechanical Ventilator 50.00 12/05/16 22:35 100.1 12/05/16 22:30 138 29 103/57 100 Mechanical Ventilator 50.00 90/71 12/05/16 22:15 138 22 85/53 99 Mechanical Ventilator 50.00 85/36 12/05/16 22:00 134 27 87/55 98 Mechanical Ventilator 50.00 95/76 12/05/16 21:57 99.9 131 19 85/51 100 Mechanical Ventilator 50.00 12/05/16 21:45 137 18 102/60 100 Mechanical Ventilator 50.00 95/73 12/05/16 21:30 134 26 110/62 100 Mechanical Ventilator 50.00 110/72 12/05/16 21:29 130 28 100 60 12/05/16 21:23 126 12/05/16 21:20 118 22 121/58 96 Mechanical Ventilator 50.00 128/62 12/05/16 21:10 115 21 132/63 100 Mechanical Ventilator 50.00 117/78 12/05/16 21:07 97.9 120 22 128/60 100 Mechanical Ventilator 50.00 132/74 12/05/16 21:00 40 12/05/16 20:19 98 15 93 60 12/05/16 17:18 116 18 100 6 12/05/16 14:13 97.8 98 18 124/91 100 Nasal Cannula 3 I & O 12/06/16 07:00 Intake Total 4450 ml Output Total 5135 ml Balance -685 ml General Appearance: Severe Distress HEENT: PERRL/EOMI Neck: Normal Inspection Respiratory: Accessory Muscle Use Cardiovascular: Regular Rate, Rhythm Capillary Refill: Less Than 3 Seconds Gastrointestinal: abnormal bowel sounds (hypoactive bowel sounds) distended guarding rebound tenderness Extremity: Normal Inspection Skin: Cool Results Lab Laboratory Tests 12/05/16 14:32 12/05/16 22:25 12/06/16 03:20 Assessment/Plan Assessment/Plan colonic perforation s/p surgery Severe sepsis with septic shock secondary to #1 -Continue flagyl, cipro, diflucan -start solucortef and IVF bolus Acute respiratory failure secondary -Continue vent management hx of severe COPD -SVNs metabolic acidosis -IVF Hypomagnesium -replace Afib with RVR -restart dig -consult cardiology Clinical Quality Measures DVT/VTE Risk/Contraindication: Risk Factor Score Per Nursin RFS Level Per Nursing on Admit: 4+=Very High CONNIE LANIER DO Dec 06, 2016 13:09
[2016-12-06] MEDS: DIGOXIN 0.25 MG/ML (LANOXIN) 2 ML AMP IV SCH (13:19)
--- NOTE | 2016-12-06 13:36 | Progress Note-Standard ---
Standard Progress Note Progress Notes/Assess & Plan Progress/Assessment & Plan 12/06/16:on vasopressor support. Oxygenation maintained at 35 percent. Colostomy output feculent in nature. White cell count increased to 41,000. Hemoglobin stable. Urine output reasonable and responsive to fluid replacement.we'll continue supportive measures. Expected mortality more than 30 percent. Her son updated. Final Diagnosis fecal peritonitis due to sigmoid perforation. LINDA HEATH MD Dec 06, 2016 1:35 pm
--- NOTE | 2016-12-06 14:35 | Consultation-Cardiology ---
HPI-Cardiology Cardiology Consultation: Date of Consultation 12/06/16 Date of Admission 12/05/16 Attending Physician Monty Ren MD Admitting Physician Ralph Braun MD Consulting Physician VIRGINIA SUAZO MD, FACP, FACC, [facility], CCDS Primary retail training manager: Dr Guzman HPI: Chief Complaint: Reason for consultation: A fib with RVR 81 yo woman with multiple cardiac issues noted below who was admitted with bowel perf, has undergone surgery with Dr Ren, is currently exhibiting septic and has a fib with RVR for which we have been asked to see her. She is unable to provide a history because she is intubated, on mech vent, and on Diprivan infusion Review of Systems-Cardiology Review of Systems Constitutional: other (She is unable to provide a review of systems because she is intubated, on mech vent, and on Diprivan infusion) [id number] Hx Patient Social History Marrital Status: Employed/Student: retired Alcohol Use: Denies Use Recreational Drug Use: No Smoking Status: Former Smoker Former smoker/When Quit: Jan 25, 2004 Type Used: Cigarettes Recent Foreign Travel: No Recent Infectious Disease Expo: No Physical Abuse Screen: No Sexual Abuse: No Immunizations Up To Date Tetanus Booster (TDap): Unknown Date of Pneumonia Vaccine: Aug 01, 2011 Past Medical History PMH As described under Assessment. Family Medical History Family History: Arthritis 19 MOTHER Cardiovascular disease 19 MOTHER Deafness or hearing loss 19 MOTHER Glaucoma 19 MOTHER Hypertension 19 FATHER 19 MOTHER Kidney disease 19 MOTHER Myocardial infarction 19 FATHER Neoplasm 19 MOTHER Allergies and Home Medications Allergies Coded Allergies: egg (Verified Allergy, Intermediate, 04/10/12) Penicillins (Unverified Allergy, Unknown, 06/19/14) adhesive tape (Verified Allergy, Unknown, 11/24/16) latex (Verified Allergy, Unknown, 11/24/16) simvastatin (Verified Allergy, Unknown, PATIENT TAKES ATORVASTATIN AT HOME , 11/24/16) Home Medications Acetaminophen 650 Mg Tablet.er 650-1,300 MG PO BID PRN PRN PAIN (Reported) TAKES 1-2 (650 MG) TABLETS Albuterol Sulfate 2.5 Mg/3 Ml Vial.neb 2.5 MG IH Q6H PRN PRN SHORTNESS OF BREATH (Reported) Albuterol Sulfate 8.5 Gm Hfa.aer.ad 2 PUFF IH QID PRN PRN SHORTNESS OF BREATH ( Reported) Alprazolam 0.5 Mg Tablet #30 0.5 MG PO BID Prescribed by: YORDAN HOGDE on 11/30/16 09 Atorvastatin Calcium 10 Mg Tablet 10 MG PO HS (Reported) Budesonide/Formoterol Fumarate 10.2 Gm Hfa.aer.ad 2 PUFF IH BID (Reported) Digoxin 250 Mcg Tablet 250 MCG PO DAILY (Reported) Duloxetine HCl 20 Mg Capsule.dr 20 MG PO DAILY (Reported) Ferrous Sulfate 325 Mg Tablet 325 MG PO BID (Reported) Furosemide 40 Mg Tablet 40 MG PO DAILY (Reported) Loratadine 10 Mg Tab 10 MG PO DAILY (Reported) Meclizine HCl 12.5 Mg Tablet 12.5 MG PO DAILY (Reported) Metoprolol Tartrate 25 Mg Tablet 25 MG PO BID (Reported) Montelukast Sodium 10 Mg Tablet 10 MG PO DAILY@1730 (Reported) Multivitamins 1 Each Capsule 1 TAB PO DAILY (Reported) Nitroglycerin 0.4 Mg Subl 0.4 MG SL UD PRN PRN CHEST PAIN (Reported) 1 TAB SL EVERY 5 MINUTES X 3 DOSES [place] [facility] 3 Polyunsat Fatty Acids 1,000 Mg Cap 1,000 MG PO DAILY@1730 (Reported) Omeprazole 20 Mg Tablet.dr #30 20 MG PO DAILY Prescribed by: YORDAN HODGE on 11/30/16 09 Oxycodone HCl 5 Mg Capsule #60 10 MG PO every 6 hours Prescribed by: SALLIE MAY on 11/30/16 1133 Polyethylene Glycol 3350 255 Gm Powder 0.5 TSP PO DAILY (Reported) DOES NOT USE A WHOLE CAPFUL Potassium Chloride 10 Meq Tablet.er 10 MEQ PO BID (Reported) Sucralfate 1 Gm Tablet #120 1 GM PO ACHS Prescribed by: YORDAN HODGE on 11/30/16 0920 Tiotropium [place] 4 Gm Mist.inhal 2 PUFF IH DAILY (Reported) Trimethoprim 100 Mg Tablet 100 MG PO HS (Reported) Ziprasidone HCl 20 Mg Capsule 20 MG PO HS (Reported) Physical Exam-Cardiology Physical Exam Vital Signs/I&O Vital Sign - Last 12Hours 12/06/16 12/06/16 12/06/16 12/06/16 02:45 03:00 03:00 03:25 Temp 100.2 Pulse 151 152 160 Resp 27 14 11 B/P 89/55 87/56 115/67 100/60 62/40 97/20 Pulse Ox 97 98 97 O2 Delivery Mechanical Ventilator Mechanical Ventilator Mechanical Ventilator O2 Flow Rate 40.00 40.00 40.00 12/06/16 12/06/16 12/06/16 12/06/16 03:30 03:45 04:00 04:00 Pulse 156 158 156 Resp 33 22 26 B/P 118/69 126/69 129/70 97/20 94/58 111/71 Pulse Ox 98 98 98 O2 Delivery Mechanical Ventilator Mechanical Ventilator Mechanical Ventilator O2 Flow Rate 40.00 40.00 40.00 FiO2 40 12/06/16 12/06/16 12/06/16 12/06/16 04:15 04:24 04:30 04:45 Pulse 154 152 154 151 Resp 10 32 9 16 B/P 124/70 127/73 129/73 108/82 101/57 108/66 Pulse Ox 98 98 98 98 O2 Delivery Mechanical Ventilator Mechanical Ventilator Mechanical Ventilator O2 Flow Rate 40.00 40.00 40.00 FiO2 40 12/06/16 12/06/16 12/06/16 12/06/16 05:00 05:15 05:30 05:45 Pulse 156 151 135 137 Resp 33 14 31 26 B/P 129/73 119/72 174/93 185/91 99/90 148/68 Pulse Ox 98 98 99 99 O2 Delivery Mechanical Ventilator Mechanical Ventilator Mechanical Ventilator Mechanical Ventilator O2 Flow Rate 40.00 40.00 40.00 40.00 12/06/16 12/06/1612/06/12/06/16 06:00 06:06 06:15 06:30 Pulse 147 149 151 158 Resp 29 31 33 30 B/P 153/82 131/73 118/68 119/80 106/20 106/30 Pulse Ox 99 97 96 95 O2 Delivery Mechanical Ventilator Mechanical Ventilator Mechanical Ventilator O2 Flow Rate 40.00 40.00 40.00 FiO2 40 12/06/16 12/06/16 12/06/16 12/06/16 06:45 07:00 07:48 08:24 Temp 100.6 Pulse 161 122 131 124 Resp 44 29 28 B/P 178/84 84/56 89/49 99/32 Pulse Ox 85 95 93 O2 Delivery Mechanical Ventilator Mechanical Ventilator O2 Flow Rate 40.00 30.00 FiO2 30 2/5/17 12/06/16 12/06/16 12/06/16 08:29 09:00 10:00 10:05 Pulse 118 128 130 Resp 23 28 29 B/P 77/52 108/53 91/41 94/80 Pulse Ox 96 97 100 100 O2 Delivery Mechanical Ventilator Mechanical Ventilator O2 Flow Rate 32.00 32.00 FiO2 30 32 12/06/16 12/06/16 12/06/16 12/06/16 11:00 11:29 11:30 12:00 Temp 99.8 Pulse 131 134 Resp 27 26 B/P 96/51 94/51 108/41 104/61 Pulse Ox 100 96 100 O2 Delivery Mechanical Ventilator Mechanical Ventilator O2 Flow Rate 32.00 32.00 FiO2 32 12/06/16 12/06/16 13:00 14:18 Pulse 131 133 Resp 26 28 B/P 106/53 105/51 101/48 90/44 Pulse Ox 100 100 O2 Delivery Mechanical Ventilator Mechanical Ventilator O2 Flow Rate 32.00 32.00 Intake and Output 12/06/16 00:00 Intake Total 1950 ml Output Total 4570 ml Balance -2620 ml Capillary Refill : Less Than 3 Seconds Constitutional: other (she is on on mech vent, and on Diprivan infusion) HEENT: PERRLNo xanthelasmas are seen Neck: carotid pulses are 2 + bilaterally with good upstrokes Respiratory: other (good bilat air entry that is diminished at the bases) Cardiovascular: other (S1 and S2 irreg and with a rapid rate and with a faint MADHURI at cardiac base) Gastrointestinal: other (Freshly post-op. Absent bs. We did not palpate) Extremities: other (mild bilat leg edema)No clubbing, No cyanosis Neurologic/Psychiatric: other (Unable to cooperate with a neuro exam, because intubated and sedated. Does seem to move all limbs equally) Skin: No rash on exposed areas, No ulcerations on exposed areas Data Review Labs Laboratory Tests 12/05/16 14:32: Band Neutrophils 17, Basophils # (Auto) 0.1, Basophils (%) (Auto) 0, Blood Morphology Comment NORMAL, Eosinophils # (Auto) 0.0, Eosinophils (%) (Auto) 0, Hematocrit 24L, Hemoglobin 7.5L, Lymphocytes # (Auto) 1.0, Lymphocytes % (Manual ) 1, Lymphocytes (%) (Auto) 2L, Mean Corpuscular Hemoglobin 29, Mean Corpuscular Hemoglobin Concent 31L, Mean Corpuscular Volume 92, Mean Platelet Volume 10.0, Monocytes # (Auto) 2.0H, Monocytes % (Manual) 3, Monocytes (%) ( Auto) 4, Neutrophils # (Auto) 43.9H, Neutrophils % (Manual) 79, Neutrophils (%) (Auto) 94H, Platelet Count 639H, Red Blood Count 2.63L, Red Cell Distribution Width 14.0, Toxic Granulation 1+, White Blood Count 46.9*H 12/05/16 14:33: Mariusz Test YES-POS, Arterial Blood Base Excess -0.4, Arterial Blood HCO3 25, Arterial Blood Oxygen Saturation 97, Arterial Blood Partial Pressure CO2 42, Arterial Blood Partial Pressure O2 97H, Arterial Blood Total CO2 26.0, Arterial Blood pH 7.39, Blood Gas Inspired Oxygen 4, Blood Gas Patient Temperature 97.8, Blood Gas Puncture Site LT RADIAL, Blood Gas Ventilator Setting NO 12/05/16 22:25: Basophils # (Auto) 0.0, Basophils (%) (Auto) 0, Eosinophils # (Auto) 0.0, Eosinophils (%) (Auto) 0, Hematocrit 35, Hemoglobin 11.5#, Lymphocytes # (Auto) 0.5L, Lymphocytes (%) (Auto) 2L, Mean Corpuscular Hemoglobin 29, Mean Corpuscular Hemoglobin Concent 33, Mean Corpuscular Volume 88, Mean Platelet Volume 9.7, Monocytes # (Auto) 0.4, Monocytes (%) (Auto) 1, Neutrophils # (Auto ) 31.4H, Neutrophils (%) (Auto) 97H, Platelet Count 463H, Red Blood Count 3.91L , Red Cell Distribution Width 14.2, White Blood Count 32.4*H, Alanine Aminotransferase (ALT/SGPT) 26, Albumin 2.3L, Alkaline Phosphatase 100, Anion Gap 14, Aspartate Amino Transf (AST/SGOT) 39H, B-Type Natriuretic Peptide 394.7H , BUN/Creatinine Ratio 34, Blood Urea Nitrogen 39H, Calcium Level 8.0L, Carbon Dioxide Level 20L, Chloride Level 102, Creatinine 1.16, Estimat Glomerular Filtration Rate 45, Glucose Level 198H, INR Comment 1.4, Lactic Acid Level 2.6*H , Magnesium Level 1.5L, Potassium Level 4.4, Prothrombin Time 16.7H, Sodium Level 136, Total Bilirubin 0.5, Total Protein 4.6L, Troponin I < 0.30 12/05/16 22:30: Mariusz Test ART LINE, Arterial Blood Base Excess -3.5L, Arterial Blood HCO3 21L, Arterial Blood Oxygen Saturation 99, Arterial Blood Partial Pressure CO2 39, Arterial Blood Partial Pressure O2 143H, Arterial Blood Total CO2 22.6, Arterial Blood pH 7.36L, Blood Gas Inspired Oxygen 50%, Blood Gas Patient Temperature 100.1, Blood Gas Puncture Site ARTLINE, Blood Gas Ventilator Setting YES 12/06/16 00:30: Lactic Acid Level 2.8*H 12/06/16 03:20: Alanine Aminotransferase (ALT/SGPT) 23, Albumin 2.1L, Alkaline Phosphatase 91, Anion Gap 13, Anisocytosis SLIGHT, Aspartate Amino Transf (AST/SGOT) 36H, BUN/ Creatinine Ratio 31, Band Neutrophils 23, Basophils # (Auto) 0.1, Basophils % ( Manual) 0, Basophils (%) (Auto) 0, Blood Urea Nitrogen 37H, Calcium Level 8.0L, Carbon Dioxide Level 18L, Chloride Level 103, Creatinine 1.20, Crenated Cell SLIGHT, Digoxin Level 1.21, Eosinophils # (Auto) 0.0, Eosinophils % (Manual) 0, Eosinophils (%) (Auto) 0, Estimat Glomerular Filtration Rate 43, Glucose Level 207H, Hematocrit 33L, Hemoglobin 11.0L, Lymphocytes # (Auto) 0.8L, Lymphocytes % (Manual) 3, Lymphocytes (%) (Auto) 2L, Macrocytosis SLIGHT, Magnesium Level 1.5L, Mean Corpuscular Hemoglobin 29, Mean Corpuscular Hemoglobin Concent 33, Mean Corpuscular Volume 88, Mean Platelet Volume 9.6, Monocytes # (Auto) 0.8, Monocytes % (Manual) 1, Monocytes (%) (Auto) 2, Neutrophils # (Auto) 39.6H, Neutrophils % (Manual) 73, Neutrophils (%) (Auto) 96H, Phosphorus Level 3.8, Platelet Count 461H, Polychromasia SLIGHT, Potassium Level 4.9, Red Blood Count 3.76L, Red Cell Distribution Width 14.9H, Sodium Level 134L, Total Bilirubin 0.4 , Total Protein 4.4L, Toxic Granulation 1+, White Blood Count 41.2*H 12/06/16 07:00: Mariusz Test ART LINE, Arterial Blood Base Excess -5.9L, Arterial Blood HCO3 19L, Arterial Blood Oxygen Saturation 97, Arterial Blood Partial Pressure CO2 38, Arterial Blood Partial Pressure O2 96H, Arterial Blood Total CO2 20.2L, Arterial Blood pH 7.32*L, Blood Gas Inspired Oxygen UNKNOWN, Blood Gas Patient Temperature 101.4, Blood Gas Puncture Site RT ARTLINE, Blood Gas Ventilator Setting YES Laboratory Tests 12/05/16 14:32 12/05/16 22:25 12/06/16 03:20 A/P-Cardiology Assessment/Admission Diagnosis 1) Sigmoid perforation and fecal peritonitis; day 1 post surgery 2) Septic shock and acute resp failure due to #1 3) Tachycardia due to #1 and #2 4) Paroxysmal atrial fibrillation/atrial flutter despite Maze procedure during her bypass surgery on May 01, 2013. Anticoagulation is being held post-op 5) Coronary artery disease, status post CABG x4 done on May 01, 2013: SAGASTUME to LAD, vein graft Y-graft to ramus marginal and obtuse marginal branch, vein graft to the distal right coronary artery. MPI of Nov [address] Guzman did not show ischemia or infarction and LVEF was 86% 6) H/o COPD. Pneumonia in Nov 2016 7) H/o hypertension 8) H/o peripheral edema 9) H/o hyperlipidemia 10) History of CVA/TIA, history of paroxysmal atrial fibrillation 11) H/o moderate bilateral carotid stenosis 12) H/o arthritis. 13) History of intolerance to statin 14) History of migraine headache. Discussion and Recomendations * Complex management due to multiple comorbidities * Prognosis guarded * She is currently not on stroke prophylaxis, given fresh surgery. We recommend rate-control strategy for a fib * Choices regarding rate-control are limited due to low bp. Continue dig. Add iv dilt, if bp allows * The root cause of tachycardia is septic shock. Treat sepsis (Surgical Service) * Monitor labs * Resume full anticoag for stroke prophylaxis NEGRO Clinical Quality Measures DVT/VTE Risk/Contraindication: Risk Factor Score Per Nursin RFS Level Per Nursing on Admit: 4+=Very High VIRGINIA SUAZO MD FACP FAC CCDS Dec 06, 2016 14:35
[2016-12-06] MEDS: DILTIAZEM DRIP 100 MG in SODIUM CHLORIDE (ADD-VANTAGE) 100 ML IV SCH ×2 (15:25→23:11)
[2016-12-06] MEDS ORDERED: ENOXAPARIN 30 MG/0.3 ML (LOVENOX) SYR SC SCH (19:45)
[2016-12-06] MEDS: PANTOPRAZOLE 40 MG/10 ML (PROTONIX) VIAL IV SCH (20:36)
[2016-12-07] VITALS (39 sets, daily range): BP systolic 73–138; BP diastolic 45–77
[2016-12-07] MEDS: VASOPRESSIN INJECTION 20 UNIT in NS (IVPB) 50 ML IV SCH ×3 (01:03→17:55)
[2016-12-07] MEDS: RT-ALBUTEROL SULF 2.5 MG/3 ML PRE-MIX VIAL INH SCH (02:48)
[2016-12-07] MEDS: LACTATED RINGERS 1,000 ML IV SCH ×3 (02:58→21:06)
[2016-12-07] MEDS: fentaNYL INJECTION 100 MCG/2 ML AMP IV PRN ×3 (04:19→18:29)
[2016-12-07] MEDS: NOREPINEPHRINE 4 MG in D5W 250 ML (IVPB) 250 ML IV SCH ×2 (04:19→11:25)
[2016-12-07 04:48] LABS: BASOPHILS % (AUTO) 0 % (0-10); EOSINOPHILS % (AUTO) 0 % (0-10); LYMPHOCYTES # (AUTO) 0.3 X 10^3 (1.0-4.0); LYMPHOCYTES % (AUTO) 1 % (12-44); MEAN CORPUSCULAR HEMOGLOBIN 30 PG (25-34); MEAN CORPUSCULAR HGB CONC 33 G/DL (32-36); MEAN CORPUSCULAR VOLUME 90 FL (80-99); MONOCYTES # (AUTO) 1.3 X 10^3 (0.0-1.0); MONOCYTES % (AUTO) 4 % (0-12); NEUTROPHILS # (AUTO) 33.8 X 10^3 (1.8-7.8); NEUTROPHILS % (AUTO) 96 % (42-75); PLATELET COUNT 323 10^3/uL (130-400); RED BLOOD COUNT 2.61 10^6/uL (4.35-5.85)
[2016-12-07 04:50] LABS: ABG HCO3 21 MMOL/L (23-27); ABG OXYGEN SATURATION 99 % (94-100); ABG PCO2 35 MMHG (35-45); ABG PO2 164 MMHG (79-93); ABG TCO2 22.3 MMOL/L (21.0-31.0)
[2016-12-07 04:52] LABS: ALLENS TEST ART LINE; PATIENT TEMP 99.5
[2016-12-07 05:13] LABS: ANION GAP 10 MMOL/L (5-14); BLOOD UREA NITROGEN 29 MG/DL (7-18); BUN/CREATININE RATIO 37; CALCIUM 8.1 MG/DL (8.5-10.1); CARBON DIOXIDE 20 MMOL/L (21-32); CHLORIDE 109 MMOL/L (98-107); CREATININE SERUM 0.79 MG/DL (0.60-1.30); GFR ESTIMATED > 60; GLUCOSE 143 MG/DL (70-105); MAGNESIUM 2.1 MG/DL (1.8-2.4); PHOSPHORUS 2.3 MG/DL (2.3-4.7); POTASSIUM 3.7 MMOL/L (3.6-5.0); SODIUM 139 MMOL/L (135-145)
[2016-12-07 05:23] LABS: DIGOXIN 1.29 NG/ML (0.80-2.00)
[2016-12-07 05:27] LABS: WHITE BLOOD COUNT 35.4 10^3/uL (4.3-11.0)
[2016-12-07] MEDS: meTOprolol 5 MG/5 ML (LOPRESSOR) VIAL IV SCH ×4 (06:00→18:00)
--- NOTE | 2016-12-07 06:01 | Pulmonary Progress Note ---
Subjective Subjective/Events-last exam Pt is now off levophed and appears to be doing better Exam Exam Vital Signs Date Time Temp Pulse Resp B/P Pulse Ox O2 Delivery O2 Flow Rate FiO2 12/07/16 05:00 87 21 105/47 99 Mechanical Ventilator 32.00 12/07/16 04:19 99.5 12/07/16 04:16 121 34 96 32 12/07/16 04:05 107 39 97 32 12/07/16 04:00 96 32 12/07/16 04:00 115 21 109/57 100 Mechanical Ventilator 32.00 12/07/16 03:00 99.5 94 26 118/52 99 Mechanical Ventilator 32.00 12/07/16 02:48 98 32 100 32 12/07/16 02:00 108 25 102/52 100 Mechanical Ventilator 32.00 12/07/16 01:24 107 12/07/16 01:00 99.4 124 24 100/59 100 Mechanical Ventilator 32.00 12/07/16 00:09 114 24 100 32 12/07/16 00:00 96 32 12/07/16 00:00 99.6 99 28 113/45 99 Mechanical Ventilator 32.00 12/06/16 23:34 99.1 12/06/16 23:11 99.1 130 26 119/51 100 32.00 12/06/16 23:04 99.4 12/06/16 23:00 123 30 137/69 99 Mechanical Ventilator 32.00 12/06/16 22:00 112 26 106/54 100 Mechanical Ventilator 32.00 12/06/16 21:33 109 26 100 32 12/06/16 21:00 133 26 92/51 99 Mechanical Ventilator 32.00 12/06/16 20:36 99.1 12/06/16 20:08 111 24 100 32 12/06/16 20:00 110 24 130/70 99 Mechanical Ventilator 32.00 12/06/16 20:00 96 32 12/06/16 20:00 99.6 12/06/16 19:00 134 12/06/16 19:00 99.4 12/06/16 19:00 129 21 86/46 96 Mechanical Ventilator 32.00 12/06/16 18:07 141 25 99 32 12/06/16 18:00 146 24 105/51 100 Mechanical Ventilator 32.00 12/06/16 17:00 142 27 108/49 98 Mechanical Ventilator 32.00 112/67 12/06/16 16:50 149 28 98 32 12/06/16 16:32 96 32 12/06/16 16:00 99.9 140 28 121/48 98 Mechanical Ventilator 32.00 110/55 12/06/16 15:25 144 125/55 12/06/16 15:00 138 27 113/51 99 Mechanical Ventilator 32.00 12/06/16 15:00 141 29 125/53 96 Mechanical Ventilator 32.00 111/56 12/06/16 14:44 140 26 99 32 12/06/16 14:37 105/47 12/06/16 14:18 133 28 105/51 100 Mechanical Ventilator 32.00 90/44 12/06/16 13:00 142 12/06/16 13:00 131 26 106/53 100 Mechanical Ventilator 32.00 101/48 12/06/16 12:30 125 29 100 32 12/06/16 12:00 134 26 94/51 100 Mechanical Ventilator 32.00 104/61 12/06/16 11:30 96 32 12/06/16 11:29 99.8 12/06/16 11:00 131 27 96/51 100 Mechanical Ventilator 32.00 108/41 12/06/16 10:05 130 29 100 32 12/06/16 10:00 128 28 108/53 100 Mechanical Ventilator 32.00 94/80 12/06/16 09:00 118 23 77/52 97 Mechanical Ventilator 32.00 91/41 12/06/16 08:29 96 30 12/06/16 08:24 124 28 93 30 12/06/16 08:00 130 31 95/59 96 Mechanical Ventilator 30.00 12/06/16 07:48 100.6 131 29 84/56 95 Mechanical Ventilator 30.00 99/32 12/06/16 07:00 122 12/06/16 06:45 161 44 178/84 85 Mechanical Ventilator 40.00 89/49 12/06/16 06:30 158 30 118/68 95 Mechanical Ventilator 40.00 106/30 12/06/16 06:15 151 33 131/73 96 Mechanical Ventilator 40.00 106/20 12/06/16 06:06 149 31 97 40 12/06/16 06:00 147 29 153/82 99 Mechanical Ventilator 40.00 119/80 I & O 12/07/16 07:00 Intake Total 4800 ml Output Total 930 ml Balance 3870 ml General Appearance: No Apparent Distress HEENT: PERRL/EOMI Neck: Normal Inspection Respiratory: Accessory Muscle Use Cardiovascular: Regular Rate, Rhythm Capillary Refill: Less Than 3 Seconds Gastrointestinal: abnormal bowel sounds (hypoactive bowel sounds) distended guarding rebound tenderness Extremity: Normal Inspection Neurologic/Psychiatric: Other (sedated on vent ) Skin: Cool Results Lab Laboratory Tests 12/05/16 14:32 12/05/16 22:25 12/06/16 03:20 12/07/16 04:30 Assessment/Plan Assessment/Plan colonic perforation s/p surgery Severe sepsis with septic shock secondary to #1 -Continue flagyl, cipro, diflucan - solucortef -IVF Acute respiratory failure secondary -Continue vent management -- will start attempting vent weaning today -start Precedex - and wean Diprivan hx of severe COPD -SVNs metabolic acidosis -IVF Anemia monitor Hypomagnesium -replace Afib with RVR -restart dig -consult cardiology Clinical Quality Measures DVT/VTE Risk/Contraindication: Risk Factor Score Per Nursin RFS Level Per Nursing on Admit: 4+=Very High CONNIE LANIER DO Dec 07, 2016 06:01
[2016-12-07] MEDS ORDERED: DEXMEDETOMIDINE PRE-MIX 100 ML IV ONE (06:07)
[2016-12-07] MEDS: HYDROCORTISONE 100 MG/2 ML (Solu-CORTEF) VIAL IV SCH (06:14)
[2016-12-07] MEDS: DILTIAZEM DRIP 100 MG in SODIUM CHLORIDE (ADD-VANTAGE) 100 ML IV SCH ×2 (06:14→17:21)
[2016-12-07] MEDS: metroNIDAZOLE 500MG/100ML IVPB 100 ML IV SCH ×3 (06:15→22:42)
[2016-12-07] MEDS: RT-BUDESONIDE NEBS 0.5 MG/2ML (PULMICORT) AMP INH SCH ×2 (06:29→21:30)
[2016-12-07] MEDS ORDERED: RT-ALBUTEROL/IPRATROPIUM 3 ML (DUONEB) VIAL INH PRN (06:30)
[2016-12-07] MEDS ORDERED: DEXMEDETOMIDINE PRE-MIX 100 ML IV SCH (07:00)
[2016-12-07] MEDS ORDERED: morphine INJ 4 MG/ML 1 ML (VIAL/SYRINGE) IVP ONE (08:15)
[2016-12-07] MEDS ORDERED: FUROSEMIDE 40 MG/4 ML INJ (LASIX) IVP NR (08:20)
[2016-12-07] MEDS: CIPROFLOXACIN IV 400MG/200ML 200 ML IV SCH ×2 (08:36→21:06)
[2016-12-07] MEDS: DIGOXIN 0.25 MG/ML (LANOXIN) 2 ML AMP IV SCH (08:36)
[2016-12-07] MEDS: FLUCONAZOLE 100 MG/50 ML 50 ML IV SCH (08:36)
[2016-12-07] MEDS: CHLORHEXIDINE 0.12% SOLN 15 ML (PERIDEX) UDC PO SCH ×2 (08:36→23:38)
--- NOTE | 2016-12-07 08:44 | Cardiology Progress Note ---
Subjective Subjective/Events-last exam Patient sedated. Currently being weaned off ventilator. On BiPAP. HR in the 100- 130's. On Cardizem gtt. Review of Systems Unable to obtain ROS Objective-Cardiology Exam Last Set of Vital Signs Vital Signs 12/07/16 12/07/16 06:15 07:55 Temp 99.5 Pulse 144 Resp 33 B/P 122/45 Pulse Ox 100 O2 Delivery Mechanical Ventilator O2 Flow Rate 32.00 FiO2 32 Capillary Refill : Less Than 3 Seconds I&O Intake and Output 12/07/16 00:00 Intake Total 7300 ml Output Total 1315 ml Balance 5985 ml Intake Oral 0 ml IV Total 7300 ml Output Urine Total 880 ml Urine/Stool Mix 400 ml Emesis 0 ml Drainage Total 35 ml # Bowel Movements 1 General: Mild Distress, Other (sedated. ) HEENT: Atraumatic Neck: Supple, No JVD Lungs: Other (bilat rhonchi) Heart: Other (irregularly irregular, tachycardic) Abdomen: Soft, Other (hypoactive BS) Extremities: No Clubbing, No Cyanosis, Normal Pulses, Other (+1 edema BLE) Skin: No Rashes, No Significant Lesion Results Lab Laboratory Tests 12/07/16 04:30 A/P-Cardiology Admission Diagnosis Sigmoid perforation Septic shock Afib with RVR CAD Assessment/Plan Sigmoid perforation and fecal peritonitis; day 2 post surgery. Septic shock and acute resp failure due to #1- Currently being weaned off ventilator. Continue IV antibiotics and continue supportive care Tachycardia due to #1 and #2- Continue Cardizem gtt as tolerated Paroxysmal atrial fibrillation/atrial flutter despite Maze procedure during her bypass surgery on May 01, 2013. Anticoagulation is being held post-op, continue digoxin, Cardizem as tolerated. 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 Stress test Nov 2016 did not show ischemia or infarction and LVEF was 86% H/o COPD. Pneumonia in Nov 2016 H/o hypertension- currently borderline hypotensive. Continue to monitor. Continue Cardizem as BP tolerates. Chronic peripheral edema- continue lasix Hyperlipidemia- history of intolerance to statins, monitored as outpatient History of CVA/TIA, history of paroxysmal atrial fibrillation Moderate bilateral carotid stenosis Clinical Quality Measures DVT/VTE Risk/Contraindication: Risk Factor Score Per Nursin RFS Level Per Nursing on Admit: 4+=Very High VICENTA ROBLEDO Dec 07, 2016 08:44
--- NOTE | 2016-12-07 08:50 | Diagnostic Imaging Report ---
INDICATION: Followup pneumonia. COMPARISON: 12/06/2016. FINDINGS: There is a new tiny left pleural effusion with stable mild basilar atelectasis. The support apparatus, where visualized, projects in good alignment. No pneumothorax. IMPRESSION: Small left effusion with mild basilar atelectasis. Dictated by: Dictated on workstation # [id number]
[2016-12-07 09:00] LABS: ABG BASE EXCESS -2.8 MMOL/L (-2.5-2.5); ABG HCO3 22 MMOL/L (23-27); ABG OXYGEN SATURATION 95 % (94-100); ABG PCO2 36 MMHG (35-45); ABG PO2 76 MMHG (79-93); ABG TCO2 22.7 MMOL/L (21.0-31.0)
[2016-12-07 09:01] LABS: ALLENS TEST POSITIVE; PATIENT TEMP 99.6
[2016-12-07] MEDS ORDERED: OXYC5TAB71 PO (10:42)
[2016-12-07] MEDS ORDERED: ALPR0.5T7 PO (10:42)
[2016-12-07] MEDS ORDERED: OMEP20CA12 PO (10:42)
[2016-12-07] MEDS ORDERED: SUCR1TAB36 PO (10:42)
[2016-12-07] MEDS ORDERED: PRD10T PO (10:42)
[2016-12-07] MEDS ORDERED: RIVA20TA PO (10:42)
--- NOTE | 2016-12-07 10:58 | Cardiology Progress Note ---
Subjective Subjective/Events-last exam patient is extubated, lethargic, denied any chest pain, still short of breath at this time. Review of Systems General: No Chills, No Night Sweats, No Fatigue, No Malaise, No Appetite, No Other HEENT: No Head Aches, No Visual Changes, No Eye Pain, No Ear Pain, No Dysphasia , No Sinus Congestion, No Post Nasal Drip, No Sore Throat, No Other Pulmonary: DyspneaNo Cough, No Pleuritic Chest Pain, No Other Cardiovascular: No: Chest Pain, Edema, Lt Headedness, Orthopnea, Other, Palpitations, Paroxysmal Noc. Dyspnea Gastrointestinal: : Abdominal Pain Objective-Cardiology Exam Last Set of Vital Signs Vital Signs 12/07/16 12/07/16 12/07/16 06:15 08:15 09:00 Temp 99.5 Pulse 95 Resp 26 B/P 112/57 Pulse Ox 100 O2 Delivery Mechanical Ventilator O2 Flow Rate 32.00 FiO2 32 Capillary Refill : Less Than 3 Seconds I&O Intake and Output 12/07/16 00:00 Intake Total 7300 ml Output Total 1315 ml Balance 5985 ml Intake Oral 0 ml IV Total 7300 ml Output Urine Total 880 ml Urine/Stool Mix 400 ml Emesis 0 ml Drainage Total 35 ml # Bowel Movements 1 General: Alert, Cooperative, Mild Distress, Other (sedated. ) HEENT: Atraumatic, Mucous Memb Moist/[place] Neck: Supple, No JVD Lungs: Other (bilat rhonchi) Heart: Normal S1, Normal S2, Gallops, Other (irregularly irregular, tachycardic ) Abdomen: Soft, Other (hypoactive BS, colostomy tube) Extremities: No Clubbing, No Cyanosis, Normal Pulses, Other (+1 edema BLE) Skin: No Rashes, No Significant Lesion Neuro: Normal Tone Results Lab Laboratory Tests 12/07/16 04:30 A/P-Cardiology Admission Diagnosis Sigmoid perforation Septic shock Afib with RVR CAD Assessment/Plan Sigmoid perforation and fecal peritonitis; day 2 post surgery. recovering slowly. Continue to monitor Septic shock and acute resp failure, extubated today, doing better. Continue to monitor. Tachycardia, atrial fibrillation, on Cardizem drip, heart rate is better controlled. Continue to monitor Paroxysmal atrial fibrillation/atrial flutter despite Maze procedure during her bypass surgery on May 01, 2013. Anticoagulation is being held post-op, continue digoxin, Cardizem as tolerated. 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 Stress test Nov 2016 did not show ischemia or infarction and LVEF was 86% COPD, history of recent pneumonia in November 2016. Currently extubated. Managed by Dr. Vazquez. H/o hypertension- currently borderline hypotensive. Continue to monitor. Continue Cardizem as BP tolerates. Chronic peripheral edema- continue lasix, monitor electrolytes. Hyperlipidemia- history of intolerance to statins, monitored as outpatient History of CVA/TIA, history of paroxysmal atrial fibrillation, will need to be back on anticoagulation once she can tolerate it Anemia, worse, receiving blood transfusion today. Continue to monitor H&H. Moderate bilateral carotid stenosis, continue to monitor Clinical Quality Measures DVT/VTE Risk/Contraindication: Risk Factor Score Per Nursin RFS Level Per Nursing on Admit: 4+=Very High AIRAM MARQUES MD Dec 07, 2016 10:57
[2016-12-07] MEDS: RT-ALBUTEROL/IPRATROPIUM 3 ML (DUONEB) VIAL INH SCH ×4 (11:03→21:30)
[2016-12-07] MEDS ORDERED: NS IV 500 ML 500 ML ONE (11:04)
--- NOTE | 2016-12-07 12:40 | OPERATIVE REPORT ---
PROCEDURE PHYSICIAN: LINDA HEATH DATE OF PROCEDURE: 12/05/2016 PREOPERATIVE DIAGNOSIS: Pneumoperitoneum. POSTOPERATIVE DIAGNOSIS: Sigmoid colon perforation. OPERATION: 1. Ultrasound localization of right internal jugular vein. 2. Central venous catheter placement. 3. Laparoscopic sigmoid colon resection with end colostomy (Valencia's procedure). SURGEON: Dr. Heath. ANESTHESIA: General anesthesia. BLOOD LOSS: 100 mL. FLUIDS: 2 liters of crystalloids. TYPE OF WOUND: Type IV (dirty wound). INDICATION FOR THE PROCEDURE: This lady presented with acute abdominal pain and was found to have pneumoperitoneum. After an adequate discussion, it was decided to proceed with diagnostic laparoscopy to find the offending lesion and address it appropriately. The possibility of requiring a colostomy, should colonic perforation be found, was discussed. Informed consent was obtained after reviewing the details of the operation and highlighting the possibility of mortality during the postoperative period. The potential for requiring postoperative ventilatory support was also discussed. DESCRIPTION OF PROCEDURE: She was placed supine on the operating table and general anesthesia induced using an endotracheal tube. A gram of Ancef and 500 mg of Flagyl were administered intravenously as prophylaxis against wound infection. Sequential compression devices were placed around her legs, to minimize the risk of venous thrombosis. 1. CENTRAL VENOUS CATHETER PLACEMENT: She was placed in Trendelenburg position and the right side of the neck prepared and draped in the usual sterile manner. Internal jugular vein was localized using a 10 MHz ultrasound probe and a floppy guidewire introduced into the heart. Subcutaneous tract was gently dilated using a silastic sheath and a 16 cm long, 7-Anguillan, triple-lumen central venous catheter advanced using Seldinger technique. All the channels were aspirated and flushed with heparinized saline and the catheter was secured using silk suture. A dressing was then applied. 2. LAPAROSCOPIC HASEEB'S PROCEDURE: Abdomen was prepared and draped in the usual sterile manner. A supraumbilical incision was made and the linea alba incised vertically. A Isaacs cannula was placed and carbon dioxide insufflated to an intra-abdominal pressure of 15 mmHg. Anatomy was visualized using a 30 degree laparoscope. Feculent fluid was found in the pelvis and around the right upper quadrant. Another 5 mm trocar was placed over the left upper quadrant and fluid suctioned out. Further examination of the pelvis confirmed perforation of the distal sigmoid colon with feculent material extruding from it. The distal stomach and the duodenum were examined by lifting the left lobe of the liver. There was no perforation. We elected to proceed with sigmoid resection and end colostomy (Valencia's procedure). A 7 cm incision was made over the midline and a GelPort hand assist device placed. Total of 3 additional 10 mm trocars were placed over the suprapubic region and along the right side of the abdomen. Using a hand assist technique, distal sigmoid colon was mobilized and transected using an Endo BAY 3.5 mm stapler. Mesocolon was then mobilized using Harmonic scalpel all the way up to the splenic flexure. Pneumoperitoneum was then deflated and the descending colon, along with diseased sigmoid colon brought out through the abdominal wound. The distal descending colon was then transected using a BAY 55 stapler. It was then brought out through an incision over the left lower quadrant, to be fashioned into a conventional end colostomy. Abdominal cavity was irrigated with a total of 4 liters of warm saline. A 15-Anguillan Bryan-Ellis drain was then left in the pelvis and secured using 2-0 silk sutures. The fascia over the midline incision was closed using number 2 Prolene. The skin was left open in anticipation of healing by secondary intention. The trocar incisions were loosely approximated with surgical doyle. The colostomy was then fashioned in a conventional fashion and secured using 3-0 Vicryl sutures. A collection device was then placed. She tolerated the procedure well and was taken to the Intensive Care Unit in a stable, intubated state. [place], sponges, and instruments were correct at the end of the operation. Job ID: [id number] Dictated Date: 12/05/2016 19:35:36 Fiction Writer Date: 12/07/2016 12:30:00 / ana RAIN
[2016-12-07] MEDS ORDERED: ENOXAPARIN 40 MG/0.4 ML (LOVENOX) SYR SC SCH (20:00)
[2016-12-07] MEDS ORDERED: HYDROCORTISONE 100 MG/2 ML (Solu-CORTEF) VIAL IV SCH (21:00)
[2016-12-07] MEDS: PANTOPRAZOLE 40 MG/10 ML (PROTONIX) VIAL IV SCH (21:05)
[2016-12-08] VITALS (25 sets, daily range): BP systolic 120–152; BP diastolic 57–88
[2016-12-08] MEDS: meTOprolol 5 MG/5 ML (LOPRESSOR) VIAL IV SCH ×5 (00:03→23:03)
[2016-12-08] MEDS: DILTIAZEM DRIP 100 MG in SODIUM CHLORIDE (ADD-VANTAGE) 100 ML IV SCH ×3 (00:13→20:15)
[2016-12-08] MEDS: fentaNYL INJECTION 100 MCG/2 ML AMP IV PRN ×5 (02:00→22:37)
[2016-12-08] MEDS: VASOPRESSIN INJECTION 20 UNIT in NS (IVPB) 50 ML IV SCH ×3 (02:15→17:49)
[2016-12-08] MEDS: NOREPINEPHRINE 4 MG in D5W 250 ML (IVPB) 250 ML IV SCH ×2 (02:31→13:42)
[2016-12-08] MEDS: RT-ALBUTEROL/IPRATROPIUM 3 ML (DUONEB) VIAL INH SCH ×6 (04:34→22:40)
[2016-12-08 04:54] LABS: BASOPHILS # (AUTO) 0.1 10^3/uL (0.0-0.1); BASOPHILS % (AUTO) 0 % (0-10); EOSINOPHILS % (AUTO) 0 % (0-10); LYMPHOCYTES # (AUTO) 0.3 X 10^3 (1.0-4.0); LYMPHOCYTES % (AUTO) 1 % (12-44); MEAN CORPUSCULAR HEMOGLOBIN 29 PG (25-34); MEAN CORPUSCULAR HGB CONC 33 G/DL (32-36); MEAN CORPUSCULAR VOLUME 88 FL (80-99); MEAN PLATELET VOLUME 9.4 FL (7.4-10.4); MONOCYTES # (AUTO) 1.5 X 10^3 (0.0-1.0); MONOCYTES % (AUTO) 4 % (0-12); NEUTROPHILS # (AUTO) 33.6 X 10^3 (1.8-7.8); NEUTROPHILS % (AUTO) 95 % (42-75); PLATELET COUNT 258 10^3/uL (130-400); RED BLOOD COUNT 3.64 10^6/uL (4.35-5.85); RED CELL DISTRIBUTION WIDTH 15.5 % (10.0-14.5)
[2016-12-08 05:05] LABS: WHITE BLOOD COUNT 35.4 10^3/uL (4.3-11.0)
[2016-12-08 05:27] LABS: ANION GAP 10 MMOL/L (5-14); BLOOD UREA NITROGEN 25 MG/DL (7-18); BUN/CREATININE RATIO 35; CALCIUM 8.5 MG/DL (8.5-10.1); CARBON DIOXIDE 24 MMOL/L (21-32); CHLORIDE 107 MMOL/L (98-107); CREATININE SERUM 0.71 MG/DL (0.60-1.30); GFR ESTIMATED > 60; GLUCOSE 110 MG/DL (70-105); PHOSPHORUS 2.5 MG/DL (2.3-4.7); POTASSIUM 3.1 MMOL/L (3.6-5.0); SODIUM 141 MMOL/L (135-145)
[2016-12-08] MEDS: metroNIDAZOLE 500MG/100ML IVPB 100 ML IV SCH ×3 (06:03→21:28)
--- NOTE | 2016-12-08 06:26 | Pulmonary Progress Note ---
Subjective Subjective/Events-last exam PT is tolerating being off vent however appears very weak. Exam Exam Vital Signs Date Time Temp Pulse Resp B/P Pulse Ox O2 Delivery O2 Flow Rate FiO2 12/08/16 06:00 89 26 131/72 100 Nasal Cannula 3.00 12/08/16 05:21 147 32 129/63 100 Nasal Cannula 3.00 12/08/16 05:00 86 31 133/71 98 Nasal Cannula 3.00 12/08/16 04:00 98.4 71 19 122/66 97 Nasal Cannula 3.00 12/08/16 03:00 100 3.00 12/08/16 03:00 73 19 120/57 95 Nasal Cannula 3.00 12/08/16 02:00 90 34 125/65 95 Nasal Cannula 3.00 12/08/16 01:00 74 22 126/75 100 Nasal Cannula 3.00 12/08/16 01:00 74 12/08/16 00:15 100 3.00 12/08/16 00:13 99.2 101 28 130/60 91 3.00 12/08/16 00:00 99.2 105 18 130/66 99 Nasal Cannula 3.00 12/07/16 23:00 86 15 121/60 97 Nasal Cannula 3.00 12/07/16 22:00 103 24 125/77 100 Nasal Cannula 3.00 12/07/16 21:30 100 3.00 12/07/16 21:30 92 3.00 12/07/16 21:00 96 17 133/68 98 Nasal Cannula 3.00 12/07/16 20:00 100 3.00 12/07/16 20:00 97.9 134 26 138/71 92 Nasal Cannula 3.00 12/07/16 19:00 129 12/07/16 19:00 129 39 138/70 99 Nasal Cannula 3.00 12/07/16 18:36 98 3.00 12/07/16 18:00 94 23 131/64 99 Nasal Cannula 3.00 12/07/16 17:21 98.8 125 21 132/62 99 3.00 12/07/16 17:17 98.8 125 21 132/62 99 3.00 12/07/16 17:00 88 31 125/55 99 Nasal Cannula 3.00 12/07/16 16:06 101 114/59 12/07/16 16:00 100 3.00 12/07/16 16:00 97.6 116 24 114/59 98 Nasal Cannula 3.00 12/07/16 15:00 111 18 119/53 100 Nasal Cannula 3.00 12/07/16 14:29 98.8 98 25 114/51 100 3.00 12/07/16 14:04 95 3.00 12/07/16 14:04 99.0 93 35 108/60 100 3.00 12/07/16 14:00 99.0 93 31 108/60 100 Nasal Cannula 3.00 12/07/16 13:30 99.4 90 31 121/58 99 3.00 12/07/16 13:00 130 12/07/16 13:00 106 20 117/67 100 Nasal Cannula 3.00 12/07/16 12:00 99.6 99 19 115/48 100 Nasal Cannula 3.00 12/07/16 12:00 100 3.00 12/07/16 11:38 107 33 104/46 99 3.00 12/07/16 11:35 99.6 92 24 104/46 100 3.00 12/07/16 11:13 99.5 99 35 104/45 100 3.00 12/07/16 11:03 100 5.00 12/07/16 11:00 99.5 104 21 104/45 100 Nasal Cannula 3.00 12/07/16 10:00 99 19 110/47 100 Nasal Cannula 5.00 12/07/16 09:00 95 26 112/57 100 Mechanical Ventilator 32.00 12/07/16 08:15 109 40 98 32 12/07/16 08:05 99.6 12/07/16 08:05 97 32 12/07/16 08:00 110 23 113/71 99 Mechanical Ventilator 32.00 12/07/16 07:55 144 33 100 32 12/07/16 07:00 97 27 109/61 99 Mechanical Ventilator 32.00 12/07/16 07:00 102 12/07/16 06:45 98 32 12/07/16 06:29 99 26 100 32 I & O 12/08/16 06:59 Intake Total 2068 ml Output Total 2380 ml Balance -312 ml General Appearance: Moderate Distress HEENT: PERRL/EOMI Neck: Normal Inspection Respiratory: Accessory Muscle Use Cardiovascular: Regular Rate, Rhythm Capillary Refill: Less Than 3 Seconds Gastrointestinal: abnormal bowel sounds (hypoactive bowel sounds) distended guarding rebound tenderness Extremity: Normal Inspection Neurologic/Psychiatric: Other (sedated on vent ) Skin: Cool Results Lab Laboratory Tests 12/07/16 04:30 12/08/16 04:12 12/08/16 04:14 Assessment/Plan Assessment/Plan colonic perforation s/p surgery Severe sepsis with septic shock secondary to #1 - flagyl, cipro, diflucan - solucortef -- D/C -IVF Acute respiratory failure secondary -pt is doing ok off vent she does have significant WOB -Add solumedrol Pulmary edema -start lasix BID 40mg Hypokalemia -Give 80meq of KCL and add 20 to IVF -repeat chem 2hrs after KCL replacement hx of severe COPD -SVNs metabolic acidosis -IVF Anemia monitor Afib with RVR -restart dig -consult cardiology Clinical Quality Measures DVT/VTE Risk/Contraindication: Risk Factor Score Per Nursin RFS Level Per Nursing on Admit: 4+=Very High CONNIE LANIER DO Dec 08, 2016 06:26
[2016-12-08] MEDS: RT-BUDESONIDE NEBS 0.5 MG/2ML (PULMICORT) AMP INH SCH ×2 (06:29→19:03)
[2016-12-08] MEDS: POTASSIUM CL 10MEQ/50ML IVPB 50 ML IV SCH ×16 (06:36→23:03)
[2016-12-08] MEDS: MAGNESIUM 1 GM/100 ML IVPB 100 ML IV SCH ×3 (07:06→15:13)
[2016-12-08] MEDS: KCL 20 MEQ TAB (K-DUR) PO SCH (07:06)
[2016-12-08] MEDS: FLUCONAZOLE 100 MG/50 ML 50 ML IV SCH (08:28)
[2016-12-08] MEDS: DIGOXIN 0.25 MG/ML (LANOXIN) 2 ML AMP IV SCH (08:28)
[2016-12-08] MEDS: FUROSEMIDE 40 MG/4 ML INJ (LASIX) IVP SCH ×2 (08:28→20:24)
[2016-12-08] MEDS: CIPROFLOXACIN IV 400MG/200ML 200 ML IV SCH ×2 (08:28→20:15)
[2016-12-08] MEDS: POTASSIUM CHLORIDE INJ 20 MEQ in LACTATED RINGERS 1,000 ML IV SCH (08:29)
--- NOTE | 2016-12-08 08:46 | Diagnostic Imaging Report ---
INDICATION: Post extubation. COMPARISON: 12/07/2016. FINDINGS: The right IJ catheter is at the SVC. The ET tube and NG catheters have been removed. The bibasilar subsegmental atelectasis shows only minimal progression post extubation. There is slight blunting of the left costophrenic angle, decreased. No pneumothorax. IMPRESSION: There is only minimal progression of the bibasilar subsegmental atelectasis post extubation. A tiny left pleural effusion has probably decreased. No pneumothorax. Dictated by: Dictated on workstation # [id number]
[2016-12-08] MEDS: CHLORHEXIDINE 0.12% SOLN 15 ML (PERIDEX) UDC PO SCH ×2 (08:48→20:13)
[2016-12-08] MEDS ORDERED: PATIENT MAY USE OWN MED,SINGLE MED PO SCH (09:45)
[2016-12-08] MEDS: TIOTROPIUM BROMIDE IH SCH (10:06)
[2016-12-08] MEDS: RT-ADVAIR HFA 115/21 MCG PER PUFF IH SCH ×2 (10:11→19:03)
[2016-12-08] MEDS ORDERED: ALPRAZolam 0.5 MG (XANAX) TAB ONE (10:12)
[2016-12-08] MEDS: ALPRAZolam 0.5 MG (XANAX) TAB PO SCH ×2 (10:16→20:14)
--- NOTE | 2016-12-08 10:18 | Progress Note-Standard ---
Standard Progress Note Progress Notes/Assess & Plan Progress/Assessment & Plan 12/06/16:on vasopressor support. Oxygenation maintained at 35 percent. Colostomy output feculent in nature. White cell count increased to 41,000. Hemoglobin stable. Urine output reasonable and responsive to fluid replacement.we'll continue supportive measures. Expected mortality more than 30 percent. Her son updated. 12/08/16: Extubated. Tachypneic. Very poor response to diuresis. Edges of the colostomy necrotic but the mucosa is vascularized and therefore can be observed. Hypokalemia, being replaced. Most home medications resumed. Final Diagnosis Perforated sigmoid diverticulum. LINDA HEATH MD Dec 08, 2016 10:18
[2016-12-08] MEDS: POVIDONE (BETADINE) 10% SOLN 240 ML BTL TOP PRN (10:24)
--- NOTE | 2016-12-08 12:12 | Cardiology Progress Note ---
Subjective Subjective/Events-last exam Patient is laying down in bed, fairly dyspneic at rest. Denied any chest pain, still having abdominal pain. Review of Systems General: No Chills, No Night Sweats, No Fatigue, No Malaise, No Appetite, No Other HEENT: No Head Aches, No Visual Changes, No Eye Pain, No Ear Pain, No Dysphasia , No Sinus Congestion, No Post Nasal Drip, No Sore Throat, No Other Pulmonary: DyspneaNo Cough, No Pleuritic Chest Pain, No Other Cardiovascular: No: Chest Pain, Edema, Lt Headedness, Orthopnea, Other, Palpitations, Paroxysmal Noc. Dyspnea Objective-Cardiology Exam Last Set of Vital Signs Vital Signs 12/08/16 12/08/16 12/08/16 08:30 09:00 10:13 Temp 98.6 Pulse 111 Resp 15 B/P 137/88 Pulse Ox 93 O2 Delivery Nasal Cannula O2 Flow Rate 15.00 FiO2 45 Capillary Refill : Less Than 3 Seconds I&O Intake and Output 12/08/16 00:00 Intake Total 2943 ml Output Total 2330 ml Balance 613 ml Intake Oral 0 ml IV Total 2843 ml Other 100 ml Output Urine Total 2285 ml Drainage Total 45 ml # Bowel Movements 1 General: Alert, Cooperative, Moderate Distress, Other HEENT: Atraumatic, Mucous Memb Moist/[place] Neck: Supple, No JVD Lungs: Other (bilat rhonchi) Heart: Normal S1, Normal S2, Gallops, Other Abdomen: Soft, Other Extremities: No Clubbing, No Cyanosis, Normal Pulses, Other (+1 edema BLE) Skin: No Rashes, No Significant Lesion Neuro: Normal Tone Results Lab Laboratory Tests 12/08/16 04:12 12/08/16 04:14 A/P-Cardiology Admission Diagnosis Sigmoid perforation Septic shock Afib with RVR CAD Assessment/Plan Sigmoid perforation and fecal peritonitis; recovering slowly from surgery. Septic shock and acute resp failure, still fairly dyspneic at this time, followed and managed by Dr. Vazquez. Tachycardia, atrial fibrillation, on Cardizem drip, heart rate is better controlled, continue to monitor, no changes are recommended at this time Paroxysmal atrial fibrillation/atrial flutter despite Maze procedure during her bypass surgery on May 01, 2013. Anticoagulation is being held post-op, continue digoxin, Cardizem as tolerated. 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 Stress test Nov 2016 did not show ischemia or infarction and LVEF was 86% COPD, history of recent pneumonia in November 2016. Currently extubated. Managed by Dr. Vazquez. H/o hypertension- currently borderline hypotensive. Continue to monitor. Continue Cardizem as BP tolerates. Chronic peripheral edema- continue lasix, monitor electrolytes. Hyperlipidemia- history of intolerance to statins, monitored as outpatient History of CVA/TIA, history of paroxysmal atrial fibrillation, will need to be back on anticoagulation once she can tolerate it Anemia, worse, receiving blood transfusion today. Continue to monitor H&H. Moderate bilateral carotid stenosis, continue to monitor Clinical Quality Measures DVT/VTE Risk/Contraindication: Risk Factor Score Per Nursin RFS Level Per Nursing on Admit: 4+=Very High AIRAM MARQUES MD Dec 08, 2016 12:12
[2016-12-08] MEDS: methylPREDNISolone 40 MG/ML (Solu-MEDROL) VIAL IV SCH ×2 (12:28→17:49)
--- NOTE | 2016-12-08 12:31 | Consultation-Hospitalist ---
HPI History of Present Illness: HPI/Chief Complaint CC: Medical management following distal sigmoid colon perforation with fecal peritonitis HPI: This is a 81-year-old white female known to me from recent hospitalization for severe back pain status post epidural pain addition at T9 old compression fracture site, GI bleed due to stomach ulcers assessed by Dr. Broussard who performed EGD last hospitalization and she insisted on being discharged home on home care living with her son instead of going to the nursing facility that presented to the emergency room with complaints of abdominal pain. Upon workup she was found to have free air of the abdomen and she was promptly brought to surgery found to have a distal sigmoid colon perforation with fecal peritonitis. She was intubated for the surgery and maintained in an intubated state and Dr. Vazquez was consulted. Patient was extubated without difficulty but starting to have significant fatigue issues and is shown to be moderately tachypnea right now currently. She refuses to be reintubated and less all the physicians state that she must to be intubated. Overall her prognosis is extremely poor given her lack of reserve and severe comorbidities and even recent hospitalization placing her at risk for overall poor prognosis and . If she is reintubated and unable to extubate again we will either talked about palliative care and hospice or sending to [facility] long-term facility for intubated patients. She is very angry with me considering she was just discharged and she told me that I discharged her too early and this all happened to her because of that so we will try to support this patient in any way possible but she appears to be very angry and frustrated about her situation and will try to be as understanding is possible and support her in any way she needs. Source: patient, RN/MD Exam Limitations: clinical condition Date Seen 12/08/16 Attending Physician Monty Ren MD PCP Ralph Braun MD Referring Physician Date of Admission Dec 05, 2016 at 20:07 Home Medications & Allergies Home Medications Reviewed patient Home Medication Reconciliation Form Allergies Coded Allergies: egg (Verified Allergy, Intermediate, 04/10/12) Penicillins (Unverified Allergy, Unknown, 06/19/14) adhesive tape (Verified Allergy, Unknown, 11/24/16) latex (Verified Allergy, Unknown, 11/24/16) simvastatin (Verified Allergy, Unknown, PATIENT TAKES ATORVASTATIN AT HOME , 11/24/16) Past Ojkhwcb-[id number]-Hdviwd Hx Patient Social History Marrital Status: Employed/Student: retired Alcohol Use: Denies Use Recreational Drug Use: No Smoking Status: Former Smoker Former smoker/When Quit: Jan 25, 2004 Type Used: Cigarettes Physical Abuse Screen: No Sexual Abuse: No Recent Foreign Travel: No Contact w/other who traveled: No Recent Hopitalizations: Yes Recent Infectious Disease Expo: No Immunizations Up To Date Tetanus Booster (TDap): Unknown Date of Pneumonia Vaccine: Aug 01, 2011 Seasonal Allergies Seasonal Allergies: Yes Surgeries HX Surgeries: Yes (dental, CAROTID ARTERY, PEG Tube) Surgeries: Cardiac, CABG, Gallbladder, Tracheostomy, Vascular Surgery Respiratory Hx Respiratory Disorders: Yes (pulmonary hypertension, wears 3L o2 at all times ) Respiratory Disorders: COPD Cardiovascular Hx Cardiovascular Disorders: Yes Cardiac Disorders: Atrial Fibrillation, Coronary Artery Disease, Heart Attack, High Cholesterol, Hypertension, Peripheral Vascular Neurological Hx Neurological Disorders: Yes Neurological Disorders: TIA, Vertigo Reproductive System : No Hx Reproductive Disorders: No Sexually Transmitted Disease: No HIV/AIDS: No Genitourinary Hx Genitourinary Disorders: No Gastrointestinal Hx Gastrointestinal Disorders: Yes Gastrointestinal Disorders: Gastroesophageal Reflux, Gastrointestinal Bleed, Chronic Constipation, Ulcer Musculoskeletal Hx Musculoskeletal Disorders: Yes Musculoskeletal Disorders: Osteoporosis, Arthritis, Rheumatoid Arthritis Endocrine Hx Endocrine Disorders: No HEENT HX ENT Disorders: Yes HEENT Disorders: Glaucoma Loss of Vision: Denies Hearing Impairment: Hard of Hearing Cancer Hx Cancer: No Psychosocial Hx Psychiatric Problems: Yes Behavioral Health Disorders: Anxiety Integumentary HX Skin/Integumentary Disorder: Yes Skin/Integumentary Disorders: Psoriasis Blood Transfusions Hx Blood Disorders: No Reviewed Nursing Assessment Reviewed/Agree w Nursing PMH: Yes Family Medical History Family Hx: Arthritis 19 MOTHER Cardiovascular disease 19 MOTHER Deafness or hearing loss 19 MOTHER Glaucoma 19 MOTHER Hypertension 19 FATHER 19 MOTHER Kidney disease 19 MOTHER Myocardial infarction 19 FATHER Neoplasm 19 MOTHER Review of Systems Constitutional: see HPI dizziness fever malaise weakness EENTM: no symptoms reported Respiratory: dyspnea on exertion short of breath Cardiovascular: no symptoms reported Gastrointestinal: abdominal pain (RLQ) Genitourinary: no symptoms reported Musculoskeletal: back pain Skin: no symptoms reported Psychiatric/Neurological: No Symptoms Reported All Other Systems Reviewed Negative Unless Noted: Yes Physical Exam Physical Exam Vital Signs Vital Sign - Last 12Hours 12/05/16 12/05/16 14:13 20:19 Temp 97.8 Pulse 98 Resp 18 B/P 124/91 Pulse Ox 100 O2 Delivery Nasal Cannula O2 Flow Rate 3 FiO2 60 Capillary Refill : Less Than 3 Seconds General Appearance: No Apparent Distress Anxious Chronically ill Mild Distress Other (tachypneic) Eyes: Bilateral Eye Normal Inspection, Bilateral Eye PERRL HEENT: PERRL/EOMI Normal ENT Inspection Pharynx Normal Neck: Full Range of Motion Normal Inspection Non Tender Supple Carotid Bruit Respiratory: Chest Non Tender Lungs Clear Normal Breath Sounds Accessory Muscle Use Crackles Decreased Breath Sounds Respiratory Distress Wheezing Cardiovascular: Regular Rate, Rhythm No Edema No Gallop No JVD No Murmur Normal Peripheral Pulses Gastrointestinal: Abnormal Bowel Sounds Guarding (due to surgery) Back: Normal Inspection No CVA Tenderness No Vertebral Tenderness Extremity: Normal Capillary Refill Normal Inspection Normal Range of Motion Non Tender No Calf Tenderness No Pedal Edema Neurologic/Psychiatric: Alert Oriented x3 No Motor/Sensory Deficits Normal Mood/Affect Skin: Normal Color Warm/Dry Lymphatic: No Adenopathy Results Results/Procedures Lab Laboratory Tests 12/07/16 04:30 12/08/16 04:12 12/08/16 04:14 Assessment/Plan Admission Diagnosis Assessment: Distal sigmoid colon perforation with fecal peritonitis POD # 3 Ventilator dependent respiratory failure status post extubation but appears to be in need of re-intubation to support respiratory status Severe debility Coronary artery disease previous bypass 2 years ago Recent GI bleed due to stomach ulcers noted on EGD by Dr. Broussard last week T9 compression fracture subacute Atrial fibrillation Assessment and Plan Monitor labs May need to be reintubated Will try to support this patient anyway possible but overall prognosis is extremely poor Severe debility Clinical Quality Measures DVT/VTE Risk/Contraindication: Risk Factor Score Per Nursin RFS Level Per Nursing on Admit: 4+=Very High YORDAN HODGE DO Dec 08, 2016 12:31
[2016-12-08] MEDS ORDERED: FUROSEMIDE 40 MG/4 ML INJ (LASIX) IVP NR (13:45)
[2016-12-08] MEDS ORDERED: ENOXAPARIN 40 MG/0.4 ML (LOVENOX) SYR SC SCH (20:00)
[2016-12-08] MEDS: ATORVASTATIN 10 MG (LIPITOR) TABLET PO SCH (20:14)
[2016-12-08] MEDS: ZIPRASIDONE 20 MG (GEODON) CAP PO SCH (20:24)
[2016-12-08] MEDS: PANTOPRAZOLE 40 MG/10 ML (PROTONIX) VIAL IV SCH (20:24)
[2016-12-09] VITALS (24 sets, daily range): BP systolic 111–161; BP diastolic 54–93
[2016-12-09] MEDS: RT-ALBUTEROL/IPRATROPIUM 3 ML (DUONEB) VIAL INH SCH ×6 (02:00→22:05)
[2016-12-09 04:54] LABS: BASOPHILS % (AUTO) 0 % (0-10); EOSINOPHILS % (AUTO) 0 % (0-10); LYMPHOCYTES # (AUTO) 0.2 X 10^3 (1.0-4.0); LYMPHOCYTES % (AUTO) 1 % (12-44); MEAN CORPUSCULAR HEMOGLOBIN 30 PG (25-34); MEAN CORPUSCULAR HGB CONC 34 G/DL (32-36); MEAN CORPUSCULAR VOLUME 88 FL (80-99); MEAN PLATELET VOLUME 9.3 FL (7.4-10.4); MONOCYTES # (AUTO) 1.3 X 10^3 (0.0-1.0); MONOCYTES % (AUTO) 5 % (0-12); NEUTROPHILS # (AUTO) 23.9 X 10^3 (1.8-7.8); NEUTROPHILS % (AUTO) 94 % (42-75); PLATELET COUNT 267 10^3/uL (130-400); RED BLOOD COUNT 3.99 10^6/uL (4.35-5.85); RED CELL DISTRIBUTION WIDTH 15.7 % (10.0-14.5); WHITE BLOOD COUNT 25.5 10^3/uL (4.3-11.0)
[2016-12-09 05:15] LABS: ANION GAP 9 MMOL/L (5-14); BLOOD UREA NITROGEN 20 MG/DL (7-18); BUN/CREATININE RATIO 30; CALCIUM 8.4 MG/DL (8.5-10.1); CARBON DIOXIDE 29 MMOL/L (21-32); CHLORIDE 102 MMOL/L (98-107); CREATININE SERUM 0.67 MG/DL (0.60-1.30); GFR ESTIMATED > 60; GLUCOSE 148 MG/DL (70-105); MAGNESIUM 1.8 MG/DL (1.8-2.4); PHOSPHORUS 1.8 MG/DL (2.3-4.7); POTASSIUM 3.7 MMOL/L (3.6-5.0); SODIUM 140 MMOL/L (135-145)
[2016-12-09] MEDS: methylPREDNISolone 40 MG/ML (Solu-MEDROL) VIAL IV SCH ×5 (05:23→23:14)
[2016-12-09] MEDS: NOREPINEPHRINE 4 MG in D5W 250 ML (IVPB) 250 ML IV SCH (05:24)
[2016-12-09] MEDS: VASOPRESSIN INJECTION 20 UNIT in NS (IVPB) 50 ML IV SCH (05:24)
[2016-12-09] MEDS: MAGNESIUM 1 GM/100 ML IVPB 100 ML IV SCH (05:27)
[2016-12-09] MEDS: KCL 20 MEQ TAB (K-DUR) PO SCH (05:27)
[2016-12-09] MEDS: POTASSIUM CL 10MEQ/50ML IVPB 50 ML IV SCH (05:27)
[2016-12-09] MEDS: metroNIDAZOLE 500MG/100ML IVPB 100 ML IV SCH ×3 (05:58→21:56)
[2016-12-09] MEDS: meTOprolol 5 MG/5 ML (LOPRESSOR) VIAL IV SCH ×4 (06:03→23:14)
[2016-12-09] MEDS: fentaNYL INJECTION 100 MCG/2 ML AMP IV PRN ×3 (06:04→22:31)
[2016-12-09] MEDS: RT-BUDESONIDE NEBS 0.5 MG/2ML (PULMICORT) AMP INH SCH ×2 (06:41→18:45)
[2016-12-09] MEDS: RT-ADVAIR HFA 115/21 MCG PER PUFF IH SCH ×2 (06:41→18:48)
[2016-12-09] MEDS: TIOTROPIUM BROMIDE IH SCH (06:41)
--- NOTE | 2016-12-09 07:19 | Pulmonary Progress Note ---
Subjective Subjective/Events-last exam PT is very SOB with accessory muscle use. Exam Exam Vital Signs Date Time Temp Pulse Resp B/P Pulse Ox O2 Delivery O2 Flow Rate FiO2 12/09/16 06:47 95 15.00 50 12/09/16 06:47 95 15.00 50 12/09/16 06:46 95 15.00 50 12/09/16 06:42 95 15.00 50 12/09/16 06:00 114 34 161/91 89 Vapotherm 50.00 15.00 12/09/16 05:00 95 35 154/68 93 Vapotherm 50.00 15.00 12/09/16 04:15 95 15.00 12/09/16 04:00 98.9 94 29 130/93 92 Vapotherm 50.00 15.00 12/09/16 03:00 73 20 114/71 94 Vapotherm 50.00 15.00 12/09/16 02:04 93 15.00 50 12/09/16 02:00 104 20 117/54 94 Vapotherm 50.00 15.00 12/09/16 01:00 110 12/09/16 01:00 110 21 114/54 95 Vapotherm 50.00 15.00 12/09/16 00:00 95 15.00 12/09/16 00:00 99.3 111 20 111/65 94 Vapotherm 50.00 15.00 12/08/16 23:14 92 15.00 50 12/08/16 23:00 116 24 132/73 93 Vapotherm 45.00 15.00 12/08/16 22:40 95 15.00 45 12/08/16 22:00 128 23 152/70 95 Vapotherm 45.00 15.00 12/08/16 21:00 122 24 141/78 94 Vapotherm 45.00 15.00 12/08/16 20:15 88 138/74 12/08/16 20:00 95 15.00 12/08/16 20:00 99.6 77 26 138/74 93 Vapotherm 45.00 15.00 12/08/16 19:38 95 15.00 45 12/08/16 19:28 93 15.00 45 12/08/16 19:00 76 28 142/69 93 Vapotherm 45.00 15.00 12/08/16 19:00 76 12/08/16 18:00 80 25 141/63 93 Vapotherm 45.00 15.00 12/08/16 17:00 80 21 127/62 93 Vapotherm 45.00 15.00 12/08/16 16:00 94 15.00 45 12/08/16 16:00 98.6 93 23 143/63 94 Vapotherm 45.00 15.00 12/08/16 15:00 87 22 144/80 93 Vapotherm 45.00 15.00 12/08/16 14:00 74 19 145/66 93 Nasal Cannula 3.00 12/08/16 13:00 67 18 137/75 93 Nasal Cannula 3.00 12/08/16 13:00 73 12/08/16 12:00 94 15.00 45 12/08/16 12:00 101 23 140/67 94 Nasal Cannula 3.00 12/08/16 12:00 97.6 12/08/16 11:00 96 24 146/67 94 Nasal Cannula 3.00 12/08/16 10:13 93 15.00 45 12/08/16 10:00 105 26 146/62 95 Nasal Cannula 3.00 12/08/16 09:08 90 15.00 45 12/08/16 09:00 111 15 137/88 92 Nasal Cannula 3.00 12/08/16 08:56 96 10.00 40 12/08/16 08:30 98.6 85 33 127/76 95 3.00 12/08/16 08:15 95 3.00 12/08/16 08:15 98.6 12/08/16 08:00 96 25 142/86 99 Nasal Cannula 3.00 I & O 12/09/16 07:00 Intake Total 1360 ml Output Total 3990 ml Balance -2630 ml General Appearance: No Apparent Distress Anxious Chronically ill Mild Distress Other (tachypneic) HEENT: PERRL/EOMI Normal ENT Inspection Pharynx Normal Neck: Full Range of Motion Normal Inspection Non Tender Supple Carotid Bruit Respiratory: Chest Non Tender Lungs Clear Normal Breath Sounds Accessory Muscle Use Crackles Decreased Breath Sounds Respiratory Distress Wheezing Cardiovascular: Regular Rate, Rhythm No Edema No Gallop No JVD No Murmur Normal Peripheral Pulses Capillary Refill: Less Than 3 Seconds Gastrointestinal: abnormal bowel sounds (hypoactive bowel sounds) distended guarding rebound tenderness Extremity: Normal Capillary Refill Normal Inspection Normal Range of Motion Non Tender No Calf Tenderness No Pedal Edema Neurologic/Psychiatric: Alert Oriented x3 No Motor/Sensory Deficits Normal Mood/Affect Skin: Normal Color Warm/Dry Lymphatic: No Adenopathy Results Lab Laboratory Tests 12/08/16 04:12 12/08/16 04:14 12/08/16 12:13 12/08/16 17:46 12/09/16 04:32 Assessment/Plan Assessment/Plan colonic perforation s/p surgery Severe sepsis with septic shock secondary to #1 - flagyl, cipro, diflucan - solucortef -- D/C -IVF Acute respiratory failure secondary -pt is doing ok off vent she does have significant WOB -solumedrol Atelectasis -easypap -IS -increase activity Pulmary edema -start lasix BID 40mg Hypokalemia -Give 80meq of KCL and add 20 to IVF -repeat chem 2hrs after KCL replacement hx of severe COPD -SVNs metabolic acidosis -IVF Anemia monitor Afib with RVR -restart dig -consult cardiology Clinical Quality Measures DVT/VTE Risk/Contraindication: Risk Factor Score Per Nursin RFS Level Per Nursing on Admit: 4+=Very High CONNIE LANIER DO Dec 09, 2016 07:19
[2016-12-09] MEDS: POTASSIUM CHLORIDE INJ 20 MEQ in LACTATED RINGERS 1,000 ML IV SCH (08:44)
[2016-12-09] MEDS: FUROSEMIDE 40 MG/4 ML INJ (LASIX) IVP SCH ×2 (08:47→20:29)
[2016-12-09] MEDS: CIPROFLOXACIN IV 400MG/200ML 200 ML IV SCH ×2 (08:49→20:02)
[2016-12-09] MEDS: CHLORHEXIDINE 0.12% SOLN 15 ML (PERIDEX) UDC PO SCH ×2 (08:49→20:03)
[2016-12-09] MEDS: DIGOXIN 0.25 MG/ML (LANOXIN) 2 ML AMP IV SCH (08:49)
[2016-12-09] MEDS: FLUCONAZOLE 100 MG/50 ML 50 ML IV SCH (08:49)
[2016-12-09] MEDS: DULoxetine 20 MG (CYMBALTA) CAP PO SCH (08:50)
[2016-12-09] MEDS: ALPRAZolam 0.5 MG (XANAX) TAB PO SCH ×2 (08:50→20:03)
--- NOTE | 2016-12-09 08:50 | Diagnostic Imaging Report ---
INDICATION: Post extubation. TECHNIQUE: Single view chest at 4:46 AM. CORRELATION STUDY: 12/08/2016. FINDINGS: The patient is post sternotomy and coronary artery bypass. The heart size is stable. The vasculature is relatively stable. Continued atelectasis or infiltrate of the lung bases, right greater than left, is generally stable. Likely trace pleural effusions. Central line via the neck on the right. IMPRESSION: Bibasilar areas of atelectasis or infiltrate along with small effusions are overall generally stable. Dictated by: Dictated on workstation # [id number]
[2016-12-09] MEDS ORDERED: predniSONE 5 MG TAB PO SCH (09:00)
[2016-12-09] MEDS: DILTIAZEM DRIP 100 MG in SODIUM CHLORIDE (ADD-VANTAGE) 100 ML IV SCH ×3 (09:26→23:14)
[2016-12-09 10:51] LABS: ABG HCO3 33 MMOL/L (23-27); ABG OXYGEN SATURATION 95 % (94-100); ABG PCO2 48 MMHG (35-45); ABG PH 7.46 (7.37-7.43); ABG PO2 70 MMHG (79-93); ABG TCO2 34.2 MMOL/L (21.0-31.0)
[2016-12-09 10:52] LABS: ALLENS TEST YES-POS; PATIENT TEMP 99.4
--- NOTE | 2016-12-09 11:53 | Cardiology Progress Note ---
Subjective Subjective/Events-last exam Patient in bed. Complains of dyspnea. Denies any CP. Review of Systems Unable to obtain ROS Objective-Cardiology Exam Last Set of Vital Signs Vital Signs 12/09/16 12/09/16 12/09/16 08:00 09:26 10:43 Temp 98.0 Pulse 106 Resp 26 B/P 139/77 Pulse Ox 94 O2 Delivery Vapotherm O2 Flow Rate 15.00 FiO2 50 Capillary Refill : Less Than 3 Seconds I&O Intake and Output 12/09/16 00:00 Intake Total 1515 ml Output Total 4485 ml Balance -2970 ml Intake Oral 515 ml IV Total 1000 ml Output Urine Total 4345 ml Drainage Total 140 ml General: Alert, Cooperative, Moderate Distress, Other HEENT: Atraumatic, Mucous Memb Moist/[place] Neck: Supple, No JVD Lungs: Other (bilat rhonchi) Heart: Normal S1, Normal S2, Gallops, Other Abdomen: Soft, Other Extremities: No Clubbing, No Cyanosis, Normal Pulses, Other (+1 edema BLE) Skin: No Rashes, No Significant Lesion Neuro: Normal Tone Results Lab Laboratory Tests 12/08/16 12:13 12/08/16 17:46 12/09/16 04:32 A/P-Cardiology Admission Diagnosis Sigmoid perforation Septic shock Afib with RVR CAD Assessment/Plan Sigmoid perforation and fecal peritonitis; recovering slowly from surgery. Septic shock and acute respiratory failure, still fairly dyspneic at this time, followed and managed by Dr. Vazquez. Tachycardia, atrial fibrillation, on Cardizem drip, heart rate is better controlled, continue to monitor, no changes are recommended at this time Paroxysmal atrial fibrillation/atrial flutter despite Maze procedure during her bypass surgery on May 01, 2013. Anticoagulation is being held post-op, continue digoxin, Cardizem as tolerated. 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 Stress test Nov 2016 did not show ischemia or infarction and LVEF was 86% COPD, history of recent pneumonia in November 2016. Currently extubated. Managed by Dr. Vazquez. Hypertension- continue to monitor BP/HR. Chronic peripheral edema- continue lasix, monitor electrolytes. Hyperlipidemia- history of intolerance to statins, monitored as outpatient History of CVA/TIA, history of paroxysmal atrial fibrillation, will need to be back on anticoagulation once she can tolerate it Anemia, worse, receiving blood transfusion today. Continue to monitor H&H. Moderate bilateral carotid stenosis, continue to monitor Clinical Quality Measures DVT/VTE Risk/Contraindication: Risk Factor Score Per Nursin RFS Level Per Nursing on Admit: 4+=Very High VICENTA ROBLEDO Dec 09, 2016 11:53
--- NOTE | 2016-12-09 12:30 | Physical Therapy Evaluation ---
PT Evaluation-General Medical Diagnosis Admission Date Dec 05, 2016 at 20:07 Medical Diagnosis: acute abd pain; sigmoid diverticulitis with perf Onset Date: Dec 05, 2016 Therapy Diagnosis Therapy Diagnosis: weakness; abn gait Height/Weight Height (Feet): 5 Height (Inches): 5.00 Weight (Pounds): 145 Weight (Ounces): 11.2 Precautions Precautions/Isolations: Fall Prevention, Standard Precautions Referral Physician: Mikal Reason for Referral: Evaluation/Treatment Medical History Pertinent Medical History: Atrial Fib, CAD, COPD, GERD, HTN, [place], PVD Additional Medical History osteoporosis, GERD, arthritis, CABG Current History Pt admitted with the above diagnosis; post colon resection with colostomy. Reviewed History: Yes Social History Home: Single Level Current Living Status: Children (adult son) Entry Into Home: Stairs With Railing PT Steps Inside Home: 0 Prior/Core FIM Prior Level of Function Functional [place] Measure 0=Not Assessed/NA 4=Minimal Assistance 1=Total Assistance 5=Supervision or Setup 2=Maximal Assistance 6=Modified [place] 3=Moderate Assistance 7=Complete [place] Bed Mobility: 7 Transfers (B,C,W/C) (FIM): 7 Gait: 7 Pt was indep prior to this event. Reports she has a treadmill she frequently walks on. PT Evaluation-Current Subjective Agrees to PT but notes she has not been up and is very weak. Pain Numeric Pain Scale: 4 Location: Anterior Pain Description: Dull (sore) Objective Patient Orientation: Person, Place, Time, Situation Problem Solving: Fair multiple attachments at this time via IV, oxygen, Ramos catheter, BP cuff; pulse ox, SCD's ROM/Strength ROM Lower Extremities WNL Strenght Lower Extremities Unable to specifically assess, at least 2/5 throughout Integumentary/Posture Integumentary refer to nursing notes. Bowel Incontinence: No Bladder Incontinence: Ramos Cath Posture unable to assess; rounded shoulders in sitting due to poor trunk control and weakness Neuromuscular (Tone, Coordination, Reflexes) no noted functional deficits Sensory Vision: Wears Glasses Hearing: Functional Hand Dominance: Right Sensation Right Lower Extremit: Intact Sensation Left Lower Extremity: Intact Transfers Functional [place] Measure 0=Not Assessed/NA 4=Minimal Assistance 1=Total Assistance 5=Supervision or Setup 2=Maximal Assistance 6=Modified [place] 3=Moderate Assistance 7=Complete [place] Transfers (B, C, W/C) (FIM): 1 Scootin Rollin Supine to/from Sit: 1 Dep to transfer sup/sit and needed max assist to maintain upright sitting EOB, retropulsive and unable to activate abdominal mm to pull her trunk forward. Sat EOB x 8 minutes and worked on mm activitation and deep breathing. Gait Mode of Locomotion: Walk Comments/Gait Description unable at this time Balance Sitting Static: Poor Treatment Sat EOB to work on trunk mm activation and balance. Assessment/Needs Post abdominal surgery due to perforated colon with complications medically. Pt presents now with significantly decreased functional mobility and need for max assist with all bed mobility and transfers at this time. She is a good candidate for skilled PT intervention to address her weakness, her poor trunk control, need for assist with all transfers and sig limited functional act tolerance. Rehab Potential: Good PT Cigarette Tester Goals Care Home Goals PT Care Home Goals Time Frame: Dec 18, 2016 Transfers (B,C,W/C) (FIM): 4 Gait (FIM): 2 Gait distance (FIM): 1=up to 49 ft Gait Assistive Device: FWW Pt will likely progress from acute to SWB, ARU or a skilled facility for continue recovery. PT Plan Problem List Problem List: Activity Tolerance, Functional Strength, Safety, Balance, Gait, Transfer, Bed Mobility Treatment/Plan Treatment Plan: Continue Plan of Care Treatment Plan: Bed Mobility, Education, Functional Activity Nilda, Functional Strength, Gait, Safety, Therapeutic Exercise, Transfers Treatment Duration: Dec 18, 2016 # of days/week 5-6 Visits Per Week: 5-6 Pt/Family Agrees w/Plan: Yes Safety Risks/Education Patient Education: Reviewed Precautions Teaching Recipient: Patient Teaching Methods: Discussion Response to Teaching: Reinforcement Needed Discharge Recommendations Plan Plan to transfer to chair tomorrow, if she is able. Time/GCodes Time In: 1145 Time Out: 1215 Total Billed Treatment Time: 30 Total Billed Treatment visit EV 15 FA 15 KRAIG BARAHONA PT Dec 09, 2016 12:29
--- NOTE | 2016-12-09 13:41 | Cardiology Progress Note ---
Subjective Subjective/Events-last exam Patient is in bed, feeling slightly better, still having significant dyspnea, abdominal pain Review of Systems General: No Chills, No Night Sweats, No Fatigue, No Malaise, No Appetite, No Other HEENT: No Head Aches, No Visual Changes, No Eye Pain, No Ear Pain, No Dysphasia , No Sinus Congestion, No Post Nasal Drip, No Sore Throat, No Other Pulmonary: DyspneaNo Cough, No Pleuritic Chest Pain, No Other Cardiovascular: : EdemaNo: Chest Pain, Lt Headedness, Orthopnea, Other, Palpitations, Paroxysmal Noc. Dyspnea Gastrointestinal: : Abdominal Pain: Other (distension)No: Constipation, Diarrhea, Hematochezia, Melena, Nausea, Vomiting Objective-Cardiology Exam Last Set of Vital Signs Vital Signs 12/09/16 12/09/16 10:43 12:34 Temp 99.9 Pulse 81 Resp 27 B/P 136/70 Pulse Ox 93 O2 Delivery Vapotherm O2 Flow Rate 50.00 15.00 FiO2 50 Capillary Refill : Less Than 3 Seconds I&O Intake and Output 12/09/16 00:00 Intake Total 1515 ml Output Total 4485 ml Balance -2970 ml Intake Oral 515 ml IV Total 1000 ml Output Urine Total 4345 ml Drainage Total 140 ml General: Alert, Cooperative, Moderate Distress, Other HEENT: Atraumatic, Mucous Memb Moist/[place] Neck: Supple, No JVD Lungs: Other (bilat rhonchi) Heart: Normal S1, Normal S2, Gallops, Other Abdomen: Soft, Other Extremities: No Clubbing, No Cyanosis, Normal Pulses, Other (+1 edema BLE) Skin: No Rashes, No Significant Lesion Neuro: Normal Tone Results Lab Laboratory Tests 12/08/16 17:46 12/09/16 04:32 A/P-Cardiology Admission Diagnosis Sigmoid perforation Septic shock Afib with RVR CAD Assessment/Plan Sigmoid colon perforation and fecal peritonitis; recovering slowly from surgery. Septic shock and acute respiratory failure, still fairly dyspneic at this time, followed and managed by Dr. Vazquez. Tachycardia, atrial fibrillation, on Cardizem drip, was slightly tachycardic earlier today, improved with adjustment of Cardizem drip. Feeling better. Continue to monitor heart rate Mildly elevated BNP, probably secondary to severe hypoxemia, no signs of congestive heart failure so far. Continue with IV fluid and supportive therapy. Paroxysmal atrial fibrillation/atrial flutter despite Maze procedure during her bypass surgery on May 01, 2013. Anticoagulation is being held post-op, continue digoxin, Cardizem as tolerated. Patient was on Xarelto, currently H&H are stable but she received a recent transfusion, if tolerated I recommend increasing Lovenox to therapeutic dose instead of prophylactic dose with close monitoring to H&H. 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 Stress test Nov 2016 did not show ischemia or infarction and LVEF was 86% COPD, history of recent pneumonia in November 2016. Currently extubated. Managed by Dr. Vazquez. Hypertension- continue to monitor BP/HR. Chronic peripheral edema- continue lasix, monitor electrolytes. Hyperlipidemia- history of intolerance to statins, monitored as outpatient History of CVA/TIA, history of paroxysmal atrial fibrillation, will need to be back on anticoagulation once she can tolerate it Moderate bilateral carotid stenosis, continue to monitor Clinical Quality Measures DVT/VTE Risk/Contraindication: Risk Factor Score Per Nursin RFS Level Per Nursing on Admit: 4+=Very High AIRAM MARQUES MD Dec 09, 2016 13:41
--- NOTE | 2016-12-09 15:02 | Progress Note-Standard ---
Standard Progress Note Progress Notes/Assess & Plan Progress/Assessment & Plan 12/06/16:on vasopressor support. Oxygenation maintained at 35 percent. Colostomy output feculent in nature. White cell count increased to 41,000. Hemoglobin stable. Urine output reasonable and responsive to fluid replacement.we'll continue supportive measures. Expected mortality more than 30 percent. Her son updated. 12/08/16: Extubated. Tachypneic. Very poor response to diuresis. Edges of the colostomy necrotic but the mucosa is vascularized and therefore can be observed. Hypokalemia, being replaced. Most home medications resumed. 12/09/16:continues to improve. Respiratory status better. White cell count decreased. Will advance diet. Physical therapy in progress Final Diagnosis perforated sigmoid diverticulitis with fecal peritonitis LINDA HEATH MD Dec 09, 2016 3:02 pm
[2016-12-09] MEDS: ENOXAPARIN 80 MG/0.8 ML (LOVENOX) SYR SC SCH (17:01)
[2016-12-09] MEDS: PANTOPRAZOLE 40 MG/10 ML (PROTONIX) VIAL IV SCH (20:02)
[2016-12-09] MEDS: ZIPRASIDONE 20 MG (GEODON) CAP PO SCH (20:03)
[2016-12-09] MEDS: ATORVASTATIN 10 MG (LIPITOR) TABLET PO SCH (20:03)
[2016-12-10] VITALS (15 sets, daily range): BP systolic 116–144; BP diastolic 55–83
[2016-12-10] MEDS: RT-ALBUTEROL/IPRATROPIUM 3 ML (DUONEB) VIAL INH SCH ×6 (02:14→22:00)
[2016-12-10] MEDS: ENOXAPARIN 80 MG/0.8 ML (LOVENOX) SYR SC SCH ×2 (04:26→16:45)
[2016-12-10 04:57] LABS: BASOPHILS % (AUTO) 0 % (0-10); EOSINOPHILS % (AUTO) 0 % (0-10); LYMPHOCYTES # (AUTO) 0.2 X 10^3 (1.0-4.0); LYMPHOCYTES % (AUTO) 1 % (12-44); MEAN CORPUSCULAR HEMOGLOBIN 30 PG (25-34); MEAN CORPUSCULAR HGB CONC 33 G/DL (32-36); MEAN CORPUSCULAR VOLUME 90 FL (80-99); MEAN PLATELET VOLUME 9.5 FL (7.4-10.4); MONOCYTES % (AUTO) 5 % (0-12); NEUTROPHILS # (AUTO) 21.2 X 10^3 (1.8-7.8); NEUTROPHILS % (AUTO) 95 % (42-75); PLATELET COUNT 231 10^3/uL (130-400); RED BLOOD COUNT 3.87 10^6/uL (4.35-5.85); WHITE BLOOD COUNT 22.4 10^3/uL (4.3-11.0)
[2016-12-10 05:44] LABS: ANION GAP 8 MMOL/L (5-14); BLOOD UREA NITROGEN 21 MG/DL (7-18); BUN/CREATININE RATIO 35; CALCIUM 7.8 MG/DL (8.5-10.1); CARBON DIOXIDE 33 MMOL/L (21-32); CHLORIDE 98 MMOL/L (98-107); GFR ESTIMATED > 60; GLUCOSE 207 MG/DL (70-105); MAGNESIUM 1.4 MG/DL (1.8-2.4); PHOSPHORUS 2.2 MG/DL (2.3-4.7); POTASSIUM 2.8 MMOL/L (3.6-5.0); SODIUM 139 MMOL/L (135-145)
[2016-12-10] MEDS: POTASSIUM CL 10MEQ/50ML IVPB 50 ML IV SCH ×7 (05:53→11:40)
[2016-12-10] MEDS: KCL 20 MEQ TAB (K-DUR) PO SCH (05:53)
[2016-12-10] MEDS: MAGNESIUM 1 GM/100 ML IVPB 100 ML IV SCH ×4 (05:53→08:33)
[2016-12-10] MEDS: RT-BUDESONIDE NEBS 0.5 MG/2ML (PULMICORT) AMP INH SCH ×2 (06:19→18:32)
[2016-12-10] MEDS: TIOTROPIUM BROMIDE IH SCH (06:20)
[2016-12-10] MEDS: RT-ADVAIR HFA 115/21 MCG PER PUFF IH SCH ×2 (06:20→18:32)
[2016-12-10] MEDS: POTASSIUM CHLORIDE INJ 20 MEQ in LACTATED RINGERS 1,000 ML IV SCH (06:27)
--- NOTE | 2016-12-10 06:51 | Pulmonary Progress Note ---
Subjective Subjective/Events-last exam NO complications noted Exam Exam Vital Signs Date Time Temp Pulse Resp B/P Pulse Ox O2 Delivery O2 Flow Rate FiO2 12/10/16 06:34 94 15.00 50 12/10/16 06:20 94 15.00 50 12/10/16 04:00 68 20 116/65 95 Vapotherm 50.00 15.00 12/10/16 04:00 93 15.00 50 12/10/16 03:00 87 20 129/70 95 Vapotherm 50.00 15.00 12/10/16 02:14 94 15.00 50 12/10/16 02:00 84 26 143/70 93 Vapotherm 50.00 15.00 12/10/16 01:00 71 12/10/16 01:00 71 24 144/71 94 Vapotherm 50.00 15.00 12/10/16 00:37 93 15.00 50 12/10/16 00:00 98.1 79 21 130/61 93 Vapotherm 50.00 15.00 12/09/16 23:14 107 130/79 12/09/16 23:00 96 25 130/79 94 Vapotherm 50.00 15.00 12/09/16 22:05 96 15.00 50 12/09/16 22:00 95 60 141/75 95 Vapotherm 50.00 15.00 12/09/16 21:00 101 30 135/67 95 Vapotherm 50.00 15.00 12/09/16 20:25 93 15.00 50 12/09/16 20:00 98.5 73 30 129/62 93 Vapotherm 50.00 15.00 12/09/16 19:00 79 32 134/64 94 Vapotherm 50.00 15.00 12/09/16 19:00 79 12/09/16 18:51 95 15.00 50 12/09/16 18:48 94 15.00 50 12/09/16 18:00 130 31 154/62 94 Vapotherm 50.00 15.00 12/09/16 17:00 108 29 154/79 92 Vapotherm 50.00 15.00 12/09/16 16:28 96 12/09/16 16:00 15.00 50 12/09/16 16:00 91 32 134/67 92 Vapotherm 50.00 15.00 12/09/16 15:00 81 30 141/68 94 Vapotherm 50.00 15.00 12/09/16 14:44 92 15.00 50 12/09/16 14:00 66 29 141/67 93 Vapotherm 50.00 15.00 12/09/16 13:00 69 12/09/16 13:00 61 18 142/66 94 Vapotherm 50.00 15.00 12/09/16 12:34 99.9 81 27 136/70 93 Vapotherm 50.00 15.00 12/09/16 12:00 15.00 12/09/16 11:00 103 23 133/64 94 Vapotherm 50.00 15.00 12/09/16 10:43 94 15.00 50 12/09/16 10:00 108 24 136/58 93 Vapotherm 50.00 15.00 12/09/16 09:26 106 12/09/16 09:00 128 31 114/62 94 Vapotherm 50.00 15.00 12/09/16 08:00 92 15.00 12/09/16 08:00 98.0 108 26 139/77 92 Vapotherm 50.00 15.00 12/09/16 07:00 76 12/09/16 07:00 92 20 145/69 93 Vapotherm 50.00 15.00 I & O 12/10/16 07:00 Intake Total 2250 ml Output Total 4300 ml Balance -2050 ml General Appearance: No Apparent Distress Anxious Chronically ill Mild Distress Other (tachypneic) HEENT: PERRL/EOMI Normal ENT Inspection Pharynx Normal Neck: Full Range of Motion Normal Inspection Non Tender Supple Carotid Bruit Respiratory: Chest Non Tender Lungs Clear Normal Breath Sounds Accessory Muscle Use Crackles Decreased Breath Sounds Respiratory Distress Wheezing Cardiovascular: Regular Rate, Rhythm No Edema No Gallop No JVD No Murmur Normal Peripheral Pulses Capillary Refill: Less Than 3 Seconds Gastrointestinal: abnormal bowel sounds (hypoactive bowel sounds) distended guarding rebound tenderness Extremity: Normal Capillary Refill Normal Inspection Normal Range of Motion Non Tender No Calf Tenderness No Pedal Edema Neurologic/Psychiatric: Alert Oriented x3 No Motor/Sensory Deficits Normal Mood/Affect Skin: Normal Color Warm/Dry Lymphatic: No Adenopathy Results Lab Laboratory Tests 12/08/16 12:13 12/08/16 17:46 12/09/16 04:32 12/10/16 04:33 Assessment/Plan Assessment/Plan colonic perforation s/p surgery Severe sepsis with septic shock secondary to #1 - flagyl, cipro, diflucan Acute respiratory failure secondary -much improved -solumedrol Atelectasis -easypap -IS -increase activity Pulmary edema -start lasix BID 40mg Hypokalemia -Replace -repeat chem 2hrs after KCL replacement hx of severe COPD -SVNs metabolic acidosis -IVF Anemia monitor Afib with RVR -pt is on Cardizem gtt -consult cardiology Clinical Quality Measures DVT/VTE Risk/Contraindication: Risk Factor Score Per Nursin RFS Level Per Nursing on Admit: 4+=Very High CONNIE LANIER DO Dec 10, 2016 06:51
[2016-12-10] MEDS: methylPREDNISolone 40 MG/ML (Solu-MEDROL) VIAL IV SCH ×3 (07:01→18:16)
[2016-12-10] MEDS: meTOprolol 5 MG/5 ML (LOPRESSOR) VIAL IV SCH ×3 (07:01→18:16)
[2016-12-10] MEDS: metroNIDAZOLE 500MG/100ML IVPB 100 ML IV SCH (07:01)
--- NOTE | 2016-12-10 07:58 | Cardiology Progress Note ---
Subjective Subjective/Events-last exam patient is laying down in bed, lethargic, still having significant shortness of breath. Review of Systems General: Fatigue Malaise HEENT: No Head Aches, No Visual Changes, No Eye Pain, No Ear Pain, No Dysphasia , No Sinus Congestion, No Post Nasal Drip, No Sore Throat, No Other Pulmonary: DyspneaNo Cough, No Pleuritic Chest Pain, No Other Cardiovascular: : EdemaNo: Chest Pain, Lt Headedness, Orthopnea, Other, Palpitations, Paroxysmal Noc. Dyspnea Objective-Cardiology Exam Last Set of Vital Signs Vital Signs 12/10/16 12/10/16 00:00 06:34 Temp 98.1 Pulse Ox 94 O2 Flow Rate 15.00 FiO2 50 Capillary Refill : Less Than 3 Seconds I&O Intake and Output 12/10/16 00:00 Intake Total 2170 ml Output Total 5500 ml Balance -3330 ml Intake Oral 720 ml IV Total 1450 ml Output Urine Total 5400 ml Drainage Total 100 ml General: Alert, Cooperative, Moderate Distress, Other HEENT: Atraumatic, Mucous Memb Moist/[place] Neck: Supple, No JVD Lungs: Other (bilat rhonchi) Heart: Normal S1, Normal S2, Gallops, Other (S3 is present) Abdomen: Soft, Other Extremities: No Clubbing, No Cyanosis, Normal Pulses, Other (+1 edema BLE) Skin: No Rashes, No Significant Lesion Neuro: Normal Tone Results Lab Laboratory Tests 12/10/16 04:33 A/P-Cardiology Admission Diagnosis Sigmoid perforation Septic shock Afib with RVR CAD Assessment/Plan Sigmoid colon perforation and fecal peritonitis, slow recovery, managed by primary care physician. White counts are slightly better. Septic shock and acute respiratory failure, still fairly dyspneic at this time, followed and managed by Dr. Vazquez. Tachycardia, atrial fibrillation, on Cardizem drip, heart rate is better controlled, continue on Cardizem drip, back on therapeutic doses of Lovenox. Continue to monitor H&H Mildly elevated BNP, probably secondary to severe hypoxemia, no signs of congestive heart failure so far. Continue with IV fluid and supportive therapy. Paroxysmal atrial fibrillation/atrial flutter despite Maze procedure during her bypass surgery on May 01, 2013. Anticoagulation is being held post-op, continue digoxin, Cardizem as tolerated. 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 Stress test Nov 2016 did not show ischemia or infarction and LVEF was 86% COPD, history of recent pneumonia in November 2016. Currently extubated. Managed by Dr. Vazquez. Hypertension- continue to monitor BP/HR. Chronic peripheral edema- continue lasix, monitor electrolytes. Hyperlipidemia- history of intolerance to statins, monitored as outpatient History of CVA/TIA, history of paroxysmal atrial fibrillation, will need to be back on anticoagulation once she can tolerate it Moderate bilateral carotid stenosis, continue to monitor Clinical Quality Measures DVT/VTE Risk/Contraindication: Risk Factor Score Per Nursin RFS Level Per Nursing on Admit: 4+=Very High AIRAM MARQUES MD Dec 10, 2016 07:58
--- NOTE | 2016-12-10 08:32 | Diagnostic Imaging Report ---
INDICATION: Followup, respiratory distress. COMPARISON: December 09 FINDINGS: Lower lobe parenchymal opacities with poor inspiratory volume likely partial atelectasis are asymmetric greater right than left and showed mild progression from the previous. There do appear to be at least small bilateral pleural effusions not grossly changed. No pneumothorax. IMPRESSION: Poor inspiratory volume, bibasilar parenchymal opacities greater right showed mild increase at least in part owing to increased atelectasis. Pneumonia superimposed in the appropriate clinical scenario however could not be excluded. Dictated by: Dictated on workstation # [id number]
[2016-12-10] MEDS: CIPROFLOXACIN IV 400MG/200ML 200 ML IV SCH (08:33)
[2016-12-10] MEDS: DILTIAZEM DRIP 100 MG in SODIUM CHLORIDE (ADD-VANTAGE) 100 ML IV SCH (08:33)
[2016-12-10] MEDS: FLUCONAZOLE 100 MG/50 ML 50 ML IV SCH (08:33)
[2016-12-10] MEDS: DIGOXIN 0.25 MG/ML (LANOXIN) 2 ML AMP IV SCH (08:33)
[2016-12-10] MEDS: CHLORHEXIDINE 0.12% SOLN 15 ML (PERIDEX) UDC PO SCH ×2 (08:49→20:41)
[2016-12-10] MEDS: DULoxetine 20 MG (CYMBALTA) CAP PO SCH (08:49)
[2016-12-10] MEDS: ALPRAZolam 0.5 MG (XANAX) TAB PO SCH ×2 (08:49→20:42)
[2016-12-10] MEDS ORDERED: FUROSEMIDE 40 MG/4 ML INJ (LASIX) IVP SCH ×2 (09:00→21:00)
--- NOTE | 2016-12-10 09:23 | Physical Therapy Daily Note ---
PT Daily Note-Current Subjective Patient is very lethargic/sleepy. RN in the room. Pain Numeric Pain Scale: 0-No Pain Location: No Pain Reported Mental Status Patient Orientation: Mumbles, Listless Attachments: SCD's, Oxygen, Ramos Catheter, IV Transfers Functional [place] Measure 0=Not Assessed/NA 4=Minimal Assistance 1=Total Assistance 5=Supervision or Setup 2=Maximal Assistance 6=Modified [place] 3=Moderate Assistance 7=Complete IndependenceIRFPAI Quality Coding Scale 6 Independent with activity with or without an assistive device 5 Patient requires set up or clean up by helper. Patient completes activity by themselves 4 Supervision or touching assist (CGA). [place] provide cues , steadying assist 3 The helper provides less than half the effort to complete the activity 2 The helper provides more than half the effort to complete the activity 1 Dependent. The helper does all the effort to complete an activity 7 Patient refused to complete or attempt activity 9 The patient did not perform the activity before the current illness or injury 88 Not attempted due to Medical conditions or safety concerns Transfers (B, C, W/C) (FIM): 1 Scootin Rollin Supine to/from Sit: 1 dependent assist with all mobility and to maintain sitting EOB x 6 minutes Exercises Supine Ex: Ankle pumps, Heel Slides, Straight leg raise, Hip abd/add Supine Reps: 10 (PROM) Assessment Patient does not actively participate with PT and requires dependent assist and PROM for treatment. PT to increase activity as tolerated by patient. PT Poll Watcher Goals Poll Watcher Goals PT Residential Goals Time Frame: Dec 18, 2016 Transfers (B,C,W/C) (FIM): 4 Gait (FIM): 2 Gait distance (FIM): 1=up to 49 ft Gait Assistive Device: FWW PT Plan Treatment/Plan Treatment Plan: Continue Plan of Care Treatment Plan: Bed Mobility, Education, Functional Activity Nilda, Functional Strength, Gait, Safety, Therapeutic Exercise, Transfers Treatment Duration: Dec 18, 2016 Visits Per Week: 5-6 Time/GCodes Time In: 847 Time Out: 857 Total Billed Treatment Time: 10 Total Billed Treatment 1 visit FA 10 min MAIK RUIZ PT Dec 10, 2016 09:22
--- NOTE | 2016-12-10 11:45 | Progress Note-Standard ---
Standard Progress Note Progress Notes/Assess & Plan Progress/Assessment & Plan 12/06/16:on vasopressor support. Oxygenation maintained at 35 percent. Colostomy output feculent in nature. White cell count increased to 41,000. Hemoglobin stable. Urine output reasonable and responsive to fluid replacement.we'll continue supportive measures. Expected mortality more than 30 percent. Her son updated. 12/08/16: Extubated. Tachypneic. Very poor response to diuresis. Edges of the colostomy necrotic but the mucosa is vascularized and therefore can be observed. Hypokalemia, being replaced. Most home medications resumed. 12/09/16:continues to improve. Respiratory status better. White cell count decreased. Will advance diet. Physical therapy in progress 12/10/16 continues to improve. Severe hypokalemia, being replaced. Physical therapy to continue Final Diagnosis Perforated sigmoid diverticulitis LINDA HEATH MD Dec 10, 2016 11:45
[2016-12-10] MEDS: MEROPENEM 500 MG/NS 100 ML IVPB IV SCH ×4 (14:12→19:29)
[2016-12-10] MEDS: fentaNYL INJECTION 100 MCG/2 ML AMP IV PRN ×3 (14:24→20:54)
[2016-12-10] MEDS: PANTOPRAZOLE 40 MG/10 ML (PROTONIX) VIAL IV SCH (20:41)
[2016-12-10] MEDS: ATORVASTATIN 10 MG (LIPITOR) TABLET PO SCH (20:41)
[2016-12-10] MEDS: ZIPRASIDONE 20 MG (GEODON) CAP PO SCH (20:41)
[2016-12-11] VITALS (23 sets, daily range): BP systolic 110–160; BP diastolic 56–92
[2016-12-11] MEDS: methylPREDNISolone 40 MG/ML (Solu-MEDROL) VIAL IV SCH ×5 (01:56→23:39)
[2016-12-11] MEDS: MEROPENEM 500 MG/NS 100 ML IVPB IV SCH ×10 (01:56→23:40)
[2016-12-11] MEDS: meTOprolol 5 MG/5 ML (LOPRESSOR) VIAL IV SCH ×5 (01:56→23:39)
[2016-12-11] MEDS: RT-ALBUTEROL/IPRATROPIUM 3 ML (DUONEB) VIAL INH SCH ×6 (02:11→22:00)
[2016-12-11 04:28] LABS: BASOPHILS % (AUTO) 0 % (0-10); EOSINOPHILS % (AUTO) 0 % (0-10); LYMPHOCYTES # (AUTO) 0.2 X 10^3 (1.0-4.0); LYMPHOCYTES % (AUTO) 1 % (12-44); MEAN CORPUSCULAR HEMOGLOBIN 30 PG (25-34); MEAN CORPUSCULAR HGB CONC 33 G/DL (32-36); MEAN CORPUSCULAR VOLUME 91 FL (80-99); MEAN PLATELET VOLUME 9.7 FL (7.4-10.4); MONOCYTES # (AUTO) 0.7 X 10^3 (0.0-1.0); MONOCYTES % (AUTO) 3 % (0-12); NEUTROPHILS # (AUTO) 21.9 X 10^3 (1.8-7.8); NEUTROPHILS % (AUTO) 96 % (42-75); PLATELET COUNT 260 10^3/uL (130-400); RED BLOOD COUNT 4.33 10^6/uL (4.35-5.85); RED CELL DISTRIBUTION WIDTH 15.3 % (10.0-14.5); WHITE BLOOD COUNT 22.9 10^3/uL (4.3-11.0)
[2016-12-11] MEDS: ENOXAPARIN 80 MG/0.8 ML (LOVENOX) SYR SC SCH ×2 (04:29→16:08)
[2016-12-11 04:48] LABS: ANION GAP 11 MMOL/L (5-14); BLOOD UREA NITROGEN 22 MG/DL (7-18); BUN/CREATININE RATIO 35; CARBON DIOXIDE 33 MMOL/L (21-32); CHLORIDE 97 MMOL/L (98-107); CREATININE SERUM 0.63 MG/DL (0.60-1.30); GFR ESTIMATED > 60; GLUCOSE 223 MG/DL (70-105); MAGNESIUM 1.9 MG/DL (1.8-2.4); PHOSPHORUS 2.1 MG/DL (2.3-4.7); POTASSIUM 3.3 MMOL/L (3.6-5.0); SODIUM 141 MMOL/L (135-145)
[2016-12-11] MEDS: MAGNESIUM 1 GM/100 ML IVPB 100 ML IV SCH (04:59)
[2016-12-11] MEDS: POTASSIUM CL 10MEQ/50ML IVPB 50 ML IV SCH ×5 (04:59→08:24)
[2016-12-11] MEDS: KCL 20 MEQ TAB (K-DUR) PO SCH (05:00)
--- NOTE | 2016-12-11 07:22 | Diagnostic Imaging Report ---
INDICATION: Bowel perforation. Portable chest 5:19 AM. Right IJ central tip projects over the SVC. There are postop changes from CABG surgery. There is basilar atelectasis with tiny bilateral pleural effusions. IMPRESSION: Basilar atelectasis and effusions unchanged from the previous day. Dictated by: Dictated on workstation # [id number]
[2016-12-11] MEDS: RT-ADVAIR HFA 115/21 MCG PER PUFF IH SCH ×2 (07:29→18:32)
[2016-12-11] MEDS: TIOTROPIUM BROMIDE IH SCH (07:30)
--- NOTE | 2016-12-11 08:05 | Pulmonary Progress Note ---
Subjective Subjective/Events-last exam Pt is still very dyspneic with accessory muscle use Exam Exam Vital Signs Date Time Temp Pulse Resp B/P Pulse Ox O2 Delivery O2 Flow Rate FiO2 12/11/16 07:27 94 15.00 40 12/11/16 06:00 89 19 148/82 94 Vapotherm 40.00 15.00 12/11/16 05:00 81 19 141/73 94 Vapotherm 40.00 15.00 12/11/16 04:00 97.4 12/11/16 04:00 82 18 128/56 94 Vapotherm 40.00 15.00 12/11/16 04:00 93 15.00 40 12/11/16 03:00 79 18 130/62 94 Vapotherm 40.00 15.00 12/11/16 02:13 81 40.00 15 12/11/16 02:00 79 21 119/63 87 Vapotherm 40.00 15.00 12/11/16 01:00 99 12/11/16 01:00 99 26 135/58 93 Vapotherm 40.00 15.00 12/11/16 00:00 93 27 144/58 92 Vapotherm 40.00 15.00 12/11/16 00:00 93 15.00 40 12/11/16 00:00 98.9 12/10/16 23:00 110 21 140/66 87 Vapotherm 40.00 15.00 12/10/16 22:48 92 40.00 15 12/10/16 22:00 77 17 122/55 92 Vapotherm 40.00 15.00 12/10/16 21:00 105 23 127/58 91 Vapotherm 40.00 15.00 12/10/16 20:00 93 15.00 40 12/10/16 20:00 97.3 83 29 120/72 92 Vapotherm 40.00 15.00 12/10/16 19:00 83 21 134/61 93 Vapotherm 40.00 15.00 12/10/16 19:00 83 12/10/16 18:40 93 40.00 15 12/10/16 18:32 93 40.00 15 12/10/16 18:00 126 21 138/83 90 Vapotherm 40.00 15.00 12/10/16 16:45 99.4 12/10/16 16:00 86 11 144/78 90 Vapotherm 40.00 15.00 12/10/16 16:00 92 15.00 40 12/10/16 15:00 80 24 143/72 95 Vapotherm 40.00 15.00 12/10/16 14:00 78 19 130/81 93 Vapotherm 40.00 15.00 12/10/16 13:54 96 40.00 15 12/10/16 13:00 81 21 135/79 92 Vapotherm 60.00 20.00 12/10/16 13:00 176 12/10/16 12:00 98.5 12/10/16 12:00 92 20.00 60 12/10/16 11:00 102 26 91 Vapotherm 60.00 20.00 12/10/16 10:03 96 20.00 20 12/10/16 09:45 Vapotherm 60.00 20.00 12/10/16 09:35 85 15.00 50 12/10/16 08:33 72 I & O 12/11/16 07:00 Intake Total 2990 ml Output Total 2435 ml Balance 555 ml General Appearance: No Apparent Distress Anxious Chronically ill Mild Distress Other (tachypneic) HEENT: PERRL/EOMI Normal ENT Inspection Pharynx Normal Neck: Full Range of Motion Normal Inspection Non Tender Supple Carotid Bruit Respiratory: Chest Non Tender Lungs Clear Normal Breath Sounds Accessory Muscle Use Crackles Decreased Breath Sounds Respiratory Distress Wheezing Cardiovascular: Regular Rate, Rhythm No Edema No Gallop No JVD No Murmur Normal Peripheral Pulses Capillary Refill: Less Than 3 Seconds Gastrointestinal: abnormal bowel sounds (hypoactive bowel sounds) distended guarding rebound tenderness Extremity: Normal Capillary Refill Normal Inspection Normal Range of Motion Non Tender No Calf Tenderness No Pedal Edema Neurologic/Psychiatric: Alert Oriented x3 No Motor/Sensory Deficits Normal Mood/Affect Skin: Normal Color Warm/Dry Lymphatic: No Adenopathy Results Lab Laboratory Tests 12/10/16 04:33 12/10/16 14:50 12/11/16 04:24 Assessment/Plan Assessment/Plan colonic perforation s/p surgery Severe sepsis with septic shock secondary to #1 - flagyl, cipro, diflucan Acute respiratory failure secondary -much improved -solumedrol Atelectasis -easypap -IS -increase activity Pulmary edema -lasix BID 40mg Hypokalemia -Replace -repeat chem 2hrs after KCL replacement hx of severe COPD -SVNs metabolic acidosis -IVF Anemia monitor Afib with RVR -pt is off Cardizem gtt - cardiology Clinical Quality Measures DVT/VTE Risk/Contraindication: Risk Factor Score Per Nursin RFS Level Per Nursing on Admit: 4+=Very High CONNIE LANIER DO Dec 11, 2016 08:05
[2016-12-11] MEDS ORDERED: POTASSIUM PHOSPHATE INJ 30 MM in NS (IVPB) 250 ML IV ONE (08:15)
[2016-12-11] MEDS: ALPRAZolam 0.5 MG (XANAX) TAB PO SCH ×2 (08:24→20:31)
[2016-12-11] MEDS: CHLORHEXIDINE 0.12% SOLN 15 ML (PERIDEX) UDC PO SCH ×2 (08:24→20:31)
[2016-12-11] MEDS: FUROSEMIDE 40 MG/4 ML INJ (LASIX) IVP SCH (08:24)
[2016-12-11] MEDS: DULoxetine 20 MG (CYMBALTA) CAP PO SCH (08:24)
[2016-12-11] MEDS: DIGOXIN 0.25 MG/ML (LANOXIN) 2 ML AMP IV SCH (08:25)
[2016-12-11] MEDS: FLUCONAZOLE 100 MG/50 ML 50 ML IV SCH (08:25)
[2016-12-11] MEDS ORDERED: CATHETER FLUSH 10 ML SYR IV PRN (08:30)
--- NOTE | 2016-12-11 09:33 | Physical Therapy Daily Note ---
PT Daily Note-Current Subjective Patient is in bed and agrees to PT. Pain Numeric Pain Scale: 5-Moderate Pain Location: Lower Location Body Site: Abdomen Pain Description: Pressure Mental Status Patient Orientation: Person, Time, Situation Attachments: SCD's, Oxygen, Drains, Ramos Catheter, IV Transfers Functional [place] Measure 0=Not Assessed/NA 4=Minimal Assistance 1=Total Assistance 5=Supervision or Setup 2=Maximal Assistance 6=Modified [place] 3=Moderate Assistance 7=Complete IndependenceIRFPAI Quality Coding Scale 6 Independent with activity with or without an assistive device 5 Patient requires set up or clean up by helper. Patient completes activity by themselves 4 Supervision or touching assist (CGA). [place] provide cues , steadying assist 3 The helper provides less than half the effort to complete the activity 2 The helper provides more than half the effort to complete the activity 1 Dependent. The helper does all the effort to complete an activity 7 Patient refused to complete or attempt activity 9 The patient did not perform the activity before the current illness or injury 88 Not attempted due to Medical conditions or safety concerns Transfers (B, C, W/C) (FIM): 1 Scootin Rollin Supine to/from Sit: 1 Sit to/from Stand: 1 Bed to/from Chair: 1 Patient is dependent assist with all mobility with inability to assist due to extreme weakness. Patient sat EOB x 8 minutes with dependent assist for patient to maintain. Dependent assist with use of gait belt with SPT bed to recliner. Exercises Supine Ex: Ankle pumps, Heel Slides Supine Reps: 15 (PROM) Assessment Patient is up in recliner with needs met. Patient has multiple lines attached to her requiring time to complete functional tasks. PT to increase activity as tolerated by patient. PT Shelter Goals Shelter Goals PT Shelter Goals Time Frame: Dec 18, 2016 Transfers (B,C,W/C) (FIM): 4 Gait (FIM): 2 Gait distance (FIM): 1=up to 49 ft Gait Assistive Device: FWW PT Plan Treatment/Plan Treatment Plan: Continue Plan of Care Treatment Plan: Bed Mobility, Education, Functional Activity Nilda, Functional Strength, Gait, Safety, Therapeutic Exercise, Transfers Treatment Duration: Dec 18, 2016 Visits Per Week: 5-6 Time/GCodes Time In: 825 Time Out: 850 Total Billed Treatment Time: 25 Total Billed Treatment 1 visit FA x 2 25 min MAIK RUIZ PT Dec 11, 2016 09:33
--- NOTE | 2016-12-11 09:47 | Progress Note-Standard ---
Standard Progress Note Progress Notes/Assess & Plan Progress/Assessment & Plan 12/06/16:on vasopressor support. Oxygenation maintained at 35 percent. Colostomy output feculent in nature. White cell count increased to 41,000. Hemoglobin stable. Urine output reasonable and responsive to fluid replacement.we'll continue supportive measures. Expected mortality more than 30 percent. Her son updated. 12/08/16: Extubated. Tachypneic. Very poor response to diuresis. Edges of the colostomy necrotic but the mucosa is vascularized and therefore can be observed. Hypokalemia, being replaced. Most home medications resumed. 12/09/16:continues to improve. Respiratory status better. White cell count decreased. Will advance diet. Physical therapy in progress 12/10/16 continues to improve. Severe hypokalemia, being replaced. Physical therapy to continue 12/11/16:"improving. Respiratory status overall area. Continue supportive therapy. Final Diagnosis perforated sigmoid diverticulitis LINDA HEATH MD Dec 11, 2016 9:47 am
--- NOTE | 2016-12-11 10:39 | Cardiology Progress Note ---
Subjective Subjective/Events-last exam patient is laying down in bed, lethargic, short of breath, heart rate was better earlier, currently tachycardic. Cardizem drip was restarted. Review of Systems General: Chills Night Sweats Fatigue Malaise HEENT: No Head Aches, No Visual Changes, No Eye Pain, No Ear Pain, No Dysphasia , No Sinus Congestion, No Post Nasal Drip, No Sore Throat, No Other Pulmonary: DyspneaNo Cough, No Pleuritic Chest Pain, No Other Cardiovascular: : PalpitationsNo: Chest Pain, Edema, Lt Headedness, Orthopnea, Other, Paroxysmal Noc. Dyspnea Objective-Cardiology Exam Last Set of Vital Signs Vital Signs 12/11/16 12/11/16 12/11/16 12/11/16 04:00 06:00 07:00 07:27 Temp 97.4 Pulse 86 Resp 19 B/P 148/82 Pulse Ox 94 O2 Delivery Vapotherm O2 Flow Rate 15.00 FiO2 40 Capillary Refill : Less Than 3 Seconds I&O Intake and Output 12/11/16 00:00 Intake Total 2690 ml Output Total 2035 ml Balance 655 ml Intake Oral 1090 ml IV Total 1600 ml Output Urine Total 1785 ml Stool Total 50 ml Drainage Total 200 ml General: Alert, Cooperative, Moderate Distress, Other HEENT: Atraumatic, Mucous Memb Moist/[place] Neck: Supple, No JVD Lungs: Other (bilat rhonchi) Heart: Normal S1, Normal S2, Gallops, Other (S3 is present) Abdomen: Soft, Other Extremities: No Clubbing, No Cyanosis, Normal Pulses, Other (+1 edema BLE) Skin: No Rashes, No Significant Lesion Neuro: Normal Tone Results Lab Laboratory Tests 12/10/16 14:50 12/11/16 04:24 A/P-Cardiology Admission Diagnosis Sigmoid perforation Septic shock Afib with RVR CAD Assessment/Plan Sigmoid colon perforation and fecal peritonitis, slow recovery, managed by primary care physician. White counts are slightly better. Septic shock and acute respiratory failure, still fairly dyspneic at this time, followed and managed by Dr. Vazquez. Paroxysmal atrial fibrillation, tachycardic, restarted Cardizem drip, continue on IV Lopressor, monitor closely. Hypokalemia, hypomagnesemia, being replaced. Continue to monitor electrolytes closely. Mildly elevated BNP, probably secondary to severe hypoxemia, no signs of congestive heart failure so far. Continue with IV fluid and supportive therapy. Paroxysmal atrial fibrillation/atrial flutter despite Maze procedure during her bypass surgery on May 01, 2013. Anticoagulation is being held post-op, continue digoxin, Cardizem as tolerated. 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 Stress test Nov 2016 did not show ischemia or infarction and LVEF was 86% COPD, history of recent pneumonia in November 2016. Currently extubated. Managed by Dr. Vazquez. Hypertension- continue to monitor BP/HR. Chronic peripheral edema- continue lasix, monitor electrolytes. Hyperlipidemia- history of intolerance to statins, monitored as outpatient History of CVA/TIA, history of paroxysmal atrial fibrillation, will need to be back on anticoagulation once she can tolerate it Moderate bilateral carotid stenosis, continue to monitor Clinical Quality Measures DVT/VTE Risk/Contraindication: Risk Factor Score Per Nursin RFS Level Per Nursing on Admit: 4+=Very High AIRAM MARQUES MD Dec 11, 2016 10:39
[2016-12-11] MEDS: POVIDONE (BETADINE) 10% SOLN 240 ML BTL TOP PRN (11:41)
[2016-12-11] MEDS: DILTIAZEM DRIP 100 MG in SODIUM CHLORIDE (ADD-VANTAGE) 100 ML IV SCH (11:43)
[2016-12-11] MEDS: PANTOPRAZOLE 40 MG/10 ML (PROTONIX) VIAL IV SCH (20:31)
[2016-12-11] MEDS: ZIPRASIDONE 20 MG (GEODON) CAP PO SCH (20:31)
[2016-12-11] MEDS: ATORVASTATIN 10 MG (LIPITOR) TABLET PO SCH (20:31)
[2016-12-12] VITALS (26 sets, daily range): BP systolic 98–166; BP diastolic 6–103
[2016-12-12] MEDS: DILTIAZEM DRIP 100 MG in SODIUM CHLORIDE (ADD-VANTAGE) 100 ML IV SCH ×3 (00:18→18:07)
[2016-12-12] MEDS: RT-ALBUTEROL/IPRATROPIUM 3 ML (DUONEB) VIAL INH SCH ×6 (03:21→22:45)
[2016-12-12] MEDS: ENOXAPARIN 80 MG/0.8 ML (LOVENOX) SYR SC SCH ×2 (04:23→17:25)
[2016-12-12 04:54] LABS: BASOPHILS % (AUTO) 0 % (0-10); EOSINOPHILS % (AUTO) 0 % (0-10); LYMPHOCYTES # (AUTO) 0.2 X 10^3 (1.0-4.0); LYMPHOCYTES % (AUTO) 1 % (12-44); MEAN CORPUSCULAR HEMOGLOBIN 29 PG (25-34); MEAN CORPUSCULAR HGB CONC 32 G/DL (32-36); MEAN CORPUSCULAR VOLUME 92 FL (80-99); MONOCYTES # (AUTO) 0.6 X 10^3 (0.0-1.0); MONOCYTES % (AUTO) 2 % (0-12); NEUTROPHILS # (AUTO) 25.5 X 10^3 (1.8-7.8); NEUTROPHILS % (AUTO) 97 % (42-75); PLATELET COUNT 301 10^3/uL (130-400); RED BLOOD COUNT 4.61 10^6/uL (4.35-5.85); RED CELL DISTRIBUTION WIDTH 15.3 % (10.0-14.5); WHITE BLOOD COUNT 26.3 10^3/uL (4.3-11.0)
[2016-12-12 05:11] LABS: ANION GAP 7 MMOL/L (5-14); BLOOD UREA NITROGEN 23 MG/DL (7-18); BUN/CREATININE RATIO 39; CARBON DIOXIDE 35 MMOL/L (21-32); CHLORIDE 98 MMOL/L (98-107); CREATININE SERUM 0.59 MG/DL (0.60-1.30); GFR ESTIMATED > 60; GLUCOSE 184 MG/DL (70-105); MAGNESIUM 1.9 MG/DL (1.8-2.4); PHOSPHORUS 2.8 MG/DL (2.3-4.7); POTASSIUM 4.1 MMOL/L (3.6-5.0); SODIUM 140 MMOL/L (135-145)
[2016-12-12] MEDS: MEROPENEM 500 MG/NS 100 ML IVPB IV SCH ×6 (05:54→17:25)
[2016-12-12] MEDS: methylPREDNISolone 40 MG/ML (Solu-MEDROL) VIAL IV SCH ×3 (05:57→17:24)
[2016-12-12] MEDS: meTOprolol 5 MG/5 ML (LOPRESSOR) VIAL IV SCH ×3 (05:58→17:25)
[2016-12-12] MEDS: POTASSIUM CL 10MEQ/50ML IVPB 50 ML IV SCH (05:58)
[2016-12-12] MEDS: KCL 20 MEQ TAB (K-DUR) PO SCH (05:58)
[2016-12-12] MEDS: MAGNESIUM 1 GM/100 ML IVPB 100 ML IV SCH (05:58)
[2016-12-12] MEDS: RT-ADVAIR HFA 115/21 MCG PER PUFF IH SCH ×2 (06:11→19:23)
[2016-12-12] MEDS: TIOTROPIUM BROMIDE IH SCH (06:11)
[2016-12-12] MEDS: FUROSEMIDE 40 MG/4 ML INJ (LASIX) IVP SCH (08:48)
[2016-12-12] MEDS: DIGOXIN 0.25 MG/ML (LANOXIN) 2 ML AMP IV SCH (08:48)
[2016-12-12] MEDS: DULoxetine 20 MG (CYMBALTA) CAP PO SCH (08:49)
[2016-12-12] MEDS: ALPRAZolam 0.5 MG (XANAX) TAB PO SCH ×2 (08:49→21:30)
[2016-12-12] MEDS: CHLORHEXIDINE 0.12% SOLN 15 ML (PERIDEX) UDC PO SCH ×2 (08:49→21:00)
--- NOTE | 2016-12-12 08:54 | Diagnostic Imaging Report ---
Portable erect AP chest at 527 hours. INDICATION: Respiratory distress. FINDINGS: The cardiomegaly, the sternal wires and surgical clips and the bibasilar pneumonia/atelectasis and bilateral pleural effusions noted on the prior exam of 12/11/16 are again evident. The right lung base may be somewhat better aerated than on the prior study. The upper lungs remain clear. The mediastinum is not widened. The osseous structures are intact. The central venous catheter on the right remains in good position. IMPRESSION: The appearance of the chest has improved slightly since the prior study as the right lung base does seem somewhat better aerated. There is still persistent involvement of each lower lobe by pneumonia/atelectasis and fluid. A followup study would be recommended for continued evaluation. Dictated by: Dictated on workstation # [id number]
--- NOTE | 2016-12-12 09:18 | Cardiology Progress Note ---
Subjective Subjective/Events-last exam patient is laying down in bed, on BiPAP, lethargic. Review of Systems General: No Chills, No Night Sweats, No Fatigue, No Malaise, No Appetite, No Other HEENT: No Head Aches, No Visual Changes, No Eye Pain, No Ear Pain, No Dysphasia , No Sinus Congestion, No Post Nasal Drip, No Sore Throat, No Other Pulmonary: DyspneaNo Cough, No Pleuritic Chest Pain, No Other Cardiovascular: No: Chest Pain, Edema, Lt Headedness, Orthopnea, Other, Palpitations, Paroxysmal Noc. Dyspnea Objective-Cardiology Exam Last Set of Vital Signs Vital Signs 12/12/16 12/12/16 12/12/16 12/12/16 04:00 06:22 06:58 07:00 Temp 98.1 Pulse 113 Resp 32 Pulse Ox 89 O2 Flow Rate 100.00 FiO2 45 Capillary Refill : Less Than 3 Seconds I&O Intake and Output 12/12/16 00:00 Intake Total 2500 ml Output Total 2930 ml Balance -430 ml Intake Oral 1540 ml IV Total 960 ml Output Urine Total 2700 ml Stool Total 95 ml Drainage Total 135 ml General: Alert, Cooperative, Moderate Distress, Other HEENT: Atraumatic, Mucous Memb Moist/[place] Neck: Supple, No JVD Lungs: Other (bilat rhonchi) Heart: Normal S1, Normal S2, Gallops, Other (S3 is present) Abdomen: Soft, Other Extremities: No Clubbing, No Cyanosis, Normal Pulses, Other (+1 edema BLE) Skin: No Rashes, No Significant Lesion Neuro: Normal Tone Results Lab Laboratory Tests 12/12/16 04:30 A/P-Cardiology Admission Diagnosis Sigmoid perforation Septic shock Afib with RVR CAD Assessment/Plan Sigmoid colon perforation and fecal peritonitis, and respiratory failure at this time. Started on BiPAP, lethargic. Weak, poor prognosis. Acute respiratory failure, history of COPD. On BiPAP at this time. Managed by Dr. Vazquez Mildly elevated BNP, probably secondary to severe hypoxemia, no signs of congestive heart failure so far. Continue with IV fluid and supportive therapy. Paroxysmal atrial fibrillation/atrial flutter despite Maze procedure during her bypass surgery on May 01, 2013. Anticoagulation is being held post-op, on Cardizem drip and Lopressor IV. Continue to monitor closely. 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 Stress test Nov 2016 did not show ischemia or infarction and LVEF was 86% Hypertension- continue to monitor BP/HR. Chronic peripheral edema- continue lasix, monitor electrolytes. Hyperlipidemia- history of intolerance to statins, monitored as outpatient History of CVA/TIA, history of paroxysmal atrial fibrillation, will need to be back on anticoagulation once she can tolerate it Moderate bilateral carotid stenosis, continue to monitor Clinical Quality Measures DVT/VTE Risk/Contraindication: Risk Factor Score Per Nursin RFS Level Per Nursing on Admit: 4+=Very High AIRAM MARQUES MD Dec 12, 2016 09:18
--- NOTE | 2016-12-12 09:39 | Progress Note ---
Subjective Subjective/Events-last exam Patient laying in bed. On bipap. Family at bedside. Drop in O2 sat over night but improving on bipap. Family discussing comfort care. Objective Exam Vital Signs Date Time Temp Pulse Resp B/P Pulse Ox O2 Delivery O2 Flow Rate FiO2 12/12/16 07:00 113 12/12/16 06:58 104 32 89 100.00 12/12/16 06:22 93 17.00 45 12/12/16 06:00 133 22 143/83 92 Vapotherm 40.00 15.00 12/12/16 06:00 93 Vapotherm 45.00 17.00 12/12/16 05:00 128 30 145/85 93 Vapotherm 40.00 15.00 12/12/16 04:00 98.1 124 18 165/79 91 Vapotherm 40.00 15.00 12/12/16 04:00 93 15.00 40 12/12/16 03:00 121 22 145/68 91 Vapotherm 40.00 15.00 12/12/16 02:00 128 23 166/79 91 Vapotherm 40.00 15.00 12/12/16 01:00 122 11 141/58 94 Vapotherm 40.00 15.00 12/12/16 01:00 129 12/12/16 00:18 112 131/69 12/12/16 00:00 97 22 131/69 94 Vapotherm 40.00 15.00 12/12/16 00:00 93 15.00 40 12/11/16 23:35 98.0 12/11/16 23:00 117 27 142/69 94 Vapotherm 40.00 15.00 12/11/16 22:00 109 27 141/63 94 Vapotherm 40.00 15.00 12/11/16 21:00 129 24 121/84 93 Vapotherm 40.00 15.00 12/11/16 20:00 93 15.00 40 12/11/16 20:00 90 31 141/92 94 Vapotherm 40.00 15.00 12/11/16 19:00 79 12/11/16 19:00 98.0 99 18 148/68 93 Vapotherm 40.00 15.00 12/11/16 18:31 93 15.00 40 12/11/16 18:00 115 17 155/85 94 Vapotherm 40.00 15.00 12/11/16 17:00 131 28 153/87 94 Vapotherm 40.00 15.00 12/11/16 16:00 122 32 158/82 93 Vapotherm 40.00 15.00 12/11/16 16:00 93 15.00 40 12/11/16 15:00 112 31 153/87 92 Vapotherm 40.00 15.00 12/11/16 14:00 100 28 129/76 93 Vapotherm 40.00 15.00 12/11/16 13:37 93 15.00 40 12/11/16 13:00 93 12/11/16 13:00 98 27 110/61 92 Vapotherm 40.00 15.00 12/11/16 12:00 93 15.00 40 12/11/16 11:45 98.5 12/11/16 11:43 98.5 114 30 128/62 92 15.00 40 12/11/16 11:18 92 15.00 40 12/11/16 11:00 120 24 131/70 94 Vapotherm 40.00 15.00 12/11/16 10:00 179 30 138/75 92 Vapotherm 40.00 15.00 I & O 12/12/16 07:00 Intake Total 2375 ml Output Total 1980 ml Balance 395 ml Capillary Refill : Less Than 3 Seconds General Appearance: Anxious Chronically ill Mild Distress Other (tachypneic on bi-pap) HEENT: PERRL/EOMI Normal ENT Inspection Pharynx Normal Neck: Full Range of Motion Normal Inspection Non Tender Supple Carotid Bruit Respiratory: Chest Non Tender Accessory Muscle Use Crackles Decreased Breath Sounds Respiratory Distress Wheezing Cardiovascular: Regular Rate, Rhythm No Edema No Gallop No JVD No Murmur Normal Peripheral Pulses Gastrointestinal: distended tenderness (ostomy with output) Extremity: Normal Capillary Refill Normal Inspection Normal Range of Motion Non Tender No Calf Tenderness No Pedal Edema Neurologic/Psychiatric: Alert No Motor/Sensory Deficits Skin: Normal Color Warm/Dry Lymphatic: No Adenopathy Results Lab Laboratory Tests 12/12/16 04:30: Anion Gap 7, BUN/Creatinine Ratio 39, Basophils # (Auto) 0.0, Basophils (%) ( Auto) 0, Blood Urea Nitrogen 23H, Calcium Level 8.0L, Carbon Dioxide Level 35H, Chloride Level 98, Creatinine 0.59L, Eosinophils # (Auto) 0.0, Eosinophils (%) ( Auto) 0, Estimat Glomerular Filtration Rate > 60, Glucose Level 184H, Hematocrit 42, Hemoglobin 13.5, Lymphocytes # (Auto) 0.2L, Lymphocytes (%) (Auto ) 1L, Magnesium Level 1.9, Mean Corpuscular Hemoglobin 29, Mean Corpuscular Hemoglobin Concent 32, Mean Corpuscular Volume 92, Mean Platelet Volume 10.0, Monocytes # (Auto) 0.6, Monocytes (%) (Auto) 2, Neutrophils # (Auto) 25.5H, Neutrophils (%) (Auto) 97H, Phosphorus Level 2.8, Platelet Count 301, Potassium Level 4.1, Red Blood Count 4.61, Red Cell Distribution Width 15.3H, Sodium Level 140, White Blood Count 26.3H Microbiology 12/06/16 Blood Culture - Preliminary, Resulted No growth 12/05/16 MRSA Screen - Final, Complete MRSA not isolated Assessment/Plan Assessment/Plan Assessment/Plan s/p gore for perforated diverticulitis patient to continue with current medical management family brought up comfort care but not wanting yet. Clinical Quality Measures DVT/VTE Risk/Contraindication: Risk Factor Score Per Nursin RFS Level Per Nursing on Admit: 4+=Very High ARLETTE WEBB DO Dec 12, 2016 9:38 am
[2016-12-12] MEDS: fentaNYL INJECTION 100 MCG/2 ML AMP IV PRN (10:00)
[2016-12-12] MEDS ORDERED: MEROPENEM 500 MG VIAL (MERREM) IV ONE ×3 (11:03→17:16)
[2016-12-12] MEDS ORDERED: NS (IVPB) 100 ML ONE ×2 (11:03→17:16)
[2016-12-12] MEDS ORDERED: DILTIAZEM 100 MG/VIAL (CARDIZEM) ADD-VANTAGE IV ONE (11:04)
[2016-12-12] MEDS ORDERED: SODIUM CHLORIDE (ADD-VANTAGE) 100 ML IV ONE (11:04)
--- NOTE | 2016-12-12 11:26 | Physical Therapy Daily Note ---
PT Daily Note-Current Subjective Pt is not alert in bed upon arrival. PT tried to wake pt but pt didn't respond. Nursing comes in to check on pt so PT and nursing try to reposition pt in bed. Pain Location: No Pain Reported Mental Status Patient Orientation: Unable to Assess Attachments: SCD's, Oxygen, Drains, Ramos Catheter, IV Transfers Functional [place] Measure 0=Not Assessed/NA 4=Minimal Assistance 1=Total Assistance 5=Supervision or Setup 2=Maximal Assistance 6=Modified [place] 3=Moderate Assistance 7=Complete IndependenceIRFPAI Quality Coding Scale 6 Independent with activity with or without an assistive device 5 Patient requires set up or clean up by helper. Patient completes activity by themselves 4 Supervision or touching assist (CGA). [place] provide cues , steadying assist 3 The helper provides less than half the effort to complete the activity 2 The helper provides more than half the effort to complete the activity 1 Dependent. The helper does all the effort to complete an activity 7 Patient refused to complete or attempt activity 9 The patient did not perform the activity before the current illness or injury 88 Not attempted due to Medical conditions or safety concerns Transfers (B, C, W/C) (FIM): 1 Rollin Treatments Pt is repositioned in bed by both nursing & PT. Bedding and gown are wet so new gown and bedding are put on. PT and nursing roll pt side to side as needed for positioning. Pt is unable to assist with rolling. Pt is left with all needs met and Nurse present at end of tx. Assessment Current Status: Fair Progress Pt is unable to assist with transfers or rolling at this time. PT [employer] Goals Skilled Nursing Goals PT Skilled Nursing Goals Time Frame: Dec 18, 2016 Transfers (B,C,W/C) (FIM): 4 Gait (FIM): 2 Gait distance (FIM): 1=up to 49 ft Gait Assistive Device: FWW PT Plan Problem List Problem List: Activity Tolerance, Functional Strength, Safety, Balance, Gait, Transfer, Bed Mobility, ROM Treatment/Plan Treatment Plan: Continue Plan of Care Treatment Plan: Bed Mobility, Education, Functional Activity Nilda, Functional Strength, Gait, Safety, Therapeutic Exercise, Transfers Treatment Duration: Dec 18, 2016 Visits Per Week: 5-6 Safety Risks/Education Patient Education: Correct Positioning, Safety Issues Teaching Recipient: Patient Teaching Methods: Discussion Response to Teaching: Unable to Comprehend Time/GCodes Time In: 1025 Time Out: 1050 Total Billed Treatment Time: 25 Total Billed Treatment visit, FA X2 (25m) KRAIG ZAMORA GROMMET WORKER Dec 12, 2016 11:26
[2016-12-12] MEDS: ZIPRASIDONE 20 MG (GEODON) CAP PO SCH (21:30)
[2016-12-12] MEDS: PANTOPRAZOLE 40 MG/10 ML (PROTONIX) VIAL IV SCH (21:30)
[2016-12-12] MEDS: ATORVASTATIN 10 MG (LIPITOR) TABLET PO SCH (21:30)
[2016-12-13] VITALS (30 sets, daily range): BP systolic 85–153; BP diastolic 47–98
[2016-12-13] MEDS: MEROPENEM 500 MG/NS 100 ML IVPB IV SCH ×10 (00:27→23:00)
[2016-12-13] MEDS: methylPREDNISolone 40 MG/ML (Solu-MEDROL) VIAL IV SCH ×5 (00:27→23:00)
[2016-12-13] MEDS: meTOprolol 5 MG/5 ML (LOPRESSOR) VIAL IV SCH ×5 (00:27→23:00)
[2016-12-13] MEDS: RT-ALBUTEROL/IPRATROPIUM 3 ML (DUONEB) VIAL INH SCH ×6 (02:20→22:15)
[2016-12-13] MEDS: ENOXAPARIN 80 MG/0.8 ML (LOVENOX) SYR SC SCH ×2 (04:13→14:54)
[2016-12-13 04:43] LABS: BASOPHILS % (AUTO) 0 % (0-10); EOSINOPHILS % (AUTO) 0 % (0-10); LYMPHOCYTES # (AUTO) 0.3 X 10^3 (1.0-4.0); LYMPHOCYTES % (AUTO) 1 % (12-44); MEAN CORPUSCULAR HEMOGLOBIN 30 PG (25-34); MEAN CORPUSCULAR HGB CONC 31 G/DL (32-36); MEAN CORPUSCULAR VOLUME 97 FL (80-99); MEAN PLATELET VOLUME 10.1 FL (7.4-10.4); MONOCYTES # (AUTO) 0.6 X 10^3 (0.0-1.0); MONOCYTES % (AUTO) 2 % (0-12); NEUTROPHILS # (AUTO) 30.2 X 10^3 (1.8-7.8); NEUTROPHILS % (AUTO) 97 % (42-75); PLATELET COUNT 295 10^3/uL (130-400); RED BLOOD COUNT 4.41 10^6/uL (4.35-5.85); RED CELL DISTRIBUTION WIDTH 15.3 % (10.0-14.5)
[2016-12-13 04:46] LABS: WHITE BLOOD COUNT 31.1 10^3/uL (4.3-11.0)
[2016-12-13 05:05] LABS: ANION GAP 8 MMOL/L (5-14); BLOOD UREA NITROGEN 33 MG/DL (7-18); BUN/CREATININE RATIO 52; CALCIUM 8.2 MG/DL (8.5-10.1); CARBON DIOXIDE 35 MMOL/L (21-32); CHLORIDE 101 MMOL/L (98-107); CREATININE SERUM 0.64 MG/DL (0.60-1.30); GFR ESTIMATED > 60; GLUCOSE 195 MG/DL (70-105); PHOSPHORUS 3.9 MG/DL (2.3-4.7); POTASSIUM 4.7 MMOL/L (3.6-5.0); SODIUM 144 MMOL/L (135-145)
[2016-12-13 05:12] LABS: BAND NEUTROPHILS 2 %; NEUTROPHILS % (MANUAL) 96 %
[2016-12-13 05:13] LABS: LYMPHOCYTES % (MANUAL) 1 %; STOMATOCYTES MODERATE
[2016-12-13] MEDS: MAGNESIUM 1 GM/100 ML IVPB 100 ML IV SCH (05:56)
[2016-12-13] MEDS: POTASSIUM CL 10MEQ/50ML IVPB 50 ML IV SCH (05:56)
[2016-12-13] MEDS: KCL 20 MEQ TAB (K-DUR) PO SCH (05:56)
[2016-12-13] MEDS: CHLORHEXIDINE 0.12% SOLN 15 ML (PERIDEX) UDC PO SCH ×2 (07:45→21:00)
[2016-12-13] MEDS: FUROSEMIDE 40 MG/4 ML INJ (LASIX) IVP SCH (08:36)
[2016-12-13] MEDS: DIGOXIN 0.25 MG/ML (LANOXIN) 2 ML AMP IV SCH (08:37)
[2016-12-13] MEDS: ALPRAZolam 0.5 MG (XANAX) TAB PO SCH ×2 (08:37→20:01)
[2016-12-13] MEDS: DULoxetine 20 MG (CYMBALTA) CAP PO SCH ×2 (08:37→09:00)
--- NOTE | 2016-12-13 08:49 | Cardiology Progress Note ---
Subjective Subjective/Events-last exam patient is in bed, lethargic, not responding to verbal commands, on BiPAP. Review of Systems General: Other (unable to provide review of systems due to current condition) Objective-Cardiology Exam Last Set of Vital Signs Vital Signs 12/13/16 12/13/16 12/13/16 12/13/16 04:00 06:00 06:37 07:00 Temp 97.0 Pulse 107 Resp 12 B/P 122/60 Pulse Ox 90 O2 Delivery NIV Bilevel O2 Flow Rate 90.00 FiO2 90 Capillary Refill : Greater Than 3 Seconds I&O Intake and Output 12/13/16 00:00 Intake Total 945 ml Output Total 1435 ml Balance -490 ml Intake Oral 245 ml IV Total 700 ml Output Urine Total 1060 ml Stool Total 150 ml Drainage Total 225 ml General: Alert, Cooperative, Moderate Distress, Other HEENT: Atraumatic, Mucous Memb Moist/[place] Neck: Supple, No JVD Lungs: Other (bilat rhonchi, bilateral wheezing) Heart: Normal S1, Normal S2, Gallops, Other (S3 is present) Abdomen: Soft, Other Extremities: No Clubbing, No Cyanosis, Normal Pulses, Other (+1 edema BLE) Skin: No Rashes, No Significant Lesion Neuro: Normal Gait, Normal Tone Results Lab Laboratory Tests 12/13/16 04:30 A/P-Cardiology Admission Diagnosis Sigmoid perforation Septic shock Afib with RVR CAD Assessment/Plan Sigmoid colon perforation and fecal peritonitis, and respiratory failure at this time. Started on BiPAP, lethargic, poor prognosis, discussed with her son the possibility of comfort care, they are onboard. Acute respiratory failure, history of COPD. On BiPAP at this time, appeared to be worsening, poor air entry. Paroxysmal atrial fibrillation/atrial flutter despite Maze procedure during her bypass surgery on May 01, 2013. Anticoagulation is being held post-op, on Cardizem drip and Lopressor IV. Continue to monitor closely. 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 Stress test Nov 2016 did not show ischemia or infarction and LVEF was 86% Hypertension- continue to monitor BP/HR. Chronic peripheral edema- continue lasix, monitor electrolytes. Hyperlipidemia- history of intolerance to statins, monitored as outpatient History of CVA/TIA, history of paroxysmal atrial fibrillation, will need to be back on anticoagulation once she can tolerate it Moderate bilateral carotid stenosis, continue to monitor Clinical Quality Measures DVT/VTE Risk/Contraindication: Risk Factor Score Per Nursin RFS Level Per Nursing on Admit: 4+=Very High AIRAM MARQUES MD Dec 13, 2016 08:49
--- NOTE | 2016-12-13 09:18 | Diagnostic Imaging Report ---
INDICATION: Postsurgical exploratory laparotomy. EXAMINATION: Chest, 12/13/2016. COMPARISON: 12/12/2016. FINDINGS: Heart is stable. Pulmonary vasculature is unchanged. Sternotomy wires and mediastinal clips noted. Right jugular line is unchanged. There is an infiltrate and small effusion at the right lung base. Left lung base is stable. Emphysematous changes and chronic change throughout the remaining mid and upper lungs is unchanged. IMPRESSION: 1. Stable chest. Dictated by: Dictated on workstation # [id number]
--- NOTE | 2016-12-13 09:57 | Progress Note ---
Subjective Subjective/Events-last exam lethargic, on bipap. Desated last night now 94-96% Chest x ray with right lower lung effusion/infiltrate no family at bedside wbc increasing ostomy with output Objective Exam Vital Signs Date Time Temp Pulse Resp B/P Pulse Ox O2 Delivery O2 Flow Rate FiO2 12/13/16 07:00 107 12/13/16 06:37 99 12 90 90.00 12/13/16 06:00 109 14 122/60 99 NIV Bilevel 90.00 12/13/16 05:00 100 16 114/60 100 NIV Bilevel 90.00 12/13/16 04:00 92 90 12/13/16 04:00 97.0 103 16 108/53 92 NIV Bilevel 90.00 12/13/16 04:00 106 19 92 90.00 12/13/16 03:00 112 21 133/68 100 NIV Bilevel 90.00 12/13/16 02:20 103 21 100 100.00 12/13/16 02:00 101 20 132/69 100 NIV Bilevel 90.00 12/13/16 01:00 128 12/13/16 01:00 102 24 139/66 95 NIV Bilevel 100.00 12/13/16 00:50 105 23 92 100.00 12/13/16 00:00 99 5.00 12/13/16 00:00 97.0 122 13 101/89 95 High Flow N/C 5.00 12/12/16 23:00 122 18 147/66 99 NIV Bilevel 85.00 12/12/16 22:45 106 19 99 90.00 12/12/16 22:00 107 18 138/73 98 NIV Bilevel 90.00 12/12/16 21:00 118 13 124/96 99 NIV Bilevel 90.00 12/12/16 20:18 113 19 91 80.00 12/12/16 20:00 99 90 12/12/16 20:00 107 20 120/63 90 NIV Bilevel 80.00 12/12/16 19:23 111 19 100 90.00 12/12/16 19:00 97.8 103 10 99/48 100 NIV Bilevel 90.00 12/12/16 19:00 97 12/12/16 18:12 97.9 12/12/16 18:07 104 97/44 12/12/16 18:00 105 9 98/53 92 NIV Bilevel 90.00 12/12/16 17:04 95 12/12/16 17:00 116 20 102/49 96 NIV Bilevel 90.00 12/12/16 16:00 99 21 98 90.00 12/12/16 16:00 93 21 122/62 98 NIV Bilevel 90.00 12/12/16 15:08 96 22 95 95.00 12/12/16 15:00 94 19 140/57 89 NIV Bilevel 90.00 12/12/16 14:20 98.0 12/12/16 14:00 86 20 130/54 93 NIV Bilevel 90.00 12/12/16 13:00 81 18 124/57 97 NIV Bilevel 90.00 12/12/16 13:00 80 12/12/16 12:15 111 27 99 95.00 12/12/16 12:00 97.1 12/12/16 12:00 100 12/12/16 11:42 103 18 106/46 98 95 12/12/16 11:00 128 18 108/49 98 NIV Bilevel 95.00 12/12/16 10:00 118 28 133/62 93 NIV Bilevel 95.00 I & O 12/13/16 07:00 Intake Total 670 ml Output Total 1670 ml Balance -1000 ml Capillary Refill : Greater Than 3 Seconds General Appearance: Anxious Chronically ill Mild Distress Other (tachypneic on bi-pap) HEENT: PERRL/EOMI Neck: Non Tender Supple Respiratory: Chest Non Tender Accessory Muscle Use Crackles Decreased Breath Sounds Respiratory Distress Wheezing Cardiovascular: Tachycardia Gastrointestinal: distended ( incisional tenderness) tenderness (ostomy with output) Extremity: Swelling Neurologic/Psychiatric: Alert No Motor/Sensory Deficits Skin: Normal Color Warm/Dry Lymphatic: No Adenopathy Results Lab Laboratory Tests 12/13/16 04:30: Anion Gap 8, BUN/Creatinine Ratio 52, Band Neutrophils 2, Basophils # (Auto) 0.0 , Basophils (%) (Auto) 0, Blood Urea Nitrogen 33H, Calcium Level 8.2L, Carbon Dioxide Level 35H, Chloride Level 101, Creatinine 0.64, Eosinophils # (Auto) 0.0 , Eosinophils (%) (Auto) 0, Estimat Glomerular Filtration Rate > 60, Glucose Level 195H, Hematocrit 43, Hemoglobin 13.2, Lymphocytes # (Auto) 0.3L, Lymphocytes % (Manual) 1, Lymphocytes (%) (Auto) 1L, Magnesium Level 2.0, Mean Corpuscular Hemoglobin 30, Mean Corpuscular Hemoglobin Concent 31L, Mean Corpuscular Volume 97, Mean Platelet Volume 10.1, Monocytes # (Auto) 0.6, Monocytes % (Manual) 1, Monocytes (%) (Auto) 2, Neutrophils # (Auto) 30.2H, Neutrophils % (Manual) 96, Neutrophils (%) (Auto) 97H, Phosphorus Level 3.9, Platelet Count 295, Potassium Level 4.7, Red Blood Count 4.41, Red Cell Distribution Width 15.3H, Sodium Level 144, Stomatocytes MODERATE, White Blood Count 31.1*H Microbiology 12/06/16 Blood Culture - Final, Complete No growth 12/05/16 MRSA Screen - Final, Complete MRSA not isolated Assessment/Plan Assessment/Plan Assessment/Plan s/p gore for perforated diverticulitis patient o2 decreased overnight but changed settings on bipap and now improved wbc increasing right lower lobe infiltrate/effusion continue with current management overall prognosis poor, family discussing comfort care, no family at bedside currently. Clinical Quality Measures DVT/VTE Risk/Contraindication: Risk Factor Score Per Nursin RFS Level Per Nursing on Admit: 4+=Very High ARLETTE WEBB DO Dec 13, 2016 09:57
[2016-12-13] MEDS: RT-ADVAIR HFA 115/21 MCG PER PUFF IH SCH ×2 (10:44→19:54)
[2016-12-13] MEDS: TIOTROPIUM BROMIDE IH SCH (10:44)
[2016-12-13] MEDS ORDERED: NS (IVPB) 100 ML ONE ×2 (11:06→17:22)
[2016-12-13] MEDS ORDERED: MEROPENEM 500 MG VIAL (MERREM) IV ONE ×2 (11:06→17:22)
[2016-12-13] MEDS: fentaNYL INJECTION 100 MCG/2 ML AMP IV PRN ×3 (13:51→20:02)
[2016-12-13 14:55] LABS: ABG OXYGEN SATURATION 97 % (94-100); ABG PO2 109 MMHG (79-93); ABG TCO2 43.8 MMOL/L (21.0-31.0)
[2016-12-13 14:56] LABS: ABG HCO3 41 MMOL/L (23-27); ABG PCO2 93 MMHG (35-45); ABG PH 7.26 (7.37-7.43)
[2016-12-13 14:57] LABS: ALLENS TEST YES-POS; PATIENT TEMP 97.9
[2016-12-13] MEDS: ATORVASTATIN 10 MG (LIPITOR) TABLET PO SCH ×2 (20:01→21:00)
[2016-12-13] MEDS: ZIPRASIDONE 20 MG (GEODON) CAP PO SCH ×2 (20:01→21:00)
[2016-12-13] MEDS: PANTOPRAZOLE 40 MG/10 ML (PROTONIX) VIAL IV SCH (20:01)
[2016-12-13] MEDS: DILTIAZEM DRIP 100 MG in SODIUM CHLORIDE (ADD-VANTAGE) 100 ML IV SCH (22:25)
[2016-12-14] VITALS (26 sets, daily range): BP systolic 115–163; BP diastolic 48–101
[2016-12-14] MEDS: RT-ALBUTEROL/IPRATROPIUM 3 ML (DUONEB) VIAL INH SCH (02:23)
[2016-12-14] MEDS: ENOXAPARIN 80 MG/0.8 ML (LOVENOX) SYR SC SCH (03:35)
[2016-12-14] MEDS: fentaNYL INJECTION 100 MCG/2 ML AMP IV PRN ×3 (03:35→05:10)
[2016-12-14 04:23] LABS: BASOPHILS % (AUTO) 0 % (0-10); EOSINOPHILS % (AUTO) 0 % (0-10); LYMPHOCYTES # (AUTO) 0.2 X 10^3 (1.0-4.0); LYMPHOCYTES % (AUTO) 1 % (12-44); MEAN CORPUSCULAR HEMOGLOBIN 30 PG (25-34); MEAN CORPUSCULAR HGB CONC 30 G/DL (32-36); MEAN CORPUSCULAR VOLUME 97 FL (80-99); MEAN PLATELET VOLUME 10.5 FL (7.4-10.4); MONOCYTES % (AUTO) 3 % (0-12); NEUTROPHILS # (AUTO) 35.8 X 10^3 (1.8-7.8); NEUTROPHILS % (AUTO) 97 % (42-75); PLATELET COUNT 303 10^3/uL (130-400); RED BLOOD COUNT 4.47 10^6/uL (4.35-5.85); RED CELL DISTRIBUTION WIDTH 15.3 % (10.0-14.5)
[2016-12-14 04:46] LABS: ANION GAP 7 MMOL/L (5-14); BLOOD UREA NITROGEN 46 MG/DL (7-18); BUN/CREATININE RATIO 65; CALCIUM 8.4 MG/DL (8.5-10.1); CARBON DIOXIDE 36 MMOL/L (21-32); CHLORIDE 101 MMOL/L (98-107); CREATININE SERUM 0.71 MG/DL (0.60-1.30); GFR ESTIMATED > 60; GLUCOSE 209 MG/DL (70-105); MAGNESIUM 2.1 MG/DL (1.8-2.4); PHOSPHORUS 2.9 MG/DL (2.3-4.7); POTASSIUM 5.3 MMOL/L (3.6-5.0); SODIUM 144 MMOL/L (135-145)
[2016-12-14] MEDS: meTOprolol 5 MG/5 ML (LOPRESSOR) VIAL IV SCH (05:15)
[2016-12-14] MEDS: methylPREDNISolone 40 MG/ML (Solu-MEDROL) VIAL IV SCH (05:18)
[2016-12-14] MEDS: MEROPENEM 500 MG/NS 100 ML IVPB IV SCH ×2 (05:18)
[2016-12-14] MEDS: POTASSIUM CL 10MEQ/50ML IVPB 50 ML IV SCH (05:58)
[2016-12-14] MEDS: MAGNESIUM 1 GM/100 ML IVPB 100 ML IV SCH (05:58)
[2016-12-14] MEDS: KCL 20 MEQ TAB (K-DUR) PO SCH (05:58)
--- NOTE | 2016-12-14 06:35 | Pulmonary Progress Note ---
Subjective Subjective/Events-last exam Pt is worse today and is on a NRB mask to maintain Sp02. Exam Exam Vital Signs Date Time Temp Pulse Resp B/P Pulse Ox O2 Delivery O2 Flow Rate FiO2 12/14/16 06:15 106 20 152/74 100 High Flow N/C 15.00 12/14/16 06:00 92 19 140/72 100 High Flow N/C 15.00 12/14/16 05:45 90 19 145/79 100 High Flow N/C 15.00 12/14/16 05:30 82 19 140/71 100 High Flow N/C 15.00 12/14/16 05:15 140 9 144/97 100 High Flow N/C 15.00 12/14/16 05:00 130 31 138/101 90 High Flow N/C 15.00 12/14/16 04:45 121 26 145/82 97 High Flow N/C 15.00 12/14/16 04:30 117 22 139/48 94 High Flow N/C 15.00 12/14/16 04:29 89 15.00 100 12/14/16 04:20 15.00 12/14/16 04:20 160 12/14/16 04:15 126 19 139/94 78 High Flow N/C 15.00 12/14/16 04:00 99.3 138 27 141/61 92 High Flow N/C 15.00 12/14/16 03:45 151 26 149/67 87 High Flow N/C 15.00 12/14/16 03:40 164 12/14/16 03:30 141 26 144/72 91 High Flow N/C 15.00 12/14/16 03:15 116 23 150/65 85 NIV Bilevel 60.00 12/14/16 03:00 98 26 115/68 88 NIV Bilevel 60.00 12/14/16 02:45 104 28 122/68 92 NIV Bilevel 60.00 12/14/16 02:30 94 26 145/58 79 NIV Bilevel 60.00 12/14/16 02:23 97 31 95 60.00 12/14/16 02:15 103 28 122/63 94 NIV Bilevel 60.00 12/14/16 02:00 109 24 143/77 100 NIV Bilevel 60.00 12/14/16 01:45 96 26 121/52 98 NIV Bilevel 60.00 12/14/16 01:30 112 28 135/65 98 NIV Bilevel 60.00 12/14/16 01:15 108 12 128/66 99 NIV Bilevel 60.00 12/14/16 01:00 118 32 131/69 98 NIV Bilevel 60.00 12/14/16 01:00 118 12/14/16 00:45 123 118/52 92 NIV Bilevel 60.00 12/14/16 00:30 114 13 122/57 100 NIV Bilevel 60.00 12/14/16 00:23 60 12/14/16 00:15 107 26 163/74 97 NIV Bilevel 60.00 12/14/16 00:10 112 18 100 80.00 12/14/16 00:00 99.7 121 20 142/80 100 NIV Bilevel 60.00 12/13/16 23:45 106 14 148/75 100 NIV Bilevel 60.00 12/13/16 23:30 102 23 136/52 100 NIV Bilevel 60.00 12/13/16 23:15 100 18 143/69 100 NIV Bilevel 60.00 12/13/16 23:00 135 27 141/95 100 NIV Bilevel 60.00 12/13/16 22:45 124 23 132/74 100 NIV Bilevel 60.00 12/13/16 22:30 128 24 131/81 100 NIV Bilevel 60.00 12/13/16 22:25 134 12/13/16 22:16 131 31 100 100.00 12/13/16 22:00 130 10 144/82 100 NIV Bilevel 60.00 12/13/16 21:00 120 10 139/60 98 NIV Bilevel 60.00 12/13/16 20:30 114 29 91 100.00 12/13/16 20:19 90 12/13/16 20:02 5.00 12/13/16 20:00 99.1 116 27 153/81 96 Nasal Cannula 5.00 12/13/16 19:54 5.00 12/13/16 19:00 115 12/13/16 19:00 115 20 145/70 95 Nasal Cannula 5.00 12/13/16 18:00 106 22 151/68 94 NIV Bilevel 90.00 12/13/16 17:00 117 20 136/66 99 NIV Bilevel 90.00 12/13/16 16:11 90 12/13/16 16:00 128 21 141/57 100 NIV Bilevel 90.00 12/13/16 16:00 97.9 Nasal Cannula 5.00 12/13/16 15:00 135 26 149/98 100 NIV Bilevel 90.00 12/13/16 14:00 144 18 135/74 100 NIV Bilevel 90.00 12/13/16 13:43 5.00 12/13/16 13:00 124 12/13/16 13:00 110 19 124/47 100 NIV Bilevel 90.00 12/13/16 12:00 90 12/13/16 12:00 97.3 NIV Bilevel 90.00 12/13/16 11:00 105 7 127/60 100 NIV Bilevel 90.00 12/13/16 10:23 114 17 90.00 12/13/16 10:00 120 16 132/71 100 NIV Bilevel 90.00 12/13/16 09:00 116 23 139/77 100 NIV Bilevel 90.00 12/13/16 08:00 97.4 NIV Bilevel 90.00 12/13/16 08:00 90 12/13/16 07:00 107 12/13/16 07:00 111 16 128/67 93 NIV Bilevel 90.00 12/13/16 06:37 99 12 90 90.00 I & O 12/14/16 06:59 Intake Total 535 ml Output Total 1340 ml Balance -805 ml General Appearance: Anxious Chronically ill Mild Distress Other (tachypneic on bi-pap) HEENT: PERRL/EOMI Neck: Non Tender Supple Respiratory: Chest Non Tender Accessory Muscle Use Crackles Decreased Breath Sounds Respiratory Distress Wheezing Cardiovascular: Tachycardia Capillary Refill: Greater Than 3 Seconds Gastrointestinal: distended ( incisional tenderness) tenderness (ostomy with output) Extremity: Swelling Neurologic/Psychiatric: Alert No Motor/Sensory Deficits Skin: Normal Color Warm/Dry Lymphatic: No Adenopathy Results Lab Laboratory Tests 12/13/16 04:30 12/14/16 04:09 Assessment/Plan Assessment/Plan colonic perforation s/p surgery Severe sepsis with septic shock secondary to #1 Acute respiratory failure secondary Atelectasis Pulmary edema hx of severe COPD metabolic acidosis Anemia monitor Afib with RVR Pt continues to decline. She is a DNR currently. I discussed with son and he understands comfort care is now her best option. He does understand that with comfort care only she will most likely within 24 hrs. MECHANICAL INTEGRITY SPECIALIST: -Will D/C all meds except comfort meds and all labs. Will make pt 4th floor status. Clinical Quality Measures DVT/VTE Risk/Contraindication: Risk Factor Score Per Nursin RFS Level Per Nursing on Admit: 4+=Very High CONNIE LANIER DO Dec 14, 2016 06:35
[2016-12-14] MEDS: morphine INJ 4 MG/ML 1 ML (VIAL/SYRINGE) IVP PRN ×2 (06:59→09:26)
[2016-12-14] MEDS: LORazepam INJ 2 MG/ML (ATIVAN) VIAL IVP PRN ×2 (08:03→10:22)
--- NOTE | 2016-12-14 09:38 | Diagnostic Imaging Report ---
INDICATION: Respiratory distress. FINDINGS: The right IJ catheter via a sheath is at the SVC. Small effusions have developed or increased from the prior exam with increased basilar infiltrates or atelectasis, greater on the right. IMPRESSION: There are increased bibasilar pleural/parenchymal opacities with no pneumothorax and stable support apparatus. Dictated by: Dictated on workstation # [id number]
--- NOTE | 2016-12-14 10:28 | Progress Note-Standard ---
Standard Progress Note Progress Notes/Assess & Plan Progress/Assessment & Plan 12/06/16:on vasopressor support. Oxygenation maintained at 35 percent. Colostomy output feculent in nature. White cell count increased to 41,000. Hemoglobin stable. Urine output reasonable and responsive to fluid replacement.we'll continue supportive measures. Expected mortality more than 30 percent. Her son updated. 12/08/16: Extubated. Tachypneic. Very poor response to diuresis. Edges of the colostomy necrotic but the mucosa is vascularized and therefore can be observed. Hypokalemia, being replaced. Most home medications resumed. 12/09/16:continues to improve. Respiratory status better. White cell count decreased. Will advance diet. Physical therapy in progress 12/10/16 continues to improve. Severe hypokalemia, being replaced. Physical therapy to continue 12/11/16:"improving. Respiratory status overall area. Continue supportive therapy. 12/14/16:acute decline in the patient's cardiac and respiratory status. Conforming to her living will, comfort measures have been instituted. Sedated and in no distress. Final Diagnosis perforated sigmoid diverticulitis LINDA HEATH MD Dec 14, 2016 10:28 am
--- NOTE | 2016-12-15 13:51 | Physician Query-General Query ---
Physician Query-General Query to Physician: Question: Please document what condition is determined to be the cause of ? PHYSICIAN RESPONSE: Based on the clinical findings in the record, please respond to the query above on this document as an addendum. Possible, probable, or questionable diagnosis can be coded for INPATIENTS ONLY. Physician Response: Physician Response respiratory failure If you have questions please contact: [employer]: Ext: Thank you for your time and cooperation. Clinical Pelt Salter/[employer] This is a permanent part of the medical record DOMENIC VILLALBA Dec 15, 2016 13:51 LINDA HEATH MD Dec 16, 2016 13:59
--- NOTE | 2016-12-16 13:22 | DISCHARGE SUMMARY ---
DATE OF ADMISSION: 12/05/2016 DATE OF : 12/14/2016 DIAGNOSIS: 1. Fecal peritonitis due to sigmoid perforation. 2. Postoperative respiratory failure. This lady was admitted emergently via the emergency room with peritonitis due to perforation of sigmoid diverticular disease. After an adequate discussion with the patient and the family, it was elected to proceed with surgery. Fecal peritonitis was encountered and managed by laparoscopic sigmoid resection with end colostomy. Despite reasonable recovery during the early postoperative period, during the weekend of 12/11/2016, her respiratory and cardiac status declined and according to her pre-existing advanced directive, comfort care was instituted. Eventually, she during the morning hours of 12/14/2016. Job ID: [id number] Dictated Date: 12/15/2016 10:20:17 Disciplinary Hearing Officer Date: 12/16/2016 13:18:03/arcelia RAIN
== END 2016-12-14 12:20 | disposition expired | DRG 853 ==
LOC: ER 14:06 → EDUNIT# 14:06 → SDC 16:51 → ICU 20:07
PROVIDERS: ADMIT Surgery; ATTEND Surgery
PROC: 0D1M0Z4 Bypass Descending Colon to Cutaneous, Open Approach (ICD-10-PCS; 2016-12-05)
PROC: 5A1945Z Respiratory Ventilation, 24-96 Consecutive Hours (ICD-10-PCS; 2016-12-05)
PROC: 0DTN0ZZ Resection of Sigmoid Colon, Open Approach (ICD-10-PCS; principal; 2016-12-05 17:00)
DX: A41.9 Sepsis, unspecified organism (principal); R65.21 Severe sepsis with septic shock; K63.1 Perforation of intestine (nontraumatic); K65.9 Peritonitis, unspecified; I48.92 Unspecified atrial flutter; J96.00 Acute respiratory failure, unspecified whether with hypoxia or hypercapnia; J98.11 Atelectasis; Z66 Do not resuscitate; Z51.5 Encounter for palliative care; E87.2 Acidosis; J44.9 Chronic obstructive pulmonary disease, unspecified; I48.0 Paroxysmal atrial fibrillation; E83.42 Hypomagnesemia; Z87.891 Personal history of nicotine dependence; J45.909 Unspecified asthma, uncomplicated; I25.10 Atherosclerotic heart disease of native coronary artery without angina pectoris; I25.2 Old myocardial infarction; I10 Essential (primary) hypertension; I65.23 Occlusion and stenosis of bilateral carotid arteries; I27.2 Other secondary pulmonary hypertension; E78.00 Pure hypercholesterolemia, unspecified; E78.5 Hyperlipidemia, unspecified; M80.08XA Age-related osteoporosis with current pathological fracture, vertebra(e), initial encounter for fracture; M19.91 Primary osteoarthritis, unspecified site; Z86.73 Personal history of transient ischemic attack (TIA), and cerebral infarction without residual deficits; F41.9 Anxiety disorder, unspecified; Z95.1 Presence of aortocoronary bypass graft; Z87.01 Personal history of pneumonia (recurrent); D64.9 Anemia, unspecified; E87.6 Hypokalemia
CPT/HCPCS: 36415; 71010; 71250; 74176; 80048; 80053; 80162; 82805; 83605; 83735; 83880; 84100; 84132; 84484; 85007; 85025; 85027; 85610; 86850; 86900; 86901; 86920; 87040; 87081; 93005; 94002; 94003; 94640; 94660; 94760; 94799; 96361; 96365; 96367; 96375